=== PATIENT | female | born 1955 | race Caucasian/White ===

== ENCOUNTER 2016-11-09 13:55 | Emergency (ER) | payer MEDICARE, MEDICAID ==
--- NOTE | 2016-11-09 17:26 | RAD ---
INDICATION: Left facial numbness COMPARISON: None TECHNIQUE: Noncontrast axial source images were acquired from the skull base to the vertex. FINDINGS: Ventricles/sulci: The ventricles and cisterns are normal in size and configuration for age. Brain parenchyma: There is no focal parenchymal finding, evidence of intracranial mass, or intracranial mass effect. Intracranial hemorrhage:None. Extra-axial spaces: There are no abnormal extra axial fluid collections or evidence of extra-axial mass. Calvarium: There is no calvarial fracture or other calvarial abnormality. Scalp: There is no evidence of scalp or extracalvarial soft tissue abnormality. Paranasal sinuses/mastoid: The paranasal sinuses and mastoid air cells are clear. Other: None. IMPRESSION: No acute intracranial findings.
[2016-11-09 17:45] VITALS: BP 116/59
--- NOTE | 2016-11-09 18:07 | ED ---
Farhan Hendrix Billy, scribed for Mayo Julio MD on 11/09/16 at 1517 . Neurological HPI - HPI Summary HPI Summary: 61 year old female arrived to the ED complaining of left-sided facial numbness beginning three days ago. The numbness is intermittent and localized only on the left cheek. She also reports sore throat, rhinorrhea, nausea, and chronic tinnitus. Denies any difficulties with speech, vision, movement, ear pain, or chest pain. Denies PMHx of a stroke. She states that the last similar episode occurred 2.5 weeks ago, and the numbness again resolved spontaneously at that time. She has a PMHx of anxiety, COPD, asthma, tachycardia, and PFO heart. - History of Current Complaint Chief Complaint: EDGeneral Stated Complaint: FACIAL NUMBNESS Time Seen by Provider: 11/09/16 14:19 Hx Obtained From: Patient Onset/Duration: Gradual Onset, Started weeks ago - Started three weeks ago, resolved spontaneously. Happened again beginning three days ago. Timing: Intermittent Episodes Lasting: Onset Severity: Moderate Current Severity: Moderate Neurological Deficit Location: Facial Pain Intensity: 0 Character: Numbness/Tingling - left side of the face Aggravating: Nothing Alleviating: Nothing Associated Signs and Symptoms: Positive: Numbness - left face. Negative: Unsteady Gait, Visual Changes, Weakness, Pain, Impaired Speech, Chest Pain - Additional Pertinent History Primary Care Physician: [id number] - Allergy/Home Medications Allergies/Adverse Reactions: Allergies Allergy/AdvReac Type Severity Reaction Status Date / Time Latex Allergy Severe RASH, ITCHY Verified 11/09/16 14:08 Cefaclor [From Ceclor] Allergy Intermediate Swelling Verified 11/09/16 14:08 Codeine Allergy Intermediate Swelling Verified 11/09/16 14:08 Erythromycin Allergy Intermediate Swelling Verified 11/09/16 14:08 Hydrocodone [From Vicodin] Allergy Intermediate rash feels Verified 11/09/16 14: 08 funny Meperidine [From Demerol HCl] Allergy Intermediate Swelling Verified 11/09/16 14 :08 Morphine Allergy Intermediate Swelling Verified 11/09/16 14:08 Oxycodone Allergy Intermediate rash feels Verified 11/09/16 14:08 [From Oxycodone funny W/Acetaminophen] Paroxetine [From Paxil] Allergy Intermediate rash,face Verified 11/09/16 14:08 ,throat swelling Propranolol [From Inderal] Allergy Intermediate Swelling Verified 11/09/16 14:08 Tetracyclines Allergy Intermediate Swelling Verified 11/09/16 14:08 Acetaminophen Allergy TONGUE Verified 11/09/16 14:08 [From Darvocet-N] SWELLS Ibuprofen Allergy Difficulty Verified 11/09/16 14:08 Breathing Propoxyphene Allergy TONGUE Verified 11/09/16 14:08 [From Darvocet-N] SWELLS PMH/Surg Hx/FS Hx/Imm Hx Endocrine/Hematology History: Reports: Hx Anemia - TAKES 325 MG ASPIRIN DAILY Denies: Hx Diabetes, Hx Systemic Lupus Erythematosus Cardiovascular History: Reports: Hx Angina, 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 EF%50-55 Denies: Hx Aneurysm, Hx Congestive Heart Failure, Hx Deep Vein Thrombosis Respiratory History: Reports: Hx Asthma, Hx Chronic Obstructive Pulmonary Disease (COPD) Denies: Other Respiratory Problems/Disorders GI History: Reports: Hx Gall Bladder Disease, Hx Gastroesophageal Reflux Disease - ON MEDICATION FOR, Other GI Disorders - HIATAL HERNIA History: Denies: Hx Dialysis, Hx Renal Disease Musculoskeletal History: Reports: Hx Arthritis - HANDS Denies: Hx Rheumatoid Arthritis, Hx Osteoporosis Sensory History: Reports: Hx Contacts or Glasses, Hx Vision Problem Denies: Hx Hearing Aid Opthamlomology History: Reports: Hx Contacts or Glasses, Hx Vision Problem Neurological History: Reports: Hx Migraine Denies: Hx CVA, Hx Transient Ischemic Attacks (TIA), Other Neuro Impairments/ Disorders - HERNIATED DISC Psychiatric History: Reports: Hx Anxiety - ROUTINE AND PRN MEDICATION FOR, Hx Depression - PTSD- D/T CANCER- TAKES ATIVAN DAILY, Hx Post Traumatic Stress Disorder - Cancer History Cancer Type, Location and Year: breast/2011 Hx Chemotherapy: Yes Hx Radiation Therapy: Yes - Surgical History Surgery Procedure, Year, and Place: RIGHT LUMPECTOMY, TOBI 2012, HYSTERECTOMY 1991, POWERPORT LCW, Hx Anesthesia Reactions: Yes - SEVERE ANXIETY- WITH LUMPECTOMY AND PORT PLACEMENT AND SEVERE NAUSEA - Immunization History Date of Tetanus Vaccine: up to date Date of Influenza Vaccine: 2015 Infectious Disease History: No Infectious Disease History: Denies: Hx Clostridium Difficile, Hx Hepatitis, Hx of Known/Suspected MRSA, Hx Shingles, Hx Tuberculosis, Hx Known/Suspected VRE, Hx Known/Suspected VRSA, History Other Infectious Disease, Traveled Outside the [place] in Last 30 Days - Family History Known Family History: Positive: Cardiac Disease, Other - PE - Social History Alcohol Use: None Hx Substance Use: No Substance Use Type: Reports: None Hx Tobacco Use: Yes Smoking Status (MU): Former Smoker Type: Cigarettes Have You Smoked in the Last Year: Yes Review of Systems Negative: Blurred Vision Positive: Sore Throat, Nasal Discharge, Other - chronic tinnitus. Negative: Ear Ache Negative: Chest Pain Negative: Abdominal Pain Positive: Numbness. Negative: Headache, Weakness, Slurred Speech All Other Systems Reviewed And Are Negative: Yes Physical Exam Triage Information Reviewed: Yes Vital Signs On Initial Exam: Initial Vitals Temp Pulse Resp BP Pulse Ox 97.4 F 84 16 104/68 95 11/09/16 14:01 11/09/16 14:01 11/09/16 14:01 11/09/16 14:01 11/09/16 14:01 Vital Signs Reviewed: Yes Appearance: Positive: Well-Appearing, No Pain Distress Skin: Positive: Warm, Skin Color Reflects Adequate Perfusion, Dry Head/Face: Negative: Normal Head/Face Inspection - left facial numbness, everything else equal and normal Eyes: Positive: EOMI, ROSEANNA ENT: Positive: Normal ENT inspection Neck: Positive: Supple, Nontender Respiratory/Lung Sounds: Positive: Clear to Auscultation, Breath Sounds Present Cardiovascular: Positive: RRR Abdomen Description: Positive: Nontender, Soft Bowel Sounds: Positive: Present Musculoskeletal: Positive: Strength/ROM Intact Neurological: Positive: Alert, Oriented to Person Place, Time, Facial Symmetry, Other - Left sided facial numbness. Otherwise, neurologically intact.. Negative : Facial Droop, Slurred Speech Psychiatric: Positive: Normal - [place] Coma Scale Coma Scale Total: 15 Diagnostics - Vital Signs Vital Signs Temp Pulse Resp BP Pulse Ox 11/09/16 14:17 85 15 95 11/09/16 14:16 117/60 11/09/16 14:01 97.4 F 84 16 104/68 95 - Laboratory Lab Statement: Any lab studies that have been ordered have been reviewed, and results considered in the medical decision making process. - CT Head CT CT Interpretation Completed By: Radiologist - IMPRESSION: No acute intracranial findings. Re-Evaluation - Re-Evaluation First Eval Re-Evaluation Time: 17:37 Comment: CT brain imaing results reviewed. Discussed plan for discharge and and follow-up MRI. Patient is agreeable with this plan. Course/Dx - Course Assessment/Plan: PARESTHESIA IMPROVED IN ED. NO WEAKNESS ON EXAM. DISCUSSED WITH DR MAHMOOD. HE RECOMMENDS MRI BRAIN WITH AND WITHOUT AN OUT PATIENT AND OFFERED TO SEE PATIENT IN ED. PATIENT WISHES TO GO HOME NOW. DISCUSSED WITH PATIENT. DISCHARGE HOME STABLE. - Diagnoses Provider Diagnoses: Facial paresthesia - Physician Notifications Discussed Care of Patient With: 17:32 - spoke with Dr. Mahmood (neurologist). Indicated that patient will require MRI with and without contrast. Discharge - Discharge Plan Condition: Stable Disposition: HOME Patient Education Materials: Paresthesia (ED) Referrals: Johan Shukla MD [Primary Care Provider] - Additional Instructions: FOLLOW UP WITH YOUR DOCTOR. DR MAHMOOD, THE NEUROLOGIST, RECOMMENDS A BRAIN MRI WITH AND WITHOUT CONTRAST FOR FURTHER EVALUATION OF YOUR INTERMITTENT LEFT FACE NUMBNESS. RETURN TO THE EMERGENCY DEPARTMENT FOR ANY WORSENING OF YOUR CONDITION; WEAKNESS , NUMBNESS, DIFFICULTY WITH SPEECH, STROKE SYMPTOMS OR QUESTIONS OR CONCERNS. The documentation as recorded by the Farhan mcclelland Billy accurately reflects the service I personally performed and the decisions made by me, Mayo Julio MD.
== END 2016-11-09 17:45 | disposition home or self-care (01) ==
LOC: ED 13:55
DX: R20.9 Unspecified disturbances of skin sensation (principal); J02.9 Acute pharyngitis, unspecified; J34.89 Other specified disorders of nose and nasal sinuses
CPT/HCPCS: 70450; 99282

== ENCOUNTER → 2017-01-06 06:45 | Emergency (ER) | payer MEDICARE, MEDICAID ==
[~2017-01-06 06:45] MED LIST: NS 0.9% 1000 ML* 1,000 ML IV ONE; methylPREDNISolone SOD SUCC* 125 MG 2 ML VIAL IV ONE
[2017-01-06 06:53] VITALS: BP 117/66
--- NOTE | 2017-01-06 08:16 | RAD ---
Indication: Shortness of breath. 2 views of the chest including dual energy PA views demonstrate no mediastinal shift. Heart is of normal size and configuration. Lung niño are clear. IMPRESSION: Hyperinflated lung niño without evidence of active cardiopulmonary disease.
[2017-01-06 08:28] LABS: Hematocrit 42 % (35-47); Hemoglobin 13.7 g/dl (12.0-16.0); Mean Corpuscular HGB Conc 33 g/dl (31-36); Mean Corpuscular Hemoglobin 31 pg (27-31); Mean Corpuscular Volume 94 fL (80-97); Mean Platelet Volume 10 um3 (7.4-10.4); Red Blood Count 4.41 10^6/ul (4.0-5.4); Red Cell Distribution Width 14 % (10.5-15)
[2017-01-06 08:39] LABS: Albumin 4.1 g/dL (3.2-5.2); BUN/Creatinine Ratio 14.9 (8-20); Calcium 9.3 mg/dL (8.6-10.3); EGFR African American 85.7 (>60); EGFR Non-African American 66.6 (>60); Globulin 1.1 g/dL (2-4); Total Bilirubin 0.4 mg/dL (0.2-1.0); Total Protein 5.2 g/dL (6.4-8.9)
--- NOTE | 2017-01-06 10:02 | ED ---
I, DoctorYen, scribed for Sharad Stock MD on 01/06/17 at 0715 . Shortness of Breath - HPI Summary HPI Summary: 61 year old female [facility] [facility] [place]B and cough for 2 days. She reports chest /throat tightness, and feeling like "she can't get anything to come up" when coughing. Pt uses nebulizer and 2 inhalers regularly; used both today twice (at 0200 and 0600) but her symptoms were unchanged. Additionally, she reports a fever of 101 yesterday that has since resolved. She has been using CPAP for sleep apnea, and has a PMHx of asthma and COPD. She has taken prednisone and abx in the past as prescribed by Dr. Branham (PCP). - History of Current Complaint Chief Complaint: EDShortnessOfBreath Time Seen by Provider: 01/06/17 07:07 Hx Obtained From: Patient Onset/Duration: Gradual Onset Current Severity: Moderate Alleviating Factors: Nothing - symptoms unchanged after using nebulizer and inhaler Associated Signs & Symptoms: Cough (Nonproductive), Chest Pain w/Cough - chest/ throat "tightness", Fever - fever yesterday, now resolved - Allergy/Home Medications Allergies/Adverse Reactions: Allergies Allergy/AdvReac Type Severity Reaction Status Date / Time Latex Allergy Severe RASH, ITCHY Verified 01/06/17 06:53 Cefaclor [From Ceclor] Allergy Intermediate Swelling Verified 01/06/17 06:53 Codeine Allergy Intermediate Swelling Verified 01/06/17 06:53 Erythromycin Allergy Intermediate Swelling Verified 01/06/17 06:53 Hydrocodone [From Vicodin] Allergy Intermediate rash feels Verified 01/06/17 06: 53 funny Meperidine [From Demerol HCl] Allergy Intermediate Swelling Verified 01/06/17 06 :53 Morphine Allergy Intermediate Swelling Verified 01/06/17 06:53 Oxycodone Allergy Intermediate rash feels Verified 01/06/17 06:53 [From Oxycodone funny W/Acetaminophen] Paroxetine [From Paxil] Allergy Intermediate rash,face Verified 01/06/17 06:53 ,throat swelling Propranolol [From Inderal] Allergy Intermediate Swelling Verified 01/06/17 06:53 Tetracyclines Allergy Intermediate Swelling Verified 01/06/17 06:53 Acetaminophen Allergy TONGUE Verified 01/06/17 06:53 [From Darvocet-N] SWELLS Ibuprofen Allergy Difficulty Verified 01/06/17 06:53 Breathing Propoxyphene Allergy TONGUE Verified 01/06/17 06:53 [From Darvocet-N] SWELLS Sulfate Allergy Shortness Verified 01/06/17 06:53 of Breath PMH/Surg Hx/FS Hx/Imm Hx Endocrine/Hematology History: Reports: Hx Anemia - TAKES 325 MG ASPIRIN DAILY Denies: Hx Diabetes, Hx Systemic Lupus Erythematosus Cardiovascular History: Reports: Hx Angina, 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 EF%50-55 Denies: Hx Aneurysm, Hx Congestive Heart Failure, Hx Deep Vein Thrombosis Respiratory History: Reports: Hx Asthma, Hx Chronic Obstructive Pulmonary Disease (COPD) Denies: Other Respiratory Problems/Disorders GI History: Reports: Hx Gall Bladder Disease, Hx Gastroesophageal Reflux Disease - ON MEDICATION FOR, Other GI Disorders - HIATAL HERNIA History: Denies: Hx Dialysis, Hx Renal Disease Musculoskeletal History: Reports: Hx Arthritis - HANDS Denies: Hx Rheumatoid Arthritis, Hx Osteoporosis Sensory History: Reports: Hx Contacts or Glasses, Hx Vision Problem Denies: Hx Hearing Aid Opthamlomology History: Reports: Hx Contacts or Glasses, Hx Vision Problem Neurological History: Reports: Hx Migraine Denies: Hx CVA, Hx Transient Ischemic Attacks (TIA), Other Neuro Impairments/ Disorders - HERNIATED DISC Psychiatric History: Reports: Hx Anxiety - ROUTINE AND PRN MEDICATION FOR, Hx Depression - PTSD- D/T CANCER- TAKES ATIVAN DAILY, Hx Post Traumatic Stress Disorder - Cancer History Cancer Type, Location and Year: breast/2010 Hx Chemotherapy: Yes Hx Radiation Therapy: Yes - Surgical History Surgery Procedure, Year, and Place: RIGHT LUMPECTOMY, TOBI 2012, HYSTERECTOMY 1991, POWERPORT LCW, Hx Anesthesia Reactions: Yes - SEVERE ANXIETY- WITH LUMPECTOMY AND PORT PLACEMENT AND SEVERE NAUSEA - Immunization History Date of Tetanus Vaccine: up to date Date of Influenza Vaccine: 2015 Infectious Disease History: No Infectious Disease History: Denies: Hx Clostridium Difficile, Hx Hepatitis, Hx of Known/Suspected MRSA, Hx Shingles, Hx Tuberculosis, Hx Known/Suspected VRE, Hx Known/Suspected VRSA, History Other Infectious Disease, Traveled Outside the [place] in Last 30 Days - Family History Known Family History: Positive: Cardiac Disease, Other - PE - Social History Alcohol Use: None Hx Substance Use: No Substance Use Type: Reports: None Hx Tobacco Use: Yes Smoking Status (MU): Former Smoker Type: Cigarettes Have You Smoked in the Last Year: Yes Review of Systems Positive: Fever - fever of 101 yesterday, since resolved Positive: Other - throat "tightness" Positive: Chest Pain - chest "tightness" Positive: Shortness Of Breath, Cough All Other Systems Reviewed And Are Negative: Yes Physical Exam Triage Information Reviewed: Yes Vital Signs On Initial Exam: Initial Vitals Temp Pulse Resp BP Pulse Ox 98.3 F 77 20 117/66 96 01/06/17 06:48 01/06/17 06:48 01/06/17 06:48 01/06/17 06:48 01/06/17 06:48 Vital Signs Reviewed: Yes Appearance: Positive: Well-Appearing, No Pain Distress Skin: Positive: Warm, Skin Color Reflects Adequate Perfusion, Dry Head/Face: Positive: Normal Head/Face Inspection Eyes: Positive: Normal ENT: Positive: Normal ENT inspection Neck: Positive: Supple, Nontender Respiratory/Lung Sounds: Positive: Breath Sounds Present, Other - crackles on the right base Cardiovascular: Positive: RRR Abdomen Description: Positive: Nontender, Soft Bowel Sounds: Positive: Present Neurological: Positive: Normal Psychiatric: Positive: Normal, Affect/Mood Appropriate Diagnostics - Vital Signs Vital Signs Temp Pulse Resp BP Pulse Ox 01/06/17 06:48 98.3 F 77 20 117/66 96 - Laboratory Lab Results: Lab Results 01/06/17 01/06/17 01/06/17 Range/Units 08:00 08:00 08:00 WBC 8.0 (3.5-10.8) 10^3/ul RBC 4.41 (4.0-5.4) 10^6/ul Hgb 13.7 (12.0-16.0) g/dl Hct 42 (35-47) % MCV 94 (80-97) fL MCH 31 (27-31) pg MCHC 33 (31-36) g/dl RDW 14 (10.5-15) % Plt Count 203 (150-450) 10^3/ul MPV 10 (7.4-10.4) um3 Neut % (Auto) 75.4 (38-83) % Lymph % (Auto) 13.8 L (25-47) % [place] % (Auto) 7.1 (1-9) % Eos % (Auto) 2.5 (0-6) % Baso % (Auto) 1.2 (0-2) % Absolute Neuts (auto) 6.1 (1.5-7.7) 10^3/ul Absolute Lymphs (auto) 1.1 (1.0-4.8) 10^3/ul Absolute Monos (auto) 0.6 (0-0.8) 10^3/ul Absolute Eos (auto) 0.2 (0-0.6) 10^3/ul Absolute Basos (auto) 0.1 (0-0.2) 10^3/ul Absolute Nucleated RBC 0.01 10^3/ul Nucleated RBC % 0.1 Sodium 137 (133-145) mmol/L Potassium 4.0 (3.5-5.0) mmol/L Chloride 103 (101-111) mmol/L Carbon Dioxide 27 (22-32) mmol/L Anion Gap 7 (2-11) mmol/L BUN 13 (6-24) mg/dL Creatinine 0.87 (0.51-0.95) mg/dL Est GFR ( Amer) 85.7 (>60) Est GFR (Non-Af Amer) 66.6 (>60) BUN/Creatinine Ratio 14.9 (8-20) Glucose 104 H (70-100) mg/dL Lactic Acid 1.5 (0.5-2.0) mmol/L Calcium 9.3 (8.6-10.3) mg/dL Total Bilirubin 0.40 (0.2-1.0) mg/dL AST 43 H (13-39) U/L ALT 42 (7-52) U/L Alkaline Phosphatase 84 (34-104) U/L Troponin I 0.00 (<0.04) ng/mL B-Natriuretic Peptide ( - 100) pg/mL Total Protein 5.2 L (6.4-8.9) g/dL Albumin 4.1 (3.2-5.2) g/dL Globulin 1.1 L (2-4) g/dL Albumin/Globulin Ratio 3.7 H (1-3) /24/17 Range/Units 08:00 WBC (3.5-10.8) 10^3/ul RBC (4.0-5.4) 10^6/ul Hgb (12.0-16.0) g/dl Hct (35-47) % MCV (80-97) fL MCH (27-31) pg MCHC (31-36) g/dl RDW (10.5-15) % Plt Count (150-450) 10^3/ul MPV (7.4-10.4) um3 Neut % (Auto) (38-83) % Lymph % (Auto) (25-47) % [place] % (Auto) (1-9) % Eos % (Auto) (0-6) % Baso % (Auto) (0-2) % Absolute Neuts (auto) (1.5-7.7) 10^3/ul Absolute Lymphs (auto) (1.0-4.8) 10^3/ul Absolute Monos (auto) (0-0.8) 10^3/ul Absolute Eos (auto) (0-0.6) 10^3/ul Absolute Basos (auto) (0-0.2) 10^3/ul Absolute Nucleated RBC 10^3/ul Nucleated RBC % Sodium (133-145) mmol/L Potassium (3.5-5.0) mmol/L Chloride (101-111) mmol/L Carbon Dioxide (22-32) mmol/L Anion Gap (2-11) mmol/L BUN (6-24) mg/dL Creatinine (0.51-0.95) mg/dL Est GFR ( Amer) (>60) Est GFR (Non-Af Amer) (>60) BUN/Creatinine Ratio (8-20) Glucose (70-100) mg/dL Lactic Acid (0.5-2.0) mmol/L Calcium (8.6-10.3) mg/dL Total Bilirubin (0.2-1.0) mg/dL AST (13-39) U/L ALT (7-52) U/L Alkaline Phosphatase (34-104) U/L Troponin I (<0.04) ng/mL B-Natriuretic Peptide 30 ( - 100) pg/mL Total Protein (6.4-8.9) g/dL Albumin (3.2-5.2) g/dL Globulin (2-4) g/dL Albumin/Globulin Ratio (1-3) Result Diagrams: 01/06/17 08:00 01/06/17 08:00 Lab Statement: Any lab studies that have been ordered have been reviewed, and results considered in the medical decision making process. - Radiology Chest X-Ray Radiology Interpretation Completed By: Radiologist - IMPRESSION: Hyperinflated lung niño without evidence of active cardiopulmonary disease. Re-Evaluation - Re-Evaluation First Eval Re-Evaluation Time: 09:24 Comment: Discussed lab results and plan to discharge pt. She was agreeable. Course/Dx - Course Course Of Treatment: Ms. Cifuentes reported a fever and cough aggravating her underlying respiratory problems and forcing her to use her medications frequently. She was stable here without pneumonia and I will treat her for ABECB. - Diagnoses Provider Diagnoses: Bronchitis, COPD (chronic obstructive pulmonary disease) Discharge - Discharge Plan Condition: Stable Disposition: HOME Prescriptions: Sulfamethox/Trimethoprim DS* [Bactrim DS 800/160 TAB*] 1 tab PO BID #20 tab predniSONE TAB* [Deltasone TAB*] 60 mg PO DAILY #5 tab Patient Education Materials: Bronchospasm (ED), Acute Bronchitis (ED) Referrals: Johan Shukla MD [Primary Care Provider] - The documentation as recorded by the Doctor mcclelland Tahera accurately reflects the service I personally performed and the decisions made by me, Sharad Stock MD.
== END | disposition home or self-care (01) ==
LOC: ED 06:45
DX: J40 Bronchitis, not specified as acute or chronic (principal); J44.9 Chronic obstructive pulmonary disease, unspecified; R06.02 Shortness of breath; R05 Cough; R07.9 Chest pain, unspecified
CPT/HCPCS: 36415; 71020; 80053; 83605; 83880; 84484; 85025; 87040; 96374; 99284; J2930

== ENCOUNTER 2017-01-11 09:12 | Observation (INO) | payer MEDICARE, MEDICAID ==
[2017-01-11] MEDS ORDERED: Albuterol/Ipratropium NEB.SOL* Albuterol 2.5 MG/Ipratropium 0.5 MG 3 ML INH ONE (09:42)
[2017-01-11] MEDS ORDERED: methylPREDNISolone SOD SUCC* 125 MG 2 ML VIAL IV ONE (09:42)
[2017-01-11] MEDS: NS 0.9% 1000 ML* 2,000 ML IV ONE (09:51)
[2017-01-11 10:00] LABS: Hematocrit 43 % (35-47); Hemoglobin 14.3 g/dl (12.0-16.0); Mean Corpuscular HGB Conc 33 g/dl (31-36); Mean Corpuscular Hemoglobin 31 pg (27-31); Mean Corpuscular Volume 94 fL (80-97); Mean Platelet Volume 10 um3 (7.4-10.4); Red Blood Count 4.62 10^6/ul (4.0-5.4); Red Cell Distribution Width 14 % (10.5-15); White Blood Count 8.9 10^3/ul (3.5-10.8)
[2017-01-11] MEDS ORDERED: LORazepam INJ* 2 MG/ML 1 ML VIAL IV PUSH ONE (10:06)
[2017-01-11] MEDS ORDERED: LORazepam INJ* 2 MG/ML 1 ML VIAL ONE (10:08)
[2017-01-11 10:12] LABS: BUN/Creatinine Ratio 13.7 (8-20); C Reactive Protein 16.12 mg/L (< 5.00); Calcium 9.2 mg/dL (8.6-10.3); EGFR African American 71.3 (>60); EGFR Non-African American 55.5 (>60); Globulin 3.4 g/dL (2-4); Potassium 4.1 mmol/L (3.5-5.0); Total Bilirubin 0.3 mg/dL (0.2-1.0); Total Protein 7.4 g/dL (6.4-8.9)
--- NOTE | 2017-01-11 10:40 | RAD ---
INDICATION: Shortness of breath, cough. COPD. Question pneumonia. COMPARISON: January 06, 2017 TECHNIQUE: Dual energy PA and routine lateral views of the chest were obtained. REPORT: Multiple healed RIGHT rib fractures noted. Elevated lung volumes and both mild coarsening and rarefaction of the interstitial markings. No alveolar consolidation, focal pulmonary lesion, pleural effusion, pneumothorax. The heart, pulmonary vasculature, and mediastinal contours are unremarkable. IMPRESSION: Stigmata of chronic obstructive pulmonary disease. No acute cardiopulmonary process evident.
[2017-01-11] MEDS ORDERED: NS 0.9% 1000 ML* 1,000 ML IV ONE (12:26)
[2017-01-11] MEDS ORDERED: Benzonatate CAP* 100 MG PO PRN (13:24)
[2017-01-11] MEDS: guaiFENesin LIQ* 100 MG/5 ML UDC PO PRN (14:25)
[2017-01-11] MEDS: Heparin VIAL(*) 5000 UNITS/ML VIAL (FIVE THOUSAND) SUBCUT SCH ×2 (14:26→21:22)
[2017-01-11] MEDS: ALPRAZolam TAB* 0.5 MG PO PRN ×2 (14:39→20:13)
[2017-01-11] MEDS: Albuterol/Ipratropium NEB.SOL* Albuterol 2.5 MG/Ipratropium 0.5 MG 3 ML INH PRN ×2 (15:39→20:12)
--- NOTE | 2017-01-11 15:41 | HP ---
HOSPITAL MEDICINE HISTORY AND PHYSICAL: DATE OF ADMISSION: 01/11/17 PRIMARY CARE PHYSICIAN: Dr. Shukla. ATTENDING PHYSICIAN: Dr. Faisal Rubio *(dictation provided by Benita Mariee NP.). CHIEF COMPLAINT: Shortness of breath. HISTORY OF PRESENT ILLNESS: Ms. Renetta Cifuentes is a 61-year-old female with a past medical history of COPD, obesity, and hypertension who presents today to the hospital with concern for shortness of breath. Ms. Cifuentes states she first started feeling unwell early this week. She reports feeling more short of breath and wheezy with increased cough. She came to the hospital on at which time she was thought to perhaps have bronchitis, so was discharged on Bactrim and 2- day course of prednisone. The patient states that she really did not feel any better with this and over the past 24 hours or so, she has become worse with increased shortness of breath, wheezing, and cough. She also reports having fever of 102 last night. She denies any other complaints. She has had no nausea, no vomiting, no abdominal pain. She has had a poor appetite , but then eating okay. She has had no problems with her bowel or bladder. She denies chest pain. In the emergency room, Ms. Cifuentes was wheezy on admission and was short of breath clinically, although she was not hypoxic with an O2 saturation of 98% on room air. Chest x-ray showed COPD only. Her labs are unremarkable. She has no leukocytosis, no fever. Her D-dimer is less than 200. Her CRP is 16.12. PAST MEDICAL HISTORY: 1. COPD. 2. Obesity. 3. History of TIA. 4. SVT. 5. PFO. 6. History of breast cancer, status post lumpectomy. 7. Hiatal hernia. 8. Hypertension. 9. Hysterectomy. 10. Laparoscopic cholecystectomy. MEDICATIONS: 1. Alprazolam 1 mg p.o. q.i.d. 2. Albuterol inhaler p.r.n. 3. Albuterol nebulizer p.r.n. 4. Aspirin 325 mg p.o. q.a.m. 5. Flecainide 100 mg p.o. b.i.d. 6. Fluticasone/salmeterol 250/50 one puff inhaled b.i.d. 7. Metoprolol succinate 25 mg p.o. daily. 8. Bactrim 1 tab p.o. b.i.d. ALLERGIES: LATEX, CEFACLOR, CODEINE, ERYTHROMYCIN, HYDROCODONE, MEPERIDINE, MORPHINE, OXYCODONE, PAROXETINE, PROPRANOLOL, TETRACYCLINE, TYLENOL, IBUPROFEN, PROPOXYPHENE SULFATE. FAMILY HISTORY: Mother 3 years ago from leukemia. Father had a history of UT at 36. Sister has CREST syndrome. SOCIAL HISTORY: The patient states she quit smoking 11 days ago, but she has been a long-term smoker since she was age 18. Denies any report of alcohol or drug use. She lives alone. States that her sister would be the healthcare proxy. REVIEW OF SYSTEMS: A 14-point review of systems was completed with Ms. Cifuentes and all those not mentioned above were negative. PHYSICAL EXAMINATION GENERAL: Ms. Cifuentes is sitting up in the bed. She is in no acute distress. VITAL SIGNS: Temperature 98.4, pulse rate 102, respiratory rate 19, O2 saturation 98% on room air, blood pressure 94/77. LUNGS: Some minimal wheezing in the bases bilaterally, but good aeration with no accessory muscle use. HEART: S1, S2. No murmur, rub, or gallop and regular. ABDOMEN: Soft, nontender with bowel sounds positive x4. EXTREMITIES: No cyanosis or edema. NEUROLOGIC: She is alert and oriented x3. She moves all extremities equally. There is no facial asymmetry or focal weakness. Extraocular movements are intact. SKIN: Intact. LABORATORY DATA AND DIAGNOSTIC STUDIES: Sodium 132, potassium 4.1, chloride 101, serum bicarbonate 23, BUN 14, creatinine 1.02, glucose 136, lactic acid 2.6. Troponin 0.010. CRP 16.12. WBC 8.9, hemoglobin 14.3, hematocrit 43, platelet count 285. Chest x-ray shows no acute process. EKG shows sinus rhythm and a heart rate of 78 with no evidence of ischemia. ASSESSMENT: Ms. Renetta Cifuentes is a 61-year-old female with a past medical history of chronic obstructive pulmonary disease and long-term smoking as well as hypertension and obesity who presents today to the hospital with concern for shortness of breath. Our plans are for inpatient admission for the following with expected length of stay to be greater than 2 days as noted: 1. Chronic obstructive pulmonary disease: The patient subjectively feels quite poorly although she is not hypoxic and had no evidence that she has significant CO2 retention at this time. She had reported a fever x1 at home, but she shows no clear evidence of infection here today. I plan not to treat with antibiotics. Her chest x-ray is clear. She has no leukocytosis. She is not febrile at this point. Plan to treat with prednisone and DuoNeb nebulizers. Encourage incentive spirometry. Patient can have cough medicine as needed. 2. History of supraventricular tachycardia: Continue flecainide. 3. Anxiety: Continue alprazolam. 4. Hypertension: Continue metoprolol. 5. DVT prophylaxis with heparin subcu. 6. Disposition to medical floor. TIME SPENT: Approximately 60 minutes was spent on the admission of this patient , more than half time spent with the patient at the bedside reviewing the events leading up to this hospitalization, performing the physical examination, and reviewing my plan of care. BENITA MARIEE NP CC: Dr. Shukla* [id number]/CPS #: [id number] MTDD
--- NOTE | 2017-01-11 18:06 | ED ---
Alicia Hendrix SooYoung, scribed for Georges Wilson MD on 01/11/17 at 0923 . Shortness of Breath - HPI Summary HPI Summary: A 61 y/o F who was seen in ED on 01/06/2017 with dx: bronchitis and COPD, home with Prednisone and Bactrim, presents to ED with c/o dyspnea and SOB. Associated sx: lightheadedness, dizziness, chills, unproductive cough, bilateral pedal edema without pain, nausea, GRACE, rhinorrhea, fever of 102 last night, since resolved. She last used her nebulizer at 0400 to no relief. Pt took OTC IBP at 0300. Recent smoking cessation 10 days ago. PMHx: mild COPD, sleep apnea, is not on home oxygen, HTN, breast CA remission. Denies MD. Spoke to PCP on 01/09/2017 who recommended going to ED if not improved by today. - History of Current Complaint Chief Complaint: EDShortnessOfBreath Time Seen by Provider: 01/11/17 09:22 Hx Obtained From: Patient, Medical Records Onset/Duration: Lasting Days, Still Present Timing: Constant Current Severity: Moderate Dyspnea At: Rest Associated Signs & Symptoms: Cough (Nonproductive), Fever, Chills, Dizzy, Edema - Allergy/Home Medications Allergies/Adverse Reactions: Allergies Allergy/AdvReac Type Severity Reaction Status Date / Time Latex Allergy Severe RASH, ITCHY Verified 01/11/17 09:35 Cefaclor [From Ceclor] Allergy Intermediate Swelling Verified 01/11/17 09:35 Codeine Allergy Intermediate Swelling Verified 01/11/17 09:35 Erythromycin Allergy Intermediate Swelling Verified 01/11/17 09:35 Hydrocodone [From Vicodin] Allergy Intermediate rash feels Verified 01/11/17 09: 35 funny Meperidine [From Demerol HCl] Allergy Intermediate Swelling Verified 01/11/17 09 :35 Morphine Allergy Intermediate Swelling Verified 01/11/17 09:35 Oxycodone Allergy Intermediate rash feels Verified 01/11/17 09:35 [From Oxycodone funny W/Acetaminophen] Paroxetine [From Paxil] Allergy Intermediate rash,face Verified 01/11/17 09:35 ,throat swelling Propranolol [From Inderal] Allergy Intermediate Swelling Verified 01/11/17 09:35 Tetracyclines Allergy Intermediate Swelling Verified 01/11/17 09:35 Acetaminophen Allergy TONGUE Verified 01/11/17 09:35 [From Darvocet-N] SWELLS Ibuprofen Allergy Difficulty Verified 01/11/17 09:35 Breathing Propoxyphene Allergy TONGUE Verified 01/11/17 09:35 [From Darvocet-N] SWELLS Sulfate Allergy Shortness Verified 01/11/17 09:35 of Breath Home Medications: Home Medications Fluticasone-Salmeterol 250-50* [Advair Diskus 250-50*] 1 puff INH BID 01/11/17 [ History Confirmed 01/11/17] PMH/Surg Hx/FS Hx/Imm Hx Previously Healthy: No Endocrine/Hematology History: Reports: Hx Anemia - TAKES 325 MG ASPIRIN DAILY Denies: Hx Diabetes, Hx Systemic Lupus Erythematosus Cardiovascular History: Reports: Hx Angina, 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 EF%50-55 Denies: Hx Aneurysm, Hx Congestive Heart Failure, Hx Deep Vein Thrombosis Respiratory History: Reports: Hx Asthma, Hx Chronic Obstructive Pulmonary Disease (COPD) Denies: Other Respiratory Problems/Disorders GI History: Reports: Hx Gall Bladder Disease, Hx Gastroesophageal Reflux Disease - ON MEDICATION FOR, Other GI Disorders - HIATAL HERNIA History: Denies: Hx Dialysis, Hx Renal Disease Musculoskeletal History: Reports: Hx Arthritis - HANDS Denies: Hx Rheumatoid Arthritis, Hx Osteoporosis Sensory History: Reports: Hx Contacts or Glasses, Hx Vision Problem Denies: Hx Hearing Aid Opthamlomology History: Reports: Hx Contacts or Glasses, Hx Vision Problem Neurological History: Reports: Hx Migraine Denies: Hx CVA, Hx Transient Ischemic Attacks (TIA), Other Neuro Impairments/ Disorders - HERNIATED DISC Psychiatric History: Reports: Hx Anxiety - ROUTINE AND PRN MEDICATION FOR, Hx Depression - PTSD- D/T CANCER- TAKES ATIVAN DAILY, Hx Post Traumatic Stress Disorder - Cancer History Cancer Type, Location and Year: breast/2010 Hx Chemotherapy: Yes Hx Radiation Therapy: Yes - Surgical History Surgery Procedure, Year, and Place: RIGHT LUMPECTOMY, TOBI 2012, HYSTERECTOMY 1991, POWERPORT LCW, Hx Anesthesia Reactions: Yes - SEVERE ANXIETY- WITH LUMPECTOMY AND PORT PLACEMENT AND SEVERE NAUSEA - Immunization History Date of Tetanus Vaccine: up to date Date of Influenza Vaccine: 2016 Infectious Disease History: Denies: Hx Clostridium Difficile, Hx Hepatitis, Hx of Known/Suspected MRSA, Hx Shingles, Hx Tuberculosis, Hx Known/Suspected VRE, Hx Known/Suspected VRSA, History Other Infectious Disease, Traveled Outside the [place] in Last 30 Days - Family History Known Family History: Positive: Cardiac Disease, Other - PE - Social History Occupation: Retired Lives: Alone Alcohol Use: None Hx Substance Use: No Substance Use Type: Reports: None Hx Tobacco Use: Yes Smoking Status (MU): Former Smoker Type: Cigarettes Have You Smoked in the Last Year: Yes Review of Systems Positive: Fever, Chills Positive: Drainage - rhinorrhea Positive: Shortness Of Breath, Cough - unproductive, Other - pos: dyspnea Positive: Nausea Positive: Edema - bilat pedal Neurological: Other - pos: lightheadedness, dizziness Positive: Headache Positive: Anxious All Other Systems Reviewed And Are Negative: Yes Physical Exam - Summary Physical Exam Summary: The patient is well-nourished in and no acute pain. MILD RESPIRATORY DISTRESS. The skin is warm and dry and skin color reflects adequate perfusion. HEENT: The head is normocephalic and atraumatic. The pupils are equal and reactive. The conjunctivae are clear and without drainage. Nares are patent and without drainage. Mouth reveals moist mucous membranes and the throat is without erythema and exudate. The external ears are intact. The ear canals are patent and without drainage. The tympanic membranes are intact. L MAXILLARY SINUS TENDERNESS. NOT HOARSE. Neck is supple with full range of motion and non-tender. There are no carotid bruits. There is no neck vein distension. Respiratory: Chest is non-tender. WHEEZING AND RHONCHI THROUGHOUT. DIMINISHED BREATH SOUNDS THROUGHOUT. NEG RALES. Cardiovascular: Hear is regular rate and rhythm. There is no murmur or rub auscultated. There is no peripheral edema and pulses are symmetrical and equal. Abdomen: The abdomen is soft and non-tender. Musculoskeletal: There is no back pain noted. Extremities are non-tender with full range of motion. There is good capillary refill. MILD PERIPHERAL EDEMA. Neurological: Patient is alert and oriented to person, place and time. The patient has symmetrical motor strength in all four extremities. Cranial nerves are grossly intact. Deep tendon reflexes are symmetrical and equal in all four extremities. Psychiatric: MILD ANXIETY. Triage Information Reviewed: Yes Vital Signs On Initial Exam: Initial Vitals Temp Pulse Resp BP Pulse Ox 97.1 F 88 28 144/79 98 01/11/17 09:13 01/11/17 09:13 01/11/17 09:13 01/11/17 09:13 01/11/17 09:13 Vital Signs Reviewed: Yes Diagnostics - Vital Signs Vital Signs Temp Pulse Resp BP Pulse Ox 01/11/17 09:13 97.1 F 88 28 144/79 98 - Laboratory Lab Results: Lab Results 01/11/17 01/11/17 01/11/17 Range/Units 09:35 09:35 09:35 WBC 8.9 (3.5-10.8) 10^3/ul RBC 4.62 (4.0-5.4) 10^6/ul Hgb 14.3 (12.0-16.0) g/dl Hct 43 (35-47) % MCV 94 (80-97) fL MCH 31 (27-31) pg MCHC 33 (31-36) g/dl RDW 14 (10.5-15) % Plt Count 285 (150-450) 10^3/ul MPV 10 (7.4-10.4) um3 Neut % (Auto) 67.8 (38-83) % Lymph % (Auto) 22.1 L (25-47) % Garland % (Auto) 6.2 (1-9) % Eos % (Auto) 2.8 (0-6) % Baso % (Auto) 1.1 (0-2) % Absolute Neuts (auto) 6.0 (1.5-7.7) 10^3/ul Absolute Lymphs (auto) 2.0 (1.0-4.8) 10^3/ul Absolute Monos (auto) 0.5 (0-0.8) 10^3/ul Absolute Eos (auto) 0.2 (0-0.6) 10^3/ul Absolute Basos (auto) 0.1 (0-0.2) 10^3/ul Absolute Nucleated RBC 0 10^3/ul Nucleated RBC % 0 D-Dimer, Quantitative (Less Than 230) ng/mL Sodium 132 L (133-145) mmol/L Potassium 4.1 (3.5-5.0) mmol/L Chloride 101 (101-111) mmol/L Carbon Dioxide 23 (22-32) mmol/L Anion Gap 8 (2-11) mmol/L BUN 14 (6-24) mg/dL Creatinine 1.02 H (0.51-0.95) mg/dL Est GFR ( Amer) 71.3 (>60) Est GFR (Non-Af Amer) 55.5 (>60) BUN/Creatinine Ratio 13.7 (8-20) Glucose 136 H (70-100) mg/dL Lactic Acid 2.6 H* (0.5-2.0) mmol/L Calcium 9.2 (8.6-10.3) mg/dL Total Bilirubin 0.30 (0.2-1.0) mg/dL AST 22 (13-39) U/L ALT 31 (7-52) U/L Alkaline Phosphatase 80 (34-104) U/L Troponin I 0.00 (<0.04) ng/mL C-Reactive Protein 16.12 H (< 5.00) mg/L B-Natriuretic Peptide ( - 100) pg/mL Total Protein 7.4 (6.4-8.9) g/dL Albumin 4.0 (3.2-5.2) g/dL Globulin 3.4 D (2-4) g/dL Albumin/Globulin Ratio 1.2 (1-3) 01/11/17 01/11/17 Range/Units 09:35 09:35 WBC (3.5-10.8) 10^3/ul RBC (4.0-5.4) 10^6/ul Hgb (12.0-16.0) g/dl Hct (35-47) % MCV (80-97) fL MCH (27-31) pg MCHC (31-36) g/dl RDW (10.5-15) % Plt Count (150-450) 10^3/ul MPV (7.4-10.4) um3 Neut % (Auto) (38-83) % Lymph % (Auto) (25-47) % Garland % (Auto) (1-9) % Eos % (Auto) (0-6) % Baso % (Auto) (0-2) % Absolute Neuts (auto) (1.5-7.7) 10^3/ul Absolute Lymphs (auto) (1.0-4.8) 10^3/ul Absolute Monos (auto) (0-0.8) 10^3/ul Absolute Eos (auto) (0-0.6) 10^3/ul Absolute Basos (auto) (0-0.2) 10^3/ul Absolute Nucleated RBC 10^3/ul Nucleated RBC % D-Dimer, Quantitative < 200 (Less Than 230) ng/mL Sodium (133-145) mmol/L Potassium (3.5-5.0) mmol/L Chloride (101-111) mmol/L Carbon Dioxide (22-32) mmol/L Anion Gap (2-11) mmol/L BUN (6-24) mg/dL Creatinine (0.51-0.95) mg/dL Est GFR ( Amer) (>60) Est GFR (Non-Af Amer) (>60) BUN/Creatinine Ratio (8-20) Glucose (70-100) mg/dL Lactic Acid (0.5-2.0) mmol/L Calcium (8.6-10.3) mg/dL Total Bilirubin (0.2-1.0) mg/dL AST (13-39) U/L ALT (7-52) U/L Alkaline Phosphatase (34-104) U/L Troponin I (<0.04) ng/mL C-Reactive Protein (< 5.00) mg/L B-Natriuretic Peptide 21 ( - 100) pg/mL Total Protein (6.4-8.9) g/dL Albumin (3.2-5.2) g/dL Globulin (2-4) g/dL Albumin/Globulin Ratio (1-3) Result Diagrams: 01/11/17 09:35 01/11/17 09:35 Lab Statement: Any lab studies that have been ordered have been reviewed, and results considered in the medical decision making process. - Radiology CXR Xray Interpretation: Positive (See Comments) - IMPRESSION: Stigmata of COPD. No acute cardiopulmonary process evident. Radiology Interpretation Completed By: Radiologist - EKG 1 Cardiac Rate: NL EKG Rhythm: Sinus Rhythm EKG Interpretation: Nml axis, poor R wave progression, no STEMI Re-Evaluation - Re-Evaluation 1 Re-Evaluation Time: 11:12 Change: Improved - mildly Comment: Discussing UA and XR results. Still has increased wheezing. 2 Re-Evaluation Time: 12:23 Change: Improved Comment: HR is up, BP is a little soft. Will give more fluids. Pt has no complaints. Course/Dx - Course Course Of Treatment: Pt is 61 y/o F last seen in ED five days ago with dx: bronchitis, COPD; D/C with Prednisone and Bactrim. Presents today with c/o dyspnea, SOB and multiple associated sx, see HPI. Last nebulizer at 0400 to no relief. Took OTC IBP at 0300. Smoking cessation 10 days ago. Pt requested Ativan in order to get ABG. Pt given fluids, Albuterol, Solumedrol, Ativan in ED. CRP: 16.12. Lactic Acid: 2.6. Negative trop. CXR impression: Stigmata of COPD, no acute cardiopulmonary process. EKG shows NSR, poor R wave progression, nml axis, no STEMI. Upon reeval, pt was mildy improved with continued diffuse wheezing. Pt willing to be admitted. Spoke to hospitalist at 1134, will see pt in ED. Upon 2nd reeval, pt's HR was up, BP was low, ordered more fluids. Pt had no complaints. - Diagnoses Differential Diagnosis/HQI/PQRI: Positive: Bronchitis, CHF, COPD Exacerbation, MD, Pneumonia Provider Diagnoses: COPD with acute exacerbation - Physician Notifications Discussed Care of Patient With: Dr. Rubio, hospitalist: will see in ED. Time Discussed With Above Provider: 11:33 Instructed by Provider To: Will See In ED Discharge - Discharge Plan Condition: Stable Disposition: ADMITTED TO [facility] The documentation as recorded by the Alicia mcclelland SooYoung accurately reflects the service I personally performed and the decisions made by me, Georges Wilson MD.
[2017-01-11] MEDS: Mometasone/Formoter 200/5 MDI INH SCH (20:08)
[2017-01-11] MEDS: Flecainide TAB* 100 MG PO SCH (20:13)
[2017-01-12] MEDS: guaiFENesin LIQ* 100 MG/5 ML UDC PO PRN ×2 (00:06→13:24)
[2017-01-12] MEDS: Albuterol/Ipratropium NEB.SOL* Albuterol 2.5 MG/Ipratropium 0.5 MG 3 ML INH PRN ×3 (00:09→14:17)
[2017-01-12] MEDS: ALPRAZolam TAB* 0.5 MG PO PRN ×3 (02:28→13:25)
[2017-01-12] MEDS: Heparin VIAL(*) 5000 UNITS/ML VIAL (FIVE THOUSAND) SUBCUT SCH ×2 (05:56→13:27)
--- NOTE | 2017-01-12 08:12 | PN ---
Subjective Date of Service: 01/12/17 Interval History: C/O SOB. Non-productive cough, wheezed some during the night. No new c/o. Pt states "I quit smoking 11 days ago." She has a nebulizer at home. Her recent outpt antibiotic may have been Biaxin. Objective Active Medications: Albuterol/Ipratropium (Duoneb (Albuterol 2.5 Mg/Ipratropium 0.5 Mg)) 1 neb INH Q4H PRN PRN Reason: SOB/WHEEZING Last Admin: 01/12/17 00:09 Dose: 1 neb Alprazolam (Xanax Tab*) 1 mg PO QID PRN PRN Reason: ANXIETY Last Admin: 01/12/17 02:28 Dose: 1 mg Aspirin Buffered (Bufferin Tab*) 325 mg PO QAM [facility] Benzonatate (Tessalon Cap*) 100 mg PO BID PRN PRN Reason: COUGH Flecainide Acetate (Tambocor Tab*) 100 mg PO BID [facility] Last Admin: 01/11/17 20:13 Dose: 100 mg Guaifenesin (Robitussin*) 5 ml PO Q6H PRN PRN Reason: COUGH Last Admin: 01/12/17 00:06 Dose: 5 ml Heparin Sodium (Porcine) (Heparin Vial(*)) 5,000 units SUBCUT Q8HR [facility] Last Admin: 01/12/17 05:56 Dose: 5,000 units Metoprolol Succinate (Toprol Xl Tab*) 25 mg PO DAILY [facility] Mometasone Furoate/Formoterol Fumar (Dulera 200/5 Mdi*) 2 puff INH BID [facility] Last Admin: 01/11/17 20:08 Dose: 2 puff Prednisone (Deltasone Tab*) 60 mg PO DAILY [facility] Vital Signs 01/11/17 01/11/17 01/11/17 13:30 14:09 14:39 Temperature 97.4 F Pulse Rate 104 111 Respiratory 17 24 18 Rate Blood Pressure 130/67 142/69 (mmHg) O2 Sat by Pulse 93 97 Oximetry 01/11/17 01/11/17 01/11/17 15:43 16:39 19:31 Temperature 97.2 F Pulse Rate 103 106 Respiratory 16 18 16 Rate Blood Pressure 129/61 (mmHg) O2 Sat by Pulse 98 94 Oximetry 01/11/17 01/11/17 01/11/17 20:13 20:14 20:17 Temperature Pulse Rate 105 106 Respiratory 24 Rate Blood Pressure (mmHg) O2 Sat by Pulse 98 98 Oximetry 01/12/17 01/12/17 01/12/17 00:09 00:11 02:28 Temperature 97.4 F Pulse Rate 110 110 Respiratory 16 20 Rate Blood Pressure 118/57 (mmHg) O2 Sat by Pulse 95 98 Oximetry 01/12/17 04:28 Temperature Pulse Rate Respiratory 16 Rate Blood Pressure (mmHg) O2 Sat by Pulse Oximetry Oxygen Devices in Use Now: None Appearance: Alert, supine in bed. In good spirits. Looks comfortable. No cough during my visit. Eyes: No Scleral Icterus Ears/Nose/Mouth/Throat: Clear Oropharnyx, Mucous Membranes Moist Neck: NL Appearance and Movements; NL JVP, No Thyroid Enlargement, Masses Respiratory: Symmetrical Chest Expansion and Respiratory Effort, Clear to Percussion, - - mild expiratory wheezing Extremities: No Edema, No Clubbing, Cyanosis, - Skin: No Rash or Ulcers, No Nodules or Sclerosis, - Neurological: Alert and Oriented x 3, NL Sensation Result Diagrams: 01/11/17 09:35 01/12/17 08:09 Additional Lab and Data: Lab Results 01/11/17 01/11/17 01/11/17 Range/Units 09:35 09:35 09:35 WBC 8.9 (3.5-10.8) 10^3/ul RBC 4.62 (4.0-5.4) 10^6/ul Hgb 14.3 (12.0-16.0) g/dl Hct 43 (35-47) % MCV 94 (80-97) fL MCH 31 (27-31) pg MCHC 33 (31-36) g/dl RDW 14 (10.5-15) % Plt Count 285 (150-450) 10^3/ul MPV 10 (7.4-10.4) um3 Neut % (Auto) 67.8 (38-83) % Lymph % (Auto) 22.1 L (25-47) % Mathews % (Auto) 6.2 (1-9) % Eos % (Auto) 2.8 (0-6) % Baso % (Auto) 1.1 (0-2) % Absolute Neuts (auto) 6.0 (1.5-7.7) 10^3/ul Absolute Lymphs (auto) 2.0 (1.0-4.8) 10^3/ul Absolute Monos (auto) 0.5 (0-0.8) 10^3/ul Absolute Eos (auto) 0.2 (0-0.6) 10^3/ul Absolute Basos (auto) 0.1 (0-0.2) 10^3/ul Absolute Nucleated RBC 0 10^3/ul Nucleated RBC % 0 D-Dimer, Quantitative (Less Than 230) ng/mL Sodium 132 L (133-145) mmol/L Potassium 4.1 (3.5-5.0) mmol/L Chloride 101 (101-111) mmol/L Carbon Dioxide 23 (22-32) mmol/L Anion Gap 8 (2-11) mmol/L BUN 14 (6-24) mg/dL Creatinine 1.02 H (0.51-0.95) mg/dL Est GFR ( Amer) 71.3 (>60) Est GFR (Non-Af Amer) 55.5 (>60) BUN/Creatinine Ratio 13.7 (8-20) Glucose 136 H (70-100) mg/dL Lactic Acid 2.6 H* (0.5-2.0) mmol/L Calcium 9.2 (8.6-10.3) mg/dL Total Bilirubin 0.30 (0.2-1.0) mg/dL AST 22 (13-39) U/L ALT 31 (7-52) U/L Alkaline Phosphatase 80 (34-104) U/L Troponin I 0.00 (<0.04) ng/mL C-Reactive Protein 16.12 H (< 5.00) mg/L B-Natriuretic Peptide ( - 100) pg/mL Total Protein 7.4 (6.4-8.9) g/dL Albumin 4.0 (3.2-5.2) g/dL Globulin 3.4 D (2-4) g/dL Albumin/Globulin Ratio 1.2 (1-3) 01/11/17 01/11/17 Range/Units 09:35 09:35 WBC (3.5-10.8) 10^3/ul RBC (4.0-5.4) 10^6/ul Hgb (12.0-16.0) g/dl Hct (35-47) % MCV (80-97) fL MCH (27-31) pg MCHC (31-36) g/dl RDW (10.5-15) % Plt Count (150-450) 10^3/ul MPV (7.4-10.4) um3 Neut % (Auto) (38-83) % Lymph % (Auto) (25-47) % Mathews % (Auto) (1-9) % Eos % (Auto) (0-6) % Baso % (Auto) (0-2) % Absolute Neuts (auto) (1.5-7.7) 10^3/ul Absolute Lymphs (auto) (1.0-4.8) 10^3/ul Absolute Monos (auto) (0-0.8) 10^3/ul Absolute Eos (auto) (0-0.6) 10^3/ul Absolute Basos (auto) (0-0.2) 10^3/ul Absolute Nucleated RBC 10^3/ul Nucleated RBC % D-Dimer, Quantitative < 200 (Less Than 230) ng/mL Sodium (133-145) mmol/L Potassium (3.5-5.0) mmol/L Chloride (101-111) mmol/L Carbon Dioxide (22-32) mmol/L Anion Gap (2-11) mmol/L BUN (6-24) mg/dL Creatinine (0.51-0.95) mg/dL Est GFR ( Amer) (>60) Est GFR (Non-Af Amer) (>60) BUN/Creatinine Ratio (8-20) Glucose (70-100) mg/dL Lactic Acid (0.5-2.0) mmol/L Calcium (8.6-10.3) mg/dL Total Bilirubin (0.2-1.0) mg/dL AST (13-39) U/L ALT (7-52) U/L Alkaline Phosphatase (34-104) U/L Troponin I (<0.04) ng/mL C-Reactive Protein (< 5.00) mg/L B-Natriuretic Peptide 21 ( - 100) pg/mL Total Protein (6.4-8.9) g/dL Albumin (3.2-5.2) g/dL Globulin (2-4) g/dL Albumin/Globulin Ratio (1-3) Assess/Plan/Problems-Billing Assessment: - Patient Problems (1) COPD (chronic obstructive pulmonary disease) Current Visit: No Status: Acute Code(s): J44.9 - CHRONIC OBSTRUCTIVE PULMONARY DISEASE, UNSPECIFIED SNOMED Code(s): 45474790 Comment: copd exacerbation Rx fluticasone-salmeterol 230-21 1 puff bid (was on 115-21 at home) prednisone PO, taper 50 mg to zero over 5 days. (2) History of paroxysmal supraventricular tachycardia Current Visit: No Status: Acute Code(s): Z86.79 - PERSONAL HISTORY OF OTHER DISEASES OF THE CIRCULATORY SYSTEM SNOMED Code(s): 414279157499712 Comment: continue metoprolol, flecainaide. Precise rhythm dx is unclear. Followed by Dr. Baltazar Status and Disposition: Discharge now. I spoke to her father Sameer about her discharge ([phone]).
[2017-01-12] MEDS: Mometasone/Formoter 200/5 MDI INH SCH (08:16)
[2017-01-12] MEDS: Flecainide TAB* 100 MG PO SCH (08:49)
[2017-01-12 08:56] LABS: BUN/Creatinine Ratio 15.3 (8-20); Calcium 9.2 mg/dL (8.6-10.3); EGFR African American 106.6 (>60); EGFR Non-African American 82.9 (>60); Potassium 3.8 mmol/L (3.5-5.0)
[2017-01-12] MEDS ORDERED: Metoprolol Succinate XL TAB* 25 MG PO SCH (09:00)
[2017-01-12] MEDS ORDERED: BUFFERED ASPIRIN PO SCH (09:00)
[2017-01-12] MEDS ORDERED: predniSONE TAB* 20 MG PO SCH (09:00)
[2017-01-12 11:51] VITALS: BP 132/70
[2017-01-12] MEDS ORDERED: Magnesium Hydroxide LIQ* 30 ML UDC PO ONE (12:40)
--- NOTE | 2017-01-12 18:35 | DS ---
DISCHARGE SUMMARY: DATE OF ADMISSION: DATE OF DISCHARGE: 01/12/17 HISTORY OF PRESENT ILLNESS: This is a 61-year-old woman presenting with shortness of breath. She has a history of COPD and hypertension. She was started on outpatient antibiotic, I am not sure if it was Bactrim or Biaxin. She took that for about 3 to 4 days and a 2-day course of prednisone prescribed from the emergency room or convenient care, this really did not help and she presented with wheezing and shortness of breath. She had a nonproductive cough and a fever. She did not get any more antibiotics. In the hospital, she was given intravenous and oral steroids. She had very mild wheezing on discharge. Her O2 saturation on room air was 90% on the day of discharge. She was able to walk fairly comfortably around the block and at rest seemed quite comfortable. On discharge, I prescribed increased dose of her Advair canister inhaler as well as her prednisone taper. FINAL DIAGNOSES: 1. Chronic obstructive pulmonary disease exacerbation. 2. History of supraventricular tachycardia. DISCHARGE MEDICATIONS: 1. Fluticasone/salmeterol 230/21 HFA 1 puff b.i.d. 2. Prednisone 10 mg taper from 5 tablets daily to none over 5 days. 3. Aspirin 325 mg daily. 4. Alprazolam 1 tablet four times a day p.r.n. 5. Flecainide 100 mg b.i.d. 6. Albuterol/ipratropium 2.5/0.5 one every 6 hours p.r.n. 7. Albuterol 1 puff every 6 hours p.r.n. 8. Metoprolol succinate 25 mg daily. CC: Dr. Shukla, Dr. Baltazar* [id number]/[facility] #: [id number] [facility] HOSPITALLorena
== END 2017-01-12 15:15 | disposition home or self-care (01) ==
LOC: ED 09:12 → MED 13:10
PROVIDERS: ADMIT Internal Medicine; ATTEND Internal Medicine
DX: J44.1 Chronic obstructive pulmonary disease with (acute) exacerbation (principal); I47.1 Supraventricular tachycardia; E66.9 Obesity, unspecified; K44.9 Diaphragmatic hernia without obstruction or gangrene; F41.9 Anxiety disorder, unspecified; Z86.73 Personal history of transient ischemic attack (TIA), and cerebral infarction without residual deficits; Z79.82 Long term (current) use of aspirin; Z79.899 Other long term (current) drug therapy; Z85.3 Personal history of malignant neoplasm of breast; Z88.1 Allergy status to other antibiotic agents; Z88.5 Allergy status to narcotic agent; Z88.8 Allergy status to other drugs, medicaments and biological substances; Z87.891 Personal history of nicotine dependence
CPT/HCPCS: 36415; 71020; 80048; 80053; 83605; 83880; 84484; 85025; 85379; 86140; 87040; 93005; 94640; 94760; 96361; 96372; 96374; 96375; 99284; A9270-GY; G0378; J1644; J2060; J2930; J7512

== ENCOUNTER 2017-01-19 08:29 | Emergency (ER) | payer MEDICARE, MEDICAID ==
[2017-01-19] MEDS ORDERED: methylPREDNISolone 125 MG* 2 ML VIAL IV ONE (09:27)
[2017-01-19] MEDS: Albuterol/Ipratropium NEB.SOL* Albuterol 2.5 MG/Ipratropium 0.5 MG 3 ML INH ONE ×2 (09:37→09:46)
[2017-01-19 09:56] LABS: Albumin 3.7 g/dL (3.2-5.2); BUN/Creatinine Ratio 19.5 (8-20); Calcium 9.4 mg/dL (8.6-10.3); EGFR African American 91.8 (>60); EGFR Non-African American 71.4 (>60); Globulin 3.2 g/dL (2-4); Hematocrit 43 % (35-47); Hemoglobin 14.1 g/dl (12.0-16.0); Mean Corpuscular HGB Conc 33 g/dl (31-36); Mean Corpuscular Hemoglobin 30 pg (27-31); Mean Corpuscular Volume 92 fL (80-97); Mean Platelet Volume 9 um3 (7.4-10.4); Potassium 4.1 mmol/L (3.5-5.0); Red Blood Count 4.65 10^6/ul (4.0-5.4); Red Cell Distribution Width 14 % (10.5-15); Total Bilirubin 0.4 mg/dL (0.2-1.0); Total Protein 6.9 g/dL (6.4-8.9); White Blood Count 10.8 10^3/ul (3.5-10.8)
[2017-01-19] MEDS: NS 0.9% 1000 ML* 2,000 ML IV ONE (09:56)
[2017-01-19 09:59] LABS: Troponin I 0.01 ng/mL (<0.04)
--- NOTE | 2017-01-19 10:44 | RAD ---
INDICATION: Chest pressure and anxiety COMPARISON: Most recent comparison chest x-rays dated January 11, 2017 TECHNIQUE: PA and lateral views of the chest were obtained. FINDINGS: The heart and mediastinum are normal in size and contour. There is mild calcified atherosclerosis overlying the arch of the aorta. The lungs are grossly clear. There is no evidence of large pleural effusion. Visualized bones are normal for the patient's age. There is no radiographic evidence of free air beneath the diaphragm IMPRESSION: No radiographic evidence of acute cardiopulmonary disease.
[2017-01-19 13:03] VITALS: BP 127/79
--- NOTE | 2017-01-31 13:11 | ED ---
I, Oh,Soohyun, scribed for Georges Wilson MD on 01/19/17 at 0938 . HPI Chest Pain - HPI Summary HPI Summary: This 61 y/o female presents to ED via ambulance for acute on chronic SOB since last evening and chest tightness since later last night. NTG was given en route. Pt reports positive anxiety, wheezing, productive cough with brown phlegm , lightheaded dizziness, and chills. She was seen at [facility] [place] for PNA and COPD exacerbation in last month, with an admission last week for COPD exacerbation. Pt was sent home with tapering dose of prednisone 5 days ago. Pt denies any PMHx of DVT or recent travel. PMHx includes asthma, COPD, PNA, and bronchitis. - History of Current Complaint Chief Complaint: EDChestWallPain Time Seen by Provider: 01/19/17 09:14 Hx Obtained From: Patient, Medical Records Onset/Duration: Started Hours Ago, Atraumatic, Still Present Timing: Constant Chest Pain Location: Diffuse Chest Pain Radiates: No Character: Tightness Aggravating Factor(s): Nothing Alleviating Factor(s): Nothing Associated Signs and Symptoms: Positive: Chest Pain, Shortness of Breath, Chills , Productive Cough - with brown phlegm, Wheezing, Edema - BLE, chronic. Negative: Fever, Abdominal Pain - Additional Pertinent History Primary Care Physician: [id number] - Allergy/Home Medications Allergies/Adverse Reactions: Allergies Allergy/AdvReac Type Severity Reaction Status Date / Time Latex Allergy Severe RASH, ITCHY Verified 01/19/17 09:02 Cefaclor [From Ceclor] Allergy Intermediate Swelling Verified 01/19/17 09:02 Codeine Allergy Intermediate Swelling Verified 01/19/17 09:02 Erythromycin Allergy Intermediate Swelling Verified 01/19/17 09:02 Hydrocodone [From Vicodin] Allergy Intermediate rash feels Verified 01/19/17 09: 02 funny Meperidine [From Demerol HCl] Allergy Intermediate Swelling Verified 01/19/17 09 :02 Morphine Allergy Intermediate Swelling Verified 01/19/17 09:02 Oxycodone Allergy Intermediate rash feels Verified 01/19/17 09:02 [From Oxycodone funny W/Acetaminophen] Paroxetine [From Paxil] Allergy Intermediate rash,face Verified 01/19/17 09:02 ,throat swelling Propranolol [From Inderal] Allergy Intermediate Swelling Verified 01/19/17 09:02 Tetracyclines Allergy Intermediate Swelling Verified 01/19/17 09:02 Acetaminophen Allergy TONGUE Verified 01/19/17 09:02 [From Darvocet-N] SWELLS Ibuprofen Allergy Difficulty Verified 01/19/17 09:02 Breathing Propoxyphene Allergy TONGUE Verified 01/19/17 09:02 [From Darvocet-N] SWELLS Sulfate Allergy Shortness Verified 01/19/17 09:02 of Breath Home Medications: Home Medications Bumetanide [Bumex 1 MG TAB] 1 mg PO DAILY 01/19/17 [History Confirmed 01/19/17] Omeprazole [Prilosec] 20 mg PO DAILY 01/19/17 [History Confirmed 01/19/17] PMH/Surg Hx/FS Hx/Imm Hx Endocrine/Hematology History: Reports: Hx Anemia - TAKES 325 MG ASPIRIN DAILY Denies: Hx Diabetes, Hx Systemic Lupus Erythematosus Cardiovascular History: Reports: Hx Angina, 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 EF%50-55 Denies: Hx Aneurysm, Hx Congestive Heart Failure, Hx Deep Vein Thrombosis Respiratory History: Reports: Hx Asthma, Hx Chronic Obstructive Pulmonary Disease (COPD) Denies: Other Respiratory Problems/Disorders GI History: Reports: Hx Gall Bladder Disease, Hx Gastroesophageal Reflux Disease - ON MEDICATION FOR, Other GI Disorders - HIATAL HERNIA History: Denies: Hx Dialysis, Hx Renal Disease Musculoskeletal History: Reports: Hx Arthritis - HANDS Denies: Hx Rheumatoid Arthritis, Hx Osteoporosis Sensory History: Reports: Hx Contacts or Glasses, Hx Vision Problem Denies: Hx Hearing Aid Opthamlomology History: Reports: Hx Contacts or Glasses, Hx Vision Problem Neurological History: Reports: Hx Migraine Denies: Hx CVA, Hx Transient Ischemic Attacks (TIA), Other Neuro Impairments/ Disorders - HERNIATED DISC Psychiatric History: Reports: Hx Anxiety - ROUTINE AND PRN MEDICATION FOR, Hx Depression - PTSD- D/T CANCER- TAKES ATIVAN DAILY, Hx Post Traumatic Stress Disorder - Cancer History Cancer Type, Location and Year: breast/2010 Hx Chemotherapy: Yes Hx Radiation Therapy: Yes - Surgical History Surgery Procedure, Year, and Place: RIGHT LUMPECTOMY, TOBI 2012, HYSTERECTOMY 1991, POWERPORT LCW, Hx Anesthesia Reactions: Yes - SEVERE ANXIETY- WITH LUMPECTOMY AND PORT PLACEMENT AND SEVERE NAUSEA - Immunization History Date of Tetanus Vaccine: up to date Date of Influenza Vaccine: 2016 Infectious Disease History: No Infectious Disease History: Denies: Hx Clostridium Difficile, Hx Hepatitis, Hx of Known/Suspected MRSA, Hx Shingles, Hx Tuberculosis, Hx Known/Suspected VRE, Hx Known/Suspected VRSA, History Other Infectious Disease, Traveled Outside the [place] in Last 30 Days - Family History Known Family History: Positive: Cardiac Disease, Other - PE - Social History Alcohol Use: None Hx Substance Use: No Substance Use Type: Reports: None Hx Tobacco Use: Yes Smoking Status (MU): Former Smoker Type: Cigarettes Have You Smoked in the Last Year: Yes Review of Systems Negative: Fever Positive: Chest Pain Positive: Shortness Of Breath, Cough - productive with brown phlegm Positive: Edema - chronic Positive: Anxious All Other Systems Reviewed And Are Negative: Yes Physical Exam - Summary Physical Exam Summary: The patient is well-nourished in no acute distress and in no acute pain. The skin is warm and dry and skin color reflects adequate perfusion. HEENT: The head is normocephalic and atraumatic. The pupils are equal and reactive. The conjunctivae are clear and without drainage. Nares are patent and without drainage. Mouth reveals moist mucous membranes and the throat is without erythema and exudate. The external ears are intact. The ear canals are patent and without drainage. The tympanic membranes are intact. NC in place. Neck is supple with full range of motion and non-tender. There are no carotid bruits. There is no neck vein distension. Respiratory: Chest is non-tender. Lungs are clear to auscultation and breath sounds are symmetrical and equal. Diffuse wheezing and decreased breath sounds. Cardiovascular: Hear is regular rate and rhythm. There is no murmur or rub auscultated. 2 seconds capillary refills. There is no peripheral edema and pulses are symmetrical and equal. Abdomen: The abdomen is soft and non-tender. There are normal bowel sounds heard in all four quadrants and there is no organomegaly palpated. Negative distention. Musculoskeletal: There is no back pain noted. Extremities are non-tender with full range of motion. There is good capillary refill. Positive bilateral calf edema. Neurological: Patient is alert and oriented to person, place and time. The patient has symmetrical motor strength in all four extremities. Cranial nerves are grossly intact. Deep tendon reflexes are symmetrical and equal in all four extremities. Psychiatric: The patient has an appropriate affect and does not exhibit any anxiety or depression. Triage Information Reviewed: Yes Vital Signs On Initial Exam: Initial Vitals Temp Pulse Resp BP Pulse Ox 96.8 F 82 16 124/72 98 01/19/17 08:32 01/19/17 08:32 01/19/17 08:32 01/19/17 08:32 01/19/17 08:32 Vital Signs Reviewed: Yes - Erendira Coma Scale Coma Scale Total: 15 Diagnostics - Vital Signs Vital Signs Temp Pulse Resp BP Pulse Ox 01/19/17 08:40 73 14 97 01/19/17 08:39 112/69 01/19/17 08:35 97.8 F 73 14 124/72 98 01/19/17 08:32 96.8 F 82 16 124/72 98 - Laboratory Lab Results: Lab Results 01/19/17 01/19/17 01/19/17 Range/Units 08:45 08:45 08:45 WBC 10.8 (3.5-10.8) 10^3/ul RBC 4.65 (4.0-5.4) 10^6/ul Hgb 14.1 (12.0-16.0) g/dl Hct 43 (35-47) % MCV 92 (80-97) fL MCH 30 (27-31) pg MCHC 33 (31-36) g/dl RDW 14 (10.5-15) % Plt Count 310 (150-450) 10^3/ul MPV 9 (7.4-10.4) um3 Neut % (Auto) 71.5 (38-83) % Lymph % (Auto) 19.7 L (25-47) % Logan % (Auto) 5.8 (1-9) % Eos % (Auto) 2.0 (0-6) % Baso % (Auto) 1.0 (0-2) % Absolute Neuts (auto) 7.7 (1.5-7.7) 10^3/ul Absolute Lymphs (auto) 2.1 (1.0-4.8) 10^3/ul Absolute Monos (auto) 0.6 (0-0.8) 10^3/ul Absolute Eos (auto) 0.2 (0-0.6) 10^3/ul Absolute Basos (auto) 0.1 (0-0.2) 10^3/ul Absolute Nucleated RBC 0.01 10^3/ul Nucleated RBC % 0 Sodium 134 (133-145) mmol/L Potassium 4.1 (3.5-5.0) mmol/L Chloride 104 (101-111) mmol/L Carbon Dioxide 22 (22-32) mmol/L Anion Gap 8 (2-11) mmol/L BUN 16 (6-24) mg/dL Creatinine 0.82 (0.51-0.95) mg/dL Est GFR ( Amer) 91.8 (>60) Est GFR (Non-Af Amer) 71.4 (>60) BUN/Creatinine Ratio 19.5 (8-20) Glucose 95 (70-100) mg/dL Lactic Acid 1.3 (0.5-2.0) mmol/L Calcium 9.4 (8.6-10.3) mg/dL Total Bilirubin 0.40 (0.2-1.0) mg/dL AST 20 (13-39) U/L ALT 23 (7-52) U/L Alkaline Phosphatase 80 (34-104) U/L Troponin I 0.01 (<0.04) ng/mL B-Natriuretic Peptide ( - 100) pg/mL Total Protein 6.9 (6.4-8.9) g/dL Albumin 3.7 (3.2-5.2) g/dL Globulin 3.2 (2-4) g/dL Albumin/Globulin Ratio 1.2 (1-3) 01/19/17 Range/Units 08:45 WBC (3.5-10.8) 10^3/ul RBC (4.0-5.4) 10^6/ul Hgb (12.0-16.0) g/dl Hct (35-47) % MCV (80-97) fL MCH (27-31) pg MCHC (31-36) g/dl RDW (10.5-15) % Plt Count (150-450) 10^3/ul MPV (7.4-10.4) um3 Neut % (Auto) (38-83) % Lymph % (Auto) (25-47) % Logan % (Auto) (1-9) % Eos % (Auto) (0-6) % Baso % (Auto) (0-2) % Absolute Neuts (auto) (1.5-7.7) 10^3/ul Absolute Lymphs (auto) (1.0-4.8) 10^3/ul Absolute Monos (auto) (0-0.8) 10^3/ul Absolute Eos (auto) (0-0.6) 10^3/ul Absolute Basos (auto) (0-0.2) 10^3/ul Absolute Nucleated RBC 10^3/ul Nucleated RBC % Sodium (133-145) mmol/L Potassium (3.5-5.0) mmol/L Chloride (101-111) mmol/L Carbon Dioxide (22-32) mmol/L Anion Gap (2-11) mmol/L BUN (6-24) mg/dL Creatinine (0.51-0.95) mg/dL Est GFR ( Amer) (>60) Est GFR (Non-Af Amer) (>60) BUN/Creatinine Ratio (8-20) Glucose (70-100) mg/dL Lactic Acid (0.5-2.0) mmol/L Calcium (8.6-10.3) mg/dL Total Bilirubin (0.2-1.0) mg/dL AST (13-39) U/L ALT (7-52) U/L Alkaline Phosphatase (34-104) U/L Troponin I (<0.04) ng/mL B-Natriuretic Peptide 18 ( - 100) pg/mL Total Protein (6.4-8.9) g/dL Albumin (3.2-5.2) g/dL Globulin (2-4) g/dL Albumin/Globulin Ratio (1-3) Result Diagrams: 01/19/17 08:45 01/19/17 08:45 Lab Statement: Any lab studies that have been ordered have been reviewed, and results considered in the medical decision making process. - Radiology CXR Xray Interpretation: No Acute Changes Radiology Interpretation Completed By: Radiologist - EKG 0835 Cardiac Rate: NL EKG Rhythm: Sinus Rhythm ST Segment: Normal EKG Interpretation: Poor R-wave progression. Normal [place]. No STEMI Re-Evaluation - Re-Evaluation First Eval Re-Evaluation Time: 11:09 Change: Unchanged Comment: Pt is updated with CXR and bloodwork results, and provided with hard copies of the results. Upon re-evaluation pt is not feeling any better and chest discomfort still persists. Second Eval Re-Evaluation Time: 12:13 Change: Unchanged Comment: Wheezing still persists. Pt expresses desire to go home. Chest Pain Course/Dx - Course Assessment/Plan: This 61 y/o female presnets to ED for chest tightness and SOB since yesterday. Pt was recently seen at [facility] twice for PNA and COPD exacerbation , with last admission 6 days ago. Pt was sent home with tapering dose of prednisone 5 days ago. PMHx is significant for COPD, asthma, and bronchitis. Blood work and CXR are indicated negative. Pt was sent home with dx of COPD exacerbation and f/u plan with PCP. - Diagnoses Provider Diagnoses: COPD exacerbation - Provider Notifications Discussed Care Of Patient With: Dr. Arriola (hospitalist) at 1110 AM Instructed by Provider To: MD Will See In ED Discharge - Discharge Plan Condition: Stable Disposition: HOME Prescriptions: predniSONE TAB* [Deltasone TAB*] 60 mg PO DAILY #15 tab Patient Education Materials: COPD (Chronic Obstructive Pulmonary Disease) (ED) , Prednisone (By mouth) Referrals: Johan Shukla MD [Primary Care Provider] - 2 Days The documentation as recorded by the Santo mcclelland Soohyun accurately reflects the service I personally performed and the decisions made by me, Georges Wilson MD.
== END 2017-01-19 12:47 | disposition home or self-care (01) ==
LOC: ED 08:29
DX: R07.9 Chest pain, unspecified (principal); R06.02 Shortness of breath; R60.0 Localized edema; J44.1 Chronic obstructive pulmonary disease with (acute) exacerbation
CPT/HCPCS: 36415; 71020; 80053; 83605; 83880; 84484; 85025; 87040; 93005; 94640; 96374; 99283; A9270-GY; J2930

== ENCOUNTER 2017-03-22 16:20 | Emergency (ER) | payer MEDICARE, MEDICAID ==
--- NOTE | 2017-03-22 17:05 | RAD ---
HISTORY: Chest pain COMPARISONS: January 19, 2017 VIEWS:1: Single frontal portable view of the chest at 4:55 PM FINDINGS: LINES AND TUBES: None. CARDIOMEDIASTINAL SILHOUETTE: The cardiomediastinal silhouette is normal for portable technique. PLEURA: The costophrenic angles are sharp. No pleural abnormalities are noted. LUNG PARENCHYMA: The lungs are clear. ABDOMEN: The upper abdomen is clear. There is no subphrenic gas. BONES AND SOFT TISSUES: No bone or soft tissue abnormalities are noted. IMPRESSION: NO ACTIVE CARDIOPULMONARY DISEASE.
[2017-03-22 17:26] LABS: Hematocrit 40 % (35-47); Hemoglobin 13.2 g/dl (12.0-16.0); Mean Corpuscular HGB Conc 33 g/dl (31-36); Mean Corpuscular Hemoglobin 33 pg (27-31); Mean Corpuscular Volume 98 fL (80-97); Mean Platelet Volume 10 um3 (7.4-10.4); Red Blood Count 4.07 10^6/ul (4.0-5.4); Red Cell Distribution Width 14 % (10.5-15); White Blood Count 8.1 10^3/ul (3.5-10.8)
[2017-03-22 17:35] LABS: Albumin 3.8 g/dL (3.2-5.2); BUN/Creatinine Ratio 11.5 (8-20); Calcium 8.9 mg/dL (8.6-10.3); EGFR African American 85.7 (>60); EGFR Non-African American 66.6 (>60); Globulin 2.5 g/dL (2-4); Potassium 3.8 mmol/L (3.5-5.0); Total Bilirubin 0.3 mg/dL (0.2-1.0); Total Protein 6.3 g/dL (6.4-8.9)
[2017-03-22 17:38] LABS: Troponin I 0.01 ng/mL (<0.04)
[2017-03-22 18:35] VITALS: BP 119/76
--- NOTE | 2017-03-23 14:14 | ED ---
Kristy Hendrix Alfonso, scribed for Sharad Stock MD on 03/22/17 at 1656 . HPI Chest Pain - HPI Summary HPI Summary: This patient is a 61 year old F BIBA to [facility] with a chief complaint of sharp diffuse CP since 2 weeks ago. The CC is intermittent 10-120 minute episodes that occur almost every day these last 2 weeks. She reports a severe episode woke up her at 0215 this morning. Pt rates the pain 8/10 in severity. Symptoms aggravated and alleviated by nothing. Pt reports abdominal pain, nausea, palpitations, and insomnia. Pt denies SOB. PMHx of HTN, congenital heart disease , asthma, COPD, and anxiety. - History of Current Complaint Chief Complaint: EDChestPainROMI Time Seen by Provider: 03/22/17 16:26 Hx Obtained From: Patient Onset/Duration: Started Weeks Ago - 2, Worse Since - 0215 today Timing: Intermittent, Lasting Minutes - 10-120 minutes Initial Severity: Severe Current Severity: Severe Pain Intensity: 8 Pain Scale Used: 0-10 Numeric Chest Pain Location: Diffuse Character: Sharp/Stabbing Aggravating Factor(s): Nothing Alleviating Factor(s): Nothing Associated Signs and Symptoms: Positive: Other: - Positive abdominal pain, nausea, palpitations, and insomnia; negative SOB - Additional Pertinent History Primary Care Physician: [id number] - Allergy/Home Medications Allergies/Adverse Reactions: Allergies Allergy/AdvReac Type Severity Reaction Status Date / Time Latex Allergy Severe RASH, ITCHY Verified 01/19/17 09:02 Cefaclor [From Ceclor] Allergy Intermediate Swelling Verified 01/19/17 09:02 Codeine Allergy Intermediate Swelling Verified 01/19/17 09:02 Erythromycin Allergy Intermediate Swelling Verified 01/19/17 09:02 Hydrocodone [From Vicodin] Allergy Intermediate rash feels Verified 01/19/17 09: 02 funny Meperidine [From Demerol HCl] Allergy Intermediate Swelling Verified 01/19/17 09 :02 Morphine Allergy Intermediate Swelling Verified 01/19/17 09:02 Oxycodone Allergy Intermediate rash feels Verified 01/19/17 09:02 [From Oxycodone funny W/Acetaminophen] Paroxetine [From Paxil] Allergy Intermediate rash,face Verified 01/19/17 09:02 ,throat swelling Propranolol [From Inderal] Allergy Intermediate Swelling Verified 01/19/17 09:02 Tetracyclines Allergy Intermediate Swelling Verified 01/19/17 09:02 Acetaminophen Allergy TONGUE Verified 01/19/17 09:02 [From Darvocet-N] SWELLS Ibuprofen Allergy Difficulty Verified 01/19/17 09:02 Breathing Propoxyphene Allergy TONGUE Verified 01/19/17 09:02 [From Darvocet-N] SWELLS Sulfate Allergy Shortness Verified 01/19/17 09:02 of Breath PMH/Surg Hx/FS Hx/Imm Hx Endocrine/Hematology History: Reports: Hx Anemia - TAKES 325 MG ASPIRIN DAILY Denies: Hx Diabetes, Hx Systemic Lupus Erythematosus Cardiovascular History: Reports: Hx Angina, 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 EF%50-55 Denies: Hx Aneurysm, Hx Congestive Heart Failure, Hx Deep Vein Thrombosis Respiratory History: Reports: Hx Asthma, Hx Chronic Obstructive Pulmonary Disease (COPD) Denies: Other Respiratory Problems/Disorders GI History: Reports: Hx Gall Bladder Disease, Hx Gastroesophageal Reflux Disease - ON MEDICATION FOR, Other GI Disorders - HIATAL HERNIA History: Denies: Hx Dialysis, Hx Renal Disease Musculoskeletal History: Reports: Hx Arthritis - HANDS Denies: Hx Rheumatoid Arthritis, Hx Osteoporosis Sensory History: Reports: Hx Contacts or Glasses, Hx Vision Problem Denies: Hx Hearing Aid Opthamlomology History: Reports: Hx Contacts or Glasses, Hx Vision Problem Neurological History: Reports: Hx Migraine Denies: Hx CVA, Hx Transient Ischemic Attacks (TIA), Other Neuro Impairments/ Disorders - HERNIATED DISC Psychiatric History: Reports: Hx Anxiety - ROUTINE AND PRN MEDICATION FOR, Hx Depression - PTSD- D/T CANCER- TAKES ATIVAN DAILY, Hx Post Traumatic Stress Disorder - Cancer History Cancer Type, Location and Year: breast/2011 Hx Chemotherapy: Yes Hx Radiation Therapy: Yes - Surgical History Surgery Procedure, Year, and Place: RIGHT LUMPECTOMY, TOBI 2012, HYSTERECTOMY 1991, POWERPORT LCW, Hx Anesthesia Reactions: Yes - SEVERE ANXIETY- WITH LUMPECTOMY AND PORT PLACEMENT AND SEVERE NAUSEA - Immunization History Date of Tetanus Vaccine: up to date Date of Influenza Vaccine: 2015 Infectious Disease History: No Infectious Disease History: Denies: Hx Clostridium Difficile, Hx Hepatitis, Hx of Known/Suspected MRSA, Hx Shingles, Hx Tuberculosis, Hx Known/Suspected VRE, Hx Known/Suspected VRSA, History Other Infectious Disease, Traveled Outside the [place] in Last 30 Days - Family History Known Family History: Positive: Cardiac Disease, Other - PE - Social History Alcohol Use: Occasionally Hx Substance Use: No Substance Use Type: Reports: None Hx Tobacco Use: Yes Smoking Status (MU): Light Every Day Tobacco Smoker Type: Cigarettes Have You Smoked in the Last Year: Yes Review of Systems Positive: Palpitations, Chest Pain - Sharp diffuse Negative: Shortness Of Breath Positive: Abdominal Pain, Nausea Neurological: Other - Positive insomnia All Other Systems Reviewed And Are Negative: Yes Physical Exam Triage Information Reviewed: Yes Vital Signs On Initial Exam: Initial Vitals BP 121/72 03/22/17 16:30 Vital Signs Reviewed: Yes Appearance: Positive: Well-Appearing, No Pain Distress, Obese Skin: Positive: Warm, Skin Color Reflects Adequate Perfusion, Dry Head/Face: Positive: Normal Head/Face Inspection Eyes: Positive: Normal ENT: Positive: Normal ENT inspection Neck: Positive: Supple, Nontender Respiratory/Lung Sounds: Positive: Clear to Auscultation, Breath Sounds Present Cardiovascular: Positive: RRR Abdomen Description: Positive: Other: - Epigastrium tenderness Bowel Sounds: Positive: Present Musculoskeletal: Positive: Normal, Strength/ROM Intact Neurological: Positive: Normal, Sensory/Motor Intact, Alert, Oriented to Person Place, Time, CN Intact II-III Psychiatric: Positive: Affect/Mood Appropriate - [place] Coma Scale Coma Scale Total: 15 Diagnostics - Vital Signs Vital Signs Temp Pulse Resp BP Pulse Ox 03/22/17 16:42 99 03/22/17 16:40 98.1 F 99 22 121/72 93 03/22/17 16:32 103 20 93 03/22/17 16:30 121/72 - Laboratory Lab Results: Lab Results 03/22/17 03/22/17 03/22/17 Range/Units 17:13 17:13 17:13 WBC 8.1 (3.5-10.8) 10^3/ul RBC 4.07 (4.0-5.4) 10^6/ul Hgb 13.2 (12.0-16.0) g/dl Hct 40 (35-47) % MCV 98 H (80-97) fL MCH 33 H (27-31) pg MCHC 33 (31-36) g/dl RDW 14 (10.5-15) % Plt Count 247 (150-450) 10^3/ul MPV 10 (7.4-10.4) um3 Neut % (Auto) 71.0 (38-83) % Lymph % (Auto) 13.6 L (25-47) % Kerr % (Auto) 8.2 (1-9) % Eos % (Auto) 3.8 (0-6) % Baso % (Auto) 3.4 H (0-2) % Absolute Neuts (auto) 5.7 (1.5-7.7) 10^3/ul Absolute Lymphs (auto) 1.1 (1.0-4.8) 10^3/ul Absolute Monos (auto) 0.7 (0-0.8) 10^3/ul Absolute Eos (auto) 0.3 (0-0.6) 10^3/ul Absolute Basos (auto) 0.3 H (0-0.2) 10^3/ul Absolute Nucleated RBC 0.01 10^3/ul Nucleated RBC % 0.1 Sodium 137 (133-145) mmol/L Potassium 3.8 (3.5-5.0) mmol/L Chloride 105 (101-111) mmol/L Carbon Dioxide 25 (22-32) mmol/L Anion Gap 7 (2-11) mmol/L BUN 10 (6-24) mg/dL Creatinine 0.87 (0.51-0.95) mg/dL Est GFR ( Amer) 85.7 (>60) Est GFR (Non-Af Amer) 66.6 (>60) BUN/Creatinine Ratio 11.5 (8-20) Glucose 105 H (70-100) mg/dL Lactic Acid 1.3 (0.5-2.0) mmol/L Calcium 8.9 (8.6-10.3) mg/dL Total Bilirubin 0.30 (0.2-1.0) mg/dL AST 19 (13-39) U/L ALT 20 (7-52) U/L Alkaline Phosphatase 83 (34-104) U/L Troponin I 0.01 (<0.04) ng/mL Total Protein 6.3 L (6.4-8.9) g/dL Albumin 3.8 (3.2-5.2) g/dL Globulin 2.5 (2-4) g/dL Albumin/Globulin Ratio 1.5 (1-3) 03/22/17 Range/Units 18:45 WBC (3.5-10.8) 10^3/ul RBC (4.0-5.4) 10^6/ul Hgb (12.0-16.0) g/dl Hct (35-47) % MCV (80-97) fL MCH (27-31) pg MCHC (31-36) g/dl RDW (10.5-15) % Plt Count (150-450) 10^3/ul MPV (7.4-10.4) um3 Neut % (Auto) (38-83) % Lymph % (Auto) (25-47) % Kerr % (Auto) (1-9) % Eos % (Auto) (0-6) % Baso % (Auto) (0-2) % Absolute Neuts (auto) (1.5-7.7) 10^3/ul Absolute Lymphs (auto) (1.0-4.8) 10^3/ul Absolute Monos (auto) (0-0.8) 10^3/ul Absolute Eos (auto) (0-0.6) 10^3/ul Absolute Basos (auto) (0-0.2) 10^3/ul Absolute Nucleated RBC 10^3/ul Nucleated RBC % Sodium (133-145) mmol/L Potassium (3.5-5.0) mmol/L Chloride (101-111) mmol/L Carbon Dioxide (22-32) mmol/L Anion Gap (2-11) mmol/L BUN (6-24) mg/dL Creatinine (0.51-0.95) mg/dL Est GFR ( Amer) (>60) Est GFR (Non-Af Amer) (>60) BUN/Creatinine Ratio (8-20) Glucose (70-100) mg/dL Lactic Acid (0.5-2.0) mmol/L Calcium (8.6-10.3) mg/dL Total Bilirubin (0.2-1.0) mg/dL AST (13-39) U/L ALT (7-52) U/L Alkaline Phosphatase (34-104) U/L Troponin I 0.01 (<0.04) ng/mL Total Protein (6.4-8.9) g/dL Albumin (3.2-5.2) g/dL Globulin (2-4) g/dL Albumin/Globulin Ratio (1-3) Result Diagrams: 03/22/17 17:13 03/22/17 17:13 Lab Statement: Any lab studies that have been ordered have been reviewed, and results considered in the medical decision making process. - Radiology CXR Radiology Interpretation Completed By: Radiologist - NO ACTIVE CARDIOPULMONARY DISEASE. - EKG 1631 Cardiac Rate: NL - BPM 99 EKG Rhythm: Sinus Rhythm ST Segment: Non-Specific EKG Comparison: No Significant Change - compared to 01/19/17 Chest Pain Course/Dx - Course Course Of Treatment: Ms. Cifuentes has been having episodes of atypical CP for a couple of weeks. Her. W/U including two troponins was negative here and she will be referred for close F/U. - Diagnoses Provider Diagnoses: Chest pain Discharge - Discharge Plan Condition: Stable Disposition: HOME Patient Education Materials: Chest Pain (ED) Referrals: Johan Shukla MD [Primary Care Provider] - 3 Days The documentation as recorded by the Kristy mcclelland Alfonso accurately reflects the service I personally performed and the decisions made by me, Sharad Stock MD.
== END 2017-03-22 19:42 | disposition home or self-care (01) ==
LOC: ED 16:20
DX: R07.89 Other chest pain (principal); F41.9 Anxiety disorder, unspecified; F32.9 Major depressive disorder, single episode, unspecified; F17.210 Nicotine dependence, cigarettes, uncomplicated
CPT/HCPCS: 36415; 71010; 80053; 83605; 84484; 85025; 93005; 99282

== ENCOUNTER 2017-05-22 10:25 | Emergency (ER) | payer MEDICARE, MEDICAID ==
[2017-05-22 11:12] LABS: Hematocrit 45 % (35-47); Hemoglobin 14.8 g/dl (12.0-16.0); Mean Corpuscular HGB Conc 33 g/dl (31-36); Mean Corpuscular Hemoglobin 32 pg (27-31); Mean Corpuscular Volume 96 fL (80-97); Mean Platelet Volume 9 um3 (7.4-10.4); Red Blood Count 4.68 10^6/ul (4.0-5.4); Red Cell Distribution Width 13 % (10.5-15); White Blood Count 9.4 10^3/ul (3.5-10.8)
--- NOTE | 2017-05-22 11:25 | RAD ---
Indication: Shortness of breath. Single frontal view of the chest performed at 1040 hours was reviewed. Comparison is made with previous exam dated March 22, 2017. No mediastinal shift is noted. Heart is of normal size and configuration. Lung niño appear clear. IMPRESSION: NO ACTIVE CARDIOPULMONARY DISEASE IS NOTED.
[2017-05-22 11:26] LABS: Albumin 4.1 g/dL (3.2-5.2); BUN/Creatinine Ratio 16.5 (8-20); C Reactive Protein 2.67 mg/L (< 5.00); Calcium 9.4 mg/dL (8.6-10.3); EGFR African American 95.8 (>60); EGFR Non-African American 74.5 (>60); Globulin 3.2 g/dL (2-4); Magnesium 1.9 mg/dL (1.9-2.7); Potassium 4.1 mmol/L (3.5-5.0); Total Bilirubin 0.4 mg/dL (0.2-1.0); Total Protein 7.3 g/dL (6.4-8.9)
[2017-05-22 11:49] LABS: TSH (Thyroid Stimulating Horm) 0.92 mcIU/mL (0.34-5.60)
[2017-05-22] MEDS ORDERED: Albuterol/Ipratropium NEB.SOL* Albuterol 2.5 MG/Ipratropium 0.5 MG 3 ML INH ONE (12:27)
[2017-05-22] MEDS ORDERED: methylPREDNISolone 125 MG* 2 ML VIAL IV ONE (12:27)
[2017-05-22 14:16] LABS: Urine Bilirubin Negative (Negative); Urine Glucose Negative (Negative); Urine Nitrite Negative (Negative)
[2017-05-22] MEDS ORDERED: ALPRAZolam TAB* 0.5 MG PO ONE (14:50)
[2017-05-22 16:06] VITALS: BP 95/64
--- NOTE | 2017-05-22 22:28 | CONS ---
[facility] MED[facility]INE CONSULTATION REPORT: DATE OF CONSULTATION: 05/22/17 - EMERGENCY DEPT REASON FOR CONSULTATION: Shortness of breath and concern for need for admission. HISTORY OF PRESENT ILLNESS: Ms. Renetta Cifuentes is a 61-year-old female with a past medical history of COPD, who presents to the hospital today with concern for shortness of breath. Ms. Cifuentes states that she began to feel unwell earlier in the week. On Friday, she called Dr. Shukla's office where Dr. Pino prescribed her a short course of prednisone and Augmentin as patient had complained of fever up to 101. The patient states that she picked up those prescriptions on Friday. By Friday, she was still feeling unwell but "fighting it." This morning, however, she felt quite short of breath and very anxious and therefore came to the emergency room for evaluation. In the emergency room, Ms. Cifuentes had no O2 requirement. Her vital signs showed no tachycardia. Blood pressure is stable, running in the 140s systolically. She is afebrile. Her labs were unremarkable. Her D-dimer was less than 200. Her chest x-ray showed no acute infiltrate. PAST MEDICAL HISTORY: 1. COPD. 2. History of SVT. 3. History of TIA. 4. Obesity. 5. History of PFO. 6. History of breast cancer, status post lumpectomy and chemotherapy. 7. Hiatal hernia. 8. Hypertension. 9. Hysterectomy. 10. Laparoscopic cholecystectomy. MEDICATIONS: 1. Alprazolam 1 mg p.o. q.i.d. p.r.n. 2. Albuterol p.r.n. 3. Symbicort 160/4.5 q.4h. p.r.n. 4. Buffered aspirin 325 mg p.o. q.a.m. 5. Bumex 1 mg p.o. daily. 6. Flecainide 100 mg p.o. b.i.d. 7. Metoprolol succinate 25 mg p.o. q.a.m. 8. Compazine 5 mg p.o. q.6h. p.r.n. ALLERGIES: LATEX, CEFACLOR, CODEINE, ERYTHROMYCIN, HYDROCODONE, MEPERIDINE, MORPHINE, OXYCODONE, PAROXETINE, PROPRANOLOL, TETRACYCLINE, ACETAMINOPHEN, IBUPROFEN, PROPOXYPHENE and SULFATE. FAMILY HISTORY: Reviewed, noncontributory. SOCIAL HISTORY: Patient is a former smoker, she states she quit about 5 days ago. She drinks alcohol occasionally. There is no reported drug use. She states that she has not offered a healthcare proxy today. REVIEW OF SYSTEMS: A 14-point review of systems was completed with Ms. Cifuentes and all those not mentioned above were negative. PHYSICAL EXAMINATION: Vital Signs: Temperature 97.5, pulse rate 75, respiratory rate 16, O2 saturation 95% on room air, blood pressure 115/65. General: Ms. Cifuentes is sitting up in the bed. She is in no acute distress. Neuro: She is alert. She is oriented x3. She moves all extremities equally. There is no facial asymmetry or focal weakness. Extraocular movements are intact. Heart: S1, S2. No murmur, rub or gallop, and regular. Lungs: Clear to auscultation bilaterally with no accessory muscle use and good aeration. The abdomen is soft, nontender, with bowel sounds positive x4. Extremities: No cyanosis or edema. Skin is intact. LABORATORY DATA: WBC 9.4, hemoglobin 14.8, hematocrit 45, platelet count 248, INR 0.85, D-dimer less than 200. Sodium 137, potassium 4.1, chloride 104, serum bicarbonate 22, BUN 13, creatinine 0.79, glucose 125. Urine shows no evidence of infection. Chest x-ray shows no evidence of infiltrate. ASSESSMENT: Ms. Cifuentes is a 61-year-old female with a past medical history of chronic obstructive pulmonary disease, who presents today to the hospital with concern for shortness of breath. In the emergency room, she is found to not be hypoxic. At this point, her lungs are clear. I think perhaps she had a mild chronic obstructive pulmonary disease exacerbation, which was being treated well with her prednisone. However, the patient has a history of posttraumatic stress disorder and extreme anxiety, which she endorses throughout most of my interview. She is very anxious and crying, apologizing frequently for " bothering me." I spoke at length with the patient about the fact that the findings here in the emergency room have been benign. I believe that the prednisone at this point, which would be tapered down to 10 mg, is causing more harm for her than benefit as it does contribute significantly to her underlying anxiety. The fact that her lungs are clear and she is afebrile and her labs are otherwise unremarkable as well as her chest x-ray is unremarkable make me comfortable with discontinuing her prednisone as well as her Augmentin for now. Patient states understanding as such, she states she feels well and okay for discharge to home. I have encouraged her strongly to return to the emergency room should she feel short of breath or have any other concerning symptoms. I have also encouraged her should she feel that she needs treatment for possible exacerbation of her chronic obstructive pulmonary disease, that she should be seen either here, at [facility], or by her primary care physician directly before any further steroids are started as she does not tolerate them well at all and should only be on them if absolutely necessary. Ms. Cifuentes is medically stable for discharge to home, to follow up with Dr. Shukla per routine. TIME SPENT: Approximately 60 minutes was spent in the consultation of this patient, more than half the time spent with the patient at the bedside reviewing the events leading up to this hospitalization, performing the physical examination, and reviewing my plan of care. ROSITA SIMEON NP [id number]/CPS #: [id number] [email or web address]
--- NOTE | 2017-06-14 05:50 | ED ---
Neo Hendrix Benjamin, scribed for Mayo Julio MD on 05/22/17 at 1229 . Shortness of Breath - HPI Summary HPI Summary: 61yo female c/o SOB since this Friday. Pt also had a fever Friday and Friday night, and has been coughing up green sputum. Reports chest tightness but no CP. Pt saw her PCP and was rxed prednisone and augmentin. Pt states that her meds not working, making her heart race, lightheaded, dizzy, numbness in her lips, and shaky. Pt has hx of COPD and asthma. Pt wants to get off her prednisone. PT also takes breathing treatment at home. - History of Current Complaint Chief Complaint: EDGeneral Time Seen by Provider: 05/22/17 12:18 Hx Obtained From: Patient Onset/Duration: Sudden Onset, Lasting Days, Still Present Timing: Constant Current Severity: Moderate Dyspnea At: Rest Aggrevating Factors: Nothing Alleviating Factors: Nothing Associated Signs & Symptoms: Cough (Productive) - green sputum, Fever - Allergy/Home Medications Allergies/Adverse Reactions: Allergies Allergy/AdvReac Type Severity Reaction Status Date / Time Latex Allergy Severe RASH, ITCHY Verified 05/22/17 10:31 Cefaclor [From Ceclor] Allergy Intermediate Swelling Verified 05/22/17 10:31 Codeine Allergy Intermediate Swelling Verified 05/22/17 10:31 Erythromycin Allergy Intermediate Swelling Verified 05/22/17 10:31 Hydrocodone [From Vicodin] Allergy Intermediate rash feels Verified 05/22/17 10: 31 funny Meperidine [From Demerol HCl] Allergy Intermediate Swelling Verified 05/22/17 10 :31 Morphine Allergy Intermediate Swelling Verified 05/22/17 10:31 Oxycodone Allergy Intermediate rash feels Verified 05/22/17 10:31 [From Oxycodone funny W/Acetaminophen] Paroxetine [From Paxil] Allergy Intermediate rash,face Verified 05/22/17 10:31 ,throat swelling Propranolol [From Inderal] Allergy Intermediate Swelling Verified 05/22/17 10:31 Tetracyclines Allergy Intermediate Swelling Verified 05/22/17 10:31 Acetaminophen Allergy TONGUE Verified 05/22/17 10:31 [From Darvocet-N] SWELLS Ibuprofen Allergy Difficulty Verified 05/22/17 10:31 Breathing Propoxyphene Allergy TONGUE Verified 05/22/17 10:31 [From DarvocetDon] SWELLS Sulfate Allergy Shortness Verified 05/22/17 10:31 of Breath Home Medications: Home Medications Budesonide/Formote 160/4.5(NF) [Symbicort 160/4.5 (NF)] 1 puff INH Q4HR PRN 03/31 [History Confirmed 05/22/17] Prochlorperazine TAB* [Compazine Tab*] 5 mg PO Q6H PRN 05/22/17 [History Confirmed 05/22/17] PMH/Surg Hx/FS Hx/Imm Hx Endocrine/Hematology History: Reports: Hx Anemia - TAKES 325 MG ASPIRIN DAILY Denies: Hx Diabetes, Hx Systemic Lupus Erythematosus Cardiovascular History: Reports: Hx Angina, 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 EF%50-55 Denies: Hx Aneurysm, Hx Congestive Heart Failure, Hx Deep Vein Thrombosis Respiratory History: Reports: Hx Asthma, Hx Chronic Obstructive Pulmonary Disease (COPD) Denies: Other Respiratory Problems/Disorders GI History: Reports: Hx Gall Bladder Disease, Hx Gastroesophageal Reflux Disease - ON MEDICATION FOR, Other GI Disorders - HIATAL HERNIA History: Denies: Hx Dialysis, Hx Renal Disease Musculoskeletal History: Reports: Hx Arthritis - HANDS Denies: Hx Rheumatoid Arthritis, Hx Osteoporosis Sensory History: Reports: Hx Contacts or Glasses, Hx Vision Problem Denies: Hx Hearing Aid Opthamlomology History: Reports: Hx Contacts or Glasses, Hx Vision Problem Neurological History: Reports: Hx Migraine Denies: Hx CVA, Hx Transient Ischemic Attacks (TIA), Other Neuro Impairments/ Disorders - HERNIATED DISC Psychiatric History: Reports: Hx Anxiety - ROUTINE AND PRN MEDICATION FOR, Hx Depression - PTSD- D/T CANCER- TAKES ATIVAN DAILY, Hx Post Traumatic Stress Disorder - Cancer History Cancer Type, Location and Year: breast/2010 Hx Chemotherapy: Yes Hx Radiation Therapy: Yes - Surgical History Surgery Procedure, Year, and Place: RIGHT LUMPECTOMY, TOBI 2012, HYSTERECTOMY 1991, POWERPORT LCW, Hx Anesthesia Reactions: Yes - SEVERE ANXIETY- WITH LUMPECTOMY AND PORT PLACEMENT AND SEVERE NAUSEA - Immunization History Date of Tetanus Vaccine: up to date Date of Influenza Vaccine: 2015 Infectious Disease History: Denies: Hx Clostridium Difficile, Hx Hepatitis, Hx of Known/Suspected MRSA, Hx Shingles, Hx Tuberculosis, Hx Known/Suspected VRE, Hx Known/Suspected VRSA, History Other Infectious Disease, Traveled Outside the [place] in Last 30 Days - Family History Known Family History: Positive: Cardiac Disease, Other - PE - Social History Occupation: Retired Lives: Alone Alcohol Use: Occasionally Hx Substance Use: No Substance Use Type: Reports: None Hx Tobacco Use: Yes Smoking Status (MU): Light Every Day Tobacco Smoker Type: Cigarettes Have You Smoked in the Last Year: Yes Review of Systems Positive: Fever Eyes: Negative ENT: Negative Positive: Palpitations - racing HR, Other - chest tightness. Negative: Chest Pain Positive: Shortness Of Breath, Cough - green sputum Gastrointestinal: Negative Genitourinary: Negative Musculoskeletal: Negative Skin: Negative Positive: Numbness - lips Psychological: Normal All Other Systems Reviewed And Are Negative: Yes Physical Exam Triage Information Reviewed: Yes Vital Signs On Initial Exam: Initial Vitals Temp Pulse Resp BP Pulse Ox 98.1 F 72 18 123/70 96 05/22/17 10:27 05/22/17 10:27 05/22/17 10:27 05/22/17 10:27 05/22/17 10:27 Vital Signs Reviewed: Yes Appearance: Positive: Well-Appearing, Well-Nourished, Pain Distress - Minimal SOB, minial respiratory distress Skin: Positive: Warm, Skin Color Reflects Adequate Perfusion, Dry Head/Face: Positive: Normal Head/Face Inspection Eyes: Positive: EOMI, ROSEANNA ENT: Positive: Normal ENT inspection, Hearing grossly normal Neck: Positive: Supple, Nontender Respiratory/Lung Sounds: Positive: Breath Sounds Present, Wheezes - bilateral scattered wheezing Cardiovascular: Positive: RRR, Pulses are Symmetrical in both Upper and Lower Extremities, Leg Edema Left - trace, Leg Edema Right - trace Abdomen Description: Positive: Nontender, Soft Bowel Sounds: Positive: Present Musculoskeletal: Positive: Strength/ROM Intact, Edema Left - trace pedal edema, Edema Right - trace pedal edema. Negative: Pain @ - no calf tenderness Neurological: Positive: Sensory/Motor Intact, Alert, Oriented to Person Place, Time Psychiatric: Positive: Affect/Mood Appropriate Diagnostics - Vital Signs Vital Signs Temp Pulse Resp BP Pulse Ox 05/22/17 10:27 98.1 F 72 18 123/70 96 - Laboratory Lab Results: Lab Results 05/22/17 05/22/1705/22/17 Range/Units 10:50 10:50 10:50 WBC (3.5-10.8) 10^3/ul RBC (4.0-5.4) 10^6/ul Hgb (12.0-16.0) g/dl Hct (35-47) % MCV (80-97) fL MCH (27-31) pg MCHC (31-36) g/dl RDW (10.5-15) % Plt Count (150-450) 10^3/ul MPV (7.4-10.4) um3 Neut % (Auto) (38-83) % Lymph % (Auto) (25-47) % [place] % (Auto) (1-9) % Eos % (Auto) (0-6) % Baso % (Auto) (0-2) % Absolute Neuts (auto) (1.5-7.7) 10^3/ul Absolute Lymphs (auto) (1.0-4.8) 10^3/ul Absolute Monos (auto) (0-0.8) 10^3/ul Absolute Eos (auto) (0-0.6) 10^3/ul Absolute Basos (auto) (0-0.2) 10^3/ul Absolute Nucleated RBC 10^3/ul Nucleated RBC % INR (Anticoag Therapy) 0.85 L (0.89-1.11) APTT 25.0 L (26.0-36.3) seconds D-Dimer, Quantitative < 200 (Less Than 230) ng/mL Sodium 137 (133-145) mmol/L Potassium 4.1 (3.5-5.0) mmol/L Chloride 104 (101-111) mmol/L Carbon Dioxide 22 (22-32) mmol/L Anion Gap 11 (2-11) mmol/L BUN 13 (6-24) mg/dL Creatinine 0.79 (0.51-0.95) mg/dL Est GFR ( Amer) 95.8 (>60) Est GFR (Non-Af Amer) 74.5 (>60) BUN/Creatinine Ratio 16.5 (8-20) Glucose 125 H (70-100) mg/dL Lactic Acid (0.5-2.0) mmol/L Calcium 9.4 (8.6-10.3) mg/dL Magnesium 1.9 (1.9-2.7) mg/dL Total Bilirubin 0.40 (0.2-1.0) mg/dL AST 30 (13-39) U/L ALT 32 (7-52) U/L Alkaline Phosphatase 87 (34-104) U/L Total Creatine Kinase 41 (10-223) U/L CK-MB (CK-2) 1.0 (0.6-6.3) ng/mL Troponin I 0.00 (<0.04) ng/mL C-Reactive Protein 2.67 (< 5.00) mg/L B-Natriuretic Peptide 262 H ( - 100) pg/mL Total Protein 7.3 (6.4-8.9) g/dL Albumin 4.1 (3.2-5.2) g/dL Globulin 3.2 (2-4) g/dL Albumin/Globulin Ratio 1.3 (1-3) Lipase 19 (11.0-82.0) U/L TSH 0.92 (0.34-5.60) mcIU/mL 05/22/17 05/22/17 Range/Units 10:50 10:50 WBC 9.4 (3.5-10.8) 10^3/ul RBC 4.68 (4.0-5.4) 10^6/ul Hgb 14.8 (12.0-16.0) g/dl Hct 45 (35-47) % MCV 96 (80-97) fL MCH 32 H (27-31) pg MCHC 33 (31-36) g/dl RDW 13 (10.5-15) % Plt Count 248 (150-450) 10^3/ul MPV 9 (7.4-10.4) um3 Neut % (Auto) 87.2 H (38-83) % Lymph % (Auto) 10.4 L (25-47) % [place] % (Auto) 1.9 (1-9) % Eos % (Auto) 0.3 (0-6) % Baso % (Auto) 0.2 (0-2) % Absolute Neuts (auto) 8.2 H (1.5-7.7) 10^3/ul Absolute Lymphs (auto) 1.0 (1.0-4.8) 10^3/ul Absolute Monos (auto) 0.2 (0-0.8) 10^3/ul Absolute Eos (auto) 0 (0-0.6) 10^3/ul Absolute Basos (auto) 0 (0-0.2) 10^3/ul Absolute Nucleated RBC 0.01 10^3/ul Nucleated RBC % 0.1 INR (Anticoag Therapy) (0.89-1.11) APTT (26.0-36.3) seconds D-Dimer, Quantitative (Less Than 230) ng/mL Sodium (133-145) mmol/L Potassium (3.5-5.0) mmol/L Chloride (101-111) mmol/L Carbon Dioxide (22-32) mmol/L Anion Gap (2-11) mmol/L BUN (6-24) mg/dL Creatinine (0.51-0.95) mg/dL Est GFR ( Amer) (>60) Est GFR (Non-Af Amer) (>60) BUN/Creatinine Ratio (8-20) Glucose (70-100) mg/dL Lactic Acid 2.6 H* (0.5-2.0) mmol/L Calcium (8.6-10.3) mg/dL Magnesium (1.9-2.7) mg/dL Total Bilirubin (0.2-1.0) mg/dL AST (13-39) U/L ALT (7-52) U/L Alkaline Phosphatase (34-104) U/L Total Creatine Kinase (10-223) U/L CK-MB (CK-2) (0.6-6.3) ng/mL Troponin I (<0.04) ng/mL C-Reactive Protein (< 5.00) mg/L B-Natriuretic Peptide ( - 100) pg/mL Total Protein (6.4-8.9) g/dL Albumin (3.2-5.2) g/dL Globulin (2-4) g/dL Albumin/Globulin Ratio (1-3) Lipase (11.0-82.0) U/L TSH (0.34-5.60) mcIU/mL Result Diagrams: 05/22/17 10:50 05/22/17 10:50 Lab Statement: Any lab studies that have been ordered have been reviewed, and results considered in the medical decision making process. - Radiology CXR Xray Interpretation: No Acute Changes Radiology Interpretation Completed By: Radiologist - ED physician has reviewed this radiology report and agrees. - EKG 1137. Cardiac Rate: NL - 74bpm EKG Rhythm: Sinus Rhythm ST Segment: Normal Ectopy: None Course/Dx - Course Course Of Treatment: Reviewed pts medication and allergy lists. Blood pressure noted. - Diagnoses Provider Diagnoses: Bronchitis with bronchospasm Discharge - Discharge Plan Condition: Stable Disposition: HOME Prescriptions: Methylprednisolone [Medrol Dosepak 4 MG*] 4 mg PO .SEE GERONIMO INSTRUCTION #1 geronimo Patient Education Materials: Acute Bronchitis (ED), Bronchospasm (ED) Referrals: Johan Shukla MD [Primary Care Provider] - Additional Instructions: FOLLOW UP WITH YOUR DOCTOR. RETURN TO THE EMERGENCY DEPARTMENT FOR ANY WORSENING OF YOUR CONDITION; SHORTNESS OF BREATH, YOU FEEL ILL, CHEST PAIN OR QUESTIONS OR CONCERNS. The documentation as recorded by the Neo mcclelland Benjamin accurately reflects the service I personally performed and the decisions made by me, Mayo Julio MD.
== END 2017-05-22 16:20 | disposition home or self-care (01) ==
LOC: ED 10:25
DX: J40 Bronchitis, not specified as acute or chronic (principal); J98.01 Acute bronchospasm; R05 Cough; R50.9 Fever, unspecified
CPT/HCPCS: 36415; 71010; 80053; 81003; 82550; 82553; 83605; 83690; 83735; 83880; 84443; 84484; 85025; 85379; 85610; 85730; 86140; 93005; 94640; 94760; 96374; 99282; A9270-GY; J2930

== ENCOUNTER 2017-08-21 09:29 | Emergency (ER) | payer MEDICARE, MEDICAID ==
[2017-08-21] MEDS ORDERED: methylPREDNISolone 125 MG* 2 ML VIAL IV ONE (09:36)
--- NOTE | 2017-08-21 10:12 | RAD ---
HISTORY: Shortness of breath, chest pain COMPARISONS: May 22, 2017 VIEWS: 4: Frontal dual-energy and lateral views of the chest. FINDINGS: CARDIOMEDIASTINAL SILHOUETTE: The cardiomediastinal silhouette is normal. CHRIS: The chris are normal. PLEURA: The costophrenic angles are sharp. No pleural abnormalities are noted. LUNG PARENCHYMA: The lungs are clear. ABDOMEN: The upper abdomen is clear. There is no subphrenic gas. BONES AND SOFT TISSUES: Degenerative changes are noted of the spine OTHER: None. IMPRESSION: NO ACTIVE CARDIOPULMONARY DISEASE.
[2017-08-21 10:49] LABS: Hematocrit 41 % (35-47); Hemoglobin 14.1 g/dl (12.0-16.0); Mean Corpuscular HGB Conc 35 g/dl (31-36); Mean Corpuscular Hemoglobin 33 pg (27-31); Mean Corpuscular Volume 97 fL (80-97); Mean Platelet Volume 9 um3 (7.4-10.4); Red Blood Count 4.22 10^6/ul (4.0-5.4); Red Cell Distribution Width 14 % (10.5-15); White Blood Count 9.5 10^3/ul (3.5-10.8)
[2017-08-21 11:07] LABS: Albumin 3.9 g/dL (3.2-5.2); BUN/Creatinine Ratio 14.6 (8-20); C Reactive Protein 2.57 mg/L (< 5.00); Calcium 8.9 mg/dL (8.6-10.3); EGFR African American 91.5 (>60); EGFR Non-African American 71.1 (>60); Globulin 2.9 g/dL (2-4); Potassium 4.4 mmol/L (3.5-5.0); Total Bilirubin 0.4 mg/dL (0.2-1.0); Total Protein 6.8 g/dL (6.4-8.9)
[2017-08-21 12:38] LABS: Urine Bacteria Absent (Absent); Urine Bilirubin Negative (Negative); Urine Glucose Negative (Negative); Urine Nitrite Negative (Negative)
[2017-08-21] MEDS ORDERED: Albuterol/Ipratropium NEB.SOL* Albuterol 2.5 MG/Ipratropium 0.5 MG 3 ML INH ONE (12:46)
[2017-08-21 14:31] VITALS: BP 101/62
--- NOTE | 2017-08-22 09:26 | ED ---
Long Hendrix Angela, scribed for Carlos Hernadez MD on 08/21/17 at 0956 . Shortness of Breath - HPI Summary HPI Summary: This pt is a 62 y/o female presenting to [facility] via EMS c/o SOB. EMS reports that the pt has just recently finished medications for bronchitis. Per EMS, on arrival to pt's house pt has difficulty speaking secondary to respiratory distress. Pt notes a little chest pain, which is described as pressure. She rates her pain 4/10 in severity. She additionally c/o upset stomach and a non- productive cough. She denies fever, vomiting. En route, EMS administered 1 duo-neb. Pt had another duo-neb prior to EMS arrival. PMHx includes COPD. - History of Current Complaint Hx Obtained From: Patient Onset/Duration: Lasting Hours, Still Present Timing: Constant Alleviating Factors: EMS Tx, Other - duo-neb Associated Signs & Symptoms: Cough (Nonproductive), Chest Pain w/Cough - Allergy/Home Medications Allergies/Adverse Reactions: Allergies Allergy/AdvReac Type Severity Reaction Status Date / Time Latex Allergy Severe RASH, ITCHY Verified 05/22/17 10:31 Cefaclor [From Ceclor] Allergy Intermediate Swelling Verified 05/22/17 10:31 Codeine Allergy Intermediate Swelling Verified 05/22/17 10:31 Erythromycin Allergy Intermediate Swelling Verified 05/22/17 10:31 Hydrocodone [From Vicodin] Allergy Intermediate rash feels Verified 05/22/17 10: 31 funny Meperidine [From Demerol HCl] Allergy Intermediate Swelling Verified 05/22/17 10 :31 Morphine Allergy Intermediate Swelling Verified 05/22/17 10:31 Oxycodone Allergy Intermediate rash feels Verified 05/22/17 10:31 [From Oxycodone funny W/Acetaminophen] Paroxetine [From Paxil] Allergy Intermediate rash,face Verified 05/22/17 10:31 ,throat swelling Propranolol [From Inderal] Allergy Intermediate Swelling Verified 05/22/17 10:31 Tetracyclines Allergy Intermediate Swelling Verified 05/22/17 10:31 Acetaminophen Allergy TONGUE Verified 05/22/17 10:31 [From Darvocet-N] SWELLS Ibuprofen Allergy Difficulty Verified 05/22/17 10:31 Breathing Propoxyphene Allergy TONGUE Verified 05/22/17 10:31 [From Darvocet-N] SWELLS Sulfate Allergy Shortness Verified 05/22/17 10:31 of Breath PMH/Surg Hx/FS Hx/Imm Hx Endocrine/Hematology History: Reports: Hx Anemia - TAKES 325 MG ASPIRIN DAILY Denies: Hx Diabetes, Hx Systemic Lupus Erythematosus Cardiovascular History: Reports: Hx Angina, 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 EF%50-55 Denies: Hx Aneurysm, Hx Congestive Heart Failure, Hx Deep Vein Thrombosis Respiratory History: Reports: Hx Asthma, Hx Chronic Obstructive Pulmonary Disease (COPD) Denies: Other Respiratory Problems/Disorders GI History: Reports: Hx Gall Bladder Disease, Hx Gastroesophageal Reflux Disease - ON MEDICATION FOR, Other GI Disorders - HIATAL HERNIA History: Denies: Hx Dialysis, Hx Renal Disease Musculoskeletal History: Reports: Hx Arthritis - HANDS Denies: Hx Rheumatoid Arthritis, Hx Osteoporosis Sensory History: Reports: Hx Contacts or Glasses, Hx Vision Problem Denies: Hx Hearing Aid Opthamlomology History: Reports: Hx Contacts or Glasses, Hx Vision Problem Neurological History: Reports: Hx Migraine Denies: Hx CVA, Hx Transient Ischemic Attacks (TIA), Other Neuro Impairments/ Disorders - HERNIATED DISC Psychiatric History: Reports: Hx Anxiety - ROUTINE AND PRN MEDICATION FOR, Hx Depression - PTSD- D/T CANCER- TAKES ATIVAN DAILY, Hx Post Traumatic Stress Disorder - Cancer History Cancer Type, Location and Year: breast/2010 Hx Chemotherapy: Yes Hx Radiation Therapy: Yes - Surgical History Surgery Procedure, Year, and Place: RIGHT LUMPECTOMY, TOBI 2012, HYSTERECTOMY 1991, POWERPORT LCW, Hx Anesthesia Reactions: Yes - SEVERE ANXIETY- WITH LUMPECTOMY AND PORT PLACEMENT AND SEVERE NAUSEA - Immunization History Date of Tetanus Vaccine: up to date Date of Influenza Vaccine: 2016 Infectious Disease History: Denies: Hx Clostridium Difficile, Hx Hepatitis, Hx of Known/Suspected MRSA, Hx Shingles, Hx Tuberculosis, Hx Known/Suspected VRE, Hx Known/Suspected VRSA, History Other Infectious Disease - Family History Known Family History: Positive: Cardiac Disease, Other - PE - Social History Alcohol Use: Occasionally Hx Substance Use: No Substance Use Type: Reports: None Hx Tobacco Use: Yes Smoking Status (MU): Light Every Day Tobacco Smoker Type: Cigarettes Have You Smoked in the Last Year: Yes Review of Systems Negative: Fever, Chills Positive: Chest Pain Positive: Shortness Of Breath, Cough Gastrointestinal: Other - upset stomach Positive: Nausea. Negative: Vomiting All Other Systems Reviewed And Are Negative: Yes Physical Exam - Summary Physical Exam Summary: VITAL SIGNS: Reviewed. GENERAL: Patient is a well-developed and nourished female who is lying comfortable in the stretcher. HEAD AND FACE: No signs of trauma. No ecchymosis, hematomas or skull depressions. No sinus tenderness. EYES: PERRLA, EOMI x 2, No injected conjunctiva, no nystagmus. EARS: Hearing grossly intact. Ear canals and tympanic membranes are within normal limits. MOUTH: Oropharynx within normal limits. NECK: Supple, trachea is midline, no adenopathy, no JVD, no carotid bruit, no c- spine tenderness, neck with full ROM. CHEST: Symmetric, no tenderness at palpation LUNGS: Decreased breath sounds bilaterally with slight wheezing. Pt has active duo-neb. CVS: Regular rate and rhythm, S1 and S2 present, no murmurs or gallops appreciated. ABDOMEN: Soft, non-tender. No signs of distention. No rebound no guarding, and no masses palpated. Bowel sounds are normal. EXTREMITIES: FROM in all major joints, no edema, no cyanosis or clubbing. NEURO: Alert and oriented x 3. No acute neurological deficits. Speech is normal and follows commands. SKIN: Dry and warm Triage Information Reviewed: Yes Vital Signs On Initial Exam: Initial Vitals Temp Pulse Resp BP Pulse Ox 97.7 F 75 12 121/68 98 08/21/17 09:42 08/21/17 09:42 08/21/17 09:42 08/21/17 09:42 08/21/17 09:42 Vital Signs Reviewed: Yes Diagnostics - Vital Signs Vital Signs Temp Pulse Resp BP Pulse Ox 08/21/17 12:01 98 08/21/17 11:33 22 08/21/17 11:00 76 18 112/55 90 08/21/17 10:30 75 17 95 08/21/17 10:21 76 15 111/72 91 08/21/17 10:00 79 17 94 08/21/17 09:45 76 15 95 08/21/17 09:43 121/68 08/21/17 09:42 97.7 F 75 12 121/68 98 - Laboratory Lab Results: Lab Results 08/21/17 08/21/17 08/21/17 Range/Units 10:33 10:33 10:33 WBC 9.5 (3.5-10.8) 10^3/ul RBC 4.22 (4.0-5.4) 10^6/ul Hgb 14.1 (12.0-16.0) g/dl Hct 41 (35-47) % MCV 97 (80-97) fL MCH 33 H (27-31) pg MCHC 35 (31-36) g/dl RDW 14 (10.5-15) % Plt Count 264 (150-450) 10^3/ul MPV 9 (7.4-10.4) um3 Neut % (Auto) 71.2 (38-83) % Lymph % (Auto) 20.9 L (25-47) % [place] % (Auto) 5.2 (1-9) % Eos % (Auto) 2.5 (0-6) % Baso % (Auto) 0.2 (0-2) % Absolute Neuts (auto) 6.7 (1.5-7.7) 10^3/ul Absolute Lymphs (auto) 2.0 (1.0-4.8) 10^3/ul Absolute Monos (auto) 0.5 (0-0.8) 10^3/ul Absolute Eos (auto) 0.2 (0-0.6) 10^3/ul Absolute Basos (auto) 0 (0-0.2) 10^3/ul Absolute Nucleated RBC 0.02 10^3/ul Nucleated RBC % 0.2 Sodium 137 (133-145) mmol/L Potassium 4.4 (3.5-5.0) mmol/L Chloride 104 (101-111) mmol/L Carbon Dioxide 24 (22-32) mmol/L Anion Gap 9 (2-11) mmol/L BUN 12 (6-24) mg/dL Creatinine 0.82 (0.51-0.95) mg/dL Est GFR ( Amer) 91.5 (>60) Est GFR (Non-Af Amer) 71.1 (>60) BUN/Creatinine Ratio 14.6 (8-20) Glucose 85 (70-100) mg/dL Lactic Acid (0.5-2.0) mmol/L Calcium 8.9 (8.6-10.3) mg/dL Total Bilirubin 0.40 (0.2-1.0) mg/dL AST 28 (13-39) U/L ALT 28 (7-52) U/L Alkaline Phosphatase 89 (34-104) U/L Total Creatine Kinase 47 (10-223) U/L Troponin I 0.00 (<0.04) ng/mL C-Reactive Protein 2.57 (< 5.00) mg/L B-Natriuretic Peptide 50 ( - 100) pg/mL Total Protein 6.8 (6.4-8.9) g/dL Albumin 3.9 (3.2-5.2) g/dL Globulin 2.9 (2-4) g/dL Albumin/Globulin Ratio 1.3 (1-3) Urine Color Urine Appearance Urine pH (5-9) Ur Specific [place] (1.010-1.030) Urine Protein (Negative) Urine Ketones (Negative) Urine Blood (Negative) Urine Nitrate (Negative) Urine Bilirubin (Negative) Urine Urobilinogen (Negative) Ur Leukocyte Esterase (Negative) Urine WBC (Auto) (Absent) Urine RBC (Auto) (Absent) Ur Squamous Epith Cells (Absent) Urine Bacteria (Absent) Urine Glucose (Negative) Influenza A (Rapid) (Negative) Influenza B (Rapid) (Negative) 08/21/17 08/21/17 08/21/17 Range/Units 10:33 10:55 12:02 WBC (3.5-10.8) 10^3/ul RBC (4.0-5.4) 10^6/ul Hgb (12.0-16.0) g/dl Hct (35-47) % MCV (80-97) fL MCH (27-31) pg MCHC (31-36) g/dl RDW (10.5-15) % Plt Count (150-450) 10^3/ul MPV (7.4-10.4) um3 Neut % (Auto) (38-83) % Lymph % (Auto) (25-47) % [place] % (Auto) (1-9) % Eos % (Auto) (0-6) % Baso % (Auto) (0-2) % Absolute Neuts (auto) (1.5-7.7) 10^3/ul Absolute Lymphs (auto) (1.0-4.8) 10^3/ul Absolute Monos (auto) (0-0.8) 10^3/ul Absolute Eos (auto) (0-0.6) 10^3/ul Absolute Basos (auto) (0-0.2) 10^3/ul Absolute Nucleated RBC 10^3/ul Nucleated RBC % Sodium (133-145) mmol/L Potassium (3.5-5.0) mmol/L Chloride (101-111) mmol/L Carbon Dioxide (22-32) mmol/L Anion Gap (2-11) mmol/L BUN (6-24) mg/dL Creatinine (0.51-0.95) mg/dL Est GFR ( Amer) (>60) Est GFR (Non-Af Amer) (>60) BUN/Creatinine Ratio (8-20) Glucose (70-100) mg/dL Lactic Acid 2.2 H* (0.5-2.0) mmol/L Calcium (8.6-10.3) mg/dL Total Bilirubin (0.2-1.0) mg/dL AST (13-39) U/L ALT (7-52) U/L Alkaline Phosphatase (34-104) U/L Total Creatine Kinase (10-223) U/L Troponin I (<0.04) ng/mL C-Reactive Protein (< 5.00) mg/L B-Natriuretic Peptide ( - 100) pg/mL Total Protein (6.4-8.9) g/dL Albumin (3.2-5.2) g/dL Globulin (2-4) g/dL Albumin/Globulin Ratio (1-3) Urine Color Straw Urine Appearance Clear Urine pH 5.0 (5-9) Ur Specific [place] 1.008 L (1.010-1.030) Urine Protein Negative (Negative) Urine Ketones Negative (Negative) Urine Blood 1+ H (Negative) Urine Nitrate Negative (Negative) Urine Bilirubin Negative (Negative) Urine Urobilinogen Negative (Negative) Ur Leukocyte Esterase Negative (Negative) Urine WBC (Auto) Trace(0-5/hpf) (Absent) Urine RBC (Auto) Trace(0-2/hpf) (Absent) Ur Squamous Epith Cells Present H (Absent) Urine Bacteria Absent (Absent) Urine Glucose Negative (Negative) Influenza A (Rapid) Negative (Negative) Influenza B (Rapid) Negative (Negative) Result Diagrams: 08/21/17 10:33 08/21/17 10:33 Lab Statement: Any lab studies that have been ordered have been reviewed, and results considered in the medical decision making process. - Radiology Chest XR Xray Interpretation: No Acute Changes - IMPRESSION: No active cardiopulmonary disease. ED physician has reviewed this radiology report and agrees. Radiology Interpretation Completed By: Radiologist - EKG 0952 Cardiac Rate: NL EKG Rhythm: Sinus Rhythm - at 76 bpm EKG Interpretation: No ST elevation EKG Comparison: No Significant Change - similat to prior EKG done on 05/22/17. Course/Dx - Course Assessment/Plan: This pt is a 62 y/o female presenting to [facility] via EMS c/o SOB. EMS reports that the pt has just recently finished medications for bronchitis. Per EMS, on arrival to pt's house pt has difficulty speaking secondary to respiratory distress. Pt notes a little chest pain, which is described as pressure. She rates her pain 4/10 in severity. She additionally c/ o upset stomach and a non-productive cough. She denies fever, vomiting. En route, EMS administered 1 duo-neb. Pt had another duo-neb prior to EMS arrival. PMHx includes COPD. Test results without any significant abnormalities except for lactic acid of 2.2. Urinalysis is negative for a UTI. Influenza A and B are negative. Chest XR shows no active cardiopulmonary disease. In the ED course, the pt was given duoneb and multiple duo nebs. She declined solu- Medrol as she gets anxiety. After these medications, her symptoms improved and is feeling much better. Therefore, she will be discharged home and follow up from her PCP. Pt is hemodynamically stable, alert and oriented x3. On re- examination, lungs are clear to auscultation bilaterally. - Diagnoses Differential Diagnosis/HQI/PQRI: Positive: Asthma, Bronchitis, CHF, COPD Exacerbation, Pulmonary Edema Provider Diagnoses: COPD exacerbation Discharge - Discharge Plan Condition: Stable Disposition: HOME Patient Education Materials: COPD (Chronic Obstructive Pulmonary Disease) (ED) Referrals: Johan Shukla MD [Primary Care Provider] - Additional Instructions: Please follow up with your primary care provider. RETURN TO THE ED FOR ANY WORSENING OR NEW SYMPTOMS. The documentation as recorded by the Long mcclelland Angela accurately reflects the service I personally performed and the decisions made by me, Carlos Hernadez MD.
== END 2017-08-21 14:30 | disposition home or self-care (01) ==
LOC: ED 09:29
DX: J44.1 Chronic obstructive pulmonary disease with (acute) exacerbation (principal)
CPT/HCPCS: 36415; 71020; 80053; 81003; 81015; 82550; 83605; 83880; 84484; 85025; 86140; 87502; 93005; 94640; 94760; 96374; 99284; A9270-GY; J2930

== ENCOUNTER 2017-10-26 14:13 | Emergency (ER) | payer MEDICARE, MEDICAID ==
[2017-10-26] MEDS ORDERED: Acetaminophen TAB* 325 MG PO ONE (15:35)
--- NOTE | 2017-10-26 16:42 | RAD ---
Indication: Medial LEFT knee pain post fall yesterday. Comparison: No relevant prior exams available on the [facility] P[facility] for comparison. Technique: LEFT knee: AP, tunnel, crosstable lateral, sunrise views. Report: Negative for joint effusion, fracture, or malalignment. Mild osteophytosis and medial and patellofemoral joint space narrowing. Mild anterior soft tissue swelling. IMPRESSION: 1. Soft tissue swelling without evidence for effusion or fracture. 2. Kellgren and Jose L grade 2 osteoarthritis.
--- NOTE | 2017-10-26 17:06 | ED ---
Lower Extremity - HPI Summary HPI Summary: Patient presents to the ED with chief complaint of left medial knee pain. She states while trying to climb out of her car yesterday she felt a pop in her left knee and then fell onto the knee in the snow. She states she has been up since 1 AM with intractable left knee pain. Unable to ambulate or bear weight. Pain radiates up and down the leg if she bears weight. Denies numbness, tingling, color, temperature changes to the ipsilateral leg. She has never injured the knee before. Noted to be osteoporotic. She is a smoker. History of breast cancer. - History of Current Complaint Chief Complaint: EDExtremityLower Stated Complaint: KNEE PAIN Time Seen by Provider: 10/26/17 14:19 Hx Obtained From: Patient Mechanism Of Injury: Blunt Trauma, Twisted Onset of Pain: Immediate Onset/Duration: Days Severity Initially: Moderate Severity Currently: Moderate Pain Intensity: 10 Pain Scale Used: 0-10 Numeric Timing: Constant Location: Is Discrete @ - Left medial knee pain Associated Signs And Symptoms: Positive: Negative Aggravating Factor(s): Standing, Ambulation Alleviating Factor(s): Rest Able to Bear Weight: No - Risk Factors Gout Risk Factors: Negative DVT Risk Factors: Negative Septic Arthritis Risk Factor: Negative - Allergies/Home Medications Allergies/Adverse Reactions: Allergies Allergy/AdvReac Type Severity Reaction Status Date / Time MS Latex [Latex] Allergy Severe RASH, ITCHY Verified 10/26/17 14:20 MS Cefaclor [From Ceclor] Allergy Intermediate Swelling Verified 10/26/17 14:20 MS Codeine [Codeine] Allergy Intermediate Swelling Verified 10/26/17 14:20 MS Erythromycin Allergy Intermediate Swelling Verified 10/26/17 14:20 [Erythromycin] MS Hydrocodone [From Vicodin] Allergy Intermediate rash feels Verified 10/26/17 14:20 funny MS Meperidine Allergy Intermediate Swelling Verified 10/26/17 14:20 [From Demerol HCl] MS Morphine [Morphine] Allergy Intermediate Swelling Verified 10/26/17 14:20 MS Oxycodone Allergy Intermediate rash feels Verified 10/26/17 14:20 [From Oxycodone funny W/Acetaminophen] MS Paroxetine [From Paxil] Allergy Intermediate rash,face Verified 10/26/17 14: 20 ,throat swelling MS Propranolol [From Inderal] Allergy Intermediate Swelling Verified 10/26/17 14 :20 MS Tetracyclines Allergy Intermediate Swelling Verified 10/26/17 14:20 [Tetracyclines] MS Acetaminophen Allergy TONGUE Verified 10/26/17 14:20 [From Darvocet-N] SWELLS MS Ibuprofen [Ibuprofen] Allergy Difficulty Verified 10/26/17 14:20 Breathing MS Propoxyphene Allergy TONGUE Verified 10/26/17 14:20 [From Darvocet-N] SWELLS MS Sulfate [Sulfate] Allergy Shortness Verified 10/26/17 14:20 of Breath PMH/Surg Hx/FS Hx/Imm Hx Previously Healthy: Yes Endocrine/Hematology History: Reports: Hx Anemia - TAKES 325 MG ASPIRIN DAILY Denies: Hx Diabetes, Hx Systemic Lupus Erythematosus Cardiovascular History: Reports: Hx Angina, 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 EF%50-55 Denies: Hx Aneurysm, Hx Congestive Heart Failure, Hx Deep Vein Thrombosis Respiratory History: Reports: Hx Asthma, Hx Chronic Obstructive Pulmonary Disease (COPD) Denies: Other Respiratory Problems/Disorders GI History: Reports: Hx Gall Bladder Disease, Hx Gastroesophageal Reflux Disease - ON MEDICATION FOR, Other GI Disorders - HIATAL HERNIA History: Denies: Hx Dialysis, Hx Renal Disease Musculoskeletal History: Reports: Hx Arthritis - HANDS Denies: Hx Rheumatoid Arthritis, Hx Osteoporosis Sensory History: Reports: Hx Contacts or Glasses, Hx Vision Problem Denies: Hx Hearing Aid Opthamlomology History: Reports: Hx Contacts or Glasses, Hx Vision Problem Neurological History: Reports: Hx Migraine Denies: Hx CVA, Hx Transient Ischemic Attacks (TIA), Other Neuro Impairments/ Disorders - HERNIATED DISC Psychiatric History: Reports: Hx Anxiety - ROUTINE AND PRN MEDICATION FOR, Hx Depression - PTSD- D/T CANCER- TAKES ATIVAN DAILY, Hx Post Traumatic Stress Disorder - Cancer History Cancer Type, Location and Year: breast/2010 Hx Chemotherapy: Yes Hx Radiation Therapy: Yes - Surgical History Surgery Procedure, Year, and Place: RIGHT LUMPECTOMY, TOBI 2012, HYSTERECTOMY 1991, POWERPORT LCW, Hx Anesthesia Reactions: Yes - SEVERE ANXIETY- WITH LUMPECTOMY AND PORT PLACEMENT AND SEVERE NAUSEA - Immunization History Date of Tetanus Vaccine: up to date Date of Influenza Vaccine: 2016 Infectious Disease History: No Infectious Disease History: Denies: Hx Clostridium Difficile, Hx Hepatitis, Hx of Known/Suspected MRSA, Hx Shingles, Hx Tuberculosis, Hx Known/Suspected VRE, Hx Known/Suspected VRSA, History Other Infectious Disease, Traveled Outside the [place] in Last 30 Days - Family History Known Family History: Positive: Cardiac Disease, Other - PE - Social History Occupation: Unemployed Lives: Alone Alcohol Use: Occasionally Hx Substance Use: No Substance Use Type: Reports: None Hx Tobacco Use: Yes Smoking Status (MU): Light Every Day Tobacco Smoker Type: Cigarettes Have You Smoked in the Last Year: Yes Review of Systems Constitutional: Negative Negative: Fever, Chills, Fatigue Eyes: Negative Cardiovascular: Negative Genitourinary: Negative Positive: no symptoms reported, see HPI Positive: Arthralgia - left medial knee pain Skin: Negative Neurological: Negative All Other Systems Reviewed And Are Negative: Yes Physical Exam Triage Information Reviewed: Yes Vital Signs On Initial Exam: Initial Vitals Temp Pulse Resp BP Pulse Ox 97.1 F 79 15 126/71 95 10/26/17 14:15 10/26/17 14:15 10/26/17 14:15 10/26/17 14:15 10/26/17 14:15 Vital Signs Reviewed: Yes Appearance: Positive: Well-Appearing, Well-Nourished Skin: Positive: Warm, Skin Color Reflects Adequate Perfusion Head/Face: Positive: Normal Head/Face Inspection Eyes: Positive: EOMI, ROSEANNA, Conjunctiva Clear Neck: Positive: Supple, No Lymphadenopathy Respiratory/Lung Sounds: Positive: Wheezes - Bilaterally, patient states due to tamoxifen in the past and now has COPD, denies shortness of breath Cardiovascular: Positive: RRR, Pulses are Symmetrical in both Upper and Lower Extremities. Negative: Leg Edema Left, Leg Edema Right Musculoskeletal: Positive: Normal, Strength/ROM Intact Neurological: Positive: Alert, Oriented to Person Place, Time, Speech Normal Psychiatric: Positive: Normal, Affect/Mood Appropriate AVPU Assessment: Alert Diagnostics - Vital Signs Vital Signs Temp Pulse Resp BP Pulse Ox 10/26/17 14:15 97.1 F 79 15 126/71 95 - Laboratory Lab Statement: Any lab studies that have been ordered have been reviewed, and results considered in the medical decision making process. Lower Extremity Course/Dx - Course Course Of Treatment: During the course of treatment, the patient is evaluated for left medial knee pain. Due to pain, I am unable to perform anterior drawer , valgus or varus force, posterior drawer, or quadriceps active test. Blake' s also not performed. No laxity in the joint is noted. No temperature pallor. Pulses intact bilaterally. She is given Tylenol 650 mg in the ED with relief. Knee immobilizer, crutches and follow-up with or so if symptoms persist. She is okay with this plan and voices no concerns at this time. - Diagnoses Provider Diagnoses: Knee pain, acute Discharge - Discharge Plan Condition: Stable Disposition: HOME Patient Education Materials: Knee Pain (ED), Knee Immobilizer (ED) Referrals: Johan Shukla MD [Primary Care Provider] - Levi Muse MD [Medical Doctor] - Additional Instructions: Please follow up with orthopedics if symptoms persist Continue with knee immobilizer and crutches if you feel pain or are unable to walk Tylenol 650 mg 3 times daily for any discomfort Elevate the leg as much as possible Ice to the knee
[2017-10-26 17:13] VITALS: BP 131/69
== END 2017-10-26 17:12 | disposition home or self-care (01) ==
LOC: ED 14:13
DX: M25.562 Pain in left knee (principal); M17.12 Unilateral primary osteoarthritis, left knee; F17.210 Nicotine dependence, cigarettes, uncomplicated; Z91.81 History of falling; Z88.3 Allergy status to other anti-infective agents; Z88.5 Allergy status to narcotic agent; Z88.2 Allergy status to sulfonamides; Z88.8 Allergy status to other drugs, medicaments and biological substances
CPT/HCPCS: 99282; A9270-GY

== ENCOUNTER 2018-04-19 08:24 | Emergency (ER) | payer MEDICARE, MEDICAID ==
[2018-04-19] MEDS ORDERED: methylPREDNISolone 125 MG* 2 ML VIAL IV ONE (08:32)
[2018-04-19 09:00] LABS: ABS Basophils 0 10^3/ul (0-0.2); ABS Eosinophils 0.1 10^3/ul (0-0.6); ABS Lymphocytes 1.8 10^3/ul (1.0-4.8); ABS Monocytes 0.4 10^3/ul (0-0.8); ABS Neutrophils 2.9 10^3/ul (1.5-7.7); ABS Nucleated RBC 0 10^3/ul; Eosinophil % 2.2 % (0-6); Hematocrit 42 % (35-47); Hemoglobin 14.2 g/dl (12.0-16.0); Lymphocyte % 35.2 % (25-47); Mean Corpuscular HGB Conc 34 g/dl (31-36); Mean Corpuscular Hemoglobin 33 pg (27-31); Mean Corpuscular Volume 96 fL (80-97); Mean Platelet Volume 8.3 um3 (7.4-10.4); Nucleated Red Blood Cells % 0.2; Platelet Count 241 10^3/ul (150-450); Red Blood Count 4.32 10^6/ul (4.00-5.40); Red Cell Distribution Width 13 % (10.5-15); White Blood Count 5.2 10^3/ul (3.5-10.8)
[2018-04-19 09:05] LABS: INR 0.93 (0.77-1.02)
[2018-04-19 09:18] LABS: EGFR Non-African American 82.6 (>60)
[2018-04-19] MEDS ORDERED: Albuterol/Ipratropium NEB.SOL* Albuterol 2.5 MG/Ipratropium 0.5 MG 3 ML INH ONE (09:19)
--- OUTSIDE RECORDS SUMMARY | 2018-04-19 09:25 | XMS REPORT ---
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 Active Onset: 07/07/2013 Palpitations Kulwant Baltazar M.D. Active Onset: 08/18/2013 Paroxysmal supraventricular Kulwant Baltazar M.D. Active tachycardia Onset: 08/18/2013 Ostium secundum type atrial septal Kulwant Baltazar M.D. Active defect Onset: 09/23/2016 Chronic obstructive lung disease Laura Blount MD Active Onset: 09/23/2016 Disturbance in sleep behavior Laura Blount MD Active Onset: 09/23/2016 Obesity Laura Blount MD Active Onset: 10/25/2016 Obstructive sleep apnea syndrome Laura Blount MD Active Onset: 10/25/2016 Chronic obstructive pulmonary disease Laura Blount MD Active w (acute) exacerbation Family History Date Family Member(s) Problem(s) Comments Father of NE at age 36 Mother of Leukemia at age 81 Siblings 1 Sister w/Crest symdome Social History Type Date Description Comments Marital Status Occupation Disabled Cigarette Use Former Cigarette Smoker ETOH Use Occasionally consumes beer Smoking Patient is a former smoker Quit July 2017 Less 1/2 PPD x 40 years Recreational Drug Use Denies Drug Use Daily Caffeine Decafe tea 1 cups daily Exercise Type/Frequency Exercises sporadically Exercise Type/Frequency Exercises more when warm out Exercise Type/Frequency Walks daily about 10-15 mins depending on the weather Allergies, Adverse Reactions, Alerts Date Description Reaction Status Severity Comments 07/06/2013 Ceclor active 07/06/2013 Erythromycin active 07/06/2013 Tetracycline active 07/06/2013 Codeine active 07/06/2013 Demerol active 07/06/2013 Morphine active 07/06/2013 Ibuprofen active 07/06/2013 Inderal active 07/06/2013 Vicodin active 07/06/2013 Sulfa Antibiotics active 07/06/2013 Paxil active 07/06/2013 Oxycodone active 07/07/2013 Zoloft active 07/07/2013 Celexa active 09/23/2016 Latex active Medications Medication Date Status Form Strength Qnty SIG Indications Ordering Provider Oxygen 11/25/ Active Misc 1unit please use R09.02 Laura 2017 s o2 at Jose Alejandro, 2l/min at MD night Flecainide 10/04/ Active Tablets 100mg 180ta 1 by mouth Kulwant Acetate 2016 bs twice a day Richardson Baltazar M.D. Compazine 09/20/ Active as Unknown 2016 directed/ne eded Metoprolol 08/18/ Active Tablets ER 25mg 90tab 1 by mouth Kulwant Succinate ER 2012 24HR s every day Richardson Baltazar M.D. Aspirin / Active Tablets DR 325mg 30tab 1 po qd Unknown 0000 s Alprazolam / Active Tablets 1mg as needed Midura, 0000 MD Johan Albuterol / Active Nebulizer 0.63mg/3M prn Midura, Sulfate 0000 L MD Johan Betamethasone / Active Nebulizer prn Unknown 0000 Symbicort / Active Aerosol 160-4.5mc 2 puff Unknown 0000 g/Act twice a day Prednisone 01/22/ Hx Tablets 5mg 90tab 2 tablets J45.901 Laura 2017 - s for 1 week Jose Alejandro, 02/03/ and 1 2016 tablet for 2 weeks Advair HFA 12/26/ Hx Aerosol 115-21mcg 24gm 2 puff J44.9 Laura 2016 - /Act twice a day Jose Alejandro, 08/26/ 2016 Spiriva 09/20/ Hx Capsules 18mcg 1 unit Unknown Handihaler 2017 - inhalation 12/25/ daily 2017 Bumetanide 09/20/ Hx Tablets 1mg as directed Unknown 2016 - 2016 Omeprazole 09/20/ Hx Capsules DR 20mg 1 by mouth Unknown 2017 - every day 2016 Flecainide 08/18/ Hx Tablets 50mg 60tab 1 by mouth Kulwant Acetate 2012 - s twice a day D. Giovanny, 10/04/ M.D. 2016 Metoprolol 07/07/ Hx Tablets ER 25mg 180ta bid po Kulwant Succinate ER 2012 - 24HR bs D. Giovanny, 08/18/ M.D. 2012 Metoprolol 09/23/ Hx Tablets ER 25mg 90tab 1 tab by Kulwant Succinate ER 2012 - 24HR s mouth every D. Giovanny, 07/07/ day M.D. 2012 Prilosec / Hx Capsules DR 20mg 90cap 1 po qd prn Unknown 0000 - s 2015 Trazodone HCL / Hx Tablets 50mg Gayla, Hortensia - MD Johan 2012 Calcium 600 / Hx Tablets 600mg 60tab 1 tabs po Unknown High Potency 0000 - s qd am 2016 Vitamin D3 High / Hx Capsules 1000Unit 3 po qd Unknown Potency - 2015 Tamoxifen / Hx Tablets 20mg 1 po qd Bael, Citrate 0000 - Trey 09/15/ MD Kaleb 2016 Symbicort / Hx Aerosol 80-4.5mcg prn Gayla, 0000 - /Act MD Jhoan 2016 Fluticasone / Hx Suspension 50mcg/Act Gayla, Propionate 0000 - MD Johan 2016 Proair HFA / Hx Aerosol 108(90Bas prn Gayla, 0000 - e) MD Johan mcg/Act 2016 Walls / Hx Capsules 300mg take 2 Unknown Carbonate 0000 - capsules by 09/15/ mouth at 2016 bedtime Potassium / Hx Take one Unknown Chloride ER 0000 - tab PO daily 2016 Prednisone / Hx Tablets 20mg 2 tablets Unknown 0000 - by mouth daily x's 5 2016 days in the morning Vital Signs Date Vital Result Comment 03/30/2018 Height 62 inches 5'2" Weight 165.12 lb Heart Rate 92 /min BP Systolic Sitting 118 mmHg Lue reguar cuff BP Diastolic Sitting 76 mmHg Lue reguar cuff Respiratory Rate 16 /min O2 % BldC Oximetry 93 % BMI (Body Mass Index) 30.2 kg/m2 11/25/2017 Height 62 inches 5'2" Weight 171.00 lb Heart Rate 84 /min BP Systolic Sitting 118 mmHg BP Diastolic Sitting 78 mmHg Respiratory Rate 14 /min O2 % BldC Oximetry 96 % BMI (Body Mass Index) 31.3 kg/m2 08/27/2017 Height 62 inches 5'2" Weight 175.00 lb Heart Rate 80 /min BP Systolic Sitting 124 mmHg BP Diastolic Sitting 70 mmHg Respiratory Rate 14 /min O2 % BldC Oximetry 94 % BMI (Body Mass Index) 32.0 kg/m2 02/04/2017 Height 62 inches 5'2" Weight 188.00 lb Heart Rate 91 /min BP Systolic Sitting 108 mmHg left arm, reg cuff BP Diastolic Sitting 72 mmHg left arm, reg cuff BP Systolic Standing 110 mmHg left arm, reg cuff BP Diastolic Standing 72 mmHg left arm, reg cuff BMI (Body Mass Index) 34.4 kg/m2 Ejection Fraction 55-60% 09/03/16 01/22/2017 Height 62 inches 5'2" Weight 175.00 lb Heart Rate 79 /min BP Systolic Sitting 118 mmHg BP Diastolic Sitting 78 mmHg Respiratory Rate 16 /min Pain Level 0 O2 % BldC Oximetry 96 % BMI (Body Mass Index) 32.0 kg/m2 12/26/2016 Height 62 inches 5'2" Weight 176.00 lb Heart Rate 102 /min BP Systolic Sitting 132 mmHg BP Diastolic Sitting 80 mmHg Respiratory Rate 16 /min Pain Level 0 O2 % BldC Oximetry 94 % BMI (Body Mass Index) 32.2 kg/m2 10/25/2016 Height 62 inches 5'2" Weight 185.00 lb Heart Rate 94 /min BP Systolic 130 mmHg BP Diastolic 76 mmHg Respiratory Rate 14 /min O2 % BldC Oximetry 93 % BMI (Body Mass Index) 33.8 kg/m2 10/04/2016 Height 62 inches 5'2" Weight 185.00 lb with shoes Heart Rate 88 /min BP Systolic Sitting 130 mmHg LA lrg cuff BP Diastolic Sitting 82 mmHg LA lrg cuff BP Systolic Standing 122 mmHg LA lrg cuff BP Diastolic Standing 80 mmHg LA lrg cuff BMI (Body Mass Index) 33.8 kg/m2 Ejection Fraction 55% - 60% echo 09/03/16 09/23/2016 Height 62 inches 5'2" Weight 189.00 lb Heart Rate 99 /min BP Systolic 118 mmHg BP Diastolic 74 mmHg Respiratory Rate 16 /min O2 % BldC Oximetry 99 % BMI (Body Mass Index) 34.6 kg/m2 09/29/2015 Height 62 inches 5'2" Heart Rate 88 /min BP Systolic Sitting 108 mmHg Lue, reg cuff BP Diastolic Sitting 76 mmHg Lue, reg cuff BP Systolic Standing 106 mmHg Lue BP Diastolic Standing 80 mmHg Lue Respiratory Rate 18 /min Ejection Fraction 50-55% as of 09/20/15 echo 08/25/2014 Height 62 inches 5'2" Weight 159.00 lb with shoes Heart Rate 108 /min BP Systolic Sitting 134 mmHg LA, reg cuff BP Diastolic Sitting 86 mmHg LA, reg cuff BP Systolic Standing 128 mmHg LA BP Diastolic Standing 90 mmHg LA Respiratory Rate 16 /min BMI (Body Mass Index) 29.1 kg/m2 10/08/2013 Height 62 inches 5'2" Weight 166.00 lb Heart Rate 78 /min BP Systolic Sitting 124 mmHg LA reg cuff BP Diastolic Sitting 84 mmHg LA reg cuff BP Systolic Standing 120 mmHg LA BP Diastolic Standing 82 mmHg LA Respiratory Rate 16 /min BMI (Body Mass Index) 30.4 kg/m2 08/18/2013 Height 62.5 inches 5'2.50" Weight 168.00 lb up 3 lbs Heart Rate 80 /min BP Systolic Sitting 130 mmHg LA reg cuff BP Diastolic Sitting 72 mmHg LA reg cuff BP Systolic Standing 122 mmHg LA BP Diastolic Standing 70 mmHg LA Respiratory Rate 18 /min BMI (Body Mass Index) 30.2 kg/m2 07/07/2013 Height 62.5 inches 5'2.50" Weight 165.00 lb Heart Rate 80 /min BP Systolic Sitting 136 mmHg Ra reg cuff BP Diastolic Sitting 86 mmHg Ra reg cuff BP Systolic Standing 128 mmHg Ra BP Diastolic Standing 80 mmHg Ra Respiratory Rate 16 /min BMI (Body Mass Index) 29.7 kg/m2 Results Test Date Test Result H/L Range Note Order 03/30/2018 6 Minute Walk <pending> Basic Metabolic Panel 09/21/2015 Sodium 135 mmol/L 133-145 Potassium 3.9 mmol/L 3.5-5.0 Chloride 104 mmol/L 101-111 Co2 Carbon Dioxide 25 mmol/L 22-32 Anion Gap 6 mmol/L 2-11 Glucose 136 mg/dL High 70-100 Blood Urea Nitrogen 12 mg/dL 6-24 Creatinine 0.93 mg/dL 0.51-0.95 BUN/Creatinine Ratio 12.9 8-20 Calcium 8.8 mg/dL 8.6-10.3 Egfr Non- 61.9 >60 Egfr 79.6 >60 1 Comp Metabolic Panel 07/27/2014 Sodium 136 mmol/L 133-145 Potassium 4.7 mmol/L 3.5-5.0 2 Chloride 103 mmol/L 101-111 Co2 Carbon Dioxide 25 mmol/L 22-32 Anion Gap 8 mmol/L 2-11 Glucose 90 mg/dL 70-100 Blood Urea Nitrogen 16 mg/dL 6-24 Creatinine 0.89 mg/dL 0.51-0.95 BUN/Creatinine Ratio 18.0 8-20 Calcium 8.7 mg/dL 8.6-10.3 Total Protein 6.8 g/dL 6.4-8.9 Albumin 4.2 g/dL 3.2-5.2 Globulin 2.6 g/dL 2-4 Albumin/Globulin Ratio 1.6 1-3 Total Bilirubin 0.30 mg/dL 0.2-1.0 Alkaline Phosphatase 41 U/L 34-104 Alt 20 U/L 7-52 Ast 25 U/L 13-39 Egfr Non- 65.4 >60 Egfr 84.1 >60 3 CBC Auto Diff 07/27/2014 White Blood Count 6.4 10^3/uL 4.8-10.8 Red Blood Count 4.26 10^6/uL 4.0-5.4 Hemoglobin 14.0 g/dL 12.0-16.0 Hematocrit 42 % 35-47 Mean Corpuscular Volume 99 fL High 80-97 Mean Corpuscular Hemoglobin 33 pg High 27-31 Mean Corpuscular HGB Conc 33 g/dL 31-36 Red Cell Distribution Width 13 % 10.5-15 Platelet Count 222 10^3/uL 150-450 Mean Platelet Volume 9 um3 7.4-10.4 Abs Neutrophils 3.9 10^3/uL 1.5-7.7 Abs Lymphocytes 1.8 10^3/uL 1.0-4.8 Abs Monocytes 0.5 10^3/uL 0-0.8 Abs Eosinophils 0.1 10^3/uL 0-0.6 Abs Basophils 0.1 10^3/uL 0-0.2 Abs Nucleated RBC 0 10^3/uL Granulocyte % 61.3 % 38-83 Lymphocyte % 28.6 % 25-47 Monocyte % 7.0 % 1-9 Eosinophil % 2.0 % 0-6 Basophil % 1.1 % 0-2 Nucleated Red Blood Cells % 0 CBC Auto Diff 05/03/2014 White Blood Count 6.5 10^3/uL 4.8-10.8 Red Blood Count 4.23 10^6/uL 4.0-5.4 Hemoglobin 14.1 g/dL 12.0-16.0 Hematocrit 41 % 35-47 Mean Corpuscular Volume 97 fL 80-97 Mean Corpuscular Hemoglobin 33 pg High 27-31 Mean Corpuscular HGB Conc 34 g/dL 31-36 Red Cell Distribution Width 14 % 10.5-15 Platelet Count 241 10^3/uL 150-450 Mean Platelet Volume 8 um3 7.4-10.4 Abs Neutrophils 4.4 10^3/uL 1.5-7.7 Abs Lymphocytes 1.4 10^3/uL 1.0-4.8 Abs Monocytes 0.4 10^3/uL 0-0.8 Abs Eosinophils 0.1 10^3/uL 0-0.6 Abs Basophils 0.1 10^3/uL 0-0.2 Granulocyte % 67.6 % 38-83 Lymphocyte % 22.0 % Low 25-47 Monocyte % 6.9 % 1-9 Eosinophil % 2.2 % 0-6 Basophil % 1.3 % 0-2 Comp Metabolic Panel 05/03/2014 Sodium 136 mmol/L 133-145 Potassium 3.6 mmol/L Low 3.7-5.6 Chloride 103 mmol/L 101-111 Co2 Carbon Dioxide 24 mmol/L 22-32 Anion Gap 9 mmol/L 2-11 Glucose 108 mg/dL High 70-100 Blood Urea Nitrogen 11 mg/dL 6-24 Creatinine 0.91 mg/dL 0.51-0.95 BUN/Creatinine Ratio 12.1 8-20 Calcium 8.9 mg/dL 8.6-10.3 Total Protein 7.3 g/dL 6.4-8.9 Albumin 4.2 g/dL 3.2-5.2 Globulin 3.1 g/dL 2-4 Albumin/Globulin Ratio 1.4 1-3 Total Bilirubin 0.60 mg/dL 0.2-1.0 Alkaline Phosphatase 56 U/L 34-104 Alt 18 U/L 7-52 Ast 26 U/L 13-39 Egfr Non- 63.9 >60 Egfr 82.2 >60 4 Laboratory test finding 05/03/2014 Vitamin D 1,25-Dihydroxy 49 pg/mL 18- 78 5 CBC Auto Diff 07/02/2013 White Blood Count 6.8 10^3/uL 4.8-10.8 Red Blood Count 4.21 10^6/uL 4.0-5.4 Hemoglobin 13.8 g/dL 12.0-16.0 Hematocrit 41 % 35-47 Mean Corpuscular Volume 97 fL 80-97 Mean Corpuscular Hemoglobin 33 pg High 27-31 Mean Corpuscular HGB Conc 34 g/dL 31-36 Red Cell Distribution Width 13 % 10.5-15 Platelet Count 238 10^3/uL 150-450 Mean Platelet Volume 9 um3 7.4-10.4 Abs Neutrophils 4.4 10^3/uL 1.5-7.7 Abs Lymphocytes 1.6 10^3/uL 1.0-4.8 Abs Monocytes 0.5 10^3/uL 0-0.8 Abs Eosinophils 0.2 10^3/uL 0-0.6 Abs Basophils 0.1 10^3/uL 0-0.2 Abs Nucleated RBC 0 10^3/uL Granulocyte % 65.0 % 38-83 Lymphocyte % 24.0 % Low 25-47 Monocyte % 7.2 % 1-9 Eosinophil % 2.7 % 0-6 Basophil % 1.1 % 0-2 Nucleated Red Blood Cells % 0 Comp Metabolic Panel 07/02/2013 Sodium 139 mmol/L 133-145 Potassium 4.4 mmol/L 3.5-5.0 Chloride 105 mmol/L 101-111 Co2 Carbon Dioxide 27.0 mmol/L 22-32 Anion Gap 7.0 mmol/L 2-11 Glucose 91 mg/dL 70-100 Blood Urea Nitrogen 15 mg/dL 6-24 Creatinine 0.70 mg/dL 0.50-1.40 BUN/Creatinine Ratio 21.4 High 8-20 Calcium 8.9 mg/dL 8.1-9.9 Total Protein 6.3 g/dL 6.2-8.1 Albumin 3.8 g/dL 3.6-5.4 Globulin 2.5 g/dL 2-4 Albumin/Globulin Ratio 1.5 1-3 Total Bilirubin 0.7 mg/dL 0.4-1.5 Alkaline Phosphatase 54 U/L 30-110 Alt 15 U/L 14-54 Ast 21 U/L 12-42 Egfr Non- 86.6 >60 Egfr 111.3 >60 6 Laboratory test finding 07/02/2013 CA 27-29 18.34 U/mL 3.5-38.6 7 Vitamin D, 25 Hydroxy 07/02/2013 25-Hydroxy Vitamin D2 <4.0 ng/mL 25-Hydroxy Vitamin D3 33 ng/mL 25-Hydroxy Vitamin D Total 33 ng/mL 8 CBC Auto Diff 06/04/2013 White Blood Count 5.3 10^3/uL 4.8-10.8 Red Blood Count 3.92 10^6/uL Low 4.0-5.4 Hemoglobin 12.8 g/dL 12.0-16.0 Hematocrit 38 % 35-47 Mean Corpuscular Volume 97 fL 80-97 Mean Corpuscular Hemoglobin 33 pg High 27-31 Mean Corpuscular HGB Conc 34 g/dL 31-36 Red Cell Distribution Width 13 % 10.5-15 Platelet Count 235 10^3/uL 150-450 Mean Platelet Volume 10 um3 7.4-10.4 Abs Neutrophils 3.6 10^3/uL 1.5-7.7 Abs Lymphocytes 1.1 10^3/uL 1.0-4.8 Abs Monocytes 0.4 10^3/uL 0-0.8 Abs Eosinophils 0.1 10^3/uL 0-0.6 Abs Basophils 0.1 10^3/uL 0-0.2 Abs Nucleated RBC 0 10^3/uL Granulocyte % 67.4 % 38-83 Lymphocyte % 21.3 % Low 25-47 Monocyte % 7.8 % 1-9 Eosinophil % 2.2 % 0-6 Basophil % 1.3 % 0-2 Nucleated Red Blood Cells % 0 Inr/Protime 06/04/2013 Inr 0.88 0.87-0.97 CKMB 06/04/2013 CKMB ng/mL 0.8 ng/mL 0.3-4.0 9 CKMB ng/mL 0.8 ng/mL 0.3-4.0 10 Laboratory test finding 06/04/2013 Troponin I 0 ng/mL 0-0.06 11 Comp Metabolic Panel 06/04/2013 Sodium 137 mmol/L 133-145 Potassium 3.6 mmol/L 3.5-5.0 Chloride 106 mmol/L 101-111 Co2 Carbon Dioxide 21.0 mmol/L Low 22-32 Anion Gap 10.0 mmol/L 2-11 Glucose 87 mg/dL 70-100 Blood Urea Nitrogen 6 mg/dL 6-24 Creatinine 0.60 mg/dL 0.50-1.40 BUN/Creatinine Ratio 10.0 8-20 Calcium 8.8 mg/dL 8.1-9.9 Total Protein 6.2 g/dL 6.2-8.1 Albumin 3.6 g/dL 3.6-5.4 Globulin 2.6 g/dL 2-4 Albumin/Globulin Ratio 1.4 1-3 Total Bilirubin 0.7 mg/dL 0.4-1.5 Alkaline Phosphatase 63 U/L 30-110 Alt 16 U/L 14-54 Ast 23 U/L 12-42 Egfr Non- 103.8 >60 Egfr 133.5 >60 12 Laboratory test finding 06/04/2013 Activated Partial 25.7 seconds 22.18- 37.18 13 Thrombo Time Lipase 23 U/L 22-51 14 Laboratory test finding 04/12/2013 Vitamin D 1,25-Dihydroxy 32 pg/mL 18- 78 15 Vitamin D, 25 Hydroxy 04/12/2013 25-Hydroxy Vitamin D2 <4.0 ng/mL 25-Hydroxy Vitamin D3 39 ng/mL 25-Hydroxy Vitamin D Total 39 ng/mL 16 Laboratory test finding 04/12/2013 CA 27-29 23.75 U/mL 3.5-38.6 17 Comp Metabolic Panel 04/12/2013 Sodium 138 mmol/L 133-145 Potassium 4.2 mmol/L 3.5-5.0 Chloride 104 mmol/L 101-111 Co2 Carbon Dioxide 26.0 mmol/L 22-32 Anion Gap 8.0 mmol/L 2-11 Glucose 97 mg/dL 70-100 Blood Urea Nitrogen 7 mg/dL 6-24 Creatinine 0.70 mg/dL 0.50-1.40 BUN/Creatinine Ratio 10.0 8-20 Calcium 9.7 mg/dL 8.1-9.9 Total Protein 7.0 g/dL 6.2-8.1 Albumin 4.0 g/dL 3.6-5.4 Globulin 3.0 g/dL 2-4 Albumin/Globulin Ratio 1.3 1-3 Total Bilirubin 0.7 mg/dL 0.4-1.5 Alkaline Phosphatase 89 U/L 30-110 Alt 24 U/L 14-54 Ast 23 U/L 12-42 Egfr Non- 86.9 >60 Egfr 111.7 >60 18 CBC Auto Diff 04/12/2013 White Blood Count 6.2 10^3/uL 4.8-10.8 Red Blood Count 4.32 10^6/uL 4.0-5.4 Hemoglobin 14.3 g/dL 12.0-16.0 Hematocrit 42 % 35-47 Mean Corpuscular Volume 97 fL 80-97 Mean Corpuscular Hemoglobin 33 pg High 27-31 Mean Corpuscular HGB Conc 34 g/dL 31-36 Red Cell Distribution Width 14 % 10.5-15 Platelet Count 260 10^3/uL 150-450 Mean Platelet Volume 10 um3 7.4-10.4 Abs Neutrophils 4.5 10^3/uL 1.5-7.7 Abs Lymphocytes 1.1 10^3/uL 1.0-4.8 Abs Monocytes 0.4 10^3/uL 0-0.8 Abs Eosinophils 0.1 10^3/uL 0-0.6 Abs Basophils 0 10^3/uL 0-0.2 Granulocyte % 72.4 % 38-83 Lymphocyte % 18.5 % Low 25-47 Monocyte % 6.1 % 1-9 Eosinophil % 2.3 % 0-6 Basophil % 0.7 % 0-2 Comp Metabolic Panel 02/05/2013 Sodium 139 mmol/L 133-145 Potassium 4.2 mmol/L 3.5-5.0 Chloride 108 mmol/L 101-111 Co2 Carbon Dioxide 25.0 mmol/L 22-32 Anion Gap 6.0 mmol/L 2-11 Glucose 93 mg/dL 70-100 Blood Urea Nitrogen 6 mg/dL 6-24 Creatinine 0.60 mg/dL 0.50-1.40 BUN/Creatinine Ratio 10.0 8-20 Calcium 9.6 mg/dL 8.1-9.9 Total Protein 6.7 g/dL 6.2-8.1 Albumin 3.7 g/dL 3.6-5.4 Globulin 3.0 g/dL 2-4 Albumin/Globulin Ratio 1.2 1-3 Total Bilirubin 0.5 mg/dL 0.4-1.5 Alkaline Phosphatase 91 U/L 30-110 Alt 30 U/L 14-54 Ast 26 U/L 12-42 Egfr Non- 103.8 >60 Egfr 133.5 >60 19 CBC Auto Diff 02/05/2013 White Blood Count 5.4 10^3/uL 4.8-10.8 Red Blood Count 4.25 10^6/uL 4.0-5.4 Hemoglobin 13.9 g/dL 12.0-16.0 Hematocrit 40 % 35-47 Mean Corpuscular Volume 94 fL 80-97 Mean Corpuscular Hemoglobin 33 pg High 27-31 Mean Corpuscular HGB Conc 35 g/dL 31-36 Red Cell Distribution Width 14 % 10.5-15 Platelet Count 257 10^3/uL 150-450 Mean Platelet Volume 9 um3 7.4-10.4 Abs Neutrophils 3.1 10^3/uL 1.5-7.7 Abs Lymphocytes 1.5 10^3/uL 1.0-4.8 Abs Monocytes 0.5 10^3/uL 0-0.8 Abs Eosinophils 0.2 10^3/uL 0-0.6 Abs Basophils 0.1 10^3/uL 0-0.2 Granulocyte % 58.1 % 38-83 Lymphocyte % 27.1 % 25-47 Monocyte % 9.7 % High 1-9 Eosinophil % 3.7 % 0-6 Basophil % 1.4 % 0-2 Laboratory test finding 09/06/2012 B Type Natriuretic Peptide 16.0 pg/mL 0-100 Laboratory test finding 09/06/2012 Troponin I 0 ng/mL 0-0.06 20 Comp Metabolic Panel 09/06/2012 Sodium 136 mmol/L 133-145 Potassium 3.6 mmol/L 3.5-5.0 Chloride 103 mmol/L 101-111 Co2 Carbon Dioxide 26.0 mmol/L 22-32 Anion Gap 7.0 mmol/L 2-11 Glucose 96 mg/dL 70-100 Blood Urea Nitrogen 16 mg/dL 6-24 Creatinine 0.70 mg/dL 0.50-1.40 BUN/Creatinine Ratio 22.9 High 8-20 Calcium 9.1 mg/dL 8.1-9.9 Total Protein 7.2 g/dL 6.2-8.1 Albumin 4.1 g/dL 3.6-5.4 Globulin 3.1 g/dL 2-4 Albumin/Globulin Ratio 1.3 1-3 Total Bilirubin 0.6 mg/dL 0.4-1.5 Alkaline Phosphatase 69 U/L 30-110 Alt 21 U/L 14-54 Ast 25 U/L 12-42 Egfr Non- 86.9 >60 Egfr 111.7 >60 21 Laboratory test finding 09/06/2012 Inr 0.86 0.82-1.17 22 Activated Partial Thrombo Time 26.4 sec 22.18-37.18 CBC Auto Diff 09/06/2012 White Blood Count 6.1 10^3/uL 4.8-10.8 Red Blood Count 4.32 10^6/uL 4.0-5.4 Hemoglobin 13.6 g/dL 12.0-16.0 Hematocrit 40 % 35-47 Mean Corpuscular Volume 93 fL 80-97 Mean Corpuscular Hemoglobin 32 pg High 27-31 Mean Corpuscular HGB Conc 34 g/dL 31-36 Red Cell Distribution Width 13 % 10.5-15 Platelet Count 239 10^3/uL 150-450 Mean Platelet Volume 9 um3 7.4-10.4 Abs Neutrophils 3.8 10^3/uL 1.5-7.7 Abs Lymphocytes 1.6 10^3/uL 1.0-4.8 Abs Monocytes 0.5 10^3/uL 0-0.8 Abs Eosinophils 0.2 10^3/uL 0-0.6 Abs Basophils 0.1 10^3/uL 0-0.2 Abs Nucleated RBC 0 10^3/uL Granulocyte % 61.9 % 38-83 Lymphocyte % 25.4 % 25-47 Monocyte % 8.0 % 1-9 Eosinophil % 2.7 % 0-6 Basophil % 2.0 % 0-2 Nucleated Red Blood Cells % 0 Comp Metabolic Panel 08/28/2012 Sodium 137 mmol/L 133-145 Potassium 4.3 mmol/L 3.5-5.0 Chloride 102 mmol/L 101-111 Co2 Carbon Dioxide 29.0 mmol/L 22-32 Anion Gap 6.0 mmol/L 2-11 Glucose 93 mg/dL 70-100 Blood Urea Nitrogen 14 mg/dL 6-24 Creatinine 0.70 mg/dL 0.50-1.40 BUN/Creatinine Ratio 20.0 8-20 Calcium 9.9 mg/dL 8.1-9.9 Total Protein 6.5 g/dL 6.2-8.1 Albumin 4.2 g/dL 3.6-5.4 Globulin 2.3 g/dL 2-4 Albumin/Globulin Ratio 1.8 1-3 Total Bilirubin 0.6 mg/dL 0.4-1.5 Alkaline Phosphatase 79 U/L 30-110 Alt 24 U/L 14-54 Ast 23 U/L 12-42 Egfr Non- 86.9 >60 Egfr 111.7 >60 23 Oncology CBC Auto Diff 08/28/2012 White Blood Count 5.4 10^3/uL 4.8-10.8 Red Blood Count 4.39 10^6/uL 4.0-5.4 Hemoglobin 14.1 g/dL 12.0-16.0 Hematocrit 41 % 35-47 Mean Corpuscular Volume 94 fL 80-97 Mean Corpuscular Hemoglobin 32 pg High 27-31 Mean Corpuscular HGB Conc 34 g/dL 31-36 Red Cell Distribution Width 12 % 10.5-15 Platelet Count 274 10^3/uL 150-450 Mean Platelet Volume 9 um3 7.4-10.4 Abs Neutrophils 3.2 10^3/uL 1.5-7.7 Abs Lymphocytes 1.6 10^3/uL 1.0-4.8 Abs Monocytes 0.4 10^3/uL 0-0.8 Abs Eosinophils 0.2 10^3/uL 0-0.6 Abs Basophils 0 10^3/uL 0-0.2 Granulocyte % 58.9 % 38-83 Lymphocyte % 29.4 % 25-47 Monocyte % 7.2 % 1-9 Eosinophil % 3.9 % 0-6 Basophil % 0.6 % 0-2 1 Because ethnic data is not always readily available, this report includes an eGFR for both -Americans and non- Americans. The National Kidney Disease Education Program (NKDEP) does not endorse the use of the MDRD equation for patients that are not between the ages of 18 and 70, are , have extremes of body size, muscle mass, or nutritional status, or are non- or non-. According to the National Kidney Foundation, irrespective of diagnosis, the stage of the disease is based on the level of kidney function: Stage Description GFR(mL/min/1.73 m(2)) 1 Kidney damage with normal or decreased GFR 90 2 Kidney damage with mild decrease in GFR 60-89 3 Moderate decrease in GFR 30-59 4 Severe decrease in GFR 15-29 5 Kidney failure <15 (or dialysis) 2 Potassium reference range changed effective 07/17/14 3 Because ethnic data is not always readily available, this report includes an eGFR for both -Americans and non- Americans. The National Kidney Disease Education Program (NKDEP) does not endorse the use of the MDRD equation for patients that are not between the ages of 18 and 70, are , have extremes of body size, muscle mass, or nutritional status, or are non- or non-. According to the National Kidney Foundation, irrespective of diagnosis, the stage of the disease is based on the level of kidney function: Stage Description GFR(mL/min/1.73 m(2)) 1 Kidney damage with normal or decreased GFR 90 2 Kidney damage with mild decrease in GFR 60-89 3 Moderate decrease in GFR 30-59 4 Severe decrease in GFR 15-29 5 Kidney failure <15 (or dialysis) 4 Because ethnic data is not always readily available, this report includes an eGFR for both -Americans and non- Americans. The National Kidney Disease Education Program (NKDEP) does not endorse the use of the MDRD equation for patients that are not between the ages of 18 and 70, are , have extremes of body size, muscle mass, or nutritional status, or are non- or non-. According to the National Kidney Foundation, irrespective of diagnosis, the stage of the disease is based on the level of kidney function: Stage Description GFR(mL/min/1.73 m(2)) 1 Kidney damage with normal or decreased GFR 90 2 Kidney damage with mild decrease in GFR 60-89 3 Moderate decrease in GFR 30-59 4 Severe decrease in GFR 15-29 5 Kidney failure <15 (or dialysis) 5 Test Performed by: [facility] [address] [place] [address] Nail Cutter: Lamont Melara III, M.D. 6 Because ethnic data is not always readily available, this report includes an eGFR for both -Americans and non- Americans. The National Kidney Disease Education Program (NKDEP) does not endorse the use of the MDRD equation for patients that are not between the ages of 18 and 70, are , have extremes of body size, muscle mass, or nutritional status, or are non- or non-. According to the National Kid[employer] Foundation, irrespective of diagnosis, the stage of the disease is based on the level of kidney function: Stage Description GFR(mL/min/1.73 m(2)) 1 Kidney damage with normal or decreased GFR 90 2 Kidney damage with mild decrease in GFR 60-89 3 Moderate decrease in GFR 30-59 4 Severe decrease in GFR 15-29 5 Kidney failure <15 (or dialysis) 7 Assay by Chemiluminescence microparticle immunoassay on the [employer]. Values obtained with different methods or kits cannot be used interchangeably for patient monitoring. Results cannot be interpreted as absolute evidence of the presence or absence of malignancy. The test is not interpretable in . 8 -- REFERENCE VALUE -- 25-HYDROXY D TOTAL (D2+D3) Optimum levels in the healthy population are 20-50, patients with bone disease may benefit from higher levels within this range. Test Performed by: [facility] [address] [place] [address] Nail Cutter: Lamont Melara III, M.D. 9 CKMB interpretation should be made in conjunction with clinical symptoms, patient history and EKG changes. 10 CKMB interpretation should be made in conjunction with clinical symptoms, patient history and EKG changes. 11 Reference Range and Interpretation: TnI (ng/mL) Interpretation Less Than 0.06 ng/mL Not supportive of diagnosis of NE 0.06 - 0.50 ng/mL Indeterminate: suggest serial studies if clinically indicated. Greater than 0.5 ng/mL Consistent with diagnosis of NE 12 Because ethnic data is not always readily available, this report includes an eGFR for both -Americans and non- Americans. The National Kidney Disease Education Program (NKDEP) does not endorse the use of the MDRD equation for patients that are not between the ages of 18 and 70, are , have extremes of body size, muscle mass, or nutritional status, or are non- or non-. According to the National Kidney Foundation, irrespective of diagnosis, the stage of the disease is based on the level of kidney function: Stage Description GFR(mL/min/1.73 m(2)) 1 Kidney damage with normal or decreased GFR 90 2 Kidney damage with mild decrease in GFR 60-89 3 Moderate decrease in GFR 30-59 4 Severe decrease in GFR 15-29 5 Kidney failure <15 (or dialysis) 13 Comment: n Comment: d 14 Comment: c Comment: s 15 Test Performed by: [place] [address] Nail Cutter: Lamont Melara III, M.D. 16 -- REFERENCE VALUE -- 25-HYDROXY D TOTAL (D2+D3) Optimum levels in the normal population are 25-80 Test Performed by: [place] [address] Nail Cutter: Lamont Melara III, M.D. 17 Assay by Chemiluminescence microparticle immunoassay on the [employer]. Values obtained with different methods or kits cannot be used interchangeably for patient monitoring. Results cannot be interpreted as absolute evidence of the presence or absence of malignancy. The test is not interpretable in . 18 Because ethnic data is not always readily available, this report includes an eGFR for both -Americans and non- Americans. The National Kidney Disease Education Program (NKDEP) does not endorse the use of the MDRD equation for patients that are not between the ages of 18 and 70, are , have extremes of body size, muscle mass, or nutritional status, or are non- or non-. According to the National Kidney Foundation, irrespective of diagnosis, the stage of the disease is based on the level of kidney function: Stage Description GFR(mL/min/1.73 m(2)) 1 Kidney damage with normal or decreased GFR 90 2 Kidney damage with mild decrease in GFR 60-89 3 Moderate decrease in GFR 30-59 4 Severe decrease in GFR 15-29 5 Kidney failure <15 (or dialysis) 19 Because ethnic data is not always readily available, this report includes an eGFR for both -Americans and non- Americans. The National Kidney Disease Education Program (NKDEP) does not endorse the use of the MDRD equation for patients that are not between the ages of 18 and 70, are , have extremes of body size, muscle mass, or nutritional status, or are non- or non-. According to the National Kidney Foundation, irrespective of diagnosis, the stage of the disease is based on the level of kidney function: Stage Description GFR(mL/min/1.73 m(2)) 1 Kidney damage with normal or decreased GFR 90 2 Kidney damage with mild decrease in GFR 60-89 3 Moderate decrease in GFR 30-59 4 Severe decrease in GFR 15-29 5 Kidney failure <15 (or dialysis) 20 Reference Range and Interpretation: TnI (ng/ml) Interpretation Less Than 0.06 ng/mL Not supportive of diagnosis of NE 0.06 - 0.50 ng/ml Indeterminate: suggest serial studies if clinically indicated. Greater than 0.5 ng/mL Consistent with diagnosis of NE 21 Because ethnic data is not always readily available, this report includes an eGFR for both -Americans and non- Americans. The National Kidney Disease Education Program (NKDEP) does not endorse the use of the MDRD equation for patients that are not between the ages of 18 and 70, are , have extremes of body size, muscle mass, or nutritional status, or are non- or non-. According to the National Kidney Foundation, irrespective of diagnosis, the stage of the disease is based on the level of kidney function: Stage Description GFR(mL/min/1.73 m(2)) 1 Kidney damage with normal or decreased GFR 90 2 Kidney damage with mild decrease in GFR 60-89 3 Moderate decrease in GFR 30-59 4 Severe decrease in GFR 15-29 5 Kidney failure <15 (or dialysis) 22 The INR(International Normalized Ratio) was adopted by the World Health Organization (WHO) in 1983 as a standardized system of reporting PT (Prothrombin Time). The Centers for Disease Control (CDC) states that reporting of PT results in INR only is the preferred method. Recommended INR for Patients on Oral Anticoagulants Prophylaxis 2.0 - 3.0 Treatment of thrombosis 2.0 - 3.0 Prevention of embolism 2.0 - 3.0 Prevention of embolism from prosthetic heart valves 2.5 - 3.5 23 Because ethnic data is not always readily available, this report includes an eGFR for both -Americans and non- Americans. The National Kidney Disease Education Program (NKDEP) does not endorse the use of the MDRD equation for patients that are not between the ages of 18 and 70, are , have extremes of body size, muscle mass, or nutritional status, or are non- or non-. According to the National Kidney Foundation, irrespective of diagnosis, the stage of the disease is based on the level of kidney function: Stage Description GFR(mL/min/1.73 m(2)) 1 Kidney damage with normal or decreased GFR 90 2 Kidney damage with mild decrease in GFR 60-89 3 Moderate decrease in GFR 30-59 4 Severe decrease in GFR 15-29 5 Kidney failure <15 (or dialysis) Procedures Date CPT Code Description Status 03/30/2018 24482 Pulmonary Stress Test Simple Completed 11/18/2017 95130 Diffusing Capacity Completed 11/18/2017 91399 Plethysmography Determination Lung Volumes & Per Airway Completed Resist 11/18/2017 04760 Pulmonary Function><Bronchodil Completed 02/04/2017 82264 EKG Tracing & Interpretation Completed 11/18/2016 69705 Polysomnography Sleep Staging 4+ Parameters W/Cpap Completed 10/23/2016 95699 Diffusing Capacity Completed 10/23/2016 94468 Plethysmography Determination Lung Volumes & Per Airway Completed Resist 10/23/2016 23047 Pulmonary Stress Test Simple Completed 10/23/2016 95288 Pulmonary Function><Bronchodil Completed 10/09/2016 81013 Polysomnography Sleep Staging 4+ Parameters Completed 10/04/2016 21269 EKG Tracing & Interpretation Completed 09/04/2016 69874 Treadmill Interp/Report Only Completed 09/04/2016 30356 Stress Test Supervsn W/Out I/R Completed 09/03/2016 38443 EKG, Interpretation Only Completed 09/03/2016 75729 ECHO Transthorasic Realtime 2D W Doppler & Color Flow Completed Hosp 09/29/2015 03055 EKG Tracing & Interpretation Completed 09/26/2015 07121 Holter Monitoring 24 HR New Completed 09/20/2015 42606 ECHO Transthoracic, Real-Time 2D With Doppler And Color Completed Flow 09/20/2015 16899 Holter Monitoring 24 HR New Completed 04/17/2015 Mammogram Completed 08/25/2014 54506 EKG Tracing & Interpretation Completed 05/03/2014 Mammogram Completed 10/26/2013 Mammogram Completed 10/08/2013 12137 EKG Tracing & Interpretation Completed 07/07/2013 93577 EKG Tracing & Interpretation Completed 07/02/2013 36358 ECHO Transthoracic, Real-Time 2D With Doppler And Color Completed Flow 06/05/2013 61095 Treadmill Interp/Report Only Completed 06/05/2013 96808 Stress Test Supervsn W/Out I/R Completed 06/05/2013 93771 EKG, Interpretation Only Completed Encounters Type Date Location Provider CPT E/M Dx Office Visit 03/30/2018 [facility] [address] J44.9 10:45a [facility] R09.02 E66.09 Office Visit 11/25/2017 9:15a [facility] [place] [address] J44.9 [facility] R09.02 Office Visit 08/27/2017 8:45a [facility] [place] [address] J44.9 [facility] R09.02 F17.210 Z12.2 Z87.891 Office Visit 05/22/2017 10:51a [facility],rafael Mariee, N.P. 39839 J44.0 Hospitalists F41.9 Office Visit 02/04/2017 11:00a [facility] ANDREW Valenzuela 31404ISM I47.1 J44.1 Office Visit 01/22/2017 11:00a [facility] [place] [address] J45.901 Services Of Private Investigator J44.1 G47.33 Office Visit 01/12/2017 7:45a [facility], Juwan Rubio, 59392 J44.1 Hospitalists M.D. I47.1 Office Visit 01/11/2017 7:45a [facility], Benita Mariee, N.P. 69921 J44.1 Hospitalists I47.1 Office Visit 12/26/2016 9:00a [facility] [place] [address] G47.33 Services [facility] J44.9 J98.11 Z87.891 Office Visit 10/25/2016 9:30a [facility] [place] [address] G47.33 Services Of Private Investigator J44.1 E66.09 Office Visit 10/04/2016 9:00a [facility] Kulwant Baltazar, [address] I10 M.DParish I47.1 Q21.1 Office Visit 09/23/2016 9:30a [facility] [place] [address] E66.09 Services Of Private Investigator J44.1 R06.83 R40.0 Z68.34 Office Visit 09/04/2016 8:46a [facility], Peg Lagos, 72238 J44.1 Hospitalists M.D. R06.00 I10 Office Visit 09/03/2016 8:45a [facility], Rene Baltazar, 51722 J44.1 Hospitalists M.DParish I47.1 R06.00 I10 Office Visit 09/02/2016 8:44a [facility], Paul Collazo, 55425 J44.1 Hospitalists N.P. I47.1 I10 Office Visit 09/29/2015 8:00a [facility] Kulwant Baltazar, 919[address] I47.1 [facility] M.DParish Q21.1 Office Visit 08/25/2014 10:00a [facility], [address] 427.0 Private Investigator M.D. 745.5 Office Visit 10/08/2013 8:15a [facility] Kulwantelroy Baltazar, 55452 427.0 Private Investigator M.D. 745.5 Office Visit 08/18/2013 10:00a [facility] Kulwant Baltazar, 40099 427.0 Private Investigator M.D. 745.5 Office Visit 07/07/2013 9:30a [facility] Kulwant Baltazar, 64536 401.9 Private Investigator M.D. 785.1 Office Visit 06/05/2013 9:39a [facility] Curt Beasley, 48670 794.31 M.D. 785.0 745.5 Office Visit 06/05/2013 8:46a [facility],pc Jero Infante M.D. 60856 786.50 Hospitalists 401.9 493.10 Office Visit 06/04/2013 8:45a [facility], 746[address] 786.50 Assoc,pc Hospitalists N.P. 401.9 493.10 Plan of Care Future Appointment(s):06/30/2018 9:15 am - Laura Blount MD at [facility]05/19/2018 9:00 am - Laura Blount MD at [facility]05/13/2018 9:30 am - Kulwant Baltazar M.D. at [facility]03/30/2018 - Laura Blount MDJ44.9 Chronic obstructive pulmonary disease, unspecifiedFollow up:3 qnjytqX29.02 OvdfazdayC38.09 Other obesity due to excess calories
--- NOTE | 2018-04-19 09:43 | RAD ---
Indication: Shortness of breath. 2 views of the chest including dual energy PA views demonstrate no mediastinal shift. Heart is of normal size and configuration. Lung niño are clear. Chronic pleural changes are noted. No evidence of alveolar consolidation is noted. IMPRESSION: CHRONIC PLEURAL CHANGES WITH NO EVIDENCE OF ACTIVE CARDIOPULMONARY DISEASE.
[2018-04-19] MEDS ORDERED: NS 0.9% 1000 ML* 1,000 ML IV ONE (10:06)
[2018-04-19] MEDS ORDERED: Metoprolol Succinate XL TAB* 25 MG PO ONE (10:06)
[2018-04-19] MEDS ORDERED: LORazepam INJ* 2 MG/ML 1 ML VIAL IV PUSH ONE (10:06)
--- NOTE | 2018-04-19 10:47 | ED ---
Shortness of Breath - HPI Summary HPI Summary: Patient is a 62-year-old female with history of COPD presenting to the ED with 3 days worsening shortness of breath. She uses 2 L oxygen via nasal cannula only at bedtime, but does not require oxygen during the day. She denies worsening SOB with sitting upright recumbent position. Endorses cough without production. Denies any fevers, sweats, however she endorses some chills over the past few days. Denies any urinary symptoms, abdominal pain. She takes Spiriva daily, but denies any other medications for her COPD. She sees Dr. Blount regularly. - History of Current Complaint Chief Complaint: EDShortnessOfBreath Time Seen by Provider: 04/19/18 08:26 Hx Obtained From: Patient Onset/Duration: Gradual Onset Timing: Constant Current Severity: Mild Aggrevating Factors: Nothing Alleviating Factors: Nothing Associated Signs & Symptoms: Negative - Risk Factors Pulmonary Embolism: Negative Cardiac: Negative Pseudomonas: Chronic Lung Disease Tuberculosis: Negative - Allergy/Home Medications Allergies/Adverse Reactions: Allergies Allergy/AdvReac Type Severity Reaction Status Date / Time acetaminophen [From Vicodin] Allergy Swelling Verified 04/19/18 08:35 cefaclor Allergy Swelling Verified 04/19/18 08:35 codeine Allergy Swelling Verified 04/19/18 08:35 erythromycin base Allergy Swelling Verified 04/19/18 08:35 hydrocodone [From Vicodin] Allergy Swelling Verified 04/19/18 08:35 ibuprofen Allergy Shortness Verified 04/19/18 08:35 of Breath latex Allergy Rash And Verified 04/19/18 08:35 Itching meperidine [From Demerol] Allergy Swelling Verified 04/19/18 08:35 morphine Allergy Swelling Verified 04/19/18 08:35 oxycodone Allergy Rash Verified 04/19/18 08:35 paroxetine [From Paxil] Allergy Swelling Verified 04/19/18 08:35 propoxyphene Allergy Swelling Verified 04/19/18 08:35 [From Darvocet-N] propranolol Allergy Swelling Verified 04/19/18 08:35 Tetracyclines Allergy Swelling Verified 04/19/18 08:35 sulfate Allergy Shortness Uncoded 04/19/18 08:35 of Breath PMH/Surg Hx/FS Hx/Imm Hx Previously Healthy: Yes Endocrine/Hematology History: Reports: Hx Anemia - TAKES 325 MG ASPIRIN DAILY Denies: Hx Diabetes, Hx Systemic Lupus Erythematosus Cardiovascular History: Reports: Hx Angina, 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 EF%50-55 Denies: Hx Aneurysm, Hx Congestive Heart Failure, Hx Deep Vein Thrombosis Respiratory History: Reports: Hx Asthma, Hx Chronic Obstructive Pulmonary Disease (COPD) Denies: Other Respiratory Problems/Disorders GI History: Reports: Hx Gall Bladder Disease, Hx Gastroesophageal Reflux Disease - ON MEDICATION FOR, Other GI Disorders - HIATAL HERNIA History: Denies: Hx Dialysis, Hx Renal Disease Musculoskeletal History: Reports: Hx Arthritis - HANDS Denies: Hx Rheumatoid Arthritis, Hx Osteoporosis Sensory History: Reports: Hx Contacts or Glasses, Hx Vision Problem Denies: Hx Hearing Aid Opthamlomology History: Reports: Hx Contacts or Glasses, Hx Vision Problem Neurological History: Reports: Hx Migraine Denies: Hx CVA, Hx Transient Ischemic Attacks (TIA), Other Neuro Impairments/ Disorders - HERNIATED DISC Psychiatric History: Reports: Hx Anxiety - ROUTINE AND PRN MEDICATION FOR, Hx Depression - PTSD- D/T CANCER- TAKES ATIVAN DAILY, Hx Post Traumatic Stress Disorder - Cancer History Cancer Type, Location and Year: breast/2010 Hx Chemotherapy: Yes Hx Radiation Therapy: Yes - Surgical History Surgery Procedure, Year, and Place: RIGHT LUMPECTOMY, TOBI 2012, HYSTERECTOMY 1991, POWERPORT LCW, Hx Anesthesia Reactions: Yes - SEVERE ANXIETY- WITH LUMPECTOMY AND PORT PLACEMENT AND SEVERE NAUSEA - Immunization History Date of Tetanus Vaccine: up to date Date of Influenza Vaccine: 2016 Hx Pertussis Vaccination: No Immunizations Up to Date: No Infectious Disease History: No Infectious Disease History: Denies: Hx Clostridium Difficile, Hx Hepatitis, Hx of Known/Suspected MRSA, Hx Shingles, Hx Tuberculosis, Hx Known/Suspected VRE, Hx Known/Suspected VRSA, History Other Infectious Disease, Traveled Outside the [place] in Last 30 Days - Family History Known Family History: Positive: Cardiac Disease, Other - PE - Social History Alcohol Use: Weekly Alcohol Amount: 3 drinks Hx Substance Use: No Substance Use Type: Reports: None Hx Tobacco Use: Yes Smoking Status (MU): Former Smoker Type: Cigarettes Have You Smoked in the Last Year: Yes Review of Systems Negative: Fever, Chills, Fatigue, Skin Diaphoresis Negative: Palpitations, Chest Pain Positive: Shortness Of Breath. Negative: Cough Genitourinary: Negative Positive: no symptoms reported, see HPI Negative: Arthralgia, Myalgia Skin: Negative Neurological: Negative All Other Systems Reviewed And Are Negative: Yes Physical Exam Triage Information Reviewed: Yes Vital Signs On Initial Exam: Initial Vitals Temp Pulse Resp BP Pulse Ox 98.0 F 109 24 122/80 93 04/19/18 08:26 04/19/18 08:26 04/19/18 08:26 04/19/18 08:26 04/19/18 08:26 Vital Signs Reviewed: Yes Appearance: Positive: Ill-Appearing, Thin, Cachectic Skin: Positive: Skin Color Reflects Adequate Perfusion Head/Face: Positive: Normal Head/Face Inspection Eyes: Positive: EOMI, ROSEANNA, Conjunctiva Clear Respiratory/Lung Sounds: Positive: Wheezes Cardiovascular: Positive: RRR, Pulses are Symmetrical in both Upper and Lower Extremities Musculoskeletal: Positive: Normal, Strength/ROM Intact Neurological: Positive: Sensory/Motor Intact, Alert, Oriented to Person Place, Time, Speech Normal Psychiatric: Positive: Affect/Mood Appropriate AVPU Assessment: Alert Diagnostics - Vital Signs Vital Signs Temp Pulse Resp BP Pulse Ox 04/19/18 10:14 119 19 152/105 98 04/19/18 10:13 22 04/19/18 10:00 112 21 96 04/19/18 09:45 108 17 98 04/19/18 09:44 114 15 140/114 100 04/19/18 09:00 114 16 04/19/18 08:37 113 24 122/80 94 04/19/18 08:26 98.0 F 109 24 122/80 93 - Laboratory Lab Results: Lab Results 04/19/18 04/19/18 04/19/18 Range/Units 08:53 08:53 08:53 WBC 5.2 (3.5-10.8) 10^3/ul RBC 4.32 (4.00-5.40) 10^6/ul Hgb 14.2 (12.0-16.0) g/dl Hct 42 (35-47) % MCV 96 (80-97) fL MCH 33 H (27-31) pg MCHC 34 (31-36) g/dl RDW 13 (10.5-15) % Plt Count 241 (150-450) 10^3/ul MPV 8.3 (7.4-10.4) um3 Neut % (Auto) 54.4 (38-83) % Lymph % (Auto) 35.2 (25-47) % Hopkins % (Auto) 7.5 H (0-7) % Eos % (Auto) 2.2 (0-6) % Baso % (Auto) 0.7 (0-2) % Absolute Neuts (auto) 2.9 (1.5-7.7) 10^3/ul Absolute Lymphs (auto) 1.8 (1.0-4.8) 10^3/ul Absolute Monos (auto) 0.4 (0-0.8) 10^3/ul Absolute Eos (auto) 0.1 (0-0.6) 10^3/ul Absolute Basos (auto) 0 (0-0.2) 10^3/ul Absolute Nucleated RBC 0 10^3/ul Nucleated RBC % 0.2 INR (Anticoag Therapy) (0.77-1.02) Sodium 136 (135-145) mmol/L Potassium 4.5 (3.5-5.0) mmol/L Chloride 102 (101-111) mmol/L Carbon Dioxide 25 (22-32) mmol/L Anion Gap 9 (2-11) mmol/L BUN 10 (6-24) mg/dL Creatinine 0.72 (0.51-0.95) mg/dL Est GFR ( Amer) 100.0 (>60) Est GFR (Non-Af Amer) 82.6 (>60) BUN/Creatinine Ratio 13.9 (8-20) Glucose 100 (70-100) mg/dL Lactic Acid 1.8 (0.5-2.0) mmol/L Calcium 9.0 (8.6-10.3) mg/dL Total Bilirubin 0.40 (0.2-1.0) mg/dL AST 47 H (13-39) U/L ALT 45 (7-52) U/L Alkaline Phosphatase 103 (34-104) U/L Troponin I 0.00 (<0.04) ng/mL C-Reactive Protein 1.01 (<8.01) mg/L B-Natriuretic Peptide ( - 100) pg/mL Total Protein 6.9 (6.4-8.9) g/dL Albumin 3.6 (3.2-5.2) g/dL Globulin 3.3 (2-4) g/dL Albumin/Globulin Ratio 1.1 (1-3) 04/19/18 04/19/18 Range/Units 08:53 08:53 WBC (3.5-10.8) 10^3/ul RBC (4.00-5.40) 10^6/ul Hgb (12.0-16.0) g/dl Hct (35-47) % MCV (80-97) fL MCH (27-31) pg MCHC (31-36) g/dl RDW (10.5-15) % Plt Count (150-450) 10^3/ul MPV (7.4-10.4) um3 Neut % (Auto) (38-83) % Lymph % (Auto) (25-47) % Hopkins % (Auto) (0-7) % Eos % (Auto) (0-6) % Baso % (Auto) (0-2) % Absolute Neuts (auto) (1.5-7.7) 10^3/ul Absolute Lymphs (auto) (1.0-4.8) 10^3/ul Absolute Monos (auto) (0-0.8) 10^3/ul Absolute Eos (auto) (0-0.6) 10^3/ul Absolute Basos (auto) (0-0.2) 10^3/ul Absolute Nucleated RBC 10^3/ul Nucleated RBC % INR (Anticoag Therapy) 0.93 (0.77-1.02) Sodium (135-145) mmol/L Potassium (3.5-5.0) mmol/L Chloride (101-111) mmol/L Carbon Dioxide (22-32) mmol/L Anion Gap (2-11) mmol/L BUN (6-24) mg/dL Creatinine (0.51-0.95) mg/dL Est GFR ( Amer) (>60) Est GFR (Non-Af Amer) (>60) BUN/Creatinine Ratio (8-20) Glucose (70-100) mg/dL Lactic Acid (0.5-2.0) mmol/L Calcium (8.6-10.3) mg/dL Total Bilirubin (0.2-1.0) mg/dL AST (13-39) U/L ALT (7-52) U/L Alkaline Phosphatase (34-104) U/L Troponin I (<0.04) ng/mL C-Reactive Protein (<8.01) mg/L B-Natriuretic Peptide 20 ( - 100) pg/mL Total Protein (6.4-8.9) g/dL Albumin (3.2-5.2) g/dL Globulin (2-4) g/dL Albumin/Globulin Ratio (1-3) Result Diagrams: 04/19/18 08:53 04/19/18 08:53 Lab Statement: Any lab studies that have been ordered have been reviewed, and results considered in the medical decision making process. Course/Dx - Course Course Of Treatment: Patient is given 125 Solu-Medrol on arrival including 2 duonebs. One DuoNeb given WALL MAN. She is feeling improved. Chest x-ray obtained which shows no acute findings. EKG shows sinus tachycardia, which she states is normal for her. She is hypertensive, however endorses not taking her morning medications. She takes Ativan 4 times daily and has not had her Ativan as well. She is given Toprol and Ativan in the ED. vital signs stabilized after medications are given. I have offered outpatient oral steroids but she declines that she does not like how they make her feel. She states she will use her O2 at home if she develops any worsening shortness of breath and will then return to the ED for worsening or changing symptoms. - Diagnoses Differential Diagnosis/HQI/PQRI: Positive: Bronchitis, Other - Shortness of breath, asthma exacerbation Provider Diagnoses: Shortness of breath, COPD exacerbation Discharge - Sign-Out/Discharge Documenting (check all that apply): Patient Departure - Discharge Plan Condition: Stable Disposition: HOME Patient Education Materials: COPD (Chronic Obstructive Pulmonary Disease) (ED) Referrals: Johan Shukla MD [Primary Care Provider] - Additional Instructions: As discussed, if he develop any worsening shortness of breath, apply your oxygen at home If any symptoms worsen, you need to return to the ED Please follow-up with Dr. Blount. - Billing Disposition and Condition Condition: STABLE Disposition: Home
[2018-04-19 11:28] LABS: Urine Appearance Cloudy; Urine Blood Negative (Negative); Urine Color Yellow; Urine Ketones Negative (Negative); Urine Protein 1+(30 mg/dL) (Negative); Urine Red Blood Cell 2+(6-10/hpf) (Absent); Urine Specific Gravity 1.018 (1.010-1.030); Urine Urobilinogen Negative (Negative); Urine White Blood Cell 1+(6-10/hpf) (Absent)
[2018-04-19 12:25] VITALS: BP 145/78
== END 2018-04-19 12:00 | disposition home or self-care (01) ==
LOC: ED 08:24
DX: K92.2 Gastrointestinal hemorrhage, unspecified (principal); T45.515A Adverse effect of anticoagulants, initial encounter; R11.2 Nausea with vomiting, unspecified; Z87.891 Personal history of nicotine dependence
CPT/HCPCS: 36415; 71046; 80053; 81003; 81015; 83605; 83880; 84484; 85025; 85610; 86140; 87086; 93005; 96374; 99284; A9270-GY; J2060; J2930

== ENCOUNTER 2018-07-16 09:19 | Inpatient (IN) | payer MEDICARE, MEDICAID ==
[2018-07-16] MEDS ORDERED: Albuterol/Ipratropium NEB.SOL* Albuterol 2.5 MG/Ipratropium 0.5 MG 3 ML INH ONE ×2 (09:55→12:30)
[2018-07-16] MEDS ORDERED: methylPREDNISolone 125 MG* 2 ML VIAL IV ONE (09:55)
--- NOTE | 2018-07-16 10:01 | ED ---
Respiratory - HPI Summary HPI Summary: This patient is a 63 year old F brought in by ambulance to ED with a chief complaint of SOB since 5 days ago that worsened this morning. Patient was given duoneb x1 and dexamethasone 10mg IV en route by EMS. The patient rates the pain 0/10 in severity. Symptoms aggravated by cigarette smoke. Symptoms alleviated by duoneb. Patient reports wheezing and chest tightness. Patient denies fever and cough (resolved a couple days ago). PMHx of COPD and uses a nebulizer every 4 hours and is on 2L O2 at night. Denies hx of blood clots and CAD. - History of Current Complaint Chief Complaint: EDShortnessOfBreath Stated Complaint: SHORTNESS OF BREATH Time Seen by Provider: 07/16/18 09:39 Hx Obtained From: Patient Onset/Duration: Sudden Onset, Lasting Days, Still Present Timing: Constant Pain Intensity: 0 Character: Wheezing Aggravating Factor(s): Passive Smoke Exposure Alleviating Factor(s): Other - duoneb Associated Signs and Symptoms: Wheezing - Allergy/Home Medications Allergies/Adverse Reactions: Allergies Allergy/AdvReac Type Severity Reaction Status Date / Time acetaminophen [From Vicodin] Allergy Swelling Verified 07/16/18 09:30 cefaclor Allergy Swelling Verified 07/16/18 09:30 codeine Allergy Swelling Verified 07/16/18 09:30 erythromycin base Allergy Swelling Verified 07/16/18 09:30 hydrocodone [From Vicodin] Allergy Swelling Verified 07/16/18 09:30 ibuprofen Allergy Shortness Verified 07/16/18 09:30 of Breath latex Allergy Rash And Verified 07/16/18 09:30 Itching meperidine [From Demerol] Allergy Swelling Verified 07/16/18 09:30 morphine Allergy Swelling Verified 07/16/18 09:30 oxycodone Allergy Rash Verified 07/16/18 09:30 paroxetine [From Paxil] Allergy Swelling Verified 07/16/18 09:30 propoxyphene Allergy Swelling Verified 07/16/18 09:30 [From Darvocet-N] propranolol Allergy Swelling Verified 07/16/18 09:30 Tetracyclines Allergy Swelling Verified 07/16/18 09:30 sulfate Allergy Shortness Uncoded 07/16/18 09:30 of Breath Home Medications: Home Medications Nicotine PATCH 7 MG/24 HR* 1 patch TRANSDERM DAILY 07/16/18 [History Confirmed 07/16/18] PMH/Surg Hx/FS Hx/Imm Hx Endocrine/Hematology History: Reports: Hx Anemia - TAKES 325 MG ASPIRIN DAILY Denies: Hx Diabetes, Hx Systemic Lupus Erythematosus Cardiovascular History: Reports: Hx Angina, 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 EF%50-55 Denies: Hx Aneurysm, Hx Congestive Heart Failure, Hx Deep Vein Thrombosis Respiratory History: Reports: Hx Asthma, Hx Chronic Obstructive Pulmonary Disease (COPD) Denies: Other Respiratory Problems/Disorders GI History: Reports: Hx Gall Bladder Disease, Hx Gastroesophageal Reflux Disease - ON MEDICATION FOR, Other GI Disorders - HIATAL HERNIA History: Denies: Hx Dialysis, Hx Renal Disease Musculoskeletal History: Reports: Hx Arthritis - HANDS Denies: Hx Rheumatoid Arthritis, Hx Osteoporosis Sensory History: Reports: Hx Contacts or Glasses, Hx Vision Problem Denies: Hx Hearing Aid Opthamlomology History: Reports: Hx Contacts or Glasses, Hx Vision Problem Neurological History: Reports: Hx Migraine Denies: Hx CVA, Hx Transient Ischemic Attacks (TIA), Other Neuro Impairments/ Disorders - HERNIATED DISC Psychiatric History: Reports: Hx Anxiety - ROUTINE AND PRN MEDICATION FOR, Hx Depression - PTSD- D/T CANCER- TAKES ATIVAN DAILY, Hx Post Traumatic Stress Disorder - Cancer History Cancer Type, Location and Year: breast/2010 Hx Chemotherapy: Yes Hx Radiation Therapy: Yes - Surgical History Surgery Procedure, Year, and Place: RIGHT LUMPECTOMY, TOBI 2012, HYSTERECTOMY 1991, POWERPORT LCW, Hx Anesthesia Reactions: Yes - SEVERE ANXIETY- WITH LUMPECTOMY AND PORT PLACEMENT AND SEVERE NAUSEA - Immunization History Date of Tetanus Vaccine: up to date Date of Influenza Vaccine: 2016 Immunizations Up to Date: Yes Infectious Disease History: No Infectious Disease History: Denies: Hx Clostridium Difficile, Hx Hepatitis, Hx of Known/Suspected MRSA, Hx Shingles, Hx Tuberculosis, Hx Known/Suspected VRE, Hx Known/Suspected VRSA, History Other Infectious Disease, Traveled Outside the [place] in Last 30 Days - Family History Known Family History: Positive: Cardiac Disease, Other - PE - Social History Alcohol Use: Weekly Alcohol Amount: 3 drinks Hx Substance Use: No Substance Use Type: Reports: None Hx Tobacco Use: Yes Smoking Status (MU): Former Smoker Type: Cigarettes Have You Smoked in the Last Year: Yes Review of Systems Positive: Fever. Negative: Chills Negative: Erythema Negative: Sore Throat Positive: Other - chest tightness. Negative: Chest Pain Positive: Shortness Of Breath, Other - wheezing. Negative: Cough - resolved a couple days ago Negative: Abdominal Pain, Vomiting, Nausea Negative: dysuria, hematuria Negative: Myalgia, Edema Negative: Rash Neurological: Other - denies dizziness All Other Systems Reviewed And Are Negative: Yes Physical Exam - Summary Physical Exam Summary: Constitutional: Well-developed, Well-nourished, Alert. (-) Distressed Skin: Warm, Dry HENT: Normocephalic; Atraumatic Eyes: Conjunctiva normal Neck: Musculoskeletal ROM normal neck. (-) JVD, (-) Stridor, (-) Tracheal deviation Cardio: Rhythm regular, rate normal, Heart sounds normal; Intact distal pulses; The pedal pulses are 2+ and symmetric. Radial pulses are 2+ and symmetric. (-) Murmur Pulmonary/Chest wall: Expiratory wheezes and diminished lungs sounds, (-) Rales Abd: Soft, (-) epigastric tenderness, (-) Distension, (-) Guarding, (-) Rebound Musculoskeletal: (-) Edema Lymph: (-) Cervical adenopathy Neuro: Alert, Oriented x3 Psych: Mood and affect Normal Triage Information Reviewed: Yes Vital Signs On Initial Exam: Initial Vitals Temp Pulse Resp BP Pulse Ox 97.6 F 96 22 124/74 98 07/16/18 09:23 07/16/18 09:23 07/16/18 09:23 07/16/18 09:23 07/16/18 09:23 Vital Signs Reviewed: Yes Diagnostics - Vital Signs Vital Signs Temp Pulse Resp BP Pulse Ox 07/16/18 09:24 101 124/74 99 07/16/18 09:23 97.6 F 99 22 124/74 99 - Laboratory Result Diagrams: 07/16/18 12:08 07/16/18 12:08 Lab Statement: Any lab studies that have been ordered have been reviewed, and results considered in the medical decision making process. - Radiology CXR Radiology Interpretation Completed By: Radiologist - 1. NO RADIOGRAPHIC EVIDENCE OF ACUTE CARDIOPULMONARY DISEASE. 2. CONTOUR IRREGULARITY ALONG THE 9: 00 LATERAL MARGIN OF THE RIGHT BREAST SIMILAR IN APPEARANCE TO THE PREVIOUS CHEST X-RAY. PLEASE CORRELATE TO PHYSICAL EXAMINATION AND/OR PRIOR BREAST SURGERY. Dr. Christianson has reviewed this radiology report. - EKG 1209 Cardiac Rate: NL - 91 BPM EKG Rhythm: Sinus Rhythm Summary of EKG Findings: No STEMI Re-Evaluation - Re-Evaluation First Eval Re-Evaluation Time: 12:04 Change: Unchanged Disposition - Course Assessment/Plan: This patient is a 63 year old F brought in by ambulance to ED with a chief complaint of SOB since 5 days ago that worsened this morning. CXR reveals 1. NO RADIOGRAPHIC EVIDENCE OF ACUTE CARDIOPULMONARY DISEASE. 2. CONTOUR IRREGULARITY ALONG THE 9:00 LATERAL MARGIN OF THE RIGHT BREAST SIMILAR IN APPEARANCE TO THE PREVIOUS CHEST X-RAY. PLEASE CORRELATE TO PHYSICAL EXAMINATION AND/OR PRIOR BREAST SURGERY. EKG done at 1209 reveals NSR at 91 BPM and no STEMI. Consulted Dr. Sommers at 1230 who accepts the patient for admission. Discussed with the patient about plan for admission and she understands and agrees. - Diagnoses Provider Diagnoses: COPD exacerbation, Shortness of breath - Physician Notifications Discussed Care Of Patient With: Lori Sommers Time Discussed With Above Provider: 12:30 Instructed by Provider To: Admit As Inpatient Discharge - Sign-Out/Discharge Documenting (check all that apply): Patient Departure - admit - Discharge Plan Condition: Stable Disposition: ADMITTED TO [facility] Referrals: Johan Shukla MD [Primary Care Provider] - - Attestation Statements Document Initiated by Scribe: Yes Documenting Scribe: Martin Mcnamara Provider For Whom Scribe is Documenting (Include Credential): Moe Christianson MD Scribe Attestation: Martin Hendrix, scribed for Moe Christianson MD on 07/16/18 at 1354.
--- NOTE | 2018-07-16 10:23 | RAD ---
INDICATION: Most recent comparison chest x-rays dated April 19, 2018 COMPARISON: None TECHNIQUE: PA and lateral views of the chest were obtained. FINDINGS: The heart and mediastinum are normal in size and contour. There is coarse calcification overlying the arch of the aorta. The lungs are grossly clear. There is no evidence of large pleural effusion. Visualized bones are normal for the patient's age. There is no radiographic evidence of free air beneath the diaphragm There is contour irregularity along the 9:00 lateral margin of the right breast. IMPRESSION: 1. NO RADIOGRAPHIC EVIDENCE OF ACUTE CARDIOPULMONARY DISEASE. 2. CONTOUR IRREGULARITY ALONG THE 9:00 LATERAL MARGIN OF THE RIGHT BREAST SIMILAR IN APPEARANCE TO THE PREVIOUS CHEST X-RAY. PLEASE CORRELATE TO PHYSICAL EXAMINATION AND/OR PRIOR BREAST SURGERY.
[2018-07-16 12:22] LABS: Hematocrit 41 % (35-47); Hemoglobin 13.7 g/dl (12.0-16.0); Mean Corpuscular HGB Conc 34 g/dl (31-36); Mean Corpuscular Hemoglobin 34 pg (27-31); Mean Corpuscular Volume 101 fL (80-97); Mean Platelet Volume 8.9 um3 (7.4-10.4); Platelet Count 224 10^3/ul (150-450); Red Blood Count 4.02 10^6/ul (4.00-5.40); Red Cell Distribution Width 14 % (10.5-15); White Blood Count 7.6 10^3/ul (3.5-10.8)
[2018-07-16 12:41] LABS: EGFR Non-African American 78.6 (>60)
[2018-07-16] MEDS ORDERED: Al Hydrox/Mg Hydrox/Simet LIQ* 30 ML UDC PO PRN (14:14)
[2018-07-16] MEDS ORDERED: Albuterol 2.5 MG/3 ML NEB.SOL* (0.083%) INH PRN (14:14)
[2018-07-16] MEDS ORDERED: Levofloxacin 500 MG IVPREMIX(* 500 MG/100 ML BAG IVPB SCH ×2 (15:00→16:00)
[2018-07-16] MEDS ORDERED: ZOSYN 3.375 GM x ONE DOSE over 30 miuntes IVPB STA ×2 (15:20)
[2018-07-16] MEDS: Nicotine PATCH 7 MG/24 HR* PATCH TRANSDERM SCH (16:06)
[2018-07-16] MEDS: Amoxicillin/Clavulanate TAB* 875 MG PO SCH (16:19)
[2018-07-16] MEDS: ALPRAZolam TAB* 0.5 MG PO PRN (16:43)
[2018-07-16] MEDS: Albuterol/Ipratropium NEB.SOL* Albuterol 2.5 MG/Ipratropium 0.5 MG 3 ML INH PRN (18:38)
[2018-07-16] MEDS ORDERED: ALPRAZolam TAB* 0.5 MG PO ONE (19:23)
[2018-07-16] MEDS ORDERED: ZOSYN 3.375 GM Q8H per EXTENDED INFUSION IVPB SCH ×2 (20:00)
[2018-07-16] MEDS: Mometasone/Formoter 200/5 MDI INH SCH (20:31)
[2018-07-16] MEDS: Flecainide TAB* 100 MG PO SCH (22:10)
[2018-07-16] MEDS: methylPREDNISolone SOD 40 MG* 1 ML VIAL IV SCH (22:10)
[2018-07-16] MEDS: Heparin VIAL(*) 5000 UNITS/ML VIAL (FIVE THOUSAND) SUBCUT SCH (22:42)
[2018-07-17] MEDS: ALPRAZolam TAB* 0.5 MG PO PRN ×3 (03:10→21:05)
[2018-07-17] MEDS: Heparin VIAL(*) 5000 UNITS/ML VIAL (FIVE THOUSAND) SUBCUT SCH ×3 (05:40→21:00)
[2018-07-17] MEDS: Amoxicillin/Clavulanate TAB* 875 MG PO SCH ×2 (05:40→18:19)
--- NOTE | 2018-07-17 05:55 | HP ---
HOSPITAL MEDICINE HISTORY AND PHYSICAL: DATE OF ADMISSION: 07/16/18 PROVIDER: Lory Nice NP PRIMARY CARE PHYSICIAN: Dr. Shukla. ATTENDING PHYSICIAN: Dr. Lori Akins * (dictated by Lory Nice NP). CHIEF COMPLAINT: Shortness of breath. HISTORY OF PRESENT ILLNESS: Ms. Cifuentes is a 63-year-old female with a past medical history significant for COPD, obesity, hypertension, history of SVT, and asthma, who presented to the hospital with complaints of shortness of breath. Ms. Cifuentes states that she started feeling more short of breath this week and developed a cough that was nonproductive. She does report chills at home, but denies any fevers. She reports that over the past several days, she has had to increase her nebulizer treatments to q.4 hours instead of just p.r.n. and due to her increased shortness of breath, she presented to the emergency room for further evaluation. She denies any nausea or vomiting. Denies any abdominal pain. She reports that she has been eating okay at home. She does report some chest discomfort and cough and deep breath, but none at rest. In the emergency room, Ms. Cifuentes was wheezy and short of breath, although she was not hypoxic. Her O2 saturation on room air was 95%. Her lab work was essentially within normal limits. She had no white count. Her D-dimer was less than 200. PAST MEDICAL HISTORY: Significant for: 1. COPD. 2. History of TIA. 3. History of SVT. 4. History of PFO. 5. History of breast cancer, status post lumpectomy. 6. History of hiatal hernia. 7. Hypertension. 8. PTSD. 9. Asthma. PAST SURGICAL HISTORY: 1. Lumpectomy. 2. Cholecystectomy. 3. Hysterectomy. HOME MEDICATIONS: Include: 1. Nicotine patch 7 mg per 24 hours 1 patch daily. 2. Compazine 5 mg p.o. q.6 hours p.r.n. nausea. 3. Metoprolol 25 mg p.o. q.a.m. 4. Flecainide 100 mg p.o. b.i.d. 5. Aspirin 325 mg p.o. q.a.m. 6. Symbicort 160/4.5 two puffs b.i.d. 7. Albuterol/ipratropium neb 1 neb q.6 hours as needed. 8. Alprazolam 1 mg p.o. 4 times a day p.r.n. ALLERGIES: 1. LATEX. 2. CEFACLOR. 3. CODEINE. 4. ERYTHROMYCIN. 5. HYDROCODONE. 6. MEPERIDINE. 7. MORPHINE. 8. OXYCODONE. 9. PAROXETINE. 10. PROPRANOLOL. 11. TETRACYCLINE. 12. TYLENOL. 13. IBUPROFEN. 14. PROPOXYPHENE. 15. SULFATE. FAMILY HISTORY: Mother approximately 4 years ago from leukemia, father with [place] at age 36, sister with CREST syndrome. SOCIAL HISTORY: The patient reports that she quit smoking approximately 6 weeks ago. Prior to that, she was smoking 4 cigarettes a day. She is a long- time smoker, which she has smoked since the age of 18. She does report occasional alcohol use with beer. She lives alone. Surrogate decision maker in the event she is unable to make her own decisions is her daughter, Karlie Longoria, her phone number is [phone]. She is a full code. REVIEW OF SYSTEMS: Constitutional: No fever, no unintended weight loss. She does report chest pain with cough and deep breath. Denies any chest pain at rest. Denies any edema. Does report nonproductive cough. Denies any hemoptysis. She does report shortness of breath. Denies any nausea, vomiting, or diarrhea. Denies any abdominal pain. Denies any gross hematuria or dysuria. Denies any focal weakness or sensory loss. Denies any visual complaints. Denies any dysphagia. Denies any arthralgias or myalgias. Denies any rashes or lesions. Denies any depression or anxiety. PHYSICAL EXAMINATION GENERAL: At this time, Ms. Cifuentes is sitting on the stretcher in the emergency room. She is in no acute distress. VITAL SIGNS: As follows: Temperature 98, heart rate 106, respirations 20, blood pressure 114/61, O2 saturation was 95% on room air. HEENT: Head is atraumatic, normocephalic. Eyes: EOMs are intact. Sclerae anicteric and not pale. Oral mucosa appeared to be moist. NECK: Supple. LUNGS: With wheezing bilaterally inspiratory and expiratory wheezing. O2 saturation again is 95% on room air. CARDIAC: S1, S2. Regular rate and rhythm. No murmurs, rubs, or gallops. ABDOMEN: Soft and nontender. Bowel sounds are present x4. EXTREMITIES: No cyanosis or edema. She is able to move all 4 extremities with 5/5 strength. NEUROLOGIC: She is awake, alert, and oriented x3. There is no facial asymmetry or focal weakness. No focal deficits. SKIN: Intact. LABORATORY DATA AND DIAGNOSTIC STUDIES: WBCs 7.6, RBCs 4.02, hemoglobin was 13.7, hematocrit was 41, MCV was 101, MCH was 34, platelet count was 224. D- dimer was less than 200. Sodium 138, potassium 3.7, chloride 105, carbon dioxide was 23, anion gap was 7, BUN 14, creatinine 0.75, glucose was 197, calcium 8.7. AST was 53, ALT was 45, alkaline phosphatase 111. Chest x-ray, no radiographic evidence of acute cardiopulmonary disease. Contour irregularity along the 9 o'clock radial margin of the right breast, similar in appearance to the previous chest x-ray. She had an electrocardiogram, which showed sinus rhythm at a rate of 91. ASSESSMENT AND PLAN: Ms. Cifuentes is a 63-year-old female with a past medical history significant for chronic obstructive pulmonary disease, asthma, posttraumatic stress disorder, history of , history of breast cancer, status post lumpectomy, history of hypertension, who presented to the emergency room for evaluation of shortness of breath. Our plans are for to admit the patient under observation: 1. Chronic obstructive pulmonary disease. The patient reports that she is feeling more short of breath. We will continue her on nebulization. I will start her on Solu-Medrol 40 mg q.8 hours IV. The patient has been reporting chills at home. She does report a 5-day history of progressively worsening shortness of breath unrelieved with increased frequency of home nebulizer treatments. Given her allergies and her QTc of 490, I will not place her on fluoroquinolones at this time. She does have multiple antibiotic allergies and at this time, I will place her on Augmentin 875 b.i.d. p.o. Her chest x-ray does not show any active cardiopulmonary disease. 2. History of supraventricular tachycardia. I will continue her on her flecainide. 3. History of anxiety. She will continue on her alprazolam. 4. History of hypertension. She will continue on metoprolol. 5. DVT prophylaxis. I will place her on heparin subcu q.8 hours for DVT prophylaxis. 6. FEN. She will be placed on a heart-healthy, low-sodium diet. 7. Disposition. She will be placed on the medical floor. TIME SPENT: Time spent on this admission was approximately 60 minutes, greater than half that time was spent with the patient obtaining my history and physical , the other half of the time was spent going over my plan of care and implementing my plan of care. I have discussed with my attending, Dr. Lori Akins, she is in agreement with my plan. LORY NICE, FLIP [id number]/CPS #: [id number] MTDD
[2018-07-17 05:56] LABS: ABS Basophils 0 10^3/ul (0-0.2); ABS Eosinophils 0 10^3/ul (0-0.6); ABS Lymphocytes 0.4 10^3/ul (1.0-4.8); ABS Monocytes 0.3 10^3/ul (0-0.8); ABS Neutrophils 9.6 10^3/ul (1.5-7.7); ABS Nucleated RBC 0 10^3/ul; Eosinophil % 0 % (0-6); Hematocrit 36 % (35-47); Hemoglobin 12.1 g/dl (12.0-16.0); Lymphocyte % 4.2 % (25-47); Mean Corpuscular HGB Conc 34 g/dl (31-36); Mean Corpuscular Hemoglobin 34 pg (27-31); Mean Corpuscular Volume 101 fL (80-97); Mean Platelet Volume 9.2 um3 (7.4-10.4); Nucleated Red Blood Cells % 0; Platelet Count 229 10^3/ul (150-450); Red Blood Count 3.55 10^6/ul (4.00-5.40); Red Cell Distribution Width 14 % (10.5-15); White Blood Count 10.3 10^3/ul (3.5-10.8)
[2018-07-17 06:17] LABS: EGFR Non-African American 83.7 (>60)
[2018-07-17] MEDS: Mometasone/Formoter 200/5 MDI INH SCH (07:53)
[2018-07-17] MEDS: Albuterol/Ipratropium NEB.SOL* Albuterol 2.5 MG/Ipratropium 0.5 MG 3 ML INH PRN (07:59)
[2018-07-17] MEDS: BUFFERED ASPIRIN PO SCH (08:37)
[2018-07-17] MEDS: methylPREDNISolone SOD 40 MG* 1 ML VIAL IV SCH ×2 (08:37→15:03)
[2018-07-17] MEDS: Nicotine PATCH 7 MG/24 HR* PATCH TRANSDERM SCH (08:37)
[2018-07-17] MEDS: Flecainide TAB* 100 MG PO SCH ×2 (08:38→21:00)
[2018-07-17] MEDS: Metoprolol Succinate XL TAB* 25 MG PO SCH (08:38)
[2018-07-17] MEDS ORDERED: Albuterol/Ipratropium NEB.SOL* Albuterol 2.5 MG/Ipratropium 0.5 MG 3 ML ONE (11:00)
[2018-07-17] MEDS ORDERED: Albuterol/Ipratropium NEB.SOL* Albuterol 2.5 MG/Ipratropium 0.5 MG 3 ML INH SCH ×2 (11:00→14:00)
[2018-07-17] MEDS: Albuterol 2.5 MG/3 ML NEB.SOL* (0.083%) INH PRN ×2 (14:09→18:19)
--- NOTE | 2018-07-17 16:41 | PN ---
Subjective Date of Service: 07/17/18 Interval History: Pt seen and examined. Meds and labs reviewed. CC: N/A ROS: Denied GRACE/dizziness, F/C, N/V, CP, SOB, increased cough, sputum production , abd pain, diarrhea, constipation, dysuria, myalgias, arthralgias, throat pain , and new skin lesions. The rest of the 14 point ROS are unremarkable. PHYSICAL EXAM: GEN APPEARANCE: Awake, not in acute distress HEENT: NC/AT, PERRLA, moist oral mucosa, (-) throat erythema NECK: Soft, supple, (-) cervical LAD, (-)JVD HEART: S1S2 WNL, RRR, No MRG CHEST: (+)Diffuse wheezing, GAE, No W/R/R ABD: Soft, ND/NT, NABS 4x Q EXT: No C/C/E SKIN: Warm to touch PSYCH: No active psychosis, hallucinations, depression, SI/HI Objective Active Medications: Al Hydrox/Mg Hydrox/Simethicone (Maalox Plus*) 30 ml PO Q6H PRN PRN Reason: INDIGESTION Albuterol (Ventolin 2.5 Mg/3 Ml Neb.Sofia*) 2.5 mg INH Q2H PRN PRN Reason: sob/wheezing Last Admin: 07/17/18 14:09 Dose: 2.5 mg Alprazolam (Xanax Tab*) 1 mg PO QID PRN PRN Reason: ANXIETY Last Admin: 07/17/18 11:20 Dose: 1 mg Amoxicillin/Clavulanate Potassium (Augmentin Tab*) 875 mg PO 0600,1800 [facility] Last Admin: 07/17/18 05:40 Dose: 875 mg Aspirin Buffered (Bufferin Tab*) 325 mg PO QAM [facility] Last Admin: 07/17/18 08:37 Dose: 325 mg Flecainide Acetate (Tambocor Tab*) 100 mg PO BID [facility] Last Admin: 07/17/18 08:38 Dose: 100 mg Heparin Sodium (Porcine) (Heparin Vial(*)) 5,000 units SUBCUT Q8HR [facility] Last Admin: 07/17/18 15:02 Dose: 5,000 units Methylprednisolone Sodium Succinate (Solu-Medrol 40 Mg) 40 mg IV Q8H [facility] Last Admin: 07/17/18 15:03 Dose: 40 mg Metoprolol Succinate (Toprol Xl Tab*) 25 mg PO QAM [facility] Last Admin: 07/17/18 08:38 Dose: 25 mg Mometasone Furoate/Formoterol Fumar (Dulera 200/5 Mdi*) 2 puff INH BID [facility]; Protocol Last Admin: 07/17/18 07:53 Dose: 2 puff Nicotine (Nicotine Patch 7 Mg/24 Hr*) 1 patch TRANSDERM DAILY [facility] Last Admin: 07/17/18 08:37 Dose: 1 patch Vital Signs - 8 hr 07/17/18 07/17/18 07/17/18 11:02 11:20 14:10 Temperature 98.0 F Pulse Rate 97 89 Respiratory 18 22 16 Rate Blood Pressure 129/69 (mmHg) O2 Sat by Pulse 97 98 Oximetry 07/17/18 14:57 Temperature 98.0 F Pulse Rate 100 Respiratory 18 Rate Blood Pressure 120/64 (mmHg) O2 Sat by Pulse 95 Oximetry Oxygen Devices in Use Now: None Result Diagrams: 07/17/18 05:44 07/17/18 05:44 Assess/Plan/Problems-Billing Assessment: - Patient Problems (1) COPD (chronic obstructive pulmonary disease) Current Visit: No Status: Acute Code(s): J44.9 - CHRONIC OBSTRUCTIVE PULMONARY DISEASE, UNSPECIFIED SNOMED Code(s): 25489299 Comment: -Will adjust nebulizations as ordered -Will increase Solumedrol to 40 IV q8H -Continue Dulera -Continue Augmentin D#2/5 (2) History of paroxysmal supraventricular tachycardia Current Visit: No Status: Acute Code(s): Z86.79 - PERSONAL HISTORY OF OTHER DISEASES OF THE CIRCULATORY SYSTEM SNOMED Code(s): 905457534406920 Comment: -Continue Flecainide (3) Anxiety Current Visit: Yes Status: Acute Code(s): F41.9 - ANXIETY DISORDER, UNSPECIFIED SNOMED Code(s): 13399101 Comment: -Continue Alprazolam (4) HTN (hypertension) Current Visit: Yes Status: Acute Code(s): I10 - ESSENTIAL (PRIMARY) HYPERTENSION SNOMED Code(s): 36950931 Comment: -Continue Metoprolol (5) Tobacco abuse Current Visit: Yes Status: Acute Code(s): Z72.0 - TOBACCO USE SNOMED Code( s): 883324442 (6) Tobacco abuse Current Visit: Yes Status: Acute Code(s): Z72.0 - TOBACCO USE SNOMED Code( s): 815435122 (7) DVT prophylaxis Current Visit: No Status: Acute Code(s): ZVI9551 - SNOMED Code(s): 949444537 Comment: -Continue Heparin Status and Disposition: -As above
[2018-07-18] MEDS: methylPREDNISolone SOD 40 MG* 1 ML VIAL IV SCH ×4 (00:09→18:08)
[2018-07-18] MEDS: Mometasone/Formoter 200/5 MDI INH SCH ×3 (04:04→19:16)
[2018-07-18] MEDS: Amoxicillin/Clavulanate TAB* 875 MG PO SCH ×2 (05:40→18:08)
[2018-07-18] MEDS: Heparin VIAL(*) 5000 UNITS/ML VIAL (FIVE THOUSAND) SUBCUT SCH ×3 (05:40→21:25)
[2018-07-18] MEDS: Albuterol 2.5 MG/3 ML NEB.SOL* (0.083%) INH PRN (08:06)
[2018-07-18] MEDS: BUFFERED ASPIRIN PO SCH (08:22)
[2018-07-18] MEDS: ALPRAZolam TAB* 0.5 MG PO PRN ×3 (08:22→23:21)
[2018-07-18] MEDS: Nicotine PATCH 7 MG/24 HR* PATCH TRANSDERM SCH (08:23)
[2018-07-18] MEDS: Metoprolol Succinate XL TAB* 25 MG PO SCH (08:23)
[2018-07-18] MEDS: Flecainide TAB* 100 MG PO SCH ×2 (08:25→21:23)
[2018-07-18 08:47] LABS: Hematocrit 37 % (35-47); Hemoglobin 12.2 g/dl (12.0-16.0); Mean Corpuscular HGB Conc 33 g/dl (31-36); Mean Corpuscular Hemoglobin 34 pg (27-31); Mean Corpuscular Volume 102 fL (80-97); Mean Platelet Volume 9.5 fL (7.4-10.4); Platelet Count 228 10^3/ul (150-450); Red Blood Count 3.61 10^6/ul (4.00-5.40); Red Cell Distribution Width 14 % (10.5-15); White Blood Count 15.2 10^3/ul (3.5-10.8)
[2018-07-18 08:58] LABS: EGFR Non-African American 94.3 (>60)
--- NOTE | 2018-07-18 13:57 | PN ---
Subjective Date of Service: 07/18/18 Interval History: Pt seen and examined. Meds and labs reviewed. Pt mentions that she feels somewhat better in comparison to yesterday and observed to no longer be on O2 at rest. However, she mentions she is anxious and was observed to be crying. When asked why she is crying, she mentions that she is anxious especially about the possibility of going home today. CC: Anxiety and improvement of SOB ROS: Denied GRACE/dizziness, F/C, N/V, CP, , increased cough, sputum production, abd pain, diarrhea, constipation, dysuria, myalgias, arthralgias, throat pain, and new skin lesions. The rest of the 14 point ROS are unremarkable. PHYSICAL EXAM: GEN APPEARANCE: Awake, not in acute distress HEENT: NC/AT, PERRLA, moist oral mucosa, (-) throat erythema NECK: Soft, supple, (-) cervical LAD, (-)JVD HEART: S1S2 WNL, RRR, No MRG CHEST: Diffuse wheezes, improved from yesterday, GAE, No W/R/R ABD: Soft, ND/NT, NABS 4x Q EXT: No C/C/E SKIN: Warm to touch PSYCH: No active psychosis, hallucinations, depression, SI/HI Objective Active Medications: Al Hydrox/Mg Hydrox/Simethicone (Maalox Plus*) 30 ml PO Q6H PRN PRN Reason: INDIGESTION Albuterol (Ventolin 2.5 Mg/3 Ml Neb.Sofia*) 2.5 mg INH Q2H PRN PRN Reason: sob/wheezing Last Admin: 07/18/18 08:06 Dose: 2.5 mg Albuterol/Ipratropium (Duoneb (Albuterol 2.5 Mg/Ipratropium 0.5 Mg)) 1 neb INH [id number] AWAKE [facility] Alprazolam (Xanax Tab*) 1 mg PO QID PRN PRN Reason: ANXIETY Last Admin: 07/18/18 08:22 Dose: 1 mg Amoxicillin/Clavulanate Potassium (Augmentin Tab*) 875 mg PO 0600,1800 [facility] Last Admin: 07/18/18 05:40 Dose: 875 mg Aspirin Buffered (Bufferin Tab*) 325 mg PO QAM [facility] Last Admin: 07/18/18 08:22 Dose: 325 mg Buspirone HCl (Buspar Tab*) 10 mg PO BID [facility] Flecainide Acetate (Tambocor Tab*) 100 mg PO BID [facility] Last Admin: 07/18/18 08:25 Dose: 100 mg Heparin Sodium (Porcine) (Heparin Vial(*)) 5,000 units SUBCUT Q8HR [facility] Last Admin: 07/18/18 05:40 Dose: 5,000 units Methylprednisolone Sodium Succinate (Solu-Medrol 40 Mg) 40 mg IV 0200,1000, 1800 [facility] Last Admin: 07/18/18 10:27 Dose: 40 mg Metoprolol Succinate (Toprol Xl Tab*) 25 mg PO QAM [facility] Last Admin: 07/18/18 08:23 Dose: 25 mg Mometasone Furoate/Formoterol Fumar (Dulera 200/5 Mdi*) 2 puff INH BID [facility]; Protocol Last Admin: 07/18/18 08:04 Dose: 2 puff Nicotine (Nicotine Patch 7 Mg/24 Hr*) 1 patch TRANSDERM DAILY [facility] Last Admin: 07/18/18 08:23 Dose: 1 patch Vital Signs - 8 hr 07/18/18 07/18/18 07/18/18 07:25 08:00 08:08 Temperature 98.0 F Pulse Rate 90 80 Respiratory 17 17 16 Rate Blood Pressure 135/68 (mmHg) O2 Sat by Pulse 96 96 98 Oximetry 07/18/18 07/18/18 08:22 11:31 Temperature 98.0 F Pulse Rate 81 Respiratory 20 17 Rate Blood Pressure 134/66 (mmHg) O2 Sat by Pulse 95 Oximetry Oxygen Devices in Use Now: Nasal Cannula Result Diagrams: 07/18/18 08:27 07/18/18 08:27 Assess/Plan/Problems-Billing Assessment: - Patient Problems (1) COPD (chronic obstructive pulmonary disease) Current Visit: No Status: Acute Code(s): J44.9 - CHRONIC OBSTRUCTIVE PULMONARY DISEASE, UNSPECIFIED SNOMED Code(s): 23720181 Comment: -Will adjust nebulizations as ordered -Continue Solumedrol to 40 IV q8H -Continue Dulera -Continue Augmentin D#3/5 (2) Anxiety Current Visit: Yes Status: Acute Code(s): F41.9 - ANXIETY DISORDER, UNSPECIFIED SNOMED Code(s): 28555330 Comment: -Continue Xanax -Will add Buspirone to her regimen -Likely exacerbated by Solumedrol -Pt reassured (3) History of paroxysmal supraventricular tachycardia Current Visit: No Status: Acute Code(s): Z86.79 - PERSONAL HISTORY OF OTHER DISEASES OF THE CIRCULATORY SYSTEM SNOMED Code(s): 729226330092000 Comment: -Continue Flecainide (4) HTN (hypertension) Current Visit: Yes Status: Acute Code(s): I10 - ESSENTIAL (PRIMARY) HYPERTENSION SNOMED Code(s): 70909531 Comment: -Continue Metoprolol (5) Tobacco abuse Current Visit: Yes Status: Acute Code(s): Z72.0 - TOBACCO USE SNOMED Code( s): 115950238 Comment: -Advised lifestyle modifications -Continue Nicotine patch (6) DVT prophylaxis Current Visit: No Status: Acute Code(s): MYZ5799 - SNOMED Code(s): 968967489 Comment: -Continue Heparin SQq8H Status and Disposition: -PT eval -For ambulatory sats in AM
[2018-07-18] MEDS ORDERED: Acetaminophen TAB* 325 MG PO PRN (13:58)
[2018-07-18] MEDS: Albuterol/Ipratropium NEB.SOL* Albuterol 2.5 MG/Ipratropium 0.5 MG 3 ML INH SCH ×3 (15:14→22:23)
[2018-07-18] MEDS: busPIRone TAB* 10 MG PO SCH (21:24)
[2018-07-19] MEDS: Albuterol/Ipratropium NEB.SOL* Albuterol 2.5 MG/Ipratropium 0.5 MG 3 ML INH SCH ×5 (01:59→20:38)
[2018-07-19] MEDS: methylPREDNISolone SOD 40 MG* 1 ML VIAL IV SCH ×3 (02:09→17:42)
[2018-07-19] MEDS: Amoxicillin/Clavulanate TAB* 875 MG PO SCH ×2 (05:29→17:42)
[2018-07-19] MEDS: Heparin VIAL(*) 5000 UNITS/ML VIAL (FIVE THOUSAND) SUBCUT SCH ×3 (05:29→21:47)
[2018-07-19 06:57] LABS: Hematocrit 36 % (35-47); Hemoglobin 12.2 g/dl (12.0-16.0); Mean Corpuscular HGB Conc 34 g/dl (31-36); Mean Corpuscular Hemoglobin 34 pg (27-31); Mean Corpuscular Volume 102 fL (80-97); Mean Platelet Volume 9.1 fL (7.4-10.4); Platelet Count 226 10^3/ul (150-450); Red Blood Count 3.56 10^6/ul (4.00-5.40); Red Cell Distribution Width 14 % (10.5-15); White Blood Count 13.4 10^3/ul (3.5-10.8)
[2018-07-19] MEDS: Mometasone/Formoter 200/5 MDI INH SCH ×2 (07:07→20:45)
[2018-07-19 07:12] LABS: EGFR Non-African American 79.8 (>60)
[2018-07-19 07:21] LABS: ABS Basophils 0 10^3/ul (0-0.2); ABS Eosinophils 0 10^3/ul (0-0.6); ABS Monocytes 0.4 10^3/ul (0-0.8); ABS Neutrophils 11.9 10^3/ul (1.5-7.7); ABS Nucleated RBC 0 10^3/ul; Eosinophil % 0 % (0-6); Lymphocyte % 7.7 % (25-47); Nucleated Red Blood Cells % 0.1
[2018-07-19] MEDS: Flecainide TAB* 100 MG PO SCH ×2 (10:00→21:46)
[2018-07-19] MEDS: Nicotine PATCH 7 MG/24 HR* PATCH TRANSDERM SCH (10:00)
[2018-07-19] MEDS: busPIRone TAB* 10 MG PO SCH ×2 (10:00→21:46)
[2018-07-19] MEDS: Metoprolol Succinate XL TAB* 25 MG PO SCH (10:00)
[2018-07-19] MEDS: BUFFERED ASPIRIN PO SCH (10:00)
[2018-07-19] MEDS: ALPRAZolam TAB* 0.5 MG PO PRN ×3 (10:12→21:46)
--- NOTE | 2018-07-19 14:05 | PN ---
Subjective Date of Service: 07/19/18 Interval History: Pt seen and examined. Meds and labs reviewed. CC: Anxiety, improving ROS: Denied GRACE/dizziness, F/C, N/V, CP, SOB, increased cough, sputum production , abd pain, diarrhea, constipation, dysuria, myalgias, arthralgias, throat pain , and new skin lesions. The rest of the 14 point ROS are unremarkable. PHYSICAL EXAM: GEN APPEARANCE: Awake, not in acute distress HEENT: NC/AT, PERRLA, moist oral mucosa, (-) throat erythema NECK: Soft, supple, (-) cervical LAD, (-)JVD HEART: S1S2 WNL, RRR, No MRG CHEST: (+)Diffuse wheezes, continues to improve, GAE, No W/R/R ABD: Soft, ND/NT, NABS 4x Q EXT: No C/C/E SKIN: Warm to touch PSYCH: No active psychosis, hallucinations, depression, SI/HI Objective Active Medications: Acetaminophen (Tylenol Tab*) 650 mg PO Q6H PRN PRN Reason: Pain/Fever Al Hydrox/Mg Hydrox/Simethicone (Maalox Plus*) 30 ml PO Q6H PRN PRN Reason: INDIGESTION Albuterol (Ventolin 2.5 Mg/3 Ml Neb.Sofia*) 2.5 mg INH Q2H PRN PRN Reason: sob/wheezing Last Admin: 07/18/18 08:06 Dose: 2.5 mg Albuterol/Ipratropium (Duoneb (Albuterol 2.5 Mg/Ipratropium 0.5 Mg)) 1 neb INH [id number] AWAKE [facility] Last Admin: 07/19/18 11:22 Dose: Not Given Alprazolam (Xanax Tab*) 1 mg PO QID PRN PRN Reason: ANXIETY Last Admin: 07/19/18 10:12 Dose: 1 mg Amoxicillin/Clavulanate Potassium (Augmentin Tab*) 875 mg PO 0600,1800 [facility] Last Admin: 07/19/18 05:29 Dose: 875 mg Aspirin Buffered (Bufferin Tab*) 325 mg PO QAM [facility] Last Admin: 07/19/18 10:00 Dose: 325 mg Buspirone HCl (Buspar Tab*) 10 mg PO BID [facility] Last Admin: 07/19/18 10:00 Dose: 10 mg Flecainide Acetate (Tambocor Tab*) 100 mg PO BID [facility] Last Admin: 07/19/18 10:00 Dose: 100 mg Heparin Sodium (Porcine) (Heparin Vial(*)) 5,000 units SUBCUT Q8HR [facility] Last Admin: 07/19/18 13:35 Dose: 5,000 units Methylprednisolone Sodium Succinate (Solu-Medrol 40 Mg) 40 mg IV 0200,1000, 1800 [facility] Last Admin: 07/19/18 10:01 Dose: 40 mg Metoprolol Succinate (Toprol Xl Tab*) 25 mg PO QAM [facility] Last Admin: 07/19/18 10:00 Dose: 25 mg Mometasone Furoate/Formoterol Fumar (Dulera 200/5 Mdi*) 2 puff INH BID [facility]; Protocol Last Admin: 07/19/18 07:07 Dose: 2 puff Nicotine (Nicotine Patch 7 Mg/24 Hr*) 1 patch TRANSDERM DAILY [facility] Last Admin: 07/19/18 10:00 Dose: 1 patch Vital Signs - 8 hr 07/19/18 07/19/18 07/19/18 07:08 08:13 10:12 Temperature 98.8 F Pulse Rate 79 82 Respiratory 18 16 16 Rate Blood Pressure 137/72 (mmHg) O2 Sat by Pulse 99 100 Oximetry 07/19/18 07/19/18 07/19/18 10:31 11:59 12:00 Temperature 97.6 F Pulse Rate 84 Respiratory 18 16 Rate Blood Pressure 130/71 (mmHg) O2 Sat by Pulse 100 96 97 Oximetry 07/19/18 13:03 Temperature Pulse Rate Respiratory 16 Rate Blood Pressure (mmHg) O2 Sat by Pulse Oximetry Oxygen Devices in Use Now: Nasal Cannula Result Diagrams: 07/19/18 06:42 07/19/18 06:42 Assess/Plan/Problems-Billing Assessment: - Patient Problems (1) COPD (chronic obstructive pulmonary disease) Current Visit: No Status: Acute Code(s): J44.9 - CHRONIC OBSTRUCTIVE PULMONARY DISEASE, UNSPECIFIED SNOMED Code(s): 79316567 Comment: -Continue nebulizations as ordered -Continue Solumedrol to 40 IV [id number] still with persistent wheezing, pt able to tolerate ambulation without O2 today, however, still very scared to go home on the weekend and tears flow from her eyes at the mention of possible D/C -Continue Dulera -Continue Augmentin D#4/5 (2) Anxiety Current Visit: Yes Status: Acute Code(s): F41.9 - ANXIETY DISORDER, UNSPECIFIED SNOMED Code(s): 42055689 Comment: -Continue Xanax -Continue Buspirone and increase to 15 mg PO BID in AM -Likely exacerbated by Solumedrol, hence, will not further increase dose and begin rapid taper in 1-2 days -Pt reassured (3) History of paroxysmal supraventricular tachycardia Current Visit: No Status: Acute Code(s): Z86.79 - PERSONAL HISTORY OF OTHER DISEASES OF THE CIRCULATORY SYSTEM SNOMED Code(s): 528909978603884 Comment: -Continue Flecainide (4) HTN (hypertension) Current Visit: Yes Status: Acute Code(s): I10 - ESSENTIAL (PRIMARY) HYPERTENSION SNOMED Code(s): 41967380 Comment: -Continue Metoprolol (5) Tobacco abuse Current Visit: Yes Status: Acute Code(s): Z72.0 - TOBACCO USE SNOMED Code( s): 294728739 Comment: -Advised lifestyle modifications -Continue Nicotine patch (6) DVT prophylaxis Current Visit: No Status: Acute Code(s): LIP9198 - SNOMED Code(s): 473493462 Comment: -Continue Heparin SQq8H Status and Disposition: -For D/C home in AM
[2018-07-19] MEDS ORDERED: hydrOXYzine HCL TAB* 50 MG PO PRN (14:08)
[2018-07-19] MEDS ORDERED: busPIRone TAB* 10 MG PO ONE (21:00)
[2018-07-20] MEDS: Albuterol/Ipratropium NEB.SOL* Albuterol 2.5 MG/Ipratropium 0.5 MG 3 ML INH SCH ×2 (00:16→07:26)
[2018-07-20] MEDS: methylPREDNISolone SOD 40 MG* 1 ML VIAL IV SCH ×2 (02:09→09:34)
[2018-07-20] MEDS: ALPRAZolam TAB* 0.5 MG PO PRN ×2 (03:19→07:52)
[2018-07-20] MEDS: Amoxicillin/Clavulanate TAB* 875 MG PO SCH (06:12)
[2018-07-20] MEDS: Heparin VIAL(*) 5000 UNITS/ML VIAL (FIVE THOUSAND) SUBCUT SCH (06:12)
[2018-07-20 07:02] LABS: Hematocrit 39 % (35-47); Hemoglobin 12.9 g/dl (12.0-16.0); Mean Corpuscular HGB Conc 33 g/dl (31-36); Mean Corpuscular Hemoglobin 33 pg (27-31); Mean Corpuscular Volume 101 fL (80-97); Mean Platelet Volume 9.6 fL (7.4-10.4); Platelet Count 251 10^3/ul (150-450); Red Blood Count 3.85 10^6/ul (4.00-5.40); Red Cell Distribution Width 14 % (10.5-15); White Blood Count 13.7 10^3/ul (3.5-10.8)
[2018-07-20 07:24] LABS: EGFR Non-African American 79.8 (>60)
[2018-07-20] MEDS: Mometasone/Formoter 200/5 MDI INH SCH (07:26)
[2018-07-20] MEDS: Nicotine PATCH 7 MG/24 HR* PATCH TRANSDERM SCH (07:53)
[2018-07-20] MEDS: BUFFERED ASPIRIN PO SCH (07:53)
[2018-07-20] MEDS: Metoprolol Succinate XL TAB* 25 MG PO SCH (07:53)
[2018-07-20] MEDS: Flecainide TAB* 100 MG PO SCH (07:53)
[2018-07-20 08:29] LABS: Monocytes % 2 % (0-7)
[2018-07-20 08:39] LABS: ABS Basophils 0 10^3/ul (0-0.2); ABS Neutrophils 11.1 10^3/ul (1.5-7.7); ABS Neutrophils 11.4 10^3/ul (1.5-7.7)
[2018-07-20] MEDS ORDERED: busPIRone TAB* 15 MG PO SCH (09:00)
[2018-07-20] MEDS ORDERED: Magnesium Sulfate IV* 3 GM in NS 0.9% 100 ML* 100 ML IVPB ONE (10:00)
[2018-07-20 12:44] VITALS: BP 122/64
--- NOTE | 2018-07-21 01:36 | DS ---
CC: Dr. Akins; Dr. Moe Christianson; Dr. Johan Shukla * DISCHARGE SUMMARY: DATE OF ADMISSION: DATE OF DISCHARGE: 07/20/18 DISCHARGE DIAGNOSES: 1. Chronic obstructive pulmonary disease exacerbation, severe, improved. 2. Anxiety. 3. History of paroxysmal supraventricular tachycardia. 4. History of hypertension. 5. History of tobacco abuse, advised lifestyle modification. DISCHARGE MEDICATIONS: Are as follows: 1. Alprazolam 1 mg p.o. 4 times a day p.r.n. 2. Symbicort 160/4.5 two puffs inhalation b.i.d. 3. Discontinued aspirin 325 mg p.o. daily and instead placed on 81 mg p.o. daily. 4. Buspirone 15 mg p.o. b.i.d. 5. Flecainide 100 mg p.o. b.i.d. 6. Hydroxyzine 50 mg p.o. q.6 p.r.n. 7. Metoprolol succinate 25 mg p.o. q.a.m. 8. Nicotine 7 mg per 24 hour patch daily. 9. Albuterol/ipratropium nebulization 1 nebulization inhalation q.6 hours p.r.n. 10. Magnesium oxide 400 mg p.o. daily for 5 days. 11. Prednisone rapid taper. 12. Prochlorperazine tab 5 mg p.o. q.6 p.r.n. HISTORY OF PRESENT ILLNESS/HOSPITAL COURSE: The patient is a 63-year-old lady with a history of COPD, obesity, and hypertension as well as history of SVT, who presented to the ED on 07/16/18 for chief complaint of shortness of breath and was subsequently found to have chronic obstructive pulmonary disease exacerbation with no radiographic evidence of acute cardiopulmonary disease on chest x-ray. Given the severity of her COPD, she was placed on Solu-Medrol 40 mg IV q.8. However, she has experienced anxiety despite her clinical improvement and any discussion of discharge into the future is met by patient crying. Therefore, despite her wheezing, she has saturated well and has successfully ambulated without any need for oxygen without dropping saturation despite mild wheezing. Given her anxiety, we have elected not to increase her steroid needs given this can make her more anxious. We have addressed her anxiety by continuing her Xanax p.r.n. and in addition placed her on buspirone as well as p.r.n. hydroxyzine for breakthrough and this has seemed to work. She feels better today and mentions that she is in good spirits to go home. The patient had been advised to follow up and/or call her PCP within 3 days post discharge. She has been advised to redraw her blood work in 2 weeks and review the data with her PCP in regards to her magnesium levels. She was advised that if her symptoms resume or develop new ones or feel unwell for any reason, to call her PCP first and if her PCP cannot entertain her due to scheduling issues alone, to call [facility] if her issue is considered nonemergent. She was advised to call my office regarding any questions, concerns, or further clarifications regarding her discharge plans and/or prescriptions and to take her medications as prescribed. REVIEW OF SYSTEMS: The patient currently denies any headaches, dizziness, fevers, chills, nausea, vomiting, chest pain, shortness of breath, increased cough and/or sputum production, abdominal pain, diarrhea, constipation, pain and /or increased frequency on urination, myalgias, arthralgias, throat pain, or new skin lesions. The rest of the 14-point review of systems were otherwise unremarkable. PHYSICAL EXAMINATION: Reveals a most recent vital signs of records blood pressure of 145/77, 66 beats per minute heart rate, 97.6 degrees Fahrenheit, 18 per minute respiratory rate, saturating at 95% on room air. General Appearance : The patient is awake, alert, and oriented x3, not in acute distress. HEENT: Normocephalic, atraumatic. PERRLA. Extraocular muscles intact. Negative for icterus. Moist oral mucosa. Negative throat erythema. Neck is soft, supple, with no cervical lymphadenopathy. No JVD. Heart: S1, S2 within normal limits. Regular rate and rhythm. No murmurs, rubs, and gallops. Chest : Mild wheezing in the mid lung field with good air entry. No, rales, no rhonchi appreciated. Abdomen is soft, nondistended, nontender. Normoactive bowel sounds 4x q. Extremities: No cyanosis, clubbing, or edema. Psychiatric: No active psychosis, depression, suicidal or homicidal ideations. Skin is warm to touch. TIME SPENT: The total time spent evaluating the patient, reviewing pertinent data and appropriate documentation is 50 minutes. [id number]/[facility] #: [id number] MTDD
== END 2018-07-20 12:45 | disposition home or self-care (01) | DRG 191 ==
LOC: ED 09:19 → MED 13:03 → OBSVTOIN 07-18 14:05
PROVIDERS: ADMIT Internal Medicine; ATTEND Student in an Organized Health Care Education/Training Program
DX: J44.1 Chronic obstructive pulmonary disease with (acute) exacerbation (principal); I47.1 Supraventricular tachycardia; F41.9 Anxiety disorder, unspecified; I10 Essential (primary) hypertension; F17.210 Nicotine dependence, cigarettes, uncomplicated; E66.9 Obesity, unspecified; F43.10 Post-traumatic stress disorder, unspecified; Z68.28 Body mass index [BMI] 28.0-28.9, adult; Z86.73 Personal history of transient ischemic attack (TIA), and cerebral infarction without residual deficits; Z85.3 Personal history of malignant neoplasm of breast; Z79.82 Long term (current) use of aspirin; Z79.899 Other long term (current) drug therapy; Z88.5 Allergy status to narcotic agent; Z88.2 Allergy status to sulfonamides; Z88.8 Allergy status to other drugs, medicaments and biological substances; Z88.6 Allergy status to analgesic agent; Z88.1 Allergy status to other antibiotic agents; Z91.040 Latex allergy status; Z80.6 Family history of leukemia; Z82.49 Family history of ischemic heart disease and other diseases of the circulatory system
CPT/HCPCS: 36415; 71046; 80048; 80053; 83735; 84100; 85025; 85027; 85379; 93005; 94640; 99283; A9270-GY; G0378; G8978-GP-CH; G8979-GP-CH; G8980-GP-CH; J1644; J1956; J2543; J2920; J2930; J3475

== ENCOUNTER 2018-09-08 04:31 | Observation (INO) | payer MEDICARE, MEDICAID ==
[2018-09-08] MEDS ORDERED: Aspirin 81 mg CHEW TAB* 81 MG TAB.CHEW PO ONE (04:50)
[2018-09-08] MEDS ORDERED: Albuterol/Ipratropium NEB.SOL* Albuterol 2.5 MG/Ipratropium 0.5 MG 3 ML INH ONE (04:50)
--- NOTE | 2018-09-08 04:50 | ED ---
HPI Chest Pain - HPI Summary HPI Summary: This patient is a 63 year old female brought in by ambulance to [facility] with a chief complaint of chest pain since 2-3 hours ago. The pain is located in the left sternum and occasionally radiates upwards. The pain is constant. Patient states that the pain woke her up. The pain is rated 9/10 in severity. Symptoms aggravated by deep breaths. Symptoms alleviated by nothing. Patient additionally reports nausea, SOB, lightheadedness. Patient denies vomiting. Patient also presents with a few bruises on the right side of his chest from multiple falls. The patients last stress test was 2 years ago. - History of Current Complaint Time Seen by Provider: 09/08/18 04:39 Hx Obtained From: Patient Onset/Duration: Started Hours Ago, Still Present Timing: Constant Pain Intensity: 9 Pain Scale Used: 0-10 Numeric Chest Pain Location: Right Anterior Chest Pain Radiates: Yes Chest Pain Radiates To:: Other - "upwards" Aggravating Factor(s): Deep Breaths Alleviating Factor(s): Nothing Associated Signs and Symptoms: Positive: Negative - vomiting, Other: - nausea, SOB, lightheadedness - Additional Pertinent History Primary Care Physician: [id number] - Allergy/Home Medications Allergies/Adverse Reactions: Allergies Allergy/AdvReac Type Severity Reaction Status Date / Time cefaclor Allergy Swelling Verified 09/08/18 04:40 codeine Allergy Swelling Verified 09/08/18 04:40 erythromycin base Allergy Swelling Verified 09/08/18 04:40 hydrocodone [From Vicodin] Allergy Swelling Verified 09/08/18 04:40 ibuprofen Allergy Shortness Verified 09/08/18 04:40 of Breath latex Allergy Rash And Verified 09/08/18 04:40 Itching meperidine [From Demerol] Allergy Swelling Verified 09/08/18 04:40 morphine Allergy Swelling Verified 09/08/18 04:40 oxycodone Allergy Rash Verified 09/08/18 04:40 paroxetine [From Paxil] Allergy Swelling Verified 09/08/18 04:40 prednisone Allergy Tachycardia Verified 09/08/18 04:40 propoxyphene Allergy Swelling Verified 09/08/18 04:40 [From Darvocet-N] propranolol Allergy Swelling Verified 09/08/18 04:40 Tetracyclines Allergy Swelling Verified 09/08/18 04:40 sulfate Allergy Shortness Uncoded 09/08/18 04:40 of Breath Home Medications: Home Medications Aspirin TAB* [Aspirin 325 MG TAB*] 325 mg PO DAILY 09/08/18 [History Confirmed 09/08/18] PMH/Surg Hx/FS Hx/Imm Hx Previously Healthy: No Endocrine/Hematology History: Reports: Hx Anemia - TAKES 325 MG ASPIRIN DAILY Denies: Hx Diabetes, Hx Systemic Lupus Erythematosus Cardiovascular History: Reports: Hx Angina, 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 EF%50-55 Denies: Hx Aneurysm, Hx Congestive Heart Failure, Hx Deep Vein Thrombosis Respiratory History: Reports: Hx Asthma, Hx Chronic Obstructive Pulmonary Disease (COPD) Denies: Other Respiratory Problems/Disorders GI History: Reports: Hx Gall Bladder Disease, Hx Gastroesophageal Reflux Disease - ON MEDICATION FOR, Other GI Disorders - HIATAL HERNIA History: Denies: Hx Dialysis, Hx Renal Disease Musculoskeletal History: Reports: Hx Arthritis - HANDS Denies: Hx Rheumatoid Arthritis, Hx Osteoporosis Sensory History: Reports: Hx Contacts or Glasses, Hx Vision Problem Denies: Hx Hearing Aid Opthamlomology History: Reports: Hx Contacts or Glasses, Hx Vision Problem Neurological History: Reports: Hx Migraine Denies: Hx CVA, Hx Transient Ischemic Attacks (TIA), Other Neuro Impairments/ Disorders - HERNIATED DISC Psychiatric History: Reports: Hx Anxiety - ROUTINE AND PRN MEDICATION FOR, Hx Depression - PTSD- D/T CANCER- TAKES ATIVAN DAILY, Hx Post Traumatic Stress Disorder - Cancer History Cancer Type, Location and Year: breast/2010 Hx Chemotherapy: Yes Hx Radiation Therapy: Yes - Surgical History Surgery Procedure, Year, and Place: RIGHT LUMPECTOMY, TOBI 2012, HYSTERECTOMY 1991, POWERPORT LCW, Hx Anesthesia Reactions: Yes - SEVERE ANXIETY- WITH LUMPECTOMY AND PORT PLACEMENT AND SEVERE NAUSEA - Immunization History Date of Tetanus Vaccine: up to date Date of Influenza Vaccine: 2015 Infectious Disease History: No Infectious Disease History: Denies: Hx Clostridium Difficile, Hx Hepatitis, Hx of Known/Suspected MRSA, Hx Shingles, Hx Tuberculosis, Hx Known/Suspected VRE, Hx Known/Suspected VRSA, History Other Infectious Disease, Traveled Outside the [place] in Last 30 Days - Family History Known Family History: Positive: Cardiac Disease, Other - PE - Social History Alcohol Use: Weekly Alcohol Amount: 3 drinks Hx Substance Use: No Substance Use Type: Reports: None Hx Tobacco Use: Yes Smoking Status (MU): Former Smoker Type: Cigarettes Have You Smoked in the Last Year: Yes Review of Systems Negative: Fever Positive: Chest Pain Positive: Shortness Of Breath Positive: Nausea. Negative: Vomiting Positive: Bruising - right chest Neurological: Other - lightheadedness All Other Systems Reviewed And Are Negative: Yes Physical Exam - Summary Physical Exam Summary: VITAL SIGNS: Reviewed. GENERAL: Patient is a well-developed and nourished female who is lying comfortable in the stretcher. Patient is not in any acute respiratory distress. HEAD AND FACE: No signs of trauma. No ecchymosis, hematomas or skull depressions. No sinus tenderness. EYES: PERRLA, EOMI x 2, No injected conjunctiva, no nystagmus. EARS: Hearing grossly intact. Ear canals and tympanic membranes are within normal limits. MOUTH: Oropharynx within normal limits. NECK: Supple, trachea is midline, no adenopathy, no JVD, no carotid bruit, no c- spine tenderness, neck with full ROM. CHEST: Symmetric, no tenderness at palpation LUNGS: Decreased breath sounds with mild expiratory wheezing CVS: Regular rate and rhythm, S1 and S2 present, no murmurs or gallops appreciated. ABDOMEN: Soft, non-tender. No signs of distention. No rebound no guarding, and no masses palpated. Bowel sounds are normal. EXTREMITIES: FROM in all major joints, no edema, no cyanosis or clubbing. NEURO: Alert and oriented x 3. No acute neurological deficits. Speech is normal and follows commands. SKIN: Dry and warm. Bruised area over the right upper chest Triage Information Reviewed: Yes Vital Signs On Initial Exam: Initial Vitals Temp Pulse Resp BP Pulse Ox 97.2 F 83 20 139/91 93 09/08/18 04:34 09/08/18 04:34 09/08/18 04:34 09/08/18 04:34 09/08/18 04:34 Vital Signs Reviewed: Yes Diagnostics - Vital Signs Vital Signs Temp Pulse Resp BP Pulse Ox 09/08/18 04:40 82 26 139/91 93 09/08/18 04:37 83 91 09/08/18 04:34 97.2 F 83 20 139/91 93 - Laboratory Result Diagrams: 09/08/18 04:58 09/08/18 04:58 Lab Statement: Any lab studies that have been ordered have been reviewed, and results considered in the medical decision making process. - EKG 0437 Cardiac Rate: NL EKG Rhythm: Sinus Rhythm - 81 BPM Summary of EKG Findings: An EKG, taken 043, reveals NSR (81 BPM), Normal axis. Normal interval. No ischemic changes. Re-Evaluation - Re-Evaluation First Eval Re-Evaluation Time: 06:55 Comment: Patient exhibits an elevation of the liver function test. Will order US gallbladder. Chest Pain Course/Dx - Course Course Of Treatment: This patient is a 63 year old female brought in by ambulance to [facility] with a chief complaint of chest pain since 2-3 hours ago. The pain is located in the left sternum and occasionally radiates upwards. The pain is constant. Patient states that the pain woke her up. The pain is rated 9/ 10 in severity. Symptoms aggravated by deep breaths. Symptoms alleviated by nothing. Patient additionally reports nausea, SOB, lightheadedness. Patient denies vomiting. Patient also presents with a few bruises on the right side of his chest from multiple falls. The patients last stress test was 2 years ago. An EKG, taken 043, reveals NSR (81 BPM), Normal axis. Normal interval. No ischemic changes. Bloodwork Obtained. In the ED course the patient was given Albuterol, Iohexol, Aspirin. The pt is hemodynamically stable, alert and oriented x3. Patient will be signed out to Dr. Julio at end of shift, pending repeat troponin, CT Chest/Thorax, US Gallbladder - Diagnoses Provider Diagnoses: Chest pain Discharge - Sign-Out/Discharge Documenting (check all that apply): Sign-Out Patient Signing out patient TO: Mayo Julio - Discharge Plan Referrals: Johan Shukla MD [Primary Care Provider] - - Attestation Statements Document Initiated by Scribe: Yes Documenting Scribe: Ashu Mcnamara Provider For Whom Odalys is Documenting (Include Credential): Brandon Bishop MD Scribe Attestation: Ashu Hendrix, scribed for Brandon Bishop MD on 09/08/18 at 0655. Status of Scribe Document: Ready
[2018-09-08] MEDS ORDERED: Albuterol 2.5 MG/3 ML NEB.SOL* (0.083%) INH ONE (04:51)
--- OUTSIDE RECORDS SUMMARY | 2018-09-08 05:01 | XMS REPORT | Continuity of Care Document ---
:1955 External Reference #:[id number] Author Name AriannaEusebia erwin Care Team Providers Name Role Phone Johan Shukla MD Primary Care Physician Unavailable Payers Type Date Identification Numbers Payment Provider Subscriber Effective: 2013 Policy Number: [id number] Medicare Renetta Cifuentes PayID: [id number] [address] [place] [address] Policy Number: [id number] Medicaid Renetta Cifuentes Group Name: 1 [address] PayID: [id number] [place] [address] Advance Directives Description No Information Available Problems Date Description Provider Status Onset: 07/07/2013 [...] MD Active Onset: 10/25/2016 Chronic obstructive pulmonary Laura Blount MD Active disease with (acute) exacerbation Onset: 07/17/2018 Anxiety state Waqas Yeung MD Onset: 07/20/2018 Tobacco use Waqas Yeung MD Family History Date Family Member(s) Problem(s) Comments Father of DE at age 36 Mother of Leukemia at age 81 Siblings 1 Sister w/Crest symdome Social History Type Date Description Comments Sex Unknown Marital Status Occupation Disabled Tobacco Use Start: Unknown Former Cigarette Smoker End: Unknown Cigarette Use Patch Smoking Status Reviewed: 09/02/18 Former Cigarette Smoker ETOH Use Occasionally consumes beer Tobacco Use Start: Unknown Patient is a former Less 1/2 PPD x 40 End: smoker years Recreational Drug Use Denies Drug Use Exercise Type/Frequency Exercises sporadically Exercise Type/Frequency Exercises more when warm out Exercise Type/Frequency Walks daily about 10-15 mins depending on the weather Allergies, Adverse Reactions, Alerts Date Description Reaction Status Severity Comments 07/06/2013 Ceclor Active 07/06/2013 Erythromycin Active 07/06/2013 Tetracycline Active 07/06/2013 Codeine Active 07/06/2013 Demerol Active 07/06/2013 Morphine Active 07/06/2013 Ibuprofen Active 07/06/2013 Inderal Active 07/06/2013 Vicodin Active 07/06/2013 Sulfa Antibiotics Active 07/06/2013 Paxil Active 07/06/2013 Oxycodone Active 07/07/2013 Zoloft Active 07/07/2013 Celexa Active 09/23/2016 Latex Active Medications Medication Date Status Form Strength Qnty SIG Indications Ordering Provider Methylprednisolon 09/02 Active TBPK 4mg 21uni 1 tab J44.1 ts daily 2 reynaldo Blount MD Oxygen 03/30 Active Misc 1unit please use R09.02 s o2 at [facility], 2l/min during exertion and at night Flecainide 10/04 Active Tablets 100mg 180ta 1 by mouth Qutaybeh Acetate bs twice a S. day Mitch Beasley Metoprolol 08/18 Active Tablets ER 25mg 90tab 1 by mouth Kulwant Succinate 24HR s every day Richardson Baltazar M.D. Aspirin Active Tablets DR 325mg 30tab 1 po qd Unknown / s Alprazolam Active Tablets 1mg as needed Midura, / MD Johan Albuterol Sulfate Active Nebulizer 0.63mg/3M prn Midura, L MD Johan Betamethasone Active Nebulizer prn Symbicort Active Aerosol 160-4.5mc 2 puff Unknown g/Act twice a day Pantoprazole Active Tablets DR 20mg Take 1 Unknown Sodium / Tablet By Mouth Every Day For Stomach Ventolin HFA Active Aerosol 108(90Bas Inhale 2 Unknown e) Puffs By mcg/Act Mouth Every 4 Hours as Needed Oxygen 11/25 Hx Misc 1unit please use R09.02 Laura /2018 s o2 at [facility], - 2l/min at 03/30 Prednisone 01/22 Hx Tablets 5mg 90tab 2 tablets J45.901 s for 1 week [facility], - and 1 MD 02/03 tablet /2016 2 weeks Advair HFA 12/26 Hx Aerosol 115-21mcg 24gm 2 puff J44.9 Laura /2017 /Act twice a [facility], - day 08/26 Compazine 09/20 Hx as directed/n - eeded 09/01 Spiriva 09/20 Hx Capsules 18mcg 1 unit Unknown inhalation - daily 12/25 Bumetanide 09/20 Hx Tablets 1mg as directed - 08/26 Omeprazole 09/[address] 20mg 1 by mouth every day - 09/15 Flecainide 08/18 Hx Tablets 50mg 60tab 1 by mouth Kulwant Acetate s twice a D. Giovanny, - day M.D. 10/04 Metoprolol 07/07 Hx Tablets ER 25mg 180ta bid po Kulwant Succinate ER 24HR bs DParish Baltazar, - M.D. 08/18 Metoprolol 09/23 Hx Tablets ER 25mg 90tab 1 tab by Kulwant Succinate ER 24HR s mouth DParish Baltazar, - every day M.D. 07/[address] 20mg 90cap 1 po qd Unknown s prn - 09/26 Trazodone HCL 00/00 Hx Tablets 50mg Midura, /0000 MD Johan - 08/17 Calcium 600 High 0000 Hx Tablets 600mg 60tab 1 tabs po Unknown Potency /0000 s qd am - 09/15 Vitamin D3 High 00/00 Hx Capsules 1000Unit 3 po qd Unknown Potency /0000 - 09/26 Tamoxifen Citrate 00/00 Hx Tablets 20mg 1 po qd Lauri, /0000 Trey Manuel MD 09/15 Symbicort 00/00 Hx Aerosol 80-4.5mcg prn Midura, /0000 /Act MD Johan - 12/25 Fluticasone 00 Hx Suspension 50mcg/Act Midura, Propionate /0000 MD Johan - 09/15 Proair HFA 00 Hx Aerosol 108(90Bas prn Midura, /0000 e) MD Johan - mcg/Act 02/03 Selman Carbonate 00 Hx Capsules 300mg take 2 Unknown /0000 capsules - by mouth 09/15 at bedtime Potassium 00 Hx Take one Unknown Chloride ER /0000 tab PO - daily 12/25 Prednisone 0000 Hx Tablets 20mg 2 tablets Unknown /0000 by mouth - daily x's 01/22 5 days the morning Immunizations Description No Information Available Vital Signs Date Vital Result Comment 09/02/2018 8:38am Height 62 inches 5'2" Weight 158.00 lb Heart Rate 94 /min BP Systolic Sitting 126 mmHg Lue reg cuff BP Diastolic Sitting 90 mmHg Lue reg cuff Respiratory Rate 22 /min O2 % BldC Oximetry 96 % On Ra BMI (Body Mass Index) 28.9 kg/m2 03/30/2018 10:21am Height 62 inches 5'2" Weight 165.12 lb Heart Rate 92 /min BP Systolic Sitting 118 mmHg Lue reguar cuff BP Diastolic Sitting 76 mmHg Lue reguar cuff Respiratory Rate 16 /min O2 % BldC Oximetry 93 % BMI (Body Mass Index) 30.2 kg/m2 11/25/2017 9:03am Height 62 inches 5'2" Weight 171.00 lb Heart Rate 84 /min BP Systolic Sitting 118 mmHg BP Diastolic Sitting 78 mmHg Respiratory Rate 14 /min O2 % BldC Oximetry 96 % BMI (Body Mass Index) 31.3 kg/m2 08/27/2017 8:20am Height 62 inches 5'2" Weight 175.00 lb Heart Rate 80 /min BP Systolic Sitting 124 mmHg BP Diastolic Sitting 70 mmHg Respiratory Rate 14 /min O2 % BldC Oximetry 94 % BMI (Body Mass Index) 32.0 kg/m2 02/04/2017 10:50am Height 62 inches 5'2" Weight 188.00 lb Heart Rate 91 /min BP Systolic Sitting 108 mmHg left arm, reg cuff BP Diastolic Sitting 72 mmHg left arm, reg cuff BP Systolic Standing 110 mmHg left arm, reg cuff BP Diastolic Standing 72 mmHg left arm, reg cuff BMI (Body Mass Index) 34.4 kg/m2 Ejection Fraction 55-60% 09/03/16 01/22/2017 11:02am Height 62 inches 5'2" Weight 175.00 lb Heart Rate 79 /min BP Systolic Sitting 118 mmHg BP Diastolic Sitting 78 mmHg Respiratory Rate 16 /min Pain Level 0 O2 % BldC Oximetry 96 % BMI (Body Mass Index) 32.0 kg/m2 12/26/2016 9:01am Height 62 inches 5'2" Weight 176.00 lb Heart Rate 102 /min BP Systolic Sitting 132 mmHg BP Diastolic Sitting 80 mmHg Respiratory Rate 16 /min Pain Level 0 O2 % BldC Oximetry 94 % BMI (Body Mass Index) 32.2 kg/m2 10/25/2016 9:19am Height 62 inches 5'2" Weight 185.00 lb Heart Rate 94 /min BP Systolic 130 mmHg BP Diastolic 76 mmHg Respiratory Rate 14 /min O2 % BldC Oximetry 93 % BMI (Body Mass Index) 33.8 kg/m2 10/04/2016 8:40am Height 62 inches 5'2" Weight 185.00 lb with shoes Heart Rate 88 /min BP Systolic Sitting 130 mmHg LA lrg cuff BP Diastolic Sitting 82 mmHg LA lrg cuff BP Systolic Standing 122 mmHg LA lrg cuff BP Diastolic Standing 80 mmHg LA lrg cuff BMI (Body Mass Index) 33.8 kg/m2 Ejection Fraction 55% - 60% echo 09/03/16 09/23/2016 9:28am Height 62 inches 5'2" Weight 189.00 lb Heart Rate 99 /min BP Systolic 118 mmHg BP Diastolic 74 mmHg Respiratory Rate 16 /min O2 % BldC Oximetry 99 % BMI (Body Mass Index) 34.6 kg/m2 09/29/2015 7:42am Height 62 inches 5'2" Heart Rate 88 /min BP Systolic Sitting 108 mmHg Lue, reg cuff BP Diastolic Sitting 76 mmHg Lue, reg cuff BP Systolic Standing 106 mmHg Lue BP Diastolic Standing 80 mmHg Lue Respiratory Rate 18 /min Ejection Fraction 50-55% as of 09/20/15 echo 08/25/2014 9:57am Height 62 inches 5'2" Weight 159.00 lb with shoes Heart Rate 108 /min BP Systolic Sitting 134 mmHg LA, reg cuff BP Diastolic Sitting 86 mmHg LA, reg cuff BP Systolic Standing 128 mmHg LA BP Diastolic Standing 90 mmHg LA Respiratory Rate 16 /min BMI (Body Mass Index) 29.1 kg/m2 10/08/2013 8:21am Height 62 inches 5'2" Weight 166.00 lb Heart Rate 78 /min BP Systolic Sitting 124 mmHg LA reg cuff BP Diastolic Sitting 84 mmHg LA reg cuff BP Systolic Standing 120 mmHg LA BP Diastolic Standing 82 mmHg LA Respiratory Rate 16 /min BMI (Body Mass Index) 30.4 kg/m2 08/18/2013 10:15am Height 62.5 inches 5'2.50" Weight 168.00 lb up 3 lbs Heart Rate 80 /min BP Systolic Sitting 130 mmHg LA reg cuff BP Diastolic Sitting 72 mmHg LA reg cuff BP Systolic Standing 122 mmHg LA BP Diastolic Standing 70 mmHg LA Respiratory Rate 18 /min BMI (Body Mass Index) 30.2 kg/m2 07/07/2013 9:43am Height 62.5 inches 5'2.50" Weight 165.00 lb Heart Rate 80 /min BP Systolic Sitting 136 mmHg Ra reg cuff BP Diastolic Sitting 86 mmHg Ra reg cuff BP Systolic Standing 128 mmHg Ra BP Diastolic Standing 80 mmHg Ra Respiratory Rate 16 /min BMI (Body Mass Index) 29.7 kg/m2 Results Test Date Facility Test Result H/L Range Note Order 03/30/2018 [facility] In-House 6 Minute Walk <pending> Basic Metabolic 09/21/2015 [facility] Sodium 135 mmol/L N 133- [address] [place] [address] [phone] Potassium 3.9 mmol/L N 3.5-5.0 Chloride 104 mmol/L N 101-111 Co2 Carbon Dioxide 25 mmol/L N 22-32 Anion Gap 6 mmol/L N 2-11 Glucose 136 mg/dL High 70-100 Blood Urea Nitrogen 12 mg/dL N 6-24 Creatinine 0.93 mg/dL N 0.51-0.95 BUN/Creatinine Ratio 12.9 N 8-20 Calcium 8.8 mg/dL N 8.6-10.3 Egfr Non- 61.9 N >60 Egfr 79.6 N >60 1 Comp Metabolic Panel 07/27/2014 [facility] Sodium 136 mmol/L N 133-[address] [place] [address] [phone] Potassium 4.7 mmol/L N 3.5-5.0 2 Chloride 103 mmol/L N 101-111 Co2 Carbon Dioxide 25 mmol/L N 22-32 Anion Gap 8 mmol/L N 2-11 Glucose 90 mg/dL N 70-100 Blood Urea Nitrogen 16 mg/dL N 6-24 Creatinine 0.89 mg/dL N 0.51-0.95 BUN/Creatinine Ratio 18.0 N 8-20 Calcium 8.7 mg/dL N 8.6-10.3 Total Protein 6.8 g/dL N 6.4-8.9 Albumin 4.2 g/dL N 3.2-5.2 Globulin 2.6 g/dL N 2-4 Albumin/Globulin Ratio 1.6 N 1-3 Total Bilirubin 0.30 mg/dL N 0.2-1.0 Alkaline Phosphatase 41 U/L N 34-104 Alt 20 U/L N 7-52 Ast 25 U/L N 13-39 Egfr Non- 65.4 N >60 Egfr 84.1 N >60 3 CBC Auto Diff 07/27/2014 [facility] White Blood 6.4 10^3/uL N 4.8-10.[address] [place] [address] [phone] Red Blood Count 4.26 10^6/uL N 4.0-5.4 Hemoglobin 14.0 g/dL N 12.0-16.0 Hematocrit 42 % N 35-47 Mean Corpuscular Volume 99 fL High 80-97 Mean Corpuscular Hemoglobin 33 pg High 27-31 Mean Corpuscular HGB Conc 33 g/dL N 31-36 Red Cell Distribution Width 13 % N 10.5-15 Platelet Count 222 10^3/uL N 150-450 Mean Platelet Volume 9 um3 N 7.4-10.4 Abs Neutrophils 3.9 10^3/uL N 1.5-7.7 Abs Lymphocytes 1.8 10^3/uL N 1.0-4.8 Abs Monocytes 0.5 10^3/uL N 0-0.8 Abs Eosinophils 0.1 10^3/uL N 0-0.6 Abs Basophils 0.1 10^3/uL N 0-0.2 Abs Nucleated RBC 0 10^3/uL N Granulocyte % 61.3 % N 38-83 Lymphocyte % 28.6 % N 25-47 Monocyte % 7.0 % N 1-9 Eosinophil % 2.0 % N 0-6 Basophil % 1.1 % N 0-2 Nucleated Red Blood Cells % 0 N CBC Auto Diff 05/03/2014 [facility] White Blood 6.5 10^3/uL N 4.8-10.[address] [place] [address] [phone] Red Blood Count 4.23 10^6/uL N 4.0-5.4 Hemoglobin 14.1 g/dL N 12.0-16.0 Hematocrit 41 % N 35-47 Mean Corpuscular Volume 97 fL N 80-97 Mean Corpuscular Hemoglobin 33 pg High 27-31 Mean Corpuscular HGB Conc 34 g/dL N 31-36 Red Cell Distribution Width 14 % N 10.5-15 Platelet Count 241 10^3/uL N 150-450 Mean Platelet Volume 8 um3 N 7.4-10.4 Abs Neutrophils 4.4 10^3/uL N 1.5-7.7 Abs Lymphocytes 1.4 10^3/uL N 1.0-4.8 Abs Monocytes 0.4 10^3/uL N 0-0.8 Abs Eosinophils 0.1 10^3/uL N 0-0.6 Abs Basophils 0.1 10^3/uL N 0-0.2 Granulocyte % 67.6 % N 38-83 Lymphocyte % 22.0 % Low 25-47 Monocyte % 6.9 % N 1-9 Eosinophil % 2.2 % N 0-6 Basophil % 1.3 % N 0-2 Comp Metabolic Panel 05/03/2014 [facility] Sodium 136 mmol/L N 133-[address] [place] [address] [phone] Potassium 3.6 mmol/L Low 3.7-5.6 Chloride 103 mmol/L N 101-111 Co2 Carbon Dioxide 24 mmol/L N 22-32 Anion Gap 9 mmol/L N 2-11 Glucose 108 mg/dL High 70-100 Blood Urea Nitrogen 11 mg/dL N 6-24 Creatinine 0.91 mg/dL N 0.51-0.95 BUN/Creatinine Ratio 12.1 N 8-20 Calcium 8.9 mg/dL N 8.6-10.3 Total Protein 7.3 g/dL N 6.4-8.9 Albumin 4.2 g/dL N 3.2-5.2 Globulin 3.1 g/dL N 2-4 Albumin/Globulin Ratio 1.4 N 1-3 Total Bilirubin 0.60 mg/dL N 0.2-1.0 Alkaline Phosphatase 56 U/L N 34-104 Alt 18 U/L N 7-52 Ast 26 U/L N 13-39 Egfr Non- 63.9 N >60 Egfr 82.2 N >60 4 Laboratory test 05/03/2014 [facility] Vitamin D 49 pg/mL N 18- 78 [address] 1,25[place] [address] [phone] CBC Auto Diff 07/02/2013 [facility] White Blood Count 6.8 4.8 -10.[address] 10^3/[place] [address] [phone] Red Blood Count 4.21 10^6/uL 4.0-5.4 Hemoglobin [...] Cells % 0 Comp Metabolic Panel 07/02/2013 [facility] Sodium 139 mmol/L 133-[address] [place] [address] [phone] Potassium 4.4 mmol/L 3.5-5.0 Chloride 105 mmol/L [...] >60 Egfr 111.3 >60 6 Laboratory test 07/02/2013 [facility] CA 27-29 18.34 U/mL 3.5 -38.[address] [place] [address] [phone] Vitamin D, 25 07/02/2013 [facility] 25-Hydroxy <4.0 ng/mL Hydroxy [address] Vitamin D2 [place] [address] [phone] 25-Hydroxy Vitamin D3 33 ng/mL 25-Hydroxy Vitamin D Total 33 ng/mL 8 CBC Auto Diff 06/04/2013 [facility] White Blood 5.3 10^3/uL 4.8-10.[address] [place] [address] [phone] Red Blood Count 3.92 10^6/uL Low 4.0-5.4 [...] Red Blood Cells % 0 Inr/Protime 06/04/2013 [facility] Inr 0.88 0.87-0.97 [address] [place] [address] [phone] CKMB 06/04/2013 [facility] CKMB ng/mL 0.8 ng/mL 0.3-4.0 9 [address] [place] [address] [phone] CKMB ng/mL 0.8 ng/mL 0.3-4.0 10 Laboratory test 06/04/2013 [facility] Troponin I 0 ng/mL 0- 0.06 11 finding [address] [place] [address] [phone] Comp Metabolic 06/04/2013 [facility] Sodium 137 mmol/L 133- 145 Panel [address] [place] [address] [phone] Potassium 3.6 mmol/L 3.5-5.0 Chloride 106 mmol/L [...] >60 Egfr 133.5 >60 12 Laboratory test 06/04/2013 [facility] Activated 25.7 22.18- 37.18 [address] [place] [address] Thrombo Time [phone] Lipase 23 U/L 22-51 14 Laboratory test 04/12/2013 [facility] Vitamin D 32 pg/mL 18- 78 [address] 1,25[place] [address] [phone] Vitamin D, 25 04/12/2013 [facility] 25-Hydroxy Vitamin <4.0 ng/ mL Hydroxy [address] D2 [place] [address] [phone] 25-Hydroxy Vitamin D3 39 ng/mL 25-Hydroxy Vitamin D Total 39 ng/mL 16 Laboratory test 04/12/2013 [facility] CA 27-29 23.75 U/mL 3.5 -38.6 17 finding [address] [place] [address] [phone] Comp Metabolic 04/12/2013 [facility] Sodium 138 mmol/L 133- [address] [place] [address] [phone] Potassium 4.2 mmol/L 3.5-5.0 Chloride 104 mmol/L [...] 111.7 >60 18 CBC Auto Diff 04/12/2013 [facility] White Blood 6.2 10^3/uL 4.8-10.[address] [place] [address] [phone] Red Blood Count 4.32 10^6/uL 4.0-5.4 Hemoglobin [...] 0.7 % 0-2 Comp Metabolic Panel 02/05/2013 [facility] Sodium 139 mmol/L 133-[address] [place] [address] [phone] Potassium 4.2 mmol/L 3.5-5.0 Chloride 108 mmol/L [...] 133.5 >60 19 CBC Auto Diff 02/05/2013 [facility] White Blood 5.4 10^3/uL 4.8-10.[address] [place] [address] [phone] Red Blood Count 4.25 10^6/uL 4.0-5.4 Hemoglobin [...] Basophil % 1.4 % 0-2 Laboratory test 09/06/2012 [facility] B Type 16.0 pg/mL 0- [address] [place] [address] Peptide [phone] Laboratory test 09/06/2012 [facility] Troponin I 0 ng/mL 0- 0.06 [address] [place] [address] [phone] Comp Metabolic 09/06/2012 [facility] Sodium 136 mmol/L 133- [address] [place] [address] [phone] Potassium 3.6 mmol/L 3.5-5.0 Chloride 103 mmol/L [...] 111.7 >60 21 Laboratory test finding 09/06/2012 [facility] Inr 0.86 0.82- 1.[address] [place] [address] [phone] Activated Partial Thrombo Time 26.4 sec 22.18-37.18 CBC Auto Diff 09/06/2012 [facility] White Blood 6.1 10^3/uL 4.8-10.[address] [place] [address] [phone] Red Blood Count 4.32 10^6/uL 4.0-5.4 Hemoglobin [...] Cells % 0 Comp Metabolic Panel 08/28/2012 [facility] Sodium 137 mmol/L 133-[address] [place] [address] [phone] Potassium 4.3 mmol/L 3.5-5.0 Chloride 102 mmol/L [...] >60 Egfr 111.7 >60 23 Oncology CBC 08/28/2012 [facility] White Blood 5.4 10^3/uL 4.8-10.8 Auto Diff [address] [place] [address] [phone] Red Blood Count 4.39 10^6/uL 4.0-5.4 Hemoglobin [...] <15 (or dialysis) 5 Test Performed by: [place] [address] [employer] Designer: Lamont Melara III, M.D. 6 Because ethnic [...] Assay by Chemiluminescence microparticle immunoassay on the [employer]. Values obtained with different methods or kits [...] levels within this range. Test Performed by: [place] [address] [employer] Designer: Lamont Melara III, M.D. 9 CKMB interpretation should be made in conjunction with clinical symptoms, patient history and EKG changes. 10 CKMB interpretation should be made in conjunction with clinical symptoms, patient history and EKG changes. 11 Reference Range and Interpretation: TnI (ng/mL) Interpretation Less Than 0.06 ng/mL Not supportive of diagnosis of DE 0.06 - 0.50 ng/mL Indeterminate: suggest serial studies if clinically indicated. Greater than 0.5 ng/mL Consistent with diagnosis of DE 12 Because ethnic data is not always [...] c Comment: s 15 Test Performed by: [place] [address] [employer] Designer: Lamont Melara III, M.D. 16 -- REFERENCE VALUE -- 25-HYDROXY D TOTAL (D2+D3) Optimum levels in the normal population are 25-80 Test Performed by: [place] [address] [employer] Designer: Lamont Melara III, M.D. 17 Assay by Chemiluminescence microparticle immunoassay on the [employer]. Values obtained with different methods or kits [...] 0.06 ng/mL Not supportive of diagnosis of DE 0.06 - 0.50 ng/ml Indeterminate: suggest serial studies if clinically indicated. Greater than 0.5 ng/mL Consistent with diagnosis of DE 21 Because ethnic data is not always [...] Kidney failure <15 (or dialysis) Procedures Date Code Description Status 03/31/2018 14254944 Mammogram Completed 03/30/2018 84708 Pulmonary Stress Test Simple Completed 03/30/2018 58866 Pulmonary Stress [facility] Measurement Heart Rate, Completed Oximetry 11/18/2017 82767 Pulmonary Function><Bronchodil Completed 11/18/2017 24817 Diffusing Capacity Completed 11/18/2017 73155 Plethysmography Determination Lung Volumes & Per Airway Completed Resist 02/04/2017 59296 EKG Tracing & Interpretation Completed 11/18/2016 82913 Polysomnography Sleep Staging 4+ Parameters W/Cpap Completed 10/23/2016 98578 Pulmonary Function><Bronchodil Completed 10/23/2016 09074 Diffusing Capacity Completed 10/23/2016 53970 Pulmonary Stress Test Simple Completed 10/23/2016 98139 Plethysmography Determination Lung Volumes & Per Airway Completed Resist 10/09/2016 23388 Polysomnography Sleep Staging 4+ Parameters Completed 10/04/2016 90948 EKG Tracing & Interpretation Completed 09/04/2016 55142 Treadmill Interp/Report Only Completed 09/04/2016 48536 Stress Test Supervsn W/Out I/R Completed 09/03/2016 23994 EKG, Interpretation Only Completed 09/03/2016 95615 ECHO Transthorasic Realtime 2D W Doppler & Color Flow Completed Hosp 09/29/2015 14712 EKG Tracing & Interpretation Completed 09/26/2015 73861 Holter Monitoring 24 HR New Completed 09/20/2015 46819 ECHO Transthoracic, Real-Time 2D With Doppler And Color Completed Flow 09/20/2015 70632 Holter Monitoring 24 HR New Completed 04/17/2015 [id number] Mammogram Completed 08/25/2014 98603 EKG Tracing & Interpretation Completed 05/03/2014 [id number] Mammogram Completed 10/26/2013 [id number] Mammogram Completed 10/08/2013 26621 EKG Tracing & Interpretation Completed 07/07/2013 31177 EKG Tracing & Interpretation Completed 07/02/2013 26601 ECHO Transthoracic, Real-Time 2D With Doppler And Color Completed Flow 06/05/2013 20599 EKG, Interpretation Only Completed 06/05/2013 47167 Treadmill Interp/Report Only Completed 06/05/2013 81973 Stress Test Supervsn W/Out I/R Completed Encounters Type Date Location Provider Dx Diagnosis Office Visit 09/02/2018 Pulmonology And Laura Blount J44.1 Chronic obstructive 9:00a [facility] pulmonary disease w Glass Breaker (acute) exacerbation J45.901 Unspecified asthma with (acute) exacerbation Z87.891 Personal history of nicotine dependence E66.09 Other obesity due to excess calories Office Visit 07/20/2018 [facility] [place] J44.1 Chronic 8:14a Assoc,pc [place], [place] obstructive Hospitalists pulmonary disease w (acute) exacerbation F41.9 Anxiety disorder, unspecified Z72.0 Tobacco use Office Visit 07/19/2018 [facility] [place] J44.9 Chronic 8:14a rafael Cárdenas MD obstructive Hospitalists pulmonary disease, unspecified F41.9 Anxiety disorder, unspecified I10 Essential (primary) hypertension Z72.0 Tobacco use Office Visit 07/18/2018 [facility] [place] J44.9 Chronic 8:14a Assocrafael MD obstructive Hospitalists pulmonary disease, unspecified F41.9 Anxiety disorder, unspecified I10 Essential (primary) hypertension Office Visit 07/17/2018 [facility] [place] J44.9 Chronic 8:14a rafael Cárdenas MD obstructive Hospitalists pulmonary disease, unspecified F41.9 Anxiety disorder, unspecified I10 Essential (primary) hypertension Office Visit 07/16/2018 [facility] L[place] I47.1 Supraventricular 8:13a Assocrafael, FLIP tachycardia Hospitalists J44.9 Chronic obstructive pulmonary disease, unspecified I10 Essential (primary) hypertension Office Visit 11/25/2017 9:15a Pulmonology And Laura J44.9 Chronic Sleep Services Of MD Jose Alejandro obstructive [facility] pulmonary disease, unspecified R09.02 Hypoxemia Office Visit 08/27/2017 8:45a Pulmonology And Laura J44.9 Chronic [facility] Of MD [place] obstructive [facility] pulmonary disease, unspecified R09.02 Hypoxemia F17.210 Nicotine dependence, cigarettes, uncomplicated Z12.2 Encntr screen for malignant neoplasm of respiratory organs Z87.891 Personal history of nicotine dependence Office Visit 05/22/2017 10:51a [facility] Benita Mariee, J44.0 Chronic Assoc,[facility] obstructive Hospitalists pulmon disease w acute lower resp infct F41.9 Anxiety disorder, unspecified Office Visit 02/04/2017 Yahir Pedersen, I47.1 Supraventricular 11:00a [facility] [place] tachycardia Glass [facility]aker J44.1 Chronic obstructive pulmonary disease w (acute) exacerbation Office Visit 01/22/2017 Pulmonology And Laura J45.901 Unspecified asthma 11:00a [facility] MD [place] Alejandro with (acute) Glass Breaker exacerbation J44.1 Chronic obstructive pulmonary disease w (acute) exacerbation G47.33 Obstructive sleep apnea (adult) (pediatric) Office Visit 01/12/2017 7:45a [facility] [place] J44.1 Chronic Assoc,rafael Rubio M.D. obstructive Hospitalists pulmonary disease w (acute) exacerbation I47.1 Supraventricular tachycardia Office Visit 01/11/2017 7:45a [facility] Ben[facility] Mariee J44.1 Chronic Assoc,rafael N.PParish obstructive Hospitalists pulmonary disease w (acute) exacerbation I47.1 Supraventricular tachycardia Office Visit 12/26/2016 9:00a Pulmonology And Laura G47.33 Obstructive sleep Sleep Services Of MD [place] Alejandro apnea (adult) Glass Breaker (pediatric) J44.9 Chronic obstructive pulmonary disease, unspecified J98.11 Atelectasis Z87.891 Personal history of nicotine dependence Office Visit 10/25/2016 9:30a Pulmonology And Laura G47.33 Obstructive sleep [facility] Jose Alejandro apnea (adult) Glass Breaker (pediatric) J44.1 Chronic obstructive pulmonary disease w (acute) exacerbation E66.09 Other obesity due to excess calories Office Visit 10/04/2016 9:00a [facility] Kulwant Bai I10 Essential (primary) Of Mayte Baltazar M.D. hypertension I47.1 Supraventricular tachycardia Q21.1 Atrial septal defect Office Visit 09/23/2016 9:30a Pulmonology And Laura E66.09 Other obesity [facility] Jose Alejandro due to excess Glass Breaker calories J44.1 Chronic obstructive pulmonary disease w (acute) exacerbation R06.83 Snoring R40.0 Somnolence Z68.34 Body mass index (BMI) 34.0-34.9, adult Office Visit 09/04/2016 [facility] Peg Lagos J44.1 Chronic 8:46a Assrafael auugstine M.D. obstructive Hospitalists pulmonary disease w (acute) exacerbation R06.00 Dyspnea, unspecified I10 Essential (primary) hypertension Office Visit 09/03/2016 8:45a [facility] Rene J44.1 Chronic Assocrafael M.D. obstructive Hospitalists pulmonary disease w (acute) exacerbation I47.1 Supraventricular tachycardia R06.00 Dyspnea, unspecified I10 Essential (primary) hypertension Office Visit 09/02/2016 [facility] J44.1 Chronic 8:44a Assoc,pc Zay N.PParish obstructive Hospitalists pulmonary disease w (acute) exacerbation I47.1 Supraventricular tachycardia I10 Essential (primary) hypertension Office Visit 09/29/2015 [place] I47.1 Supraventricular 8:00a Cardiology Michelle Baltazar M.D. tachycardia Glass Breaker Q21.1 Atrial septal defect Office Visit 08/25/2014 Yahir Bai 427.0 PSVT Paroxysmal 10:00a Cardiology Michelle Baltazar M.D. Supraventricular Glass Breaker Tachycardia 745.5 Atrial Septal Defect Ostium Secundum Type Office Visit 10/08/2013 Yahir Bai 427.0 PSVT Paroxysmal 8:15a Cardiology Michelle Baltazar M.D. Supraventricular Glass Breaker Tachycardia 745.5 Atrial Septal Defect Ostium Secundum Type Office Visit 08/18/2013 Yahir Bai 427.0 PSVT Paroxysmal 10:00a Cardiology Michelle Baltazar M.D. Supraventricular Glass Breaker Tachycardia 745.5 Atrial Septal Defect Ostium Secundum Type Office Visit 07/07/2013 9:30a [facility] Kulwant Bai 401.9 Hypertension Of Mayte Baltazar M.D. Unspec 785.1 Palpitations Office 06/05/2013 [place] Curt S. 794.31 Electrocardiogram Visit 9:39a Cardiology Mitch Beasley (ECG) (EKG) Abnormal 785.0 Tachycardia Unspec 745.5 Atrial Septal Defect Ostium Secundum Type Office Visit 06/05/2013 8:46a [facility] Jero Infante, 786.50 Pain Chest Assoc,rafael M.DParish Unspec Hospitalists 401.9 Hypertension Unspec 493.10 Asthma Intrinsic Unspecified Office Visit 06/04/2013 8:45a [facility] Paul Collazo, 786.50 Pain Chest Assoc,pc N.P. Unspec Hospitalists 401.9 Hypertension Unspec 493.10 Asthma Intrinsic Unspecified Plan of Treatment 09/02/2018 - Laura Blount MDJ44.1 Chronic obstructive pulmonary disease with (acute) exacerbatNew Medication:Methylprednisolone 4 mg - 1 tab daily 2 weeksFollow up:3 hlgtoD80.901 Unspecified asthma with (acute) bruxghrsqrhkB14.891 Personal history of nicotine qfyufyxjtfB32.09 Other obesity due to excess calories
[2018-09-08 05:20] LABS: ABS Basophils 0 10^3/ul (0-0.2); ABS Eosinophils 0 10^3/ul (0-0.6); ABS Monocytes 0.6 10^3/ul (0-0.8); ABS Neutrophils 3.5 10^3/ul (1.5-7.7); ABS Nucleated RBC 0 10^3/ul; Eosinophil % 0.3 %; Hematocrit 38 % (35-47); Hemoglobin 12.9 g/dl (12.0-16.0); Lymphocyte % 32.8 %; Mean Corpuscular HGB Conc 34 g/dl (31-36); Mean Corpuscular Hemoglobin 35 pg (27-31); Mean Corpuscular Volume 101 fL (80-97); Mean Platelet Volume 8.4 fL (7.4-10.4); Nucleated Red Blood Cells % 0.2; Platelet Count 238 10^3/ul (150-450); Red Blood Count 3.74 10^6/ul (4.00-5.40); Red Cell Distribution Width 14 % (10.5-15); White Blood Count 6.2 10^3/ul (3.5-10.8)
[2018-09-08 05:29] LABS: Activated Partial Thrombo Time 23.1 seconds (26.0-36.3); INR 0.88 (0.77-1.02)
[2018-09-08 05:37] LABS: Albumin 3.3 g/dL (3.2-5.2); Albumin/Globulin Ratio 1.4 (1-3); BUN/Creatinine Ratio 27.4 (8-20); Calcium 8.4 mg/dL (8.6-10.3); Globulin 2.3 g/dL (2-4); Total Bilirubin 0.6 mg/dL (0.2-1.0); Total Protein 5.6 g/dL (6.4-8.9)
[2018-09-08] MEDS ORDERED: Iohexol 350* (CONTRAST) 500 ML MDV IV ONE (05:47)
[2018-09-08 06:37] LABS: Potassium 4.2 mmol/L (3.5-5.0)
[2018-09-08] MEDS ORDERED: Morphine VIAL* 4 MG/ML VIAL (1 ml vial) IV ONE (06:56)
[2018-09-08] MEDS ORDERED: Ondansetron INJ* 2 MG/ML VIAL IV ONE (06:56)
--- NOTE | 2018-09-08 07:19 | ED ---
Progress - Progress Note Progress Note: This patient is a 63 year old female brought in by ambulance to [facility] with a chief complaint of chest pain since 2-3 hours ago. The pain is located in the left sternum and occasionally radiates upwards. The pain is constant. Patient states that the pain woke her up. The pain is rated 9/10 in severity. Symptoms aggravated by deep breaths. Symptoms alleviated by nothing. Patient additionally reports nausea, SOB, lightheadedness. Patient denies vomiting. Patient also presents with a few bruises on the right side of his chest from multiple falls. The patients last stress test was 2 years ago. Patient was signed out from Dr. Bishop to Dr. Julio during a shift change, pending a second troponin, CTA chest, and gallbladder US. Re-Evaluation - Re-Evaluation First Eval Re-Evaluation Time: 06:55 Comment: Patient exhibits an elevation of the liver function test. Will order US gallbladder. Course/Dx - Course Course Of Treatment: This patient is a 63 year old female brought in by ambulance to [facility] with a chief complaint of chest pain since 2-3 hours ago. The pain is located in the left sternum and occasionally radiates upwards. The pain is constant. Patient states that the pain woke her up. The pain is rated 9/ 10 in severity. Symptoms aggravated by deep breaths. Symptoms alleviated by nothing. Patient additionally reports nausea, SOB, lightheadedness. Patient denies vomiting. Patient also presents with a few bruises on the right side of his chest from multiple falls. The patients last stress test was 2 years ago. An EKG, taken 0437, reveals NSR (81 BPM), Normal axis. Normal interval. No ischemic changes. Bloodwork Obtained. In the ED course the patient was given Albuterol, Iohexol, Aspirin. The pt is hemodynamically stable, alert and oriented x3. Patient will be signed out to Dr. Julio at end of shift, pending repeat troponin, CT Chest/Thorax, US Gallbladder - Diagnoses Provider Diagnoses: Chest pain - Provider Notifications Discussed Care Of Patient With: Bennie Falcon - Hospitalist Time Discussed With Above Provider: 07:50 Instructed by Provider To: Admit As Inpatient Discharge - Sign-Out/Discharge Documenting (check all that apply): Patient Departure - Admit, Receiving Sign- Out Receiving patient FROM: Brandon Bishop - Pending a second troponin, CTA chest, and gallbladder US. - Discharge Plan Condition: Stable Disposition: ADMITTED TO [facility] Referrals: Johan Shukla MD [Primary Care Provider] - - Billing Disposition and Condition Condition: STABLE Disposition: Admitted to [facility] - Attestation Statements Document Initiated by Kristineibe: Yes Documenting Scribe: Lamin Onofre Provider For Whom Scribe is Documenting (Include Credential): Mayo Julio Scribe Attestation: Lamin Hendrix, scribed for Mayo Julio on 09/08/18 at 0808. Scribe Documentation Reviewed: Yes Provider Attestation: The documentation as recorded by the Lamin mcclelland accurately reflects the service I personally performed and the decisions made by Mayo quezada Status of Scribe Document: Viewed Diagnostics - Vital Signs Vital Signs Temp Pulse Resp BP Pulse Ox 09/08/18 07:11 86 16 131/74 98 09/08/18 07:00 85 16 98 09/08/18 06:40 91 19 132/83 98 09/08/18 06:30 85 15 142/102 98 09/08/18 06:07 89 96 09/08/18 05:40 85 19 127/78 92 09/08/18 05:10 78 14 134/90 98 09/08/18 05:09 76 16 99 09/08/18 05:06 80 18 99 09/08/18 05:00 82 23 95 09/08/18 04:40 82 26 139/91 93 09/08/18 04:37 83 91 09/08/18 04:34 97.2 F 83 20 139/91 93 - Laboratory Lab Results: Lab Results 09/08/18 09/08/18 09/08/18 Range/Units 04:58 04:58 04:58 WBC 6.2 (3.5-10.8) 10^3/ul RBC 3.74 L (4.00-5.40) 10^6/ul Hgb 12.9 (12.0-16.0) g/dl Hct 38 (35-47) % MCV 101 H (80-97) fL MCH 35 H (27-31) pg MCHC 34 (31-36) g/dl RDW 14 (10.5-15) % Plt Count 238 (150-450) 10^3/ul MPV 8.4 (7.4-10.4) fL Neut % (Auto) 56.3 % Lymph % (Auto) 32.8 % Camas % (Auto) 10.1 % Eos % (Auto) 0.3 % Baso % (Auto) 0.5 % Absolute Neuts (auto) 3.5 (1.5-7.7) 10^3/ul Absolute Lymphs (auto) 2.0 (1.0-4.8) 10^3/ul Absolute Monos (auto) 0.6 (0-0.8) 10^3/ul Absolute Eos (auto) 0 (0-0.6) 10^3/ul Absolute Basos (auto) 0 (0-0.2) 10^3/ul Absolute Nucleated RBC 0 10^3/ul Nucleated RBC % 0.2 INR (Anticoag Therapy) 0.88 (0.77-1.02) APTT 23.1 L (26.0-36.3) seconds Sodium 136 (135-145) mmol/L Potassium 4.2 (3.5-5.0) mmol/L Chloride 103 (101-111) mmol/L Carbon Dioxide 26 (22-32) mmol/L Anion Gap 7 (2-11) mmol/L BUN 20 (6-24) mg/dL Creatinine 0.73 (0.51-0.95) mg/dL Est GFR ( Amer) 98.1 (>60) Est GFR (Non-Af Amer) 81.0 (>60) BUN/Creatinine Ratio 27.4 H (8-20) Glucose 100 (70-100) mg/dL Calcium 8.4 L (8.6-10.3) mg/dL Total Bilirubin 0.60 (0.2-1.0) mg/dL AST 168 H (13-39) U/L ALT 157 H (7-52) U/L Alkaline Phosphatase 143 H (34-104) U/L Troponin I 0.01 (<0.04) ng/mL B-Natriuretic Peptide (<=100) pg/mL Total Protein 5.6 L (6.4-8.9) g/dL Albumin 3.3 (3.2-5.2) g/dL Globulin 2.3 (2-4) g/dL Albumin/Globulin Ratio 1.4 (1-3) 09/08/18 Range/Units 04:59 WBC (3.5-10.8) 10^3/ul RBC (4.00-5.40) 10^6/ul Hgb (12.0-16.0) g/dl Hct (35-47) % MCV (80-97) fL MCH (27-31) pg MCHC (31-36) g/dl RDW (10.5-15) % Plt Count (150-450) 10^3/ul MPV (7.4-10.4) fL Neut % (Auto) % Lymph % (Auto) % Camas % (Auto) % Eos % (Auto) % Baso % (Auto) % Absolute Neuts (auto) (1.5-7.7) 10^3/ul Absolute Lymphs (auto) (1.0-4.8) 10^3/ul Absolute Monos (auto) (0-0.8) 10^3/ul Absolute Eos (auto) (0-0.6) 10^3/ul Absolute Basos (auto) (0-0.2) 10^3/ul Absolute Nucleated RBC 10^3/ul Nucleated RBC % INR (Anticoag Therapy) (0.77-1.02) APTT (26.0-36.3) seconds Sodium (135-145) mmol/L Potassium (3.5-5.0) mmol/L Chloride (101-111) mmol/L Carbon Dioxide (22-32) mmol/L Anion Gap (2-11) mmol/L BUN (6-24) mg/dL Creatinine (0.51-0.95) mg/dL Est GFR ( Amer) (>60) Est GFR (Non-Af Amer) (>60) BUN/Creatinine Ratio (8-20) Glucose (70-100) mg/dL Calcium (8.6-10.3) mg/dL Total Bilirubin (0.2-1.0) mg/dL AST (13-39) U/L ALT (7-52) U/L Alkaline Phosphatase (34-104) U/L Troponin I (<0.04) ng/mL B-Natriuretic Peptide 80 (<=100) pg/mL Total Protein (6.4-8.9) g/dL Albumin (3.2-5.2) g/dL Globulin (2-4) g/dL Albumin/Globulin Ratio (1-3) Result Diagrams: 09/08/18 04:58 09/08/18 04:58 Lab Statement: Any lab studies that have been ordered have been reviewed, and results considered in the medical decision making process. - CT CTA Chest CT Interpretation Completed By: Radiologist Summary of CT Findings: 07:19. No filling defect in the main pulmonary artery to suggest pulmonary emboli. Limited evaluation of segmental and subsegmental branches due to suboptimal. opacification of contrast. ED Physician has reviewed this imaging report. - EKG 436 Cardiac Rate: NL EKG Rhythm: Sinus Rhythm - 81 BPM Summary of EKG Findings: An EKG, taken 436, reveals NSR (81 BPM), Normal axis. Normal interval. No ischemic changes.
[2018-09-08] MEDS ORDERED: ALPRAZolam TAB* 0.5 MG PO ONE (07:24)
[2018-09-08] MEDS ORDERED: Albuterol/Ipratropium NEB.SOL* Albuterol 2.5 MG/Ipratropium 0.5 MG 3 ML INH PRN (08:28)
[2018-09-08] MEDS ORDERED: Prochlorperazine TAB* 5 MG PO PRN (08:28)
[2018-09-08] MEDS ORDERED: Enoxaparin(*) 30 MG/0.3 ML SYR SUBCUT SCH (09:00)
[2018-09-08] MEDS ORDERED: Spiriva Inhaler DEVICE* 1 EACH DEVICE INH ONE (10:00)
[2018-09-08] MEDS: predniSONE TAB* 20 MG PO SCH (10:00)
[2018-09-08] MEDS: Nicotine PATCH 7 MG/24 HR* PATCH TRANSDERM SCH (10:01)
[2018-09-08] MEDS: Atorvastatin* 80 MG TAB PO SCH ×2 (10:01→16:13)
[2018-09-08] MEDS: Metoprolol Succinate XL TAB* 25 MG PO SCH (10:01)
[2018-09-08] MEDS: traMADol TAB* 50 MG PO PRN ×2 (10:57→20:04)
[2018-09-08] MEDS: Mometasone/Formoter 200/5 MDI INH SCH ×2 (11:05→19:07)
[2018-09-08] MEDS: Tiotropium CAP.INH* CAP.INH/18 MCG (USE ORDER SET !) INH SCH (11:06)
[2018-09-08 11:43] LABS: C Reactive Protein < 1.00 mg/L (<8.01); Cholesterol 286 mg/dL; HDL Cholesterol 48.8 mg/dL; Triglycerides 920 mg/dL
[2018-09-08 11:52] LABS: Folate 11.63 ng/mL (>3.99)
[2018-09-08] MEDS: Flecainide TAB* 100 MG PO SCH ×2 (11:52→20:01)
[2018-09-08 12:14] LABS: LDL Cholesterol Direct 71 mg/dL
[2018-09-08] MEDS: Nitroglycerin TAB 0.4 MG* 0.4 MG TAB SL PRN ×2 (12:18→12:29)
[2018-09-08] MEDS ORDERED: Ketorolac INJ* 15 MG/ML 1 ML VIAL IV PUSH ONE (14:16)
--- NOTE | 2018-09-08 14:21 | HP ---
HISTORY AND PHYSICAL: DATE OF ADMISSION: 09/08/18 ADMITTING PROVIDER: Bennie Falcon MD. PRIMARY CARE PROVIDER: Dr. Johan Shukla. OUTPATIENT SERVICE RESTORER EMERGENCY: Dr. Kulwant Baltazar. OUTPATIENT PHARMACEUTICAL PHYSICIAN: Dr. Laura Blount. CHIEF COMPLAINT: Sharp left-sided chest pain worse with deep breaths. HISTORY OF PRESENT ILLNESS: Renetta Cifuentes is a 63-year-old female with past medical history of severe COPD (on 2 L at night); hypertension; obesity; asthma ; paroxysmal SVT, on flecainide; right breast cancer (2011 status post lumpectomy); until recently a smoker; PTSD with recent admission on 07/16/18 to 07/20/18 for COPD exacerbation. She was woken up from sleep at 3:30 a.m., morning of admission, with sharp left-sided chest pains just lateral to her sternum. She had been in her normal state of health prior to sleep. She characterizes 9/10 pain worse with deep inspiration. She called the EMS, was transferred [facility], got 324 mg of aspirin. She had no relief with DuoNebs with EMS or in the ED. Initial troponin was 0.01. EKG showed normal sinus rhythm with no acute changes. Baseline T-wave inversion in V1. She was referred to hospitalist service for ACS rule out. Other workup includes BNP of 80, elevated transaminases of AST 168, ALT 157, alk phos 143. Right upper quadrant ultrasound was ordered by Dr. Bishop of emergency room is pending. She had followed up with Dr. Blount on 08/31/18, he ordered Spiriva, but the patient has been unable to get that to work. She has wheezing at baseline. She has developed a dry cough over the last 2 days. She has been tapering off her prednisone with last dose of 10 mg due today. She denies any fevers or chills. She has baseline constant nausea and infrequent vomiting, unchanged from prior. She denies any abdominal pain, rashes, headaches. Just increased from 2 to 3 pillow use at night on the advice of Dr. Blount. She sleeps on her side. Denies any lower extremity edema. She has a history of negative stress test in May 2013 and August 2016, both low risk. Echo on 09/03/16 showed ejection fraction of 55% to 60%, but that was a very poor study, unable to determine anything other than that. Last LDL was 76, HDL 68 in May 2013. A1c was 5.7 in August 2016. She is not on a statin medication. She gets palpitations every 4 months or so, the last was prior to her hospitalization, early July. She has had 2 falls recently, which is abnormal for her, both slipping on ice while shovelling snow on her stairs. First was 5 days ago, sliding down on her belly. Second was 3 days ago, sliding down on her back. Denies any head trauma. She lives alone. PAST MEDICAL HISTORY: 1. COPD (severe, on 2 L nocturnally). 2. Paroxysmal SVT. 3. TIA. 4. PFO. 5. Breast cancer (right in 2010 status post lumpectomy). 6. Hiatal hernia. 7. Hypertension. 8. PTSD. 9. Asthma. PAST SURGICAL HISTORY: 1. Right lumpectomy. 2. Cholecystectomy. 3. Hysterectomy. MEDICATIONS: Include: 1. Spiriva 1 capsule inhaled daily (actually has not been able operate it correctly she thinks due to some sort of malfunction). 2. Aspirin 325 mg daily. 3. Prednisone 10 mg tab daily (finishing taper today). 4. Compazine 5 mg p.o. q.6 hours p.r.n. 5. Nicotine patch 7 mg for 24 hours. 6. Metoprolol succinate 25 mg p.o. q.a.m. 7. Flecainide 100 mg p.o. b.i.d. 8. Symbicort 2 puffs inhaled b.i.d. 9. DuoNebs every 4 hours p.r.n. 10. Xanax 1 mg p.o. q.i.d. p.r.n. ALLERGIES: CEFACLOR, CODEINE, ERYTHROMYCIN BASE, HYDROCODONE (VICODIN), MEPERIDINE (DEMEROL), MORPHINE, PAROXETINE, DARVOCET, PROPRANOLOL, TETRACYCLINE , these all result in swelling. Additionally, she has IBUPROFEN causing shortness of breath, LATEX (rash and itching), OXYCODONE (rash), PREDNISONE ( only the "big orange pills" creating tachycardia, she tolerates other versions) and SULFATES causing shortness of breath. FAMILY HISTORY: Father had a heart attack at age 36, sister has CREST syndrome. Mother of leukemia approximately 4 years prior. SOCIAL HISTORY: She is a former smoker since age 18, quit mid June; 4 cigarettes a day. Denies drug use. She has occasional beer. Medical surrogate is her daughter, Karlie Longoria, ; secondary is sister, Demi Askew. She desires to be a full code. REVIEW OF SYSTEMS: Review of 14-point review of systems negative except as per HPI. PHYSICAL EXAMINATION GENERAL APPEARANCE: No acute distress. VITAL SIGNS: Temperature 97.2; heart rate 86; respiratory rate, currently 21, max of 26; blood pressure 129/73; satting 98% on 2 L. HEENT: Normocephalic and atraumatic. Pupils are equally round and reactive to light. Extraocular motions intact. No scleral icterus. NECK: Supple. No cervical lymphadenopathy. LUNGS: With expiratory wheezing and reduced air exchange bilaterally. Slight crackles at the left base. CARDIOVASCULAR: Regular rate and rhythm. No murmurs, rubs, or gallops. ABDOMEN: Soft, nontender, and nondistended. Negative Venegas's sign. EXTREMITIES: Warm and well perfused. No peripheral edema. NEUROLOGIC: Cranial nerves II through XII intact. Moving all extremities. SKIN: No lesions. No rashes. DIAGNOSTIC STUDIES/LAB DATA: White count 6.2, hemoglobin 12.9, hematocrit 38, platelets 238. INR 0.88. Sodium 136, potassium 4.2, chloride 103, carbon dioxide 26, BUN 20, creatinine 0.73, glucose 100, total bili 0.60, AST 168, ALT 157, alk phos 143, troponin 0.01, BNP 80, total protein 5.6. Imaging: Chest angiogram demonstrated no filing defects in the main pulmonary artery to suggest pulmonary emboli. Limited evaluation of the segmental and subsegmental branches due to suboptimal opacification of contrast. There was left basilar atelectasis. No consolidation. No masses. No pleural effusion. A small hiatal hernia, 0.6 cm right renal cyst. No significant lymphadenopathy. EKG was normal sinus rhythm, Q-waves in V1 and V2, T-wave inversion in V1, all unchanged. QTc 469, normal axis. No ST elevations or depressions. ASSESSMENT AND PLAN: Renetta Cifuentes is a 63-year-old female with past medical history of severe chronic obstructive pulmonary disease; paroxysmal supraventricular tachycardia; severe anxiety; recently stopped smoking; recent chronic pulmonary obstructive disease exacerbation; and right breast cancer, status post lumpectomy; presenting with severe sharp left-sided chest pain, waking her from sleep and associated with deep breaths. She has had a dry cough for 2 days and sightly wheezing, although, at her baseline, she says. She is being admitted for acute coronary syndrome rule out. Does attest that the pain did get worse with walking this morning. Does have a history of 2 negative stress tests. Second troponin has now returned at 0.01. Would get another EKG now and another troponin at 11 a.m. I am starting her on atorvastatin 80 mg, continue the aspirin. Her home dose is 324 mg daily and she got 1 from the ED already. There is no tenderness to palpation. I have some suspicion for possible chronic pulmonary obstructive disease exacerbation worsening on her lung exam and dry cough last 2 days. She does have evidence of some atelectasis at the left base with rales on auscultation. I will continue her metoprolol succinate 25 mg a.m. Keep her n.p.o. Consideration for a stress test in the morning. For her chronic obstructive pulmonary disease, I am going to put her on 40 mg of prednisone today and she had been tapering down to 10 mg most recently. I am going to restart her on Spiriva, Dulera (formerly sensitive to Symbicort), and her DuoNebs. For her severe anxiety, continue her alprazolam 1 mg q.i.d. p.r.n. She refused BuSpar recommended at discharge last time. Continue nicotine patch 7 mg per 24 hours. For paroxysmal supraventricular tachycardia, continue the flecainide 100 mg p.o. b.i.d., continue telemetry. I am adding A1c and lipid panel. Her deep venous thrombosis assessment is the highest risk. She has been given Lovenox 40 mg daily. She is a full code. Medical surrogate is her daughter, Karlie Longoria. [id number]/[facility] #: [id number] MEDISYS HEALTH NETWORKLorena
[2018-09-08] MEDS: ALPRAZolam TAB* 0.5 MG PO PRN (14:26)
[2018-09-08] MEDS ORDERED: LORazepam INJ* 2 MG/ML 1 ML VIAL IV PUSH ONE (23:40)
[2018-09-08] MEDS ORDERED: Pantoprazole IV* 40 MG IV ONE (23:40)
[2018-09-09 07:25] LABS: Albumin 3.1 g/dL (3.2-5.2); Albumin/Globulin Ratio 1.4 (1-3); Globulin 2.2 g/dL (2-4); Indirect Bilirubin 0.7 mg/dL (0.3-1.0); Total Bilirubin 0.8 mg/dL (0.2-1.0); Total Protein 5.3 g/dL (6.4-8.9)
[2018-09-09] MEDS: ALPRAZolam TAB* 0.5 MG PO PRN (07:42)
[2018-09-09] MEDS: predniSONE TAB* 20 MG PO SCH (07:42)
[2018-09-09] MEDS: Flecainide TAB* 100 MG PO SCH (07:42)
[2018-09-09] MEDS: Nicotine PATCH 7 MG/24 HR* PATCH TRANSDERM SCH (07:42)
[2018-09-09] MEDS ORDERED: Aminophylline IV* 25 MG/ML 10 ML VIAL ONE (08:03)
[2018-09-09] MEDS ORDERED: Regadenoson* 0.4 MG/5 ML SYRINGE ONE (08:03)
[2018-09-09] MEDS: Tiotropium CAP.INH* CAP.INH/18 MCG (USE ORDER SET !) INH SCH (08:17)
[2018-09-09] MEDS: Mometasone/Formoter 200/5 MDI INH SCH (08:17)
[2018-09-09] MEDS ORDERED: Enoxaparin(*) 40 MG/0.4 ML SYR SUBCUT SCH (09:00)
[2018-09-09] MEDS ORDERED: Aspirin TAB* 325 MG PO SCH (09:00)
[2018-09-09] MEDS: Metoprolol Succinate XL TAB* 25 MG PO SCH (11:28)
[2018-09-09 11:34] VITALS: BP 162/80
--- NOTE | 2018-09-09 13:23 | ECHO ---
Patient: TEVIN CERVANTES [facility] Rec#: [id number] : 1955 Date: 09/09/2018 Age: 63y Height: 157 cm / 61.8 in Weight: 73.4 kg / 161.8 lbs Sex: F BSA: 1.74 Room#: 431 Admit Date#: 09/08/2018 Type: Inpatient Referring: Bennie Falcon Reading: Jeffrey Alegre MD Radiation Control Specialist: Myah Hinton RDCS CC: Johan Shukla MD CC: Kulwant Baltazar MD Transthoracic Echocardiogram Indication: Chest pain BP: 141/68 HR: 80 Rhythm: NSR Findings History: HTN, breast cancer, chemotherapy, radiation, COPD, PSVT, obesity, asthma, former smoker, TIA, PFO, hiatal hernia, PTSD. Technical Comments: The study quality is fair. Completed at 1130. Left Ventricle: The left ventricular chamber size is normal. There is no left ventricular hypertrophy. Global left ventricular wall motion and contractility are within normal limits. There is normal left ventricular systolic function. The estimated ejection fraction is 55-60%. Normal left ventricular diastolic filling is observed. Left Atrium: The left atrial chamber size is normal. Right Ventricle: Moderator Band present. The right ventricular cavity size is normal. The right ventricle wall thickness is moderately increased. Right Atrium: The right atrium is mildly dilated. The interatrial septum appears lipomatous. Aortic Valve: The aortic valve is trileaflet. The aortic valve leaflets are mildly thickened. There is a trace of aortic regurgitation. There is no evidence of aortic stenosis. Mitral Valve: The mitral valve leaflets are mildly thickened. There is trace to mild mitral regurgitation. There is no evidence of mitral stenosis. Tricuspid Valve: The tricuspid valve leaflets are normal. There is trace to mild tricuspid regurgitation. The right ventricular systolic pressure is estimated at 22 mmHg. There is evidence that pulmonary hypertension may be underestimated. There is no tricuspid stenosis. Pulmonic Valve: The pulmonic valve appears normal. There is a trace pulmonic regurgitation. There is no pulmonic stenosis. Pericardium: There is no significant pericardial effusion. A pericardial fat pad is visualized. Aorta: There is no dilatation of the ascending aorta. The aortic arch is not well visualized. The aortic root is normal in size. Pulmonary Artery: The main pulmonary artery appears normal. Venous: The inferior vena cava appears normal in size. There is a greater than 50% respiratory change in the inferior vena cava dimension. Conclusions Global left ventricular wall motion and contractility are within normal limits. The estimated ejection fraction is 55-60%. The right ventricle wall thickness is moderately increased. The right atrium is mildly dilated. The aortic valve leaflets are mildly thickened. There is trace to mild mitral regurgitation. There is trace to mild tricuspid regurgitation. Similar to 2016. Measurements Name Value Normal Range RVIDd (AP) 2D 2.9 cm (0.9 - 2.6) RVDdMajor (2D) 3.3 cm (2.2 - 4.4) RAd ISD 4CH 5.2 cm (3.4 - 4.9) RA (A4C)W 3.7 cm (2.9 - 4.6) IVSd (2D) 0.7 cm (0.6 - 1) LVPWd (2D) 0.7 cm (0.6 - 1) LVIDd (2D) 4.7 cm (3.6 - 5.4) LVIDs (2D) 3 cm - LV FS (2D) 36 % (25 - 45) Aortic Annulus 2.1 cm (1.4 - 2.6) Ao root diameter (2D) 3 cm (2.1 - 3.5) Ascending Ao 3.4 cm (2.1 - 3.4) LA dimension (AP) 2D 2.8 cm (2.3 - 3.8) LAd ISD 4CH 5.3 cm (2.9 - 5.3) LA ISD 4CH W 4.3 cm (2.5 - 4.5) Name Value Normal Range LA ESV BP (A/L) index 31 ml/m2 - Name Value Normal Range MV E-wave Vmax 1 m/sec - MV deceleration time 155 msec - MV A-wave Vmax 0.8 m/sec - MV E:A ratio 1.2 ratio - LV septal e' Vmax 0.08 m/sec - LV lateral e' Vmax 0.1 m/sec - LV E:e' septal ratio 12.5 ratio - LV E:e' lateral ratio 10 ratio - Name Value Normal Range AV Vmax 1 m/sec - AV VTI 20 cm - AV peak gradient 4 mmHg - AV mean gradient 1 mmHg - LVOT Vmax 0.8 m/sec - LVOT VTI 17 cm - LVOT peak gradient 3 mmHg - LVOT mean gradient 1 mmHg - RAHAT Vmax 0.6 m/sec - Name Value Normal Range TR Vmax 2.2 m/sec - TR peak gradient 19 mmHg - RAP 3 mmHg - RVSP 22 mmHg - IVC diameter 1.8 cm - Name Value Normal Range PV Vmax 0.7 m/sec - PV peak gradient 2 mmHg -
--- NOTE | 2018-09-10 02:18 | DS ---
DISCHARGE SUMMARY: DATE OF ADMISSION: 09/08/18 DATE OF DISCHARGE: 09/09/18 ADMITTING PROVIDER: Bennie Falcon MD PRIMARY CARE PROVIDER: Dr. Johan Shukla. CHIEF COMPLAINT: Left-sided chest pain; recent falls. PRINCIPAL DIAGNOSIS: Acute coronary syndrome ruled out; likely musculoskeletal chest pain. HISTORY OF PRESENT ILLNESS/HOSPITAL COURSE: Renetta Cifuentes is a 63-year-old female with a past medical history of severe COPD, on 2 L at night; hypertension ; obesity; asthma; paroxysmal SVT (she is on flecainide); breast cancer, status post 2011 lumpectomy; who until recently was a smoker; PTSD; and a recent admission on 07/16/18 through 07/20/18 for COPD exacerbation. The morning prior to admission, at 3:30 a.m., she awoke with sharp left-sided chest pains just lateral to the sternum. She described it as 9/10 pain and worse with deep inspiration than with movement. Please see [facility] and P of Bennie Falcon for full details. She was transferred to the [facility] Emergency Room via EMS. The initial troponins were negative as were the follow-ons. EKG showed normal sinus rhythm with no acute changes, some baseline T- wave inversion in V1. She was referred to the hospitalist service for ACS rule- out. She did have elevated transaminases of AST 168, ALT 157, alk phos 143. A right upper quadrant ultrasound was obtained; this demonstrated echogenic liver consistent with hepatic steatosis. She underwent a nuclear stress test on hospital day #2, which was deemed low risk and showed questionable small reversible defect of the inferior wall towards the apex that may be artifactual baseline attenuation. She had a transthoracic echocardiogram which showed no wall motion abnormalities. Ejection fraction was 55% to 60%. No diastolic dysfunction. She worked with Physical Therapy, and of note, she had fallen down her stairs while shoveling ice 5 and 3 days before admission respectively. On hospital day #2, she did attest that she had similar pains when reaching backward with her left arm while working with Physical Therapy, but continued to have sharper chest pains with coughing. She had a CT chest angiogram initially in the emergency room to rule out a PE and it showed no filling defect in the main pulmonary artery. Limited evaluation of the segmental and subsegmental branches due to suboptimal opacification of contrast and also showed left basilar atelectasis. She had no leukocytosis or fevers here. She was found to be wheezing on exam and had been tapering almost off of her steroids from the original hospitalization; the dose increased to 40 mg daily. She had a pleuritic component to the pain, maybe related to the left basilar atelectasis and possible mild COPD exacerbation, and was discharged on a short-course of Augmentin which has improved her symptoms in the past. DISCHARGE MEDICATIONS: Include: 1. Albuterol DuoNebs 1 inhaled q.6 hours p.r.n. 2. Alprazolam 1 mg p.o. 4 times a day p.r.n. 3. Amoxicillin 875 mg p.o. b.i.d., 12 tabs (new). 4. Aspirin 325 mg p.o. daily. 5. Symbicort 2 puffs inhaled b.i.d. 6. Flecainide 100 mg p.o. b.i.d. 7. Metoprolol succinate 25 mg p.o. q.a.m. 8. Nicotine patch 7 mg for 24 hours. 9. Prednisone 40 mg p.o. daily for 4 days, followed by 20 mg for 4 days, and off (new). 10. Compazine 5 mg p.o. q.6 hours p.r.n. 11. Spiriva 1 capsule inhaled daily. FOLLOWUP: She should follow up with Dr. Johan Shukla within 7 days. TIME SPENT ON DISCHARGE: 35 minutes. [id number] #: [id number] AGNIESZKA
== END 2018-09-09 12:55 | disposition home or self-care (01) ==
LOC: ED 04:31 → MEDTELE 07:53
PROVIDERS: ADMIT Internal Medicine; ATTEND Internal Medicine
DX: R07.9 Chest pain, unspecified (principal); I25.10 Atherosclerotic heart disease of native coronary artery without angina pectoris; J44.9 Chronic obstructive pulmonary disease, unspecified; Z79.82 Long term (current) use of aspirin; I47.1 Supraventricular tachycardia; Z86.73 Personal history of transient ischemic attack (TIA), and cerebral infarction without residual deficits; Z85.3 Personal history of malignant neoplasm of breast; K44.9 Diaphragmatic hernia without obstruction or gangrene; F43.10 Post-traumatic stress disorder, unspecified; J45.909 Unspecified asthma, uncomplicated; Z91.81 History of falling
CPT/HCPCS: 36415; 71275; 76705; 78452; 80053; 80061; 80076; 82607; 82746; 83036; 83721; 83880; 84484; 85025; 85610; 85730; 86140; 93005; 93017; 93306; 94640; 96374; 96375; 99285; A9270-GY; A9502; G0378; G8978-GP-CH; G8979-GP-CH; G8980-GP-CH; J0280; J1650; J2060; J2270; J2405; J2785; J7512; Q9967

== ENCOUNTER 2018-11-30 08:45 | Inpatient (IN) | payer MEDICARE, MEDICAID ==
--- NOTE | 2018-11-30 08:47 | ED ---
Respiratory - HPI Summary HPI Summary: This pt is a 63 y/o female presenting to [facility] via EMS for SOB x6 days worsening today. EMS reports pt has hx of COPD. Pt notes associated symptom of cough and fever, max temperature of 101 F. EMS states pt was prescribed Prednisone on 11/25/18 and finished the course today. EMS administered duoneb x2 MAC OPERATOR without relief. Per EMS, pt is saturating at 99-100% on room air. - History of Current Complaint Stated Complaint: SOB PER EMS Time Seen by Provider: 11/30/18 08:46 Hx Obtained From: Patient, EMS Onset/Duration: Lasting Days, Still Present Timing: Constant Current Severity: Moderate Character: Dyspnea at Rest Sputum Amount: None Aggravating Factor(s): Nothing Alleviating Factor(s): Nothing Associated Signs and Symptoms: Fever, SOB - Allergy/Home Medications Allergies/Adverse Reactions: Allergies Allergy/AdvReac Type Severity Reaction Status Date / Time cefaclor Allergy Swelling Verified 09/08/18 04:40 codeine Allergy Swelling Verified 09/08/18 04:40 erythromycin base Allergy Swelling Verified 09/08/18 04:40 hydrocodone [From Vicodin] Allergy Swelling Verified 09/08/18 04:40 ibuprofen Allergy Shortness Verified 09/08/18 04:40 of Breath latex Allergy Rash And Verified 09/08/18 04:40 Itching meperidine [From Demerol] Allergy Swelling Verified 09/08/18 04:40 morphine Allergy Swelling Verified 09/08/18 04:40 oxycodone Allergy Rash Verified 09/08/18 04:40 paroxetine [From Paxil] Allergy Swelling Verified 09/08/18 04:40 prednisone Allergy Tachycardia Verified 09/08/18 04:40 propoxyphene Allergy Swelling Verified 09/08/18 04:40 [From Darvocet-N] propranolol Allergy Swelling Verified 09/08/18 04:40 Tetracyclines Allergy Swelling Verified 09/08/18 04:40 sulfate Allergy Shortness Uncoded 09/08/18 04:40 of Breath Home Medications: Home Medications Albuterol HFA INHALER* [Ventolin HFA Inhaler*] 2 puff INH Q4H PRN 11/30/18 [ History Confirmed 11/30/18] Ipratropium 0.5MG/2.5ML NEB* [Atrovent 0.5 MG NEB.KWABENA*] 0.5 mg INH QID PRN 11/30 [History Confirmed 11/30/18] Mirtazapine TAB* [Remeron TAB*] 15 mg PO BEDTIME 11/30/18 [History Confirmed ] Naphazoline/Hpm/Ps80/Zinc Sulf [Clear Eyes Complete 7 Sym] 1 drop BOTH EYES Q3HR PRN 11/30/18 [History Confirmed 11/30/18] Pantoprazole TAB (NF) [Protonix TAB (NF)] 20 mg PO DAILY 11/30/18 [History Confirmed 11/30/18] Umeclidinium [place] [Incruse Ellipta] 62.5 mcg IN DAILY 11/30/18 [History Confirmed 11/30/18] PMH/Surg Hx/FS Hx/Imm Hx Endocrine/Hematology History: Reports: Hx Anemia - TAKES 325 MG ASPIRIN DAILY Denies: Hx Diabetes, Hx Systemic Lupus Erythematosus Cardiovascular History: Reports: Hx Angina, 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 EF%50-55 Denies: Hx Aneurysm, Hx Congestive Heart Failure, Hx Coronary Artery Disease , Hx Deep Vein Thrombosis, Hx Hypercholesterolemia, Hx Myocardial Infarction, Hx Valvular Heart Disease Respiratory History: Reports: Hx Asthma, Hx Chronic Obstructive Pulmonary Disease (COPD) Denies: Other Respiratory Problems/Disorders GI History: Reports: Hx Gall Bladder Disease, Hx Gastroesophageal Reflux Disease - ON MEDICATION FOR, Other GI Disorders - HIATAL HERNIA History: Denies: Hx Dialysis, Hx Renal Disease Musculoskeletal History: Reports: Hx Arthritis - HANDS Denies: Hx Rheumatoid Arthritis, Hx Osteoporosis Sensory History: Reports: Hx Contacts or Glasses, Hx Vision Problem Denies: Hx Hearing Aid Opthamlomology History: Reports: Hx Contacts or Glasses, Hx Vision Problem Neurological History: Reports: Hx Migraine Denies: Hx CVA, Hx Transient Ischemic Attacks (TIA), Other Neuro Impairments/ Disorders - HERNIATED DISC Psychiatric History: Reports: Hx Anxiety - ROUTINE AND PRN MEDICATION FOR, Hx Depression - PTSD- D/T CANCER- TAKES ATIVAN DAILY, Hx Post Traumatic Stress Disorder - Cancer History Cancer Type, Location and Year: breast/2010 Hx Chemotherapy: Yes Hx Radiation Therapy: Yes - Surgical History Surgery Procedure, Year, and Place: RIGHT LUMPECTOMY, TOBI 2012, HYSTERECTOMY 1991, POWERPORT LCW, Hx Anesthesia Reactions: Yes - SEVERE ANXIETY- WITH LUMPECTOMY AND PORT PLACEMENT AND SEVERE NAUSEA - Immunization History Date of Tetanus Vaccine: up to date Date of Influenza Vaccine: 2016 Infectious Disease History: Denies: Hx Clostridium Difficile, Hx Hepatitis, Hx of Known/Suspected MRSA, Hx Shingles, Hx Tuberculosis, Hx Known/Suspected VRE, Hx Known/Suspected VRSA, History Other Infectious Disease - Family History Known Family History: Positive: Cardiac Disease, Other - PE - Social History Alcohol Use: Weekly Alcohol Amount: 3 drinks Hx Substance Use: No Substance Use Type: Reports: None Hx Tobacco Use: Yes Smoking Status (MU): Former Smoker Type: Cigarettes Have You Smoked in the Last Year: Yes Review of Systems Positive: Fever Positive: Shortness Of Breath, Cough All Other Systems Reviewed And Are Negative: Yes Physical Exam - Summary Physical Exam Summary: VITAL SIGNS: Reviewed. GENERAL: Patient is a well-developed and nourished female who is lying comfortable in the stretcher. Patient is in some respiratory distress. Patient is shaking because of albuterol treatment. HEAD AND FACE: No signs of trauma. No ecchymosis, hematomas or skull depressions. No sinus tenderness. EYES: PERRLA, EOMI x 2, No injected conjunctiva, no nystagmus. EARS: Hearing grossly intact. Ear canals and tympanic membranes are within normal limits. MOUTH: Oropharynx within normal limits. NECK: Supple, trachea is midline, no adenopathy, no JVD, no carotid bruit, no c- spine tenderness, neck with full ROM. CHEST: Symmetric, no tenderness at palpation LUNGS: Bilateral respiratory wheezing. Decreased breath sounds bilateral. Pt is not able to speak in full sentences. CVS: Regular rate and rhythm, S1 and S2 present, no murmurs or gallops appreciated. ABDOMEN: Soft, non-tender. No signs of distention. No rebound, no guarding, and no masses palpated. Bowel sounds are normal. EXTREMITIES: FROM in all major joints, no edema, no cyanosis or clubbing. NEURO: Alert and oriented x 3. No acute neurological deficits. Speech is normal and follows commands. SKIN: Dry and warm Triage Information Reviewed: Yes Vital Signs On Initial Exam: Initial Vitals Temp Pulse Resp BP Pulse Ox 97 F 92 22 133/76 99 11/30/18 08:46 11/30/18 08:46 11/30/18 08:46 11/30/18 08:46 11/30/18 08:46 Vital Signs Reviewed: Yes Diagnostics - Laboratory Result Diagrams: 11/30/18 09:14 11/30/18 09:14 Lab Statement: Any lab studies that have been ordered have been reviewed, and results considered in the medical decision making process. - Radiology Chest XR Radiology Interpretation Completed By: Radiologist Summary of Radiographic Findings: IMPRESSION: Right basilar pneumonia. Dr. Hernadez has reviewed this report. Disposition - Course Assessment/Plan: Patient is a 63-year-old female who presents to the emergency department via ambulance with a chief complaint of having shortness of breath. The patient was given 2 DuoNebs in the ambulance. In the ED course the patient is slightly tachycardic, she is not able to speak in full sentences. Patient was given IV fluids, and Solu-Medrol. Test results without any significant abnormality except for carbon dioxide of 19, anion gap is 13, BUN 25 , glucose 104, lactic acid is 2.4. Chest x-ray shows a right basilar pneumonia. Influenza is positive. In the ED course the patient was given Levaquin. Patient was also given the Tamiflu. I discussed my physical exam, findings and test results with Dr. Lundy, from the hospitalist services, and she agrees to admit patient to her services. Patient is hemodynamically stable, alert and oriented x 3. - Diagnoses Provider Diagnoses: Pneumonia, Influenza A, COPD (chronic obstructive pulmonary disease) - Physician Notifications Discussed Care Of Patient With: Estelle Lundy - hospitalist Time Discussed With Above Provider: 10:56 Instructed by Provider To: Admit As Inpatient Discharge - Sign-Out/Discharge Documenting (check all that apply): Patient Departure - Admit to [facility] Patient Received Moderate/Deep Sedation with Procedure: No - Discharge Plan Condition: Stable Disposition: ADMITTED TO [facility] - Billing Disposition and Condition Condition: STABLE Disposition: Admitted to [facility] - Attestation Statements Document Initiated by Scribe: Yes Documenting Scribe: Ashley Alves Provider For Whom Scribe is Documenting (Include Credential): Carlos Hernadez MD Scribe Attestation: Ashley Hendrix, scribed for Carlos Hernadez MD on 11/30/18 at 1809. Scribe Documentation Reviewed: Yes Provider Attestation: The documentation as recorded by the [email or web address] accurately reflects the service I personally performed and the decisions made by me, Carlos Hernadez MD Status of Odalys Document: Viewed
[2018-11-30] MEDS ORDERED: methylPREDNISolone 125 MG* 2 ML VIAL IV ONE (08:51)
[2018-11-30] MEDS ORDERED: methylPREDNISolone 125 MG* 2 ML VIAL ONE (08:51)
[2018-11-30 09:25] LABS: ABS Basophils 0 10^3/ul (0-0.2); ABS Eosinophils 0 10^3/ul (0-0.6); ABS Lymphocytes 1.5 10^3/ul (1.0-4.8); ABS Monocytes 0.4 10^3/ul (0-0.8); ABS Nucleated RBC 0 10^3/ul; Eosinophil % 0.5 %; Hematocrit 43 % (33-41); Hemoglobin 14.1 g/dL (12.0-16.0); Lymphocyte % 25.5 %; Mean Corpuscular HGB Conc 33 g/dL (31-36); Mean Corpuscular Hemoglobin 33 pg (27-31); Mean Corpuscular Volume 99 fL (80-97); Mean Platelet Volume 8.7 fL (7.4-10.4); Nucleated Red Blood Cells % 0; Platelet Count 273 10^3/uL (150-450); Red Blood Count 4.31 10^6 /uL (3.70-4.87); Red Cell Distribution Width 14 % (10.5-15); White Blood Count 5.9 10^3/uL (3.5-10.8)
[2018-11-30 09:28] LABS: Influenza A Molecular POSITIVE (Negative)
[2018-11-30 09:39] LABS: Calcium 9.2 mg/dL (8.6-10.3); Potassium 4.2 mmol/L (3.5-5.0); Total Bilirubin 0.3 mg/dL (0.2-1.0)
[2018-11-30 09:44] LABS: Troponin I 0.01 ng/mL (<0.04)
[2018-11-30 09:45] LABS: Albumin/Globulin Ratio 1.3 (1-3); BUN/Creatinine Ratio 37.3 (8-20); C Reactive Protein 1.55 mg/L (<8.01); EGFR African American 108.3 (>60); EGFR Non-African American 89.5 (>60)
[2018-11-30 10:15] LABS: CKMB ng/mL 1.6 ng/mL (0.6-6.3)
[2018-11-30] MEDS ORDERED: Levofloxacin 750 MG IVPREMIX(* 750 MG/150 ML BAG IVPB ONE (10:22)
[2018-11-30] MEDS ORDERED: Oseltamivir SUSP 75 MG dose* 75 MG/12.5 ML ORAL.SYRIN PO ONE (10:22)
[2018-11-30] MEDS ORDERED: Oseltamivir CAP* 75 MG CAP ONE (10:48)
[2018-11-30] MEDS ORDERED: Oseltamivir CAP* 75 MG CAP PO ONE (10:52)
[2018-11-30] MEDS ORDERED: Magnesium Hydroxide LIQ* 30 ML UDC PO PRN (12:47)
[2018-11-30] MEDS ORDERED: Al Hydrox/Mg Hydrox/Simet LIQ* 30 ML UDC PO PRN (12:47)
[2018-11-30] MEDS ORDERED: [UNRECOGNIZED DRUG - OTHER] BOTH EYES PRN (12:52)
[2018-11-30] MEDS ORDERED: ZINC SULF BOTH EYES PRN (12:52)
[2018-11-30] MEDS ORDERED: NAPHAZOLINE BOTH EYES PRN (12:52)
[2018-11-30] MEDS ORDERED: Albuterol/Ipratropium NEB.SOL* Albuterol 2.5 MG/Ipratropium 0.5 MG 3 ML INH SCH (13:00)
[2018-11-30] MEDS: Albuterol/Ipratropium NEB.SOL* Albuterol 2.5 MG/Ipratropium 0.5 MG 3 ML INH SCH ×3 (15:01→23:10)
[2018-11-30] MEDS: ALPRAZolam TAB* 0.5 MG PO PRN ×3 (15:10→23:31)
[2018-11-30] MEDS: Heparin VIAL(*) 5000 UNITS/ML VIAL (FIVE THOUSAND) SUBCUT SCH ×2 (15:10→22:36)
--- NOTE | 2018-11-30 15:30 | HP ---
CC: Dr. Johan Shukla; Dr. Kulwant Baltazar; Dr. Laura Blount.* HISTORY AND PHYSICAL: DATE OF ADMISSION: 11/30/18 PRIMARY CARE PROVIDER: Dr. Johan Shukla. OUTPATIENT FARM CREW LEADER: Dr. Kulwant Baltazar. OUTPATIENT DIRECTOR OF SLOT OPERATIONS: Dr. Laura Blount. ATTENDING PHYSICIAN: Dr. Estelle Lundy * (dictated by Edmond Pham, FLIP). CHIEF COMPLAINT: 1. Shortness of breath. 2. Cough. 3. Fever. HISTORY OF PRESENT ILLNESS: Ms. Cifuentes is a 63-year-old female with a past medical history significant for COPD, paroxysmal SVT, TIA, PFO, hypertension, asthma; who presented to the emergency department today with complaints of worsening shortness of breath since 11/20/18. She reports she saw her primary care physician on 11/25/18, and was placed on a Medrol Dosepak, which she finished today. She reports that the shortness of breath has not improved, in fact, it worsened last night around 0100. She started to feel an increased shortness of breath. Aggravating factors include exertion, lying flat , talking, coughing. The patient also reports cough occasionally. She reports it is productive with clear thick sputum. The patient also reports chest pressure that is worse with coughing and taking a deep breath. Finally, the patient also reports temperature of 101 last night, that is the only fever that she has had. She does report that she has occasional chills and hot flashes. She has not taken any fever reducers today. While in the emergency department, the patient had a flu swab, which was positive for influenza A. In addition, she had a chest x-ray, which revealed a right basilar pneumonia. She had a CBC, which was unremarkable. She had a BMP , which was unremarkable with the exception of carbon dioxide 19, anion gap 13, BUN 25, glucose 104, lactic acid 2.4. Given the patient's failed outpatient treatment and new diagnosis of pneumonia and flu, hospitalist team was asked to evaluate for admission. PAST MEDICAL HISTORY: 1. COPD (on 2 L nocturnally and room air during the day). 2. Paroxysmal SVT. 3. TIA. 4. PFO. 5. Breast cancer. 6. Hiatal hernia. 7. Hypertension. 8. PTSD. 9. Asthma. PAST SURGICAL HISTORY: 1. Right lumpectomy. 2. Cholecystectomy. 3. Hysterectomy. MEDICATIONS: 1. Incruse Ellipta. 2. Ipratropium nebulizer. 3. Clear Eyes Complete. 4. Metoprolol succinate XL 25 mg p.o. q.a.m. 5. Flecainide 100 mg p.o. b.i.d. 6. Aspirin 325 mg p.o. daily. 7. Xanax 1 mg p.o. 4 times a day p.r.n. 8. Symbicort 2 puffs inhalation b.i.d. 9. Albuterol 2 puffs inhalation q.4 hours p.r.n. 10. Protonix 20 mg p.o. daily. 11. Remeron 15 mg p.o. at bedtime. ALLERGIES: CEFACLOR - swelling; CODEINE - swelling; ERYTHROMYCIN BASE - swelling; HYDROCODONE - swelling; IBUPROFEN - shortness of breath; LATEX - rash itching; DEMEROL -swelling; MORPHINE - swelling; OXYCODONE - rash; PAXIL - swelling; PREDNISONE - tachycardia; DARVOCET - swelling; PROPRANOLOL - swelling ; TETRACYCLINE - swelling; SULFATE - shortness of breath. FAMILY HISTORY: Father had a heart attack at age 36, sister has CREST syndrome. Mother of MDS leukemia approximately 4 years ago. SOCIAL HISTORY: She is a former smoker since age 18. She quit in June of 2018. She reports 5 cigarettes per day. Denies drug use. She has occasional alcohol intake including beer. Medical surrogate is her daughter, Karlie Longoria, ; secondary is her sister, Demi Askew. She desires to be a full code. REVIEW OF SYSTEMS: Review of 14-point review of systems negative except as per HPI. PHYSICAL EXAMINATION GENERAL: Ms. Cifuentes is a 63-year-old female, she is sitting in bed, she appears in no acute distress. HEENT: EOMs intact. PERRLA. Oral mucosa is moist without lesion. Posterior pharynx is clear. NECK: Supple. Full range of motion. No lymphadenopathy. RESPIRATORY: Sporadic wheezing throughout. No rhonchi or rubs. Slight decrease in aeration. CARDIAC: S1 and S2 present. Regular rate and rhythm. No murmurs, rubs, or gallops. ABDOMEN: Soft and nontender. Bowel sounds x4. EXTREMITIES: No clubbing or cyanosis. No edema. No pain or deformities. NEUROLOGIC: Cranial nerves II through XII are intact. Coordination is intact. No drift. The patient reports decreased sensation in the left side of face, which improves when she takes her Xanax. Motor strength is 5/5 throughout. SKIN: Skin is intact. LABORATORY DATA/DIAGNOSTIC STUDIES: WBC is 5.9, hemoglobin 14.1, hematocrit 43 , platelets 273,000. Sodium 135, potassium 4.2, chloride 103, carbon dioxide 19 , anion gap 13, BUN 25, creatinine 0.67, glucose 104, lactic acid 2.4. Troponin 0.01, BNP is 39. Serology, flu A positive. Chest x-ray: Impression: Right basilar pneumonia. ASSESSMENT AND PLAN: Ms. Cifuentes is a 63-year-old female with a past medical history significant for chronic obstructive pulmonary disease, paroxysmal supraventricular tachycardia, transient ischemic attack, patent foramen ovale, hypertension, asthma; who presented to the emergency department today with complaints of shortness of breath and was found to have pneumonia and flu A positive. She will be admitted for the followin. Flu: The patient is flu A positive. The patient is started on Tamiflu here in the emergency department. She will be continued on Tamiflu 75 mg p.o. b.i.d. x5 days. 2. Pneumonia. The patient has a right basilar infiltrate on chest x-ray. She also has reported fever. She also is symptomatic with shortness of breath and requiring some oxygen. The patient was started on Levaquin in the emergency department. The patient will be continued on Levaquin given her multiple drug allergies, which narrows our antibiotic choices. 3. Chest pressure. During the patient's assessment, she did report that she has chest pressure that worsens when she coughs or takes a deep breath. The patient's initial troponin is 0.01. It should also be noted that the patient was here in August of 2018 and had an echocardiogram, which was unremarkable. She also had a stress test, which was low risk. I will cycle the patient's troponin for a total of 3. I suspect this chest pain is related to her congestion, flu, and pneumonia. I will repeat an EKG here in the emergency department and then again tomorrow. 4. Numbness and tingling: During the assessment, the patient reports numbness and tingling to the right side of her face. She reports that last night she did have numbness and tingling to the left side of her face, neck, and arm. She reports this improved with taking her Xanax. I have reordered her Xanax at 4 times a day as needed 1 mg. I have a low suspicion for any neurological etiology as the patient had a normal neuro exam and the patient improves with Xanax. I will add neuro checks. 5. Chronic obstructive pulmonary disease: The patient will be continued on some of her home inhalers with the addition of DuoNeb q.4 hours scheduled while awake. The patient will be provided with supplemental oxygen to maintain O2 saturation above 92%. The patient was on 2 L nocturnally at home. She is on room air during the day. Our goal will be to get her back to room air during the day and the 2 L nocturnally at night. 6. Paroxysmal supraventricular tachycardia. We will continue the patient's flecainide and metoprolol. Given the fact the Levaquin can prolong a patient's QT interval I have added repeat EKGs to monitor her QT interval. 7. Transient ischemic attack. The patient is on a full dose aspirin, which we will continue. As mentioned above, I do not think the patient's reported numbness is neurological etiology as it improves with Xanax and it only involves face and arm. 8. Patent foramen ovale: We will continue the patient's aspirin. 9. Hypertension: We will continue the patient's metoprolol and monitor her blood pressure accordingly. 10. Asthma: We will continue the patient's inhalers with the addition of nebulizers. 11. Posttraumatic stress disorder: The patient is visibly anxious as she became tearful talking about being admitted to the hospital. We will continue the patient's Xanax and Remeron for sleep, and we will provide supportive care. 12. FEN: The patient will be placed on a heart-healthy, caffeine-free diet. The patient will not be started on IV fluids at this point, but we will continue to monitor. 13. Code status: The patient is a full code. 14. DVT prophylaxis: Based on the DVT risk assessment, the patient is at high risk. I will order subcutaneous heparin. TIME SPENT: Approximately 60 minutes was spent on this admission, greater than half of that time was spent with the caregiver, obtaining my history, performing physical exam and reviewing my plan of care. This case has been reviewed with my attending, Dr. Lundy, who agreed with my plan. EDMOND PHAM, FLIP [id number]/CPS #: [id number] AGNIESZKA
[2018-11-30] MEDS ORDERED: NS 0.9% 1000 ML** 1,000 ML IV ONE (16:02)
[2018-11-30 18:00] LABS: Urine Appearance Cloudy; Urine Bacteria Absent (Absent); Urine Bilirubin Negative (Negative); Urine Blood Negative (Negative); Urine Color Yellow; Urine Glucose Negative (Negative); Urine Ketones Negative (Negative); Urine Nitrite Negative (Negative); Urine Protein Negative (Negative); Urine Red Blood Cell Absent (Absent); Urine Specific Gravity 1.024 (1.010-1.030); Urine Squamous Epithelial Cell Present (Absent); Urine Urobilinogen Negative (Negative); Urine White Blood Cell Trace(0-5/hpf) (Absent)
[2018-11-30] MEDS: Mometasone/Formoter 200/5 MDI INH SCH (19:31)
[2018-11-30] MEDS: Mirtazapine TAB* 15 MG PO SCH (20:14)
[2018-11-30] MEDS: Oseltamivir CAP* 75 MG CAP PO SCH (20:14)
[2018-11-30] MEDS: Flecainide TAB* 100 MG PO SCH (20:15)
[2018-11-30] MEDS: Acetaminophen TAB* 325 MG PO PRN (20:39)
[2018-11-30] MEDS ORDERED: NS 0.9% 1000 ML** 1,000 ML IV SCH (21:00)
[2018-12-01] MEDS ORDERED: Albuterol/Ipratropium NEB.SOL* Albuterol 2.5 MG/Ipratropium 0.5 MG 3 ML INH PRN (03:49)
[2018-12-01] MEDS: Albuterol/Ipratropium NEB.SOL* Albuterol 2.5 MG/Ipratropium 0.5 MG 3 ML INH SCH (03:52)
[2018-12-01] MEDS: Heparin VIAL(*) 5000 UNITS/ML VIAL (FIVE THOUSAND) SUBCUT SCH ×3 (06:10→22:01)
[2018-12-01 07:26] LABS: Calcium 8.7 mg/dL (8.6-10.3); Potassium 4.1 mmol/L (3.5-5.0)
[2018-12-01 07:29] LABS: Hematocrit 37 % (33-41); Hemoglobin 12.1 g/dL (12.0-16.0); Mean Corpuscular HGB Conc 33 g/dL (31-36); Mean Corpuscular Hemoglobin 33 pg (27-31); Mean Corpuscular Volume 100 fL (80-97); Red Cell Distribution Width 14 % (10.5-15); White Blood Count 8.5 10^3/uL (3.5-10.8)
[2018-12-01 07:32] LABS: BUN/Creatinine Ratio 29.2 (8-20); EGFR African American 112.1 (>60); EGFR Non-African American 92.7 (>60)
[2018-12-01] MEDS: Mometasone/Formoter 200/5 MDI INH SCH ×2 (07:35→19:40)
[2018-12-01 08:54] LABS: ABS Basophils 0 10^3/ul (0-0.2); ABS Eosinophils 0.1 10^3/ul (0-0.6); ABS Lymphocytes 2.3 10^3/ul (1.0-4.8); ABS Monocytes 0.7 10^3/ul (0-0.8); ABS Neutrophils 5.5 10^3/ul (1.5-7.7); ABS Nucleated RBC 0 10^3/ul; Eosinophil % 0.6 %; Lymphocyte % 26.5 %; Nucleated Red Blood Cells % 0; Platelet Count Platelets clumped. 10^3/uL (150-450)
[2018-12-01] MEDS ORDERED: methylPREDNISolone SOD 40 MG* 1 ML VIAL IV SCH (09:00)
[2018-12-01] MEDS: Metoprolol Succinate XL TAB* 25 MG PO SCH (09:11)
[2018-12-01] MEDS: predniSONE TAB* 10 MG PO SCH (09:12)
[2018-12-01] MEDS: Flecainide TAB* 100 MG PO SCH ×2 (09:13→20:16)
[2018-12-01] MEDS: Pantoprazole TAB * 40 MG TAB PO SCH (09:13)
[2018-12-01] MEDS: Aspirin TAB* 325 MG PO SCH (09:16)
[2018-12-01] MEDS: Oseltamivir CAP* 75 MG CAP PO SCH ×2 (09:16→20:16)
[2018-12-01] MEDS: ALPRAZolam TAB* 0.5 MG PO PRN ×4 (09:22→23:47)
[2018-12-01] MEDS: Levofloxacin 750 MG IVPREMIX(* 750 MG/150 ML BAG IVPB SCH (12:08)
[2018-12-01] MEDS: Acetaminophen TAB* 325 MG PO PRN (12:16)
--- NOTE | 2018-12-01 14:46 | PN ---
Subjective Date of Service: 12/01/18 Interval History: Ms. Cifuentes is feeling better today. She still does not feel particularly well. Her SOB is improved, but still present. She denies cough. Denies CP, but reports feeling "tight" in her chest when taking a deep breath. No N/V. Appetite is good. No complaints or concerns from nursing. Family History: Unchanged from Admission Social History: Unchanged from Admission Past Medical History: Unchanged from Admission Objective Active Medications: Acetaminophen (Tylenol Tab*) 650 mg PO Q4H PRN FEVER/PAIN Al Hydrox/Mg Hydrox/Simethicone (Maalox Plus*) 30 ml PO Q6H PRN INDIGESTION Albuterol/Ipratropium (Duoneb (Albuterol 2.5 Mg/Ipratropium 0.5 Mg)) 1 neb INH Q4H PRN SOB/WHEEZING Alprazolam (Xanax Tab*) 1 mg PO QID PRN ANXIETY Aspirin (Aspirin Tab*) 325 mg PO DAILY [facility] Flecainide Acetate (Tambocor Tab*) 100 mg PO BID [facility] Heparin Sodium (Porcine) (Heparin Vial(*)) 5,000 units SUBCUT Q8HR [facility] Levofloxacin/Dextrose (Levaquin 750 Mg Ivpremix(*)) 750 mg in 150 mls @ 100 mls /hr IVPB Q24H [facility] Magnesium Hydroxide (Milk Of Magnesia Liq*) 30 ml PO Q4H PRN CONSTIPATION Metoprolol Succinate (Toprol Xl Tab*) 25 mg PO QAM [facility] Mirtazapine (Remeron Tab*) 15 mg PO BEDTIME TWYLA Mometasone Furoate/Formoterol Fumar (Dulera 200/5 Mdi*) 2 puff INH BID [facility]; Protocol Nf: (Naphazoline/Hpm /Ps80/Zinc Sulf [ Clear Eyes Complete Eye Drops] 1 Drop) 1 drop BOTH EYES Q3HR PRN DRY EYE Oseltamivir Phosphate (Tamiflu Cap*) 75 mg PO BID [facility] Pantoprazole Sodium (Protonix Tab*) 40 mg PO DAILY [facility] Prednisone (Deltasone Tab*) 30 mg PO DAILY [facility] Vital Signs - 8 hr 12/01/18 12/01/18 12/01/18 07:21 07:36 08:00 Temperature 97.6 F Pulse Rate 75 78 Respiratory 20 18 18 Rate Blood Pressure 111/60 (mmHg) O2 Sat by Pulse 99 99 Oximetry 12/01/18 12/01/18 12/01/18 09:22 12:08 13:08 Temperature 97.7 F Pulse Rate 73 Respiratory 18 18 22 Rate Blood Pressure 112/58 (mmHg) O2 Sat by Pulse 99 Oximetry Oxygen Devices in Use Now: Nasal Cannula - 2L Appearance: Middle-aged female sitting in bed in NAD Eyes: No Scleral Icterus Ears/Nose/Mouth/Throat: Mucous Membranes Moist Neck: NL Appearance and Movements; NL JVP, Trachea Midline Respiratory: Symmetrical Chest Expansion and Respiratory Effort, - - Scattered wheezing throughout Cardiovascular: NL Sounds; No Murmurs; No JVD, RRR Abdominal: NL Sounds; No Tenderness; No Distention Extremities: No Edema Skin: No Rash or Ulcers Neurological: Alert and Oriented x 3 Lines/Tubes/Other Access: Clean, Dry and Intact Peripheral IV Nutrition: Taking PO's Result Diagrams: 12/01/18 06:41 12/01/18 06:41 Assess/Plan/Problems-Billing Assessment: Ms. Cifuentes is a 63 yo F with PMH of COPD on 2L at HS, PSVT, TIA, HTN, and breast cancer s/p chemo and radiation; who presented to the ED with c/o SOB and fever and was found to have pneumonia and positive flu swab. - Patient Problems (1) Community acquired pneumonia Code(s): J18.9 - PNEUMONIA, UNSPECIFIED ORGANISM Comment: - Requiring 2L oxygen to maintain sats, but overall improving - CXR shows right basilar pneumonia - Negative strep pneumo and legionella - Continue Levaquin (2) Influenza Code(s): J11.1 - FLU DUE TO UNIDENTIFIED INFLUENZA VIRUS W OTH RESP MANIFEST Comment: - Positive flu A - Continue Tamiflu (3) Sepsis Comment: - Resolved - Met criteria on admission with tachycardia, tachypnea, lactic acidosis, source is pneumonia - Plan as above (4) COPD (chronic obstructive pulmonary disease) Code(s): J44.9 - CHRONIC OBSTRUCTIVE PULMONARY DISEASE, UNSPECIFIED Comment: - Does not meet criteria for exacerbation d/t lack of sputum production - Continue katheryn Rasmussen (5) HTN (hypertension) Code(s): I10 - ESSENTIAL (PRIMARY) HYPERTENSION Comment: - Normotensive, SBP 110-120s - Continue metoprolol (6) History of paroxysmal supraventricular tachycardia Code(s): Z86.79 - PERSONAL HISTORY OF OTHER DISEASES OF THE CIRCULATORY SYSTEM Comment: - Continue flecainide (7) DVT prophylaxis Comment: - Heparin SQ (8) Full code status Code(s): Z78.9 - OTHER SPECIFIED HEALTH STATUS Comment: Status and Disposition: Observation. Anticipate d/c home when medically stable, likely in the next 1-2 days. Attending: Estelle Lundy
[2018-12-01] MEDS: Mirtazapine TAB* 15 MG PO SCH (20:16)
[2018-12-02] MEDS: Heparin VIAL(*) 5000 UNITS/ML VIAL (FIVE THOUSAND) SUBCUT SCH ×3 (05:34→20:43)
[2018-12-02] MEDS: ALPRAZolam TAB* 0.5 MG PO PRN ×3 (06:11→18:59)
[2018-12-02] MEDS: Mometasone/Formoter 200/5 MDI INH SCH ×2 (07:54→19:31)
[2018-12-02] MEDS: Flecainide TAB* 100 MG PO SCH ×2 (08:42→20:43)
[2018-12-02] MEDS: predniSONE TAB* 10 MG PO SCH (08:42)
[2018-12-02] MEDS: Oseltamivir CAP* 75 MG CAP PO SCH ×2 (08:42→20:42)
[2018-12-02] MEDS: Pantoprazole TAB * 40 MG TAB PO SCH (08:42)
[2018-12-02] MEDS: Metoprolol Succinate XL TAB* 25 MG PO SCH (08:42)
[2018-12-02] MEDS: Aspirin TAB* 325 MG PO SCH (08:42)
--- NOTE | 2018-12-02 10:31 | PN ---
Subjective Date of Service: 12/02/18 Interval History: Ms. Cifuentes is feeling a little better today. She has been able to ambulate without oxygen. She does note SOB and lightheadedness while ambulating and some lightheadedness while in bed. She feels overall improved, but not ready to go home as she lives alone and has a lot of anxiety about returning home. Nursing reports she was able to ambulate on RA and maintained saturations in the mid 90s. Family History: Unchanged from Admission Social History: Unchanged from Admission Past Medical History: Unchanged from Admission Objective Active Medications: Acetaminophen (Tylenol Tab*) 650 mg PO Q4H PRN FEVER/PAIN Al Hydrox/Mg Hydrox/Simethicone (Maalox Plus*) 30 ml PO Q6H PRN INDIGESTION Albuterol/Ipratropium (Duoneb (Albuterol 2.5 Mg/Ipratropium 0.5 Mg)) 1 neb INH Q4H PRN SOB/WHEEZING Alprazolam (Xanax Tab*) 1 mg PO QID PRN ANXIETY Aspirin (Aspirin Tab*) 325 mg PO DAILY [facility] Flecainide Acetate (Tambocor Tab*) 100 mg PO BID [facility] Heparin Sodium (Porcine) (Heparin Vial(*)) 5,000 units SUBCUT Q8HR [facility] Levofloxacin/Dextrose (Levaquin 750 Mg Ivpremix(*)) 750 mg in 150 mls @ 100 mls /hr IVPB Q24H [facility] Magnesium Hydroxide (Milk Of Magnesia Liq*) 30 ml PO Q4H PRN CONSTIPATION Metoprolol Succinate (Toprol Xl Tab*) 25 mg PO QAM [facility] Mirtazapine (Remeron Tab*) 15 mg PO BEDTIME [facility] Mometasone Furoate/Formoterol Fumar (Dulera 200/5 Mdi*) 2 puff INH BID [facility]; Protocol Nf: (Naphazoline/Hpm /Ps80/Zinc Sulf [ Clear Eyes Complete Eye Drops] 1 Drop) 1 drop BOTH EYES Q3HR PRN DRY EYE Oseltamivir Phosphate (Tamiflu Cap*) 75 mg PO BID [facility] Pantoprazole Sodium (Protonix Tab*) 40 mg PO DAILY [facility] Prednisone (Deltasone Tab*) 30 mg PO DAILY [facility] Vital Signs - 8 hr 12/02/18 12/02/18 12/02/18 03:19 06:11 07:56 Temperature 97.6 F Pulse Rate 78 73 Respiratory 20 20 16 Rate Blood Pressure 113/57 (mmHg) O2 Sat by Pulse 100 99 Oximetry 12/02/18 12/02/18 08:28 08:32 Temperature 97.8 F Pulse Rate 96 Respiratory 18 20 Rate Blood Pressure 114/53 (mmHg) O2 Sat by Pulse 96 Oximetry Oxygen Devices in Use Now: None Appearance: Middle-aged female sitting in bed in NAD Eyes: No Scleral Icterus Ears/Nose/Mouth/Throat: Mucous Membranes Moist Neck: NL Appearance and Movements; NL JVP, Trachea Midline Respiratory: Symmetrical Chest Expansion and Respiratory Effort, - - Diminished throughout Cardiovascular: NL Sounds; No Murmurs; No JVD, RRR Abdominal: NL Sounds; No Tenderness; No Distention Extremities: No Edema Skin: No Rash or Ulcers Neurological: Alert and Oriented x 3, NL Gait Lines/Tubes/Other Access: Clean, Dry and Intact Peripheral IV Nutrition: Taking PO's Result Diagrams: 12/01/18 06:41 12/01/18 06:41 Assess/Plan/Problems-Billing Assessment: Ms. Cifuentes is a 63 yo F with PMH of COPD on 2L at HS, PSVT, TIA, HTN, and breast cancer s/p chemo and radiation; who presented to the ED with c/o SOB and fever and was found to have pneumonia and positive flu swab. - Patient Problems (1) Community acquired pneumonia Code(s): J18.9 - PNEUMONIA, UNSPECIFIED ORGANISM Comment: - Saturating well on RA - CXR shows right basilar pneumonia - Negative strep pneumo and legionella - Continue Levaquin (2) Influenza Code(s): J11.1 - FLU DUE TO UNIDENTIFIED INFLUENZA VIRUS W OTH RESP MANIFEST Comment: - Positive flu A - Continue Tamiflu (3) Sepsis Comment: - Resolved - Met criteria on admission with tachycardia, tachypnea, lactic acidosis, source is pneumonia - Plan as above (4) COPD (chronic obstructive pulmonary disease) Code(s): J44.9 - CHRONIC OBSTRUCTIVE PULMONARY DISEASE, UNSPECIFIED Comment: - Does not meet criteria for exacerbation d/t lack of sputum production - Continue prednisone (day 3/5), Dulera, nebs (5) HTN (hypertension) Code(s): I10 - ESSENTIAL (PRIMARY) HYPERTENSION Comment: - Normotensive, SBP 110s - Continue metoprolol (6) History of paroxysmal supraventricular tachycardia Code(s): Z86.79 - PERSONAL HISTORY OF OTHER DISEASES OF THE CIRCULATORY SYSTEM Comment: - Continue flecainide (7) DVT prophylaxis Comment: - Heparin SQ (8) Full code status Code(s): Z78.9 - OTHER SPECIFIED HEALTH STATUS Comment: Status and Disposition: Observation. Anticipate d/c home when medically stable, likely tomorrow. Attending: Estelle Lundy
[2018-12-02] MEDS: Levofloxacin 750 MG IVPREMIX(* 750 MG/150 ML BAG IVPB SCH (12:43)
[2018-12-02] MEDS: Mirtazapine TAB* 15 MG PO SCH (20:41)
[2018-12-03] MEDS: ALPRAZolam TAB* 0.5 MG PO PRN ×2 (01:27→08:07)
[2018-12-03] MEDS: Heparin VIAL(*) 5000 UNITS/ML VIAL (FIVE THOUSAND) SUBCUT SCH (06:53)
[2018-12-03] MEDS: Mometasone/Formoter 200/5 MDI INH SCH (07:56)
[2018-12-03] MEDS: Aspirin TAB* 325 MG PO SCH (08:09)
[2018-12-03] MEDS: predniSONE TAB* 10 MG PO SCH (08:10)
[2018-12-03] MEDS: Pantoprazole TAB * 40 MG TAB PO SCH (08:10)
[2018-12-03] MEDS: Metoprolol Succinate XL TAB* 25 MG PO SCH (08:10)
[2018-12-03] MEDS: Flecainide TAB* 100 MG PO SCH (08:11)
[2018-12-03] MEDS: Oseltamivir CAP* 75 MG CAP PO SCH (08:11)
[2018-12-03 08:22] VITALS: BP 106/70
--- NOTE | 2018-12-03 16:39 | DS ---
CC: Dr. Johan Shukla.* DISCHARGE SUMMARY: DATE OF ADMISSION: 11/30/18 DATE OF DISCHARGE: 12/03/18 PRIMARY CARE PROVIDER: Dr. Johan Shukla. ATTENDING PHYSICIAN: Dr. Ashley Owens * (dictated by Calli Ernandez NP). PRIMARY DIAGNOSES: 1. Community-acquired pneumonia. 2. Influenza A. 3. Sepsis. 4. Acute on chronic hypoxic respiratory failure. 5. Chronic obstructive pulmonary disease. SECONDARY DIAGNOSES: 1. Hypertension. 2. History of paroxysmal supraventricular tachycardia. STUDIES WHILE IN THE HOSPITAL: 1. Chest x-ray on 11/30/18 reads as right basilar pneumonia. 2. EKG on 11/30/18 shows normal sinus rhythm with a rate of 75, QTc 468. No ischemic changes. 3. EKG on 12/01/18 shows normal sinus rhythm with a rate of 75, QTc 468. No ischemic changes. HISTORY OF PRESENT ILLNESS AND HOSPITAL COURSE: Ms. Cifuentes is a 63-year-old female with past medical history of COPD, on 2 L nocturnally; PSVT; TIA; and hypertension, who presented to the emergency room on 11/30/18 with complaints of shortness of breath, cough and fever. Please see the history and physical by Bonnie Grace NP, for complete summary of the events leading up to this hospitalization. In short, the patient had shortness of breath beginning on 05/03, which progressively worsened. She did see her primary care provider on 11/25/18 and was placed on a Medrol Dosepak, which she finished on the day of arrival to the emergency room. She presented because of the continued symptom. She reported a fever up to 101. In the emergency room the patient was noted to have flu swab positive for influenza A. She also had a chest x-ray, which was remarkable for right lower lobe pneumonia. She was admitted by the hospitalist service. The patient was started on Tamiflu for her flu symptoms. She was started on Levaquin for the pneumonia. She was requiring 2 L nasal cannula to maintain saturation in the low 90s; however, I do not think that this acute illness represented a COPD exacerbation as there were no changes in sputum. She was started on steroids due to her history of COPD. She was negative for legionella and Strep pneumoniae antigen and had negative blood cultures. She did initially meets sepsis criteria due to tachycardia, tachypnea, and lactic acidosis and that resolved within the first day of admission. As of yesterday, the patient was no longer requiring supplemental oxygen to maintain her saturation though she was still complaining of some shortness of breath and dizziness while ambulating. Today, the patient reports feeling much better. She has little to no lightheadedness, and has been ambulating around the unit frequently. On room air she has been maintaining saturations in the high 90s. She has had no fevers and she denies any cough. Ms. Cifuentes is stable for discharge today. Vital signs are as follows: Temp 98.2, heart rate 65, respiratory rate 16, oxygen saturation 97% on room air, and blood pressure 106/70. DISCHARGE MEDICATIONS: New medications: 1. Levaquin 750 mg p.o. daily x4 days. 2. Tamiflu 75 mg p.o. b.i.d. x2 days. 3. Prednisone 30 mg daily x1 day. Continued medications: 1. Albuterol MDI 2 puff q.4 hours p.r.n. shortness of breath. 2. Alprazolam 1 mg p.o. 4 times a day p.r.n. anxiety. 3. Aspirin 325 mg p.o. daily. 4. Symbicort 160/4.5 two puffs b.i.d. 5. Flecainide 100 mg p.o. b.i.d. 6. Atrovent nebulizer 0.5 mg 4 times a day p.r.n. shortness of breath, wheezing. 7. Metoprolol succinate 25 mg p.o. daily. 8. Mirtazapine 15 mg p.o. at bedtime. 9. Pantoprazole 20 mg p.o. daily. 10. Incruse Ellipta 62.5 mcg 1 inhalation daily. Discontinued medication: Medrol Dosepak. DISCHARGE PLAN: Ms. Cifuentes will be discharged home. Activity will be as tolerated. Diet will be regular as tolerated. Medications are noted above. The patient has been prescribed 4 days of Levaquin to complete a total of 7 days of antibiotic therapy for her community-acquired pneumonia. She additionally will need to complete 2 more days of Tamiflu to complete a total of 5-day course. She did receive 4 days of steroids while here in the hospital , so I have prescribed 1 additional day of steroids for her to take. 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 She has had no wheezing on exam and I did not feel as though she necessitates a taper. She can continue her other usual medications as noted above. She should follow up with her primary care provider in 4 to 7 days. She has been advised to return to the emergency room or nearest hospital for any worsening of symptoms, shortness of breath, lightheadedness, dizziness, chest discomfort, high fever, chills, night sweats, loss of consciousness, or any other worrisome signs or symptoms. DISCHARGE CONDITION: Stable. DISCHARGE DISPOSITION: Home. This is a summarized report of a complex medical history and hospital stay. For further details, please see the entire medical record. TIME SPENT: Approximately 40 minutes were spent on this discharge. CALLI ERNANDEZ NP [id number]/CPS #: [id number] AGNIESZKA
== END 2018-12-03 10:00 | disposition home or self-care (01) | DRG 871 ==
LOC: ED 08:45 → MED 12:47 → OBSVTOIN 12-02 08:00
PROVIDERS: ADMIT Internal Medicine; ATTEND Internal Medicine
DX: A41.9 Sepsis, unspecified organism (principal); J10.00 Influenza due to other identified influenza virus with unspecified type of pneumonia; J96.21 Acute and chronic respiratory failure with hypoxia; I47.1 Supraventricular tachycardia; J44.9 Chronic obstructive pulmonary disease, unspecified; I10 Essential (primary) hypertension; F43.10 Post-traumatic stress disorder, unspecified; K21.9 Gastro-esophageal reflux disease without esophagitis; M19.042 Primary osteoarthritis, left hand; M19.041 Primary osteoarthritis, right hand; G43.909 Migraine, unspecified, not intractable, without status migrainosus; F41.9 Anxiety disorder, unspecified; F32.9 Major depressive disorder, single episode, unspecified; Z90.710 Acquired absence of both cervix and uterus; Z82.49 Family history of ischemic heart disease and other diseases of the circulatory system; Z72.89 Other problems related to lifestyle; Z87.891 Personal history of nicotine dependence; Z86.73 Personal history of transient ischemic attack (TIA), and cerebral infarction without residual deficits; Z88.5 Allergy status to narcotic agent; Z88.8 Allergy status to other drugs, medicaments and biological substances; Q21.1 Atrial septal defect; Z88.1 Allergy status to other antibiotic agents; Z91.040 Latex allergy status; Z85.3 Personal history of malignant neoplasm of breast; Z90.49 Acquired absence of other specified parts of digestive tract; Z80.6 Family history of leukemia; Z92.21 Personal history of antineoplastic chemotherapy; Z92.3 Personal history of irradiation
CPT/HCPCS: 36415; 71046; 80048; 80053; 81003; 81015; 82550; 82553; 83605; 83880; 84484; 85025; 86140; 87040; 87086; 87899; 93005; 94640; 99284; A9270-GY; G0378; J1644; J2930; J7512

== ENCOUNTER 2018-12-15 18:10 | Emergency (ER) | payer MEDICARE, MEDICAID ==
--- NOTE | 2018-12-15 18:23 | ED ---
Shortness of Breath - HPI Summary HPI Summary: A 63 y/o F brought in by ambulance presents to ED s/p syncopal episode at approximately 1610. Pt was recently hospitalized at [facility] for flu and PNA and released on 12/03/18. She woke up this AM and experienced some dizziness. She took her HR and it was around 110-130 bpm. This afternoon, she went to the bathroom and had syncopal episode. She did not feel it coming on and she's unsure how long it lasted. Afterwards, she checked her vitals and her O2 was 82 % and her HR was [address] Baltazar, cardio, who requested she go to ED. She uses 2L O2 at home at night, 3 inhalers, nebulizer. She last used her nebulizer at 1400. Patient states EMS did not give her any tx en route to ED. Associated sx: dizziness, lightheadedness, mild bilat pedal edema. Patient lives alone. PMHx: tachycardia, hole in heart, asthma, COPD. - History of Current Complaint Time Seen by Provider: 12/15/18 18:18 Hx Obtained From: Patient Onset/Duration: Still Present - SOB, Resolved - syncope Current Severity: Mild - SOB Dyspnea At: Rest Associated Signs & Symptoms: Dizzy, Edema - Allergy/Home Medications Allergies/Adverse Reactions: Allergies Allergy/AdvReac Type Severity Reaction Status Date / Time cefaclor Allergy Swelling Verified 12/15/18 18:29 codeine Allergy Swelling Verified 12/15/18 18:29 erythromycin base Allergy Swelling Verified 12/15/18 18:29 hydrocodone [From Vicodin] Allergy Swelling Verified 12/15/18 18:29 ibuprofen Allergy Shortness Verified 12/15/18 18:29 of Breath latex Allergy Rash And Verified 12/15/18 18:29 Itching meperidine [From Demerol] Allergy Swelling Verified 12/15/18 18:29 morphine Allergy Swelling Verified 12/15/18 18:29 oxycodone Allergy Rash Verified 12/15/18 18:29 paroxetine [From Paxil] Allergy Swelling Verified 12/15/18 18:29 prednisone Allergy Tachycardia Verified 12/15/18 18:29 propoxyphene Allergy Swelling Verified 12/15/18 18:29 [From Darvocet-N] propranolol Allergy Swelling Verified 12/15/18 18:29 Tetracyclines Allergy Swelling Verified 12/15/18 18:29 sulfate Allergy Shortness Uncoded 12/15/18 18:29 of Breath PMH/Surg Hx/FS Hx/Imm Hx Previously Healthy: No Endocrine/Hematology History: Reports: Hx Anemia - TAKES 325 MG ASPIRIN DAILY Denies: Hx Diabetes, Hx Systemic Lupus Erythematosus Cardiovascular History: Reports: Hx Angina, 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 EF%50-55 Denies: Hx Aneurysm, Hx Congestive Heart Failure, Hx Coronary Artery Disease , Hx Deep Vein Thrombosis, Hx Hypercholesterolemia, Hx Myocardial Infarction, Hx Valvular Heart Disease Respiratory History: Reports: Hx Asthma, Hx Chronic Obstructive Pulmonary Disease (COPD) Denies: Other Respiratory Problems/Disorders GI History: Reports: Hx Gall Bladder Disease, Hx Gastroesophageal Reflux Disease - ON MEDICATION FOR, Other GI Disorders - HIATAL HERNIA History: Denies: Hx Dialysis, Hx Renal Disease Musculoskeletal History: Reports: Hx Arthritis - HANDS Denies: Hx Rheumatoid Arthritis, Hx Osteoporosis Sensory History: Reports: Hx Contacts or Glasses, Hx Vision Problem Denies: Hx Hearing Aid Opthamlomology History: Reports: Hx Contacts or Glasses, Hx Vision Problem Neurological History: Reports: Hx Migraine Denies: Hx CVA, Hx Transient Ischemic Attacks (TIA), Other Neuro Impairments/ Disorders - HERNIATED DISC Psychiatric History: Reports: Hx Anxiety - ROUTINE AND PRN MEDICATION FOR, Hx Depression - PTSD- D/T CANCER- TAKES ATIVAN DAILY, Hx Post Traumatic Stress Disorder - Cancer History Cancer Type, Location and Year: breast/2010 Hx Chemotherapy: Yes Hx Radiation Therapy: Yes - Surgical History Surgery Procedure, Year, and Place: RIGHT LUMPECTOMY, TOBI 2012, HYSTERECTOMY 1991, POWERPORT LCW, Hx Anesthesia Reactions: Yes - SEVERE ANXIETY- WITH LUMPECTOMY AND PORT PLACEMENT AND SEVERE NAUSEA - Immunization History Date of Tetanus Vaccine: up to date Date of Influenza Vaccine: 2015 Infectious Disease History: Denies: Hx Clostridium Difficile, Hx Hepatitis, Hx of Known/Suspected MRSA, Hx Shingles, Hx Tuberculosis, Hx Known/Suspected VRE, Hx Known/Suspected VRSA, History Other Infectious Disease - Family History Known Family History: Positive: Cardiac Disease, Other - PE - Social History Occupation: Retired Lives: Alone Alcohol Use: Weekly Alcohol Amount: 3 drinks Hx Substance Use: No Substance Use Type: Reports: None Hx Tobacco Use: Yes Smoking Status (MU): Former Smoker Type: Cigarettes Have You Smoked in the Last Year: Yes Review of Systems Cardiovascular: Other - elevated pulse Positive: Edema Neurological: Other - pos: dizziness, lightheadedness Positive: Syncope All Other Systems Reviewed And Are Negative: Yes Physical Exam - Summary Physical Exam Summary: Appearance: The patient is well-nourished in no acute distress and in no acute pain. Skin: The skin is warm and dry and skin color reflects adequate perfusion. HEENT: The head is normocephalic and atraumatic. The pupils are equal and reactive. The conjunctivae are clear and without drainage. Nares are patent and without drainage. Mouth reveals moist mucous membranes and the throat is without erythema and exudate. The external ears are intact. The ear canals are patent and without drainage. The tympanic membranes are intact. Neck: the neck is supple with full range of motion and non-tender. There are no carotid bruits. There is no neck vein distension. Respiratory: Chest is non-tender. Increased E to I, expiratory wheeze in all lung niño. Cardiovascular: Heart is regular rate and rhythm. There is no murmur or rub auscultated. There is no peripheral edema and pulses are symmetrical and equal. Abdomen: The abdomen is soft and non-tender. There are normal bowel sounds heard in all four quadrants and there is no organomegaly palpated. Musculoskeletal: There is no back tenderness noted. Extremities are non-tender with full range of motion. There is good capillary refill. There is no peripheral edema or calf tenderness elicited. Neurological: Patient is alert and oriented to person, place and time. The patient has symmetrical motor strength in all four extremities. Cranial nerves are grossly intact. Deep tendon reflexes are symmetrical and equal in all four extremities. Psychiatric: The patient has an appropriate affect and does not exhibit any anxiety or depression. Triage Information Reviewed: Yes Vital Signs Reviewed: Yes Diagnostics - Laboratory Result Diagrams: 12/15/18 20:40 12/15/18 20:40 Lab Statement: Any lab studies that have been ordered have been reviewed, and results considered in the medical decision making process. - Radiology CXR Radiology Interpretation Completed By: ED Physician Summary of Radiographic Findings: No acute process, probably COPD. - EKG 1843 Cardiac Rate: NL - 81 bpm EKG Rhythm: Sinus Rhythm ST Segment: Normal Ectopy: None Summary of EKG Findings: No STEMI Re-Evaluation - Re-Evaluation 1 Re-Evaluation Time: 21:23 Change: Unchanged Comment: Discussing results with pt. 2 Re-Evaluation Time: 21:50 Comment: Pt was ambulation challanged by the nurse with and without O2 without issue. Course/Dx - Course Course Of Treatment: She improved here in the emergency department with the DuoNeb and Solu-Medrol. I think she needs Solu-Medrol for a little bit longer and will send her home with a Medrol Dosepak. She was able to ambulate about the department without drop her pulse ox on 2 L oxygen that she is on at home. Chest x-ray showed only COPD and labs were within normal limits. - Diagnoses Provider Diagnoses: COPD exacerbation - Physician Notifications Discussed Care of Patient With: Venus Carreno - hospitalist Time Discussed With Above Provider: 21:25 Instructed by Provider To: Other - Put pt on oxygen and reevaluate. Discharge - Sign-Out/Discharge Documenting (check all that apply): Patient Departure - DC Patient Received Moderate/Deep Sedation with Procedure: No - Discharge Plan Condition: Stable Disposition: HOME Prescriptions: methylPREDNISolone [Medrol Dosepak 4 MG*] 4 mg PO .SEE GERONIMO INSTRUCTION #1 tab Patient Education Materials: Prednisone (By mouth), COPD (Chronic Obstructive Pulmonary Disease) (ED) Referrals: Johan Shukla MD [Primary Care Provider] - Additional Instructions: Please return to the ED if you experience new or worsening symptoms. Follow up with your primary care provider in 2-3 days. - Billing Disposition and Condition Condition: STABLE Disposition: Home - Attestation Statements Document Initiated by Kristineibe: Yes Documenting Scribe: Estee Vargas Provider For Whom Odalys is Documenting (Include Credential): Dr. Sharad Stock MD Scribe Attestation: I, claudia Soloed for Dr. Sharad Stock MD on 12/15/18 at 8251. Scribe Documentation Reviewed: Yes Provider Attestation: The documentation as recorded by the Estee mcclelland accurately reflects the service I personally performed and the decisions made by me, Dr. Sharad Stock MD Status of Scribe Document: Viewed
--- OUTSIDE RECORDS SUMMARY | 2018-12-15 18:35 | XMS REPORT | Continuity of Care Document ---
:1955 External Reference #:[id number] Author Name ManishSweta mooreecca Care Team Providers Name Role Phone Johan Shukla MD Primary Care Physician Unavailable Payers Date Identification Numbers Payment Provider Subscriber Effective: 2013 Policy Number: [id number] Medicare Renetta Cifuentes PayID: [id number] [address] [place] [address] Policy Number: [id number] Medicaid Renetta Cifuentes Group Name: 1 [address] PayID: [id number] [place] [address] Advance Directives Description No Information Available Problems Date Description Provider Status Onset: 07/07/2013 Essential hypertension Kulwant Baltazar M.D. Active Onset: 07/07/2013 Palpitations Kulwant Blatazar M.D. Active Onset: 08/18/2013 Paroxysmal supraventricular Kulwant [...] Yeung MD Family History Date Family Member(s) Observation Comments Father of [place] at age 36 Mother of Leukemia at age 81 Siblings 1 Sister w/Crest symdome Social History Type Date Description Comments Sex Unknown Marital Status Occupation Disabled Tobacco Use Start: Unknown Former Cigarette Smoker End: Unknown Cigarette Use Patch Smoking Status Reviewed: 10/22/18 Former Cigarette Smoker ETOH Use Occasionally consumes [...] Form Strength Qnty SIG Indications Ordering Provider Spiriva 09/25 Active Capsules 18mcg 60cap 1 unit Laura Handihale /2018 s inhalation Jose Alejandro daily Methylprednisolon 09/02 Active TBPK 4mg 21uni 1 tab J44.1 Laura ts daily 2 reynaldo Blount MD Oxygen 03/30 Active Misc 1unit please use R09.02 Laura /2018 s o2 at Jose Alejandro, 2l/min during exertion and at night Flecainide 10/04 Active Tablets 100mg 180ta 1 by mouth Kulwant Acetate bs twice a D. Giovanny, valeriano Meyer Metoprolol 08/18 Active Tablets ER 25mg 90tab 1 by mouth Kulwant Succinate ER 24HR s every day Richardson Baltazar M.D. Aspirin Active Tablets DR 325mg 30tab 1 po qd Unknown / s Alprazolam Active Tablets 1mg as needed Midura, MD Johan Albuterol Sulfate Active Nebulizer 0.63mg/3M prn Midura L MD Johan Betamethasone Active Nebulizer prn Unknown Symbicort Active Aerosol 160-4.5mc 2 puff Unknown g/Act twice a day Pantoprazole Active Tablets DR 20mg Take 1 Unknown Sodium Tablet By Mouth Every Day For Stomach Ventolin HFA Active Aerosol 108(90Bas Inhale 2 Unknown e) Puffs By mcg/Act Mouth Every 4 Hours as Needed Oxygen 11/25 Hx Misc 1unit please use R09.02 Laura /2018 s o2 at [facility], - 2l/min at 03/30 night Prednisone 01/22 Hx Tablets 5mg 90tab 2 tablets J45.901 Laura /2017 s for 1 week [facility], - and 1 02/03 tablet for 2 weeks Advair HFA 12/26 Hx Aerosol 115-21mcg 24gm 2 puff J44.9 Laura /2016 /Act twice a [facility], - day 08/26 Compazine 09/20 Hx as [...] Baltazar, - every day M.D. 07/07 Prilosec 00/[address] 20mg 90cap 1 po qd Unknown /0000 s prn - 09/26 Trazodone HCL 00/00 Hx Tablets 50mg Midura, /0000 MD Johan - 08/17 Calcium 600 High Hx Tablets 600mg 60tab 1 tabs po Unknown Potency /0000 s qd am - 09/15 Vitamin D3 High Hx Capsules 1000Unit 3 po qd Unknown Potency /0000 - 09/26 Tamoxifen Citrate Hx Tablets 20mg 1 po qd Lauri, /0000 Trey Manuel MD 09/15 Symbicort 00 Hx Aerosol 80-4.5mcg prn Gayla, /0000 /Act MD Johan - 12/25 Fluticasone 00 Hx Suspension 50mcg/Act Midura, Propionate /0000 MD Johan - 09/15 Proair HFA Hx Aerosol 108(90Bas prn Midura, /0000 e) MD Johan - mcg/Act 02/03 [place] Carbonate 00 Hx Capsules 300mg take 2 Unknown /0000 capsules - by mouth 09/15 at bedtime Potassium 00 Hx Take one Unknown Chloride ER /0000 tab PO - daily 12/25 Prednisone 0000 Hx Tablets 20mg 2 tablets Unknown /0000 by mouth - daily x's 01/22 5 days the morning Immunizations Description No Information Available Vital Signs Date Vital Result Comment 10/22/2018 10:13am Height 62 inches 5'2" Weight 158.25 lb Heart Rate 106 /min BP Systolic Sitting 120 mmHg Lue reg cuff BP Diastolic Sitting 80 mmHg Lue reg cuff Respiratory Rate 20 /min O2 % BldC Oximetry 96 % On Ra BMI (Body Mass Index) 28.9 kg/m2 09/02/2018 8:38am Height 62 inches 5'2" Weight [...] Test Result H/L Range Note Order 03/30/2018 [employer] In-House 6 Minute Walk <pending> Basic Metabolic 09/21/2015 [facility] Sodium 135 mmol/L N 133- [address] [place] [address] [phone] Potassium 3.9 mmol/L N 3.5-5.0 Chloride 104 [...] N >60 1 Comp Metabolic Panel 07/27/2014 [facility] Sodium 136 mmol/L N 133-145 [address] [place] [address] [phone] Potassium 4.7 mmol/L N 3.5-5.0 2 Chloride [...] N >60 3 CBC Auto Diff 07/27/2014 [facility] White Blood 6.4 10^3/uL N 4.8-10.[address] [place] [address] [phone] Red Blood Count 4.26 10^6/uL N 4.0-5.4 [...] % 0 N CBC Auto Diff 05/03/2014 [facility] White Blood 6.5 10^3/uL N 4.8-10.[address] [place] [address] [phone] Red Blood Count 4.23 10^6/uL N 4.0-5.4 [...] % N 0-2 Comp Metabolic Panel 05/03/2014 [facility] Sodium 136 mmol/L N 133-[address] [place] [address] [phone] Potassium 3.6 mmol/L Low 3.7-5.6 Chloride 103 [...] 82.2 N >60 4 Laboratory test 05/03/2014 [facility] Vitamin D 49 pg/mL N 18- 78 [address] 1,25[place] [address] [phone] CBC Auto Diff 07/02/2013 [facility] White Blood Count 6.8 4.8 -10.[address] 10^3/[place] [address] [phone] Red Blood Count 4.21 10^6/uL 4.0-5.4 Hemoglobin [...] Cells % 0 Comp Metabolic Panel 07/02/2013 [facility] Sodium 139 mmol/L 133-[address] [place] [address] [phone] Potassium 4.4 mmol/L 3.5-5.0 Chloride 105 mmol/L [...] Egfr 111.3 >60 6 Laboratory test 07/02/2013 [facility] CA 27-29 18.34 U/mL 3.5 -38.6 [address] [place] [address] [phone] Vitamin D, 25 07/02/2013 [facility] 25-Hydroxy <4.0 ng/mL Hydroxy [address] [place] Vitamin [place]2 [place] [address] [phone] 25-Hydroxy Vitamin D3 33 ng/mL 25-Hydroxy Vitamin D Total 33 ng/mL 8 CBC Auto Diff 06/04/2013 [facility] White Blood 5.3 10^3/uL 4.8-10.[address] [place] [address] [phone] Red Blood Count 3.92 10^6/uL Low 4.0-5.4 [...] Red Blood Cells % 0 Inr/Protime 06/04/2013 [facility] Inr 0.88 0.87-0.97 [address] [place] [address] [phone] CKMB 06/04/2013 [facility] CKMB ng/mL 0.8 ng/mL 0.3-4.0 9 [address] [place] [address] [phone] CKMB ng/mL 0.8 ng/mL 0.3-4.0 10 Laboratory test 06/04/2013 [facility] Troponin I 0 ng/mL 0- 0.06 11 finding [address] [place] [address] [phone] Comp Metabolic 06/04/2013 [facility] Sodium 137 mmol/L 133- 145 Panel [address] [place], [place] [address] [phone] Potassium 3.6 mmol/L 3.5-5.0 Chloride 106 mmol/L [...] Egfr 133.5 >60 12 Laboratory test 06/04/2013 [facility] Activated 25.7 22.18- 37.18 [address] [place] [address] [place] [address] Thrombo Time [phone] Lipase 23 U/L 22-51 14 Laboratory test 04/12/2013 [facility] Vitamin D 32 pg/mL 18- 78 [address] [place] [address] 1,25-Dihydroxy [place], [place] [id number] [phone] Vitamin D, 25 04/12/2013 [facility] 25-Hydroxy Vitamin <4.0 ng/ mL Hydroxy [address] [place] [address] [address]2 [place] [address] [phone] 25-Hydroxy Vitamin D3 39 ng/mL 25-Hydroxy Vitamin D Total 39 ng/mL 16 Laboratory test 04/12/2013 [facility] CA 27-29 23.75 U/mL 3.5 -38.6 [address] [place] [phone] Comp Metabolic 04/12/2013 [facility] Sodium 138 mmol/L 133- [address] [place] [address] [phone] Potassium 4.2 mmol/L 3.5-5.0 Chloride 104 mmol/L [...] 111.7 >60 18 CBC Auto Diff 04/12/2013 [facility] White Blood 6.2 10^3/uL 4.8-10.[address] [place] [address] [phone] Red Blood Count 4.32 10^6/uL 4.0-5.4 Hemoglobin [...] 0.7 % 0-2 Comp Metabolic Panel 02/05/2013 [facility] Sodium 139 mmol/L 133-[address] [place] [address] [phone] Potassium 4.2 mmol/L 3.5-5.0 Chloride 108 mmol/L [...] 133.5 >60 19 CBC Auto Diff 02/05/2013 [facility] White Blood 5.4 10^3/uL 4.8-10.[address] [place] [address] [phone] Red Blood Count 4.25 10^6/uL 4.0-5.4 Hemoglobin [...] % 1.4 % 0-2 Laboratory test 09/06/2012 [facility] B Type 16.0 pg/mL 0- 100 finding [address] [facility] [place] [address] Peptide [phone] Laboratory test 09/06/2012 [facility] Troponin I 0 ng/mL 0- 0.06 20 finding [address] [place], [place] [address] [phone] Comp Metabolic 09/06/2012 [facility] Sodium 136 mmol/L 133- 145 Panel [address] [place] [address] [phone] Potassium 3.6 mmol/L 3.5-5.0 Chloride 103 mmol/L [...] 111.7 >60 21 Laboratory test finding 09/06/2012 [facility] Inr 0.86 0.82- 1.17 22 [address] [place] [address] [phone] Activated Partial Thrombo Time 26.4 sec 22.18-37.18 CBC Auto Diff 09/06/2012 [facility] White Blood 6.1 10^3/uL 4.8-10.8 [address] [facility] [place] [address] [phone] Red Blood Count 4.32 10^6/uL 4.0-5.4 Hemoglobin [...] Cells % 0 Comp Metabolic Panel 08/28/2012 [facility] Sodium 137 mmol/L 133-[address] [place] [address] [phone] Potassium 4.3 mmol/L 3.5-5.0 Chloride 102 mmol/L [...] Egfr 111.7 >60 23 Oncology CBC 08/28/2012 [facility] White Blood 5.4 10^3/uL 4.8-10.8 Auto Diff [address] [place] [address] [phone] Red Blood Count 4.39 10^6/uL 4.0-5.4 Hemoglobin [...] <15 (or dialysis) 5 Test Performed by: [place] [address] Car Unloader Helper: Lamont Melara III, M.D. 6 Because ethnic [...] Assay by Chemiluminescence microparticle immunoassay on the [employer]. Values obtained with different methods or kits [...] levels within this range. Test Performed by: [place] [address] Car Unloader Helper: Lamont Melara III, M.D. 9 CKMB interpretation should be made in conjunction with clinical symptoms, patient history and EKG changes. 10 CKMB interpretation should be made in conjunction with clinical symptoms, patient history and EKG changes. 11 Reference Range and Interpretation: TnI (ng/mL) Interpretation Less Than 0.06 ng/mL Not supportive of diagnosis of [place] 0.06 - 0.50 ng/mL Indeterminate: suggest serial studies if clinically indicated. Greater than 0.5 ng/mL Consistent with diagnosis of [place] 12 Because ethnic data is not always [...] c Comment: s 15 Test Performed by: [address] [address] Car Unloader Helper: Lamont Melara III, M.D. 16 -- REFERENCE VALUE -- 25-HYDROXY D TOTAL (D2+D3) Optimum levels in the normal population are 25-80 Test Performed by: [address] [address] Car Unloader Helper: Lamont Melara III, M.D. 17 Assay by Chemiluminescence microparticle immunoassay on the [employer]. Values obtained with different methods or kits [...] 0.06 ng/mL Not supportive of diagnosis of [place] 0.06 - 0.50 ng/ml Indeterminate: suggest serial studies if clinically indicated. Greater than 0.5 ng/mL Consistent with diagnosis of [place] 21 Because ethnic data is not always [...] by the World Health Organization (WHO) in 1982 as a standardized system of reporting PT [...] (or dialysis) Procedures Date Code Description Status 09/09/2018 77149 ECHO Transthorasic Realtime 2D W Doppler & Color Flow Completed Hosp 09/09/2018 75860 Treadmill Interp/Report Only Completed 09/09/2018 00519 Stress Test Supervsn W/Out I/R Completed 09/08/2018 57915 EKG, Interpretation Only Completed 03/31/2018 [id number] Mammogram Completed 03/30/2018 17963 Pulmonary Stress Test Simple Completed 03/30/2018 89938 Pulmonary Stress [facility] Measurement Heart Rate, Completed Oximetry 11/18/2017 67730 Pulmonary Function><Bronchodil Completed 11/18/2017 05478 Diffusing Capacity Completed 11/18/2017 30912 Plethysmography Determination Lung Volumes & Per Airway Completed Resist 02/04/2017 61844 EKG Tracing & Interpretation Completed 11/18/2016 87444 Polysomnography Sleep Staging 4+ Parameters W/Cpap Completed 10/23/2016 32968 Pulmonary Function><Bronchodil Completed 10/23/2016 40790 Diffusing Capacity Completed 10/23/2016 14194 Pulmonary Stress Test Simple Completed 10/23/2016 07758 Plethysmography Determination Lung Volumes & Per Airway Completed Resist 10/09/2016 19309 Polysomnography Sleep Staging 4+ Parameters Completed 10/04/2016 33474 EKG Tracing & Interpretation Completed 09/04/2016 93685 Treadmill Interp/Report Only Completed 09/04/2016 72160 Stress Test Supervsn W/Out I/R Completed 09/03/2016 22554 EKG, Interpretation Only Completed 09/03/2016 32230 ECHO Transthorasic Realtime 2D W Doppler & Color Flow Completed Hosp 09/29/2015 52770 EKG Tracing & Interpretation Completed 09/26/2015 25600 Holter Monitoring 24 HR New Completed 09/20/2015 90119 ECHO Transthoracic, Real-Time 2D With Doppler And Color Completed Flow 09/20/2015 74393 Holter Monitoring 24 HR New Completed 04/17/2015 [id number] Mammogram Completed 08/25/2014 36370 EKG Tracing & Interpretation Completed 05/03/2014 60935130 Mammogram Completed 10/26/2013 [id number] Mammogram Completed 10/08/2013 10224 EKG Tracing & Interpretation Completed 07/07/2013 97905 EKG Tracing & Interpretation Completed 07/02/2013 92729 ECHO Transthoracic, Real-Time 2D With Doppler And Color Completed Flow 06/05/2013 80293 EKG, Interpretation Only Completed 06/05/2013 16448 Treadmill Interp/Report Only Completed 06/05/2013 76774 Stress Test Supervsn W/Out I/R Completed Encounters Type Date Location Provider Dx Diagnosis Office Visit 10/22/2018 [facility] Tiffanie Jacinto.Alexandr Chronic obstructive 10:45a Sleep Services Of pulmonary disease [employer] unspecified J45.901 Unspecified asthma with (acute) exacerbation Z87.891 Personal history of nicotine dependence E66.09 Other obesity due to excess calories G47.33 Obstructive sleep apnea (adult) (pediatric) Office Visit 09/09/2018 7:50a [place] Tari Falcon MD R07.89 Other chest Assoc, Hospitalists pain I47.1 Supraventricular tachycardia J44.9 Chronic obstructive pulmonary disease, unspecified Office Visit 09/08/2018 7:50a [place] Tari Falcon R07.9 Chest pain, Assoc, unspecified Hospitalists J44.9 Chronic obstructive pulmonary disease, unspecified R07.89 Other chest pain I47.1 Supraventricular tachycardia Office Visit 09/02/2018 9:00a Pulmonology And Laura Rockwell44.1 Chronic Sleep Services Of MD kimi Blount [employer] pulmonary disease w (acute) exacerbation J45.901 Unspecified asthma with (acute) exacerbation Z87.891 Personal history of nicotine dependence E66.09 Other obesity due to excess calories Office Visit 07/20/2018 [place] Tari Ca J44.1 Chronic 8:14a rafael Cárdenas MD obstructive Hospitalists pulmonary disease w (acute) exacerbation F41.9 Anxiety disorder, unspecified Z72.0 Tobacco use Office Visit 07/19/2018 Radha Rockwell44.9 Chronic 8:14a rafael Cárdenas MD obstructive Hospitalists pulmonary disease, unspecified F41.9 Anxiety disorder, unspecified I10 Essential (primary) hypertension Z72.0 Tobacco use Office Visit 07/18/2018 Radha Rockwell44.9 Chronic 8:14a rafael Cárdenas MD obstructive Hospitalists pulmonary disease, unspecified F41.9 Anxiety disorder, unspecified I10 Essential (primary) hypertension Office Visit 07/17/2018 [facility] Edwardo Ca J44.9 Chronic 8:14a Assoc,rafael Brizuela MD obstructive Hospitalists pulmonary disease, unspecified F41.9 Anxiety disorder, unspecified I10 Essential (primary) hypertension Office Visit 07/16/2018 [facility] Lory I47.1 Supraventricular 8:13a Assoc,rafael Nice NP tachycardia Hospitalists J44.9 Chronic obstructive pulmonary disease, unspecified I10 Essential (primary) hypertension Office Visit 11/25/2017 9:15a Pulmonology And Laura J44.9 Chronic Sleep Services Of MD Jose Alejandro obstructive [employer] pulmonary disease, unspecified R09.02 Hypoxemia Office Visit 08/27/2017 8:45a Pulmonology And Laura J44.9 Chronic Sleep Services Of MD Jose Alejandro obstructive [employer] pulmonary disease, unspecified R09.02 Hypoxemia F17.210 Nicotine dependence, cigarettes, uncomplicated Z12.2 Encntr screen for malignant neoplasm of respiratory organs Z87.891 Personal history of nicotine dependence Office Visit 05/22/2017 10:51a [place] Moiz Willoughby44.0 Chronic Assoc,pc N.P. obstructive Hospitalists pulmon disease w acute lower resp infct F41.9 Anxiety disorder, unspecified Office Visit 02/04/2017 Yahir Pedersen, I47.1 Supraventricular 11:00a [facility] [place] tachycardia [employer] J44.1 Chronic obstructive pulmonary disease w (acute) exacerbation Office Visit 01/22/2017 Pulmonology And Laura J45.901 Unspecified asthma 11:00a Sleep Services Of MD Jose Alejandro with (acute) [employer] exacerbation J44.1 Chronic obstructive pulmonary disease w (acute) exacerbation G47.33 Obstructive sleep apnea (adult) (pediatric) Office Visit 01/12/2017 7:45a [facility] Juwan J44.1 Chronic Assoc,rafael Rubio M.D. obstructive Hospitalists pulmonary disease w (acute) exacerbation I47.1 Supraventricular tachycardia Office Visit 01/11/2017 7:45a [place] Moiz Willoughby44.1 Chronic Assoc,pc N.P. obstructive Hospitalists pulmonary disease w (acute) exacerbation I47.1 Supraventricular tachycardia Office Visit 12/26/2016 9:00a Pulmonology And Laura G47.33 Obstructive sleep Sleep Services Of MD Jose Alejandro apnea (adult) [employer] (pediatric) J44.9 Chronic obstructive pulmonary disease, unspecified J98.11 Atelectasis Z87.891 Personal history of nicotine dependence Office Visit 10/25/2016 9:30a Pulmonology And Laura G47.33 Obstructive sleep Sleep Services Of MD Jose Alejandro apnea (adult) [employer] (pediatric) J44.1 Chronic obstructive pulmonary disease w (acute) exacerbation E66.09 Other obesity due to excess calories Office Visit 10/04/2016 9:00a [place] Bai I10 Essential (primary) Of Mayte Baltazar M.D. hypertension I47.1 Supraventricular tachycardia Q21.1 Atrial septal defect Office Visit 09/23/2016 9:30a Pulmonology And Laura E66.09 Other obesity Sleep Services Of MD Jose Alejandro due to excess [facility] calories J44.1 Chronic obstructive pulmonary disease w (acute) exacerbation R06.83 Snoring R40.0 Somnolence Z68.34 Body mass index (BMI) 34.0-34.9, adult Office Visit 09/04/2016 [facility] Peg Lagos J44.1 Chronic 8:46a Assrafael augustine M.D. obstructive Hospitalists pulmonary disease w (acute) exacerbation R06.00 Dyspnea, unspecified I10 Essential (primary) hypertension Office Visit 09/03/2016 8:45a [facility] Rene J44.1 Chronic Assoc,rafael Baltazar M.D. obstructive Hospitalists pulmonary disease w (acute) exacerbation I47.1 Supraventricular tachycardia R06.00 Dyspnea, unspecified I10 Essential (primary) hypertension Office Visit 09/02/2016 [facility] Paul J44.1 Chronic 8:44a Assoc,rafael Collazo N.P. obstructive Hospitalists pulmonary disease w (acute) exacerbation I47.1 Supraventricular tachycardia I10 Essential (primary) hypertension Office Visit 09/29/2015 Yahir Bai I47.1 Supraventricular 8:00a Cardiology Michelle Baltazar M.D. tachycardia [employer] Q21.1 Atrial septal defect Office Visit 08/25/2014 Yahir Bai 427.0 PSVT Paroxysmal 10:00a Cardiology Michelle Baltazar M.D. Supraventricular [facility] Tachycardia 745.5 Atrial Septal Defect Ostium Secundum Type Office Visit 10/08/2013 [place] Kulwant Bai 427.0 PSVT Paroxysmal 8:15a Cardiology Michelle Baltazar M.D. Supraventricular [facility] Tachycardia 745.5 Atrial Septal Defect Ostium Secundum Type Office Visit 08/18/2013 [place] Kulwant Bai 427.0 PSVT Paroxysmal 10:00a Cardiology Michelle Baltazar M.D. Supraventricular [facility] Tachycardia 745.5 Atrial Septal Defect Ostium Secundum Type Office Visit 07/07/2013 9:30a [place] [facility] Kulwant Bai 401.9 Hypertension Of Mayte Baltazar M.D. Unspec 785.1 Palpitations Office 06/05/2013 [place] [facility] 794.31 Electrocardiogram Visit 9:39a Cardiology Mitch Beasley (ECG) (EKG) Abnormal 785.0 Tachycardia Unspec 745.5 Atrial Septal Defect [employer]ium Secundum Type Office Visit 06/05/2013 8:46a [facility] Jero Infante, 786.50 Pain Chest Assoc,pc M.D. Unspec Hospitalists 401.9 Hypertension Unspec 493.10 Asthma Intrinsic Unspecified Office Visit 06/04/2013 8:45a [facility] Chest Assoc,pc N.P. Unspec Hospitalists 401.9 Hypertension Unspec 493.10 Asthma Intrinsic Unspecified Plan of Treatment Future Appointment(s):01/20/2019 9:15 am - Kulwant Baltazar M.D. at [place] [facility]10/22/2019 9:00 am - Laura Blount MD at [facility]10/22/2018 - Laura Blount MDJ44.9 Chronic obstructive pulmonary disease, unspecifiedFollow up:1 year, spirometry and DLCO yvqgcX26.901 Unspecified asthma with (acute) dmohobzilzmkU39.891 Personal history of nicotine cqwfjpcdjaP84.09 Other obesity due to excess jfalgzycM05.33 Obstructive sleep apnea (adult) (pediatric)
[2018-12-15] MEDS ORDERED: Albuterol/Ipratropium NEB.SOL* Albuterol 2.5 MG/Ipratropium 0.5 MG 3 ML ONE (18:37)
[2018-12-15] MEDS ORDERED: Albuterol/Ipratropium NEB.SOL* Albuterol 2.5 MG/Ipratropium 0.5 MG 3 ML INH ONE (18:37)
[2018-12-15] MEDS ORDERED: methylPREDNISolone 125 MG* 2 ML VIAL IV ONE (18:37)
[2018-12-15] MEDS ORDERED: methylPREDNISolone 125 MG* 2 ML VIAL ONE (18:38)
[2018-12-15 20:50] LABS: ABS Basophils 0 10^3/ul (0-0.2); ABS Eosinophils 0.1 10^3/ul (0-0.6); ABS Lymphocytes 0.7 10^3/ul (1.0-4.8); ABS Monocytes 0.2 10^3/ul (0-0.8); ABS Neutrophils 9.7 10^3/ul (1.5-7.7); ABS Nucleated RBC 0 10^3/ul; Eosinophil % 0.5 %; Hematocrit 39 % (33-41); Lymphocyte % 6.9 %; Mean Corpuscular HGB Conc 34 g/dL (31-36); Mean Corpuscular Hemoglobin 33 pg (27-31); Mean Corpuscular Volume 97 fL (80-97); Mean Platelet Volume 8.3 fL (7.4-10.4); Nucleated Red Blood Cells % 0; Platelet Count 275 10^3/uL (150-450); Red Blood Count 3.99 10^6 /uL (3.70-4.87); Red Cell Distribution Width 14 % (10.5-15); White Blood Count 10.7 10^3/uL (3.5-10.8)
[2018-12-15 21:01] LABS: INR 0.86 (0.77-1.02)
[2018-12-15 21:09] LABS: Albumin/Globulin Ratio 1.4 (1-3); BUN/Creatinine Ratio 21.1 (8-20); C Reactive Protein 3.99 mg/L (<8.01); Calcium 9.3 mg/dL (8.6-10.3); EGFR African American 101.3 (>60); EGFR Non-African American 83.7 (>60); Globulin 2.8 g/dL (2-4); Potassium 3.7 mmol/L (3.5-5.0); Total Bilirubin 0.2 mg/dL (0.2-1.0); Total Protein 6.8 g/dL (6.4-8.9)
[2018-12-15] MEDS ORDERED: NS 0.9% 1000 ML** 2,000 ML IV ONE (21:46)
[2018-12-15 21:50] VITALS: BP 149/89
== END 2018-12-15 22:07 | disposition home or self-care (01) ==
LOC: ED 18:10
DX: J44.1 Chronic obstructive pulmonary disease with (acute) exacerbation (principal); R60.9 Edema, unspecified; R55 Syncope and collapse; Z87.891 Personal history of nicotine dependence; Z88.6 Allergy status to analgesic agent; Z88.2 Allergy status to sulfonamides; Z79.82 Long term (current) use of aspirin
CPT/HCPCS: 36415; 71045; 80053; 83605; 83880; 84484; 85025; 85610; 86140; 87040; 93005; 96374; 99284; A9270-GY; J2930

== ENCOUNTER 2019-06-01 18:04 | Inpatient (IN) | payer MEDICARE, MEDICAID ==
[2019-06-01] MEDS ORDERED: Levofloxacin 750 MG IVPREMIX(* 750 MG/150 ML BAG IVPB ONE (18:36)
[2019-06-01] MEDS ORDERED: NS 0.9% 1000 ML** 1,000 ML IV.FLUID IV ONE (18:36)
[2019-06-01] MEDS ORDERED: Piperacillin/Tazobac ADVAN(*) 3.375 GM in NS 0.9% 100 ML* 100 ML IVPB ONE (18:36)
[2019-06-01] MEDS ORDERED: Albuterol/Ipratropium NEB.SOL* Albuterol 2.5 MG/Ipratropium 0.5 MG 3 ML INH ONE ×2 (18:41→21:53)
[2019-06-01 18:53] LABS: ABS Basophils 0.1 10^3/ul (0-0.2); ABS Eosinophils 0.2 10^3/ul (0-0.6); ABS Lymphocytes 1.6 10^3/ul (1.0-4.8); ABS Monocytes 0.6 10^3/ul (0-0.8); ABS Neutrophils 4.4 10^3/ul (1.5-7.7); Eosinophil % 2.4 %; Hematocrit 36 % (35-47); Hemoglobin 12.2 g/dL (12.0-16.0); Lymphocyte % 23.5 %; Mean Corpuscular HGB Conc 34 g/dL (31-36); Mean Corpuscular Hemoglobin 33 pg (27-31); Mean Corpuscular Volume 97 fL (80-97); Mean Platelet Volume 8.7 fL (7.4-10.4); Nucleated Red Blood Cells % 0.1; Platelet Count 180 10^3/uL (150-450); Red Blood Count 3.68 10^6 /uL (3.70-4.87); Red Cell Distribution Width 16 % (10-15); White Blood Count 6.9 10^3/uL (3.5-10.8)
--- OUTSIDE RECORDS SUMMARY | 2019-06-01 18:54 | XMS REPORT | Continuity of Care Document ---
:1955 External Reference #:[id number] Author Name Kulwant Baltazar M.D. (transmitted by agent of provider Sindy Mena) Address [address] [place] [address] Problems Active Problems Provider Date Essential hypertension Kulwant Baltazar M.D. Onset: 07/07/2013 Palpitations Kulwant Baltazar M.D. Onset: 07/07/2013 Paroxysmal supraventricular tachycardia Kulwant Baltazar M.D. Onset: 2012 Ostium secundum type atrial septal Kulwant Baltazar M.D. Onset: 08/18/2013 defect Chronic obstructive lung disease Laura Blount MD Onset: 09/23/2016 Disturbance in sleep behavior Laura Blount MD Onset: 09/23/2016 Obesity Laura Blount MD Onset: 09/23/2016 Obstructive sleep apnea syndrome Laura Blount MD Onset: 10/25/2016 Chronic obstructive pulmonary disease Laura Blount MD Onset: 10/25/2016 with (acute) exacerbation Anxiety state Edwardo Brizuela MD Onset: 07/17/2018 Tobacco use Edwardo Brizuela MD Onset: 07/20/2018 Social History Type Date Description Comments Sex Unknown Tobacco Use Start: Unknown Former Cigarette Smoker End: Unknown Cigarette Use Patch Smoking Status Reviewed: 05/21/19 Former Cigarette Smoker ETOH Use Occasionally consumes beer Tobacco Use Start: Unknown Patient is a former Less 1/2 PPD x 40 End: smoker years Recreational Drug Use Denies Drug Use Exercise Type/Frequency Exercises sporadically Exercise Type/Frequency Exercises more when warm out Exercise Type/Frequency Walks daily about 10-15 mins depending on the weather Allergies, Adverse Reactions, Alerts Active Allergies Reaction Severity Comments Date Ceclor 07/06/2013 Erythromycin 07/06/2013 Tetracycline 07/06/2013 Codeine 07/06/2013 Demerol 07/06/2013 Morphine 07/06/2013 Ibuprofen 07/06/2013 Inderal 07/06/2013 Vicodin 07/06/2013 Sulfa Antibiotics 07/06/2013 Paxil 07/06/2013 Oxycodone 07/06/2013 Zoloft 07/07/2013 Celexa 07/07/2013 Latex 09/23/2016 Medications Active Medications SIG Qnty Indications Ordering Date Provider Oxygen please use o2 at 1units R09.02 Laura Jose Alejandro, 03/30/2018 Misc 2l/min during MD exertion and at night Flecainide Acetate 1 by mouth twice 60tabs Kulwant Bai 10/04/2016 100mg a day Mitch Baltazar Tablets Metoprolol Succinate 1 by mouth every 90tabs Kulwant Bai 08/18/2013 ER day Mitch Baltazar 25mg Tablets ER 24HR Aspirin 1 po qd 30tabs Unknown 325mg Tablets Albuterol Sulfate prn Johan Shukla MD 0.63mg/3ML Nebulizer Betamethasone prn Unknown Nebulizer Symbicort 2 puff twice a Unknown 160-4.5mcg/Act day Aerosol Pantoprazole Sodium Take 1 Tablet By Unknown 20mg Mouth Every Day Tablets For Stomach Immunizations Description No Information Available Vital Signs Date Vital Result Comment 05/21/2019 8:57am Height 62 inches 5'2" Weight 175.00 lb with shoes Heart Rate 80 /min Irregular BP Systolic Sitting 126 mmHg Lue BP Diastolic Sitting 76 mmHg Lue BP Systolic Standing 134 mmHg Lue BP Diastolic Standing 76 mmHg Lue BMI (Body Mass Index) 32.0 kg/m2 Ejection Fraction 55-60% Echo 09/09/18 12/24/2018 2:36pm Height 62 inches 5'2" Weight 166.00 lb Heart Rate 90 /min BP Systolic Sitting 158 mmHg Lue reg cuff BP Diastolic Sitting 100 mmHg Lue reg cuff Respiratory Rate 14 /min O2 % BldC Oximetry 97 % On Ra BMI (Body Mass Index) 30.4 kg/m2 Results Description No Information Available Procedures Date Code Description Status 05/21/2019 87927 EKG Tracing & Interpretation Completed 03/31/2018 [id number] Mammogram Completed 04/17/2015 [id number] Mammogram Completed 05/03/2014 [id number] Mammogram Completed 10/26/2013 [id number] Mammogram Completed Medical Devices Description No Information Available Encounters Type Date Location Provider Dx Diagnosis Office Visit 12/24/2018 [facility]44.Alexandr Chronic obstructive 2:45p [facility] Services Of pulmonary disease, Reducer unspecified F41.9 Anxiety disorder, unspecified Office Visit 12/03/2018 9:17a [facility] Oma, J10.00 Flu due to oth Assoc,pc RN CARDIOVASCULAR ICU ident flu virus Hospitalists w unsp type of pneumonia J18.9 Pneumonia, unspecified organism A41.9 Sepsis, unspecified organism J96.21 Acute and chronic respiratory failure with hypoxia I10 Essential (primary) hypertension J44.0 Chr obstructive pulmon disease with (acute) lower resp infct Office Visit 12/02/2018 9:16a [facility] Calli Oma, J10.00 Flu due to oth Assoc,pc RN CARDIOVASCULAR ICU ident flu virus Hospitalists w unsp type of pneumonia J18.9 Pneumonia, unspecified organism A41.9 Sepsis, unspecified organism J44.0 Chr obstructive pulmon disease with (acute) lower resp infct I10 Essential (primary) hypertension Office Visit 11/30/2018 9:15a [facility] J10.00 Flu due to oth Assoc,pc Shortle, RN CARDIOVASCULAR ICU ident flu virus Hospitalists w unsp type of pneumonia I10 Essential (primary) hypertension I47.9 Paroxysmal tachycardia, unspecified J44.0 Chr obstructive pulmon disease with (acute) lower resp infct Assessments Date Code Description Provider 05/21/2019 I10 Essential (primary) hypertension Kulwant Baltazar M.D. 05/21/2019 I47.9 Paroxysmal tachycardia, unspecified Kulwant Baltazar M.D. 12/24/2018 J44.9 Chronic obstructive pulmonary disease, Laura Blount MD unspecified 12/24/2018 F41.9 Anxiety disorder, unspecified Laura Blount MD 12/03/2018 J10.00 Flu due to oth ident flu virus w unsp type Calli Oma, RN CARDIOVASCULAR ICU of pneumonia 12/03/2018 J18.9 Pneumonia, unspecified organism Calli Oma, RN CARDIOVASCULAR ICU 12/03/2018 A41.9 Sepsis, unspecified organism Calli Oma, RN CARDIOVASCULAR ICU 12/03/2018 J96.21 Acute and chronic respiratory failure with Calli Oma, RN CARDIOVASCULAR ICU hypoxia 12/03/2018 I10 Essential (primary) hypertension Calli Oma, RN CARDIOVASCULAR ICU 12/03/2018 J44.0 Chronic obstructive pulmon disease w acute Calli Oma, RN CARDIOVASCULAR ICU lower resp infct 12/02/2018 J10.00 Flu due to oth ident flu virus w unsp type Calli Oma, RN CARDIOVASCULAR ICU of pneumonia 12/02/2018 J18.9 Pneumonia, unspecified organism Calli Oma, RN CARDIOVASCULAR ICU 12/02/2018 A41.9 Sepsis, unspecified organism Calli Oma, RN CARDIOVASCULAR ICU 12/02/2018 J44.0 Chronic obstructive pulmon disease w acute Calli Oma, RN CARDIOVASCULAR ICU lower resp infct 12/02/2018 I10 Essential (primary) hypertension Calli Oma, RN CARDIOVASCULAR ICU 12/01/2018 J10.00 Flu due to oth ident flu virus w unsp type Calli Oma, RN CARDIOVASCULAR ICU of pneumonia 12/01/2018 J18.9 Pneumonia, unspecified organism Calli Oma, RN CARDIOVASCULAR ICU 12/01/2018 A41.9 Sepsis, unspecified organism Calli Oma, RN CARDIOVASCULAR ICU 12/01/2018 J44.0 Chronic obstructive pulmon disease w acute Calli Oma, RN CARDIOVASCULAR ICU lower resp infct 12/01/2018 I10 Essential (primary) hypertension Calli Oma, RN CARDIOVASCULAR ICU 11/30/2018 J10.00 Flu due to oth ident flu virus w unsp type Bonnie Shortle, RN CARDIOVASCULAR ICU of pneumonia 11/30/2018 I10 Essential (primary) hypertension Bonnie Shortle, RN CARDIOVASCULAR ICU 11/30/2018 I47.9 Paroxysmal tachycardia, unspecified Bonnie Shortle, RN CARDIOVASCULAR ICU 11/30/2018 J44.0 Chronic obstructive pulmon disease w acute Bonnie Shortle , RN CARDIOVASCULAR ICU lower resp infct Plan of Treatment Future Appointment(s):07/02/2019 12:00 pm - Kulwant Baltazar M.D. at [facility]10/22/2019 9:00 am - Laura Blount MD at [facility]05/21/2019 - Kulwant Baltazar M.D.I10 Essential (primary) orhrqgupkwzoM19.9 Paroxysmal tachycardia, unspecifiedNew Orders:[facility], Ordered: 05/21/19Follow up:1 month Functional Status Description No Information Available Mental Status Description No Information Available Referrals Description No Information Available
[2019-06-01] MEDS ORDERED: NS 0.9% 100 ML* 100 ML ONE (19:14)
[2019-06-01 19:17] LABS: INR 0.91 (0.82-1.09)
[2019-06-01 19:19] LABS: Albumin 3.7 g/dL (3.2-5.2); Albumin/Globulin Ratio 1.4 (1-3); BUN/Creatinine Ratio 22.1 (8-20); Calcium 8.9 mg/dL (8.6-10.3); EGFR African American 106.4 (>60); Globulin 2.7 g/dL (2-4); Potassium 4.3 mmol/L (3.5-5.0); Total Bilirubin 0.8 mg/dL (0.2-1.0); Total Protein 6.4 g/dL (6.4-8.9)
--- NOTE | 2019-06-01 21:39 | ED ---
Shortness of Breath - HPI Summary HPI Summary: This patient is a 63 year old F arriving via ambulance to [facility] with a chief complaint of SOB since 05/24/19. Patient states she has been feeling worse since , despite Rx with steroids. Patient states that she was seen by Dr. Shukla today at 1600 and was prescribed Augmentin for concern for pneumonia. Pt has COPD, on 2.5 L home O2 at night, and has home nebs. Patient states that she was doing albuterol nebs every 6 hours and had one on route by EMS and she is still wheezing. Per nursing triage the patient rates the pain 5/10 in severity ( probable bilat leg pain), denies pain to Dr. Chamorro. Symptoms aggravated by nothing. Symptoms alleviated by nothing. Patient reports wheezing, cough productive of clear sputum, bilateral leg tenderness, and previous fever and chills. Patient denies nausea and vomiting. Patient has PMHx of COPD, paroxysmal SVT, PFO, HTN and right breast cancer s/p lumpectomy currently in remission since 2012. Vitals while in room BP 110/55, HR: 113, O2 sat: 97% Home Medications Medication Instructions Recorded Confirmed Type ALPRAZolam TAB* [Xanax TAB*] 1 mg PO QID PRN MDD 4 mg 07/19/12 06/01/19 History Flecainide TAB(NF) 100 mg PO BID 11/18/13 06/01/19 History Metoprolol Succinate XL TAB* 25 mg PO QAM 09/02/16 06/01/19 History [Toprol XL TAB*] Aspirin TAB* [Aspirin 325 MG TAB*] 325 mg PO DAILY 09/08/18 06/01/19 History Albuterol HFA INHALER* [Ventolin 2 puff INH Q4H PRN 11/30/18 06/01/19 History HFA Inhaler*] Ipratropium 0.5MG/2.5ML NEB* 0.5 mg INH QID PRN 11/30/18 06/01/19 History [Atrovent 0.5 MG NEB.KWABENA*] Naphazoline/Hpm/Ps80/Zinc Sulf 1 drop BOTH EYES Q3HR PRN 11/30/18 06/01/19 History [Clear Eyes Complete Eye Drops] Pantoprazole TAB (NF) [Protonix 20 mg PO DAILY 11/30/18 06/01/19 History TAB (NF)] Amoxicillin/Clavulanate TAB* 875 mg PO BID WITH MEALS 06/01/19 06/01/19 History [Augmentin TAB 875*] Umeclidinium 62.5 MDI(NF) [Incruse 1 puff INH DAILY 06/01/19 06/01/19 History ELLIPTA MDI (NF)] - History of Current Complaint Chief Complaint: EDShortnessOfBreath Time Seen by Provider: 06/01/19 18:24 Hx Obtained From: Patient, EMS Onset/Duration: Lasting Days - 05/24/19, Worse Since - 05/30/19 Timing: Constant Current Severity: Moderate Dyspnea At: Rest Aggravating Factors: Nothing Alleviating Factors: Nothing Associated Signs & Symptoms: Cough (Productive) - clear sputum, Wheezing, Fever - 05/30/19 pt states was 102, Chills, Calf Pain/Swelling - pt states pain characterized as "cramping" bilateral - Risk Factors Pulmonary Embolism: Malignancy - Allergy/Home Medications Allergies/Adverse Reactions: Allergies Allergy/AdvReac Type Severity Reaction Status Date / Time cefaclor Allergy Swelling Verified 12/15/18 18:29 codeine Allergy Swelling Verified 12/15/18 18:29 erythromycin base Allergy Swelling Verified 12/15/18 18:29 hydrocodone [From Vicodin] Allergy Swelling Verified 12/15/18 18:29 ibuprofen Allergy Shortness Verified 12/15/18 18:29 of Breath latex Allergy Rash And Verified 12/15/18 18:29 Itching meperidine [From Demerol] Allergy Swelling Verified 12/15/18 18:29 morphine Allergy Swelling Verified 12/15/18 18:29 oxycodone Allergy Rash Verified 12/15/18 18:29 paroxetine [From Paxil] Allergy Swelling Verified 12/15/18 18:29 prednisone Allergy Tachycardia Verified 12/15/18 18:29 propoxyphene Allergy Swelling Verified 12/15/18 18:29 [From Darvocet-N] propranolol Allergy Swelling Verified 12/15/18 18:29 Tetracyclines Allergy Swelling Verified 12/15/18 18:29 sulfate Allergy Shortness Uncoded 12/15/18 18:29 of Breath Home Medications: Home Medications Umeclidinium 62.5 MDI(NF) [Incruse ELLIPTA MDI (NF)] 1 puff INH DAILY 06/01/19 [ History Confirmed 06/01/19] PMH/Surg Hx/FS Hx/Imm Hx Previously Healthy: No Endocrine/Hematology History: Reports: Hx Anemia Denies: Hx Diabetes, Hx Systemic Lupus Erythematosus Cardiovascular History: Reports: Hx Angina, Hx Congenital Heart Disease - patent foramen ovale , Hx Hypertension, Hx Supraventricular Ventricular Tachycardia - paroxysmal Denies: Hx Aneurysm, Hx Congestive Heart Failure, Hx Coronary Artery Disease , Hx Deep Vein Thrombosis, Hx Hypercholesterolemia, Hx Myocardial Infarction, Hx Valvular Heart Disease Respiratory History: Reports: Hx Asthma, Hx Chronic Obstructive Pulmonary Disease (COPD) Denies: Other Respiratory Problems/Disorders GI History: Reports: Hx Gall Bladder Disease, Hx Gastroesophageal Reflux Disease - ON MEDICATION FOR, Hx Hiatal Hernia History: Denies: Hx Dialysis, Hx Renal Disease Musculoskeletal History: Reports: Hx Arthritis - HANDS Denies: Hx Rheumatoid Arthritis, Hx Osteoporosis Sensory History: Reports: Hx Contacts or Glasses, Hx Vision Problem Denies: Hx Hearing Aid Opthamlomology History: Reports: Hx Contacts or Glasses, Hx Vision Problem Neurological History: Reports: Hx Migraine Denies: Hx CVA, Hx Transient Ischemic Attacks (TIA), Other Neuro Impairments/ Disorders - HERNIATED DISC Psychiatric History: Reports: Hx Anxiety - ROUTINE AND PRN MEDICATION FOR, Hx Depression - PTSD- D/T CANCER- TAKES ATIVAN DAILY, Hx Post Traumatic Stress Disorder - Cancer History Cancer Type, Location and Year: breast/2010 Hx Chemotherapy: Yes Hx Radiation Therapy: Yes - Surgical History Surgical History: Yes Surgery Procedure, Year, and Place: RIGHT LUMPECTOMY, TOBI 2012, HYSTERECTOMY 1991, POWERPORT LCW, Hx Anesthesia Reactions: Yes - SEVERE ANXIETY- WITH LUMPECTOMY AND PORT PLACEMENT AND SEVERE NAUSEA Infectious Disease History: No Infectious Disease History: Denies: Hx Clostridium Difficile, Hx Hepatitis, Hx of Known/Suspected MRSA, Hx Shingles, Hx Tuberculosis, Hx Known/Suspected VRE, Hx Known/Suspected VRSA, History Other Infectious Disease, Traveled Outside the [place] in Last 30 Days - Family History Known Family History: Positive: Cardiac Disease, Other - PE - Social History Alcohol Use: Weekly Alcohol Amount: 3 drinks Hx Substance Use: No Substance Use Type: Reports: None Hx Tobacco Use: Yes Smoking Status (MU): Former Smoker Type: Cigarettes Have You Smoked in the Last Year: Yes Review of Systems Positive: Chills. Negative: Fever - pt states 05/30/19 fever 102 Cardiovascular: Negative Positive: Shortness Of Breath, Cough, Other - wheezing Gastrointestinal: Negative Positive: Other - bilateral leg pain characterized as "cramping" Skin: Negative Neurological: Negative Psychological: Normal All Other Systems Reviewed And Are Negative: Yes Physical Exam - Summary Physical Exam Summary: Appearance: Ill-appearing, no acute pain distress, well-nourished, loose congested cough Skin: Warm, color reflects adequate perfusion, dry, scarring on right breast Head: Normal Head/Face inspection, atraumatic Eyes: Conjunctiva clear ENT: Normal inspection Neck: Supple, no nodes, no JVD Respiratory: diffuse expiratory wheezes throughout Cardio: RRR, No murmur, pulses normal, brisk capillary refill Abdomen: Soft, nontender, no rebound, no guarding, no masses, non-distended Bowel sounds: Present Musculoskeletal: Strength Intact/ROM intact, no calf tenderness, no leg tenderness elicited, no edema. Psychological: Normal Neuro: Alert, muscle tone normal, no focal deficit Triage Information Reviewed: Yes Vital Signs On Initial Exam: Initial Vitals Temp Pulse Resp BP Pulse Ox 97.1 F 98 28 126/71 95 06/01/19 18:09 06/01/19 18:09 06/01/19 18:09 06/01/19 18:09 06/01/19 18:09 Vital Signs Reviewed: Yes Diagnostics - Vital Signs Vital Signs Temp Pulse Resp BP Pulse Ox 06/01/19 20:10 101 15 97 06/01/19 18:09 97.1 F 98 28 126/71 95 - Laboratory Lab Results: Lab Results 06/01/19 06/01/19 06/01/19 Range/Units 18:38 18:42 18:42 WBC 6.9 (3.5-10.8) 10^3/uL RBC 3.68 L (3.70-4.87) 10^6 /uL Hgb 12.2 (12.0-16.0) g/dL Hct 36 (35-47) % MCV 97 (80-97) fL MCH 33 H (27-31) pg MCHC 34 (31-36) g/dL RDW 16 H (10-15) % Plt Count 180 (150-450) 10^3/uL MPV 8.7 (7.4-10.4) fL Neut % (Auto) 64.6 % Lymph % (Auto) 23.5 % Calloway % (Auto) 8.8 % Eos % (Auto) 2.4 % Baso % (Auto) 0.7 % Absolute Neuts (auto) 4.4 (1.5-7.7) 10^3/ul Absolute Lymphs (auto) 1.6 (1.0-4.8) 10^3/ul Absolute Monos (auto) 0.6 (0-0.8) 10^3/ul Absolute Eos (auto) 0.2 (0-0.6) 10^3/ul Absolute Basos (auto) 0.1 (0-0.2) 10^3/ul Absolute Nucleated RBC 0.0 10^3/ul Nucleated RBC % 0.1 INR (Anticoag Therapy) (0.82-1.09) APTT (26.0-38.0) seconds D-Dimer, Quantitative (Less Than 230) ng/mL Sodium 130 L (135-145) mmol/L Potassium 4.3 (3.5-5.0) mmol/L Chloride 97 L (101-111) mmol/L Carbon Dioxide 26 (22-32) mmol/L Anion Gap 7 (2-11) mmol/L BUN 15 (6-24) mg/dL Creatinine 0.68 (0.51-0.95) mg/dL Est GFR ( Amer) 106.4 (>60) Est GFR (Non-Af Amer) 88.0 (>60) BUN/Creatinine Ratio 22.1 H (8-20) Glucose 113 H (70-100) mg/dL Lactic Acid (0.5-2.0) mmol/L Calcium 8.9 (8.6-10.3) mg/dL Total Bilirubin 0.80 (0.2-1.0) mg/dL AST 54 H (13-39) U/L ALT 85 H (7-52) U/L Alkaline Phosphatase 107 H (34-104) U/L Total Creatine Kinase 29 (10-223) U/L Troponin I 0.00 (<0.04) ng/mL B-Natriuretic Peptide 32 (<=100) pg/mL Total Protein 6.4 (6.4-8.9) g/dL Albumin 3.7 (3.2-5.2) g/dL Globulin 2.7 (2-4) g/dL Albumin/Globulin Ratio 1.4 (1-3) 06/01/19 06/01/19 Range/Units 18:42 19:43 WBC (3.5-10.8) 10^3/uL RBC (3.70-4.87) 10^6 /uL Hgb (12.0-16.0) g/dL Hct (35-47) % MCV (80-97) fL MCH (27-31) pg MCHC (31-36) g/dL RDW (10-15) % Plt Count (150-450) 10^3/uL MPV (7.4-10.4) fL Neut % (Auto) % Lymph % (Auto) % Calloway % (Auto) % Eos % (Auto) % Baso % (Auto) % Absolute Neuts (auto) (1.5-7.7) 10^3/ul Absolute Lymphs (auto) (1.0-4.8) 10^3/ul Absolute Monos (auto) (0-0.8) 10^3/ul Absolute Eos (auto) (0-0.6) 10^3/ul Absolute Basos (auto) (0-0.2) 10^3/ul Absolute Nucleated RBC 10^3/ul Nucleated RBC % INR (Anticoag Therapy) 0.91 (0.82-1.09) APTT 28.0 (26.0-38.0) seconds D-Dimer, Quantitative < 200 (Less Than 230) ng/mL Sodium (135-145) mmol/L Potassium (3.5-5.0) mmol/L Chloride (101-111) mmol/L Carbon Dioxide (22-32) mmol/L Anion Gap (2-11) mmol/L BUN (6-24) mg/dL Creatinine (0.51-0.95) mg/dL Est GFR ( Amer) (>60) Est GFR (Non-Af Amer) (>60) BUN/Creatinine Ratio (8-20) Glucose (70-100) mg/dL Lactic Acid 1.8 (0.5-2.0) mmol/L Calcium (8.6-10.3) mg/dL Total Bilirubin (0.2-1.0) mg/dL AST (13-39) U/L ALT (7-52) U/L Alkaline Phosphatase (34-104) U/L Total Creatine Kinase (10-223) U/L Troponin I (<0.04) ng/mL B-Natriuretic Peptide (<=100) pg/mL Total Protein (6.4-8.9) g/dL Albumin (3.2-5.2) g/dL Globulin (2-4) g/dL Albumin/Globulin Ratio (1-3) Result Diagrams: 06/02/19 05:13 06/02/19 05:13 Lab Statement: Any lab studies that have been ordered have been reviewed, and results considered in the medical decision making process. - Radiology CHest Xray Radiology Interpretation Completed By: ED Physician Summary of Radiographic Findings: CXR reveals, per ED Physician, Blurring of left heart border consistent with infiltrate of the left lower lobe. Chronic changes due to breast cancer apparent in right lung. Pending offical report. - EKG 1912 Cardiac Rate: NL - 88 bpm EKG Rhythm: Sinus Rhythm ST Segment: Non-Specific Ectopy: None EKG Comparison: No Significant Change - No acute changes compared to 12/15/18 Summary of EKG Findings: An EKG at 1913 sinus rhythm 88 bpm reveals nml AVIVCT, nml QTc, and nml axis. No acute changes. With no significant changes when compared to 12/15/18. ED MD has reviewed and interpreted this EKG. Re-Evaluation - Re-Evaluation First Eval Re-Evaluation Time: 12:23 Change: Worse Comment: Levaquin is causing itchiness and redness at iv site on patients left hand. Second Eval Re-Evaluation Time: 12:34 Change: Improved Comment: Patient was seen by Dr. Chamorro and is hungry. Dr. Chamorro allows patient to eat. Course/Dx - Course Course Of Treatment: Patient is a 63 year old F with hx COPD on home nebs and nocturnal home O2 of 2.5L who has been on steroids x 1week, Augmentin starting today [facility] with increasing SOB and wheezing. On exam pt had diffuse expiratory wheezes throughout despite home nebs and EMS neb. An EKG at 1913 sinus rhythm 88 bpm reveals nml AVIVCT, nml QTc, and nml axis. No acute changes. With no significant changes when compared to 12/15/18. ED MD has reviewed and interpreted this EKG. CXR reveals, per ED Physician, Blurring of left heart border consistent with infiltrate of the left lower lobe. Chronic changes due to breast cancer apparent in right lung. Pending offical report. Test results with normal wbc, normal d-dimer, normal troponin, Sodium 130, Chloride 97, BUN/Creatinine Ratio 22.1, Glucose 113, AST 54, ALT 85, Alkaline Phosphate 107. In the ED course pt met SIRS criteria (2, tachypnea and tachycardia) and was started on the sepsis pathway, with suspected respiratory source. Pt has hx sepsis due to pneumonia in the past. The patient has multiple allergies, which were noted, many due to antibiotics. The patient was given Duoneb neb X2, Zosyn 3.375gm, Levaquin 750 mg IV, and Solu-Medrol 125 mg. Zosyn and Levaquin were chosen for CAP, pseudomonas risk, no PCN allergy (but cephalosporin allergy, so no cefepime). Levaquin indicated on this basis despite possible complications. Pt continued to wheeze despite the above treatments, therefore was admitted to hospitalist - Diagnoses Differential Diagnosis/HQI/PQRI: Positive: COPD Exacerbation, Pneumonia, Pulmonary Embolism Provider Diagnoses: Left lower lobe pneumonia, COPD exacerbation, Transaminitis, Hyponatremia - Physician Notifications Discussed Care of Patient With: Reji Gardner Time Discussed With Above Provider: 22:00 Instructed by Provider To: Admit As Inpatient Discharge ED - Sign-Out/Discharge Documenting (check all that apply): Patient Departure - admit - Discharge Plan Condition: Stable Disposition: ADMITTED TO [facility] - Billing Disposition and Condition Condition: STABLE Disposition: Admitted to [facility] - Attestation Statements Document Initiated by Scribe: Yes Documenting Scribe: Grace Lemus Provider For Whom Odalys is Documenting (Include Credential): Dr. Medina Chamorro MD Scribe Attestation: Grace Hendrix scribed for Dr. Medina Chamorro MD on 07/04/19 at 1503. Scribe Documentation Reviewed: Yes Provider Attestation: The documentation as recorded by the Grace mcclelland accurately reflects the service I personally performed and the decisions made by , Dr. Medina Chamorro MD Status of Scribe Document: Viewed
[2019-06-01] MEDS ORDERED: methylPREDNISolone 125 MG* 2 ML VIAL IV ONE (21:54)
[2019-06-02] MEDS ORDERED: NS 0.9% 1000 ML** 1,000 ML IV SCH (01:45)
[2019-06-02] MEDS ORDERED: Artificial Tears* 15 ML BTL BOTH EYES PRN (01:53)
[2019-06-02 02:57] LABS: Urine Appearance Clear; Urine Bilirubin Negative (Negative); Urine Blood Negative (Negative); Urine Color Straw; Urine Glucose Negative (Negative); Urine Ketones Negative (Negative); Urine Nitrite Negative (Negative); Urine Protein Negative (Negative); Urine Specific Gravity 1.003 (1.010-1.030); Urine Urobilinogen Negative (Negative)
[2019-06-02] MEDS ORDERED: Dextran 70/Hypromellose Tears Eye Drops 15 ml BTL (for Artificials Tears) BOTH EYES PRN (04:41)
--- NOTE | 2019-06-02 04:48 | HP ---
CC: Dr. Johan Shukla * ADMISSION HISTORY AND PHYSICAL: DATE OF ADMISSION: 06/01/19 PRIMARY CARE PROVIDER: Dr. Johan Shukla. DIRECTOR CHILD ABUSE THERAPY: Dr. Kulwant Baltazar. SENIOR MATERIALS SCIENTIST: Dr. Laura Blount. CHIEF COMPLAINT: Shortness of breath, cough, and fever. HISTORY OF PRESENT ILLNESS: This is a 63-year-old female with past medical history of COPD, on nocturnal oxygen of 2.5 L; history of paroxysmal SVT; TIA; patent foramen ovale; hypertension, came in due to worsening shortness of breath. The patient stated that since last Friday she has been having cough and she saw her primary doctor who suggested starting her on a week of Augmentin and steroids. She finished her course of steroids but still does not feel much better, was wheezing quite a bit and 2 nights ago she also had a fever up to 102 degrees Fahrenheit, and given this plethora of symptoms, she finally decided to come to the ER for further evaluation. She did improve after she received steroids and nebulization in the ER. She otherwise offers no chest pain, does have continuous wheezing even right now and states that her shortness of breath is worse with exertion. She has cough, which is productive of clear sputum; however, she has been unable to give any sputum after arriving to the ER. She denies any sick contacts, states that she lives by herself. She was complaining of some left arm pain due to a failed IV attempt by the ambulance crew, which caused a severe bruising to her left arm. PAST MEDICAL HISTORY: As mentioned COPD with nocturnal oxygen therapy of 2.5 L and no oxygen during the day; paroxysmal SVT; TIA over 40 years ago without any residual defects; patent foramen ovale; breast cancer on the right breast status post lumpectomy, chemo and radiation in 2010, finished the entire treatment protocol by 2012, has been in remission; history of hiatal hernia; hypertension; PTSD; asthma; dry eye syndrome; anxiety; and depression. PAST SURGICAL HISTORY: Includes a right lumpectomy as mentioned, cholecystectomy, and hysterectomy. MEDICATIONS: The patient is currently on: 1. Aspirin 325 mg oral daily. 2. Clear Eyes Complete eye drops 1 drop every 3 hours as needed for dry eyes. 3. Atrovent 4 times a day p.r.n. 4. Metoprolol 25 mg every morning. 5. Incruse Ellipta 1 puff by inhalation daily. 6. Protonix 20 mg oral daily. 7. Flecainide 100 mg p.o. b.i.d. 8. Ventolin HFA 2 puffs by inhalation q.4 hours p.r.n. 9. Augmentin 875 p.o. b.i.d. with meals. 10. Xanax 1 mg p.o. 4 times a day 11. Abilify 10 mg oral daily. ALLERGIES: The patient has multiple allergies including CECLOR, CODEINE, ERYTHROMYCIN BASE, HYDROCODONE, IBUPROFEN, LATEX, MEPERIDINE, MORPHINE, OXYCODONE, PAXIL, PREDNISONE, DARVOCET, PROPRANOLOL, TETRACYCLINE, and SULFATE. FAMILY HISTORY: Father had heart attack at age 36, sister had CREST syndrome, and mother of MDS leukemia 4 years ago. SOCIAL HISTORY: The patient is a former smoker, started since April of 2016 quit in June of 2018. Denies any drug use. Does drink occasionally. The patient is otherwise full code. Her surrogate decision maker is her daughter, Karlie Longoria, and secondary is her sister, Demi Askew. REVIEW OF SYSTEMS: A 14-point review of systems did not reveal any new information, other than what is stated in the HPI. PHYSICAL EXAMINATION GENERAL: The patient is awake, alert, oriented x3, did not appear to be in any acute respiratory distress. VITAL SIGNS: In the ER, BP was noted to be 124/71, heart rate 104, respiration rate 22, saturating 96% on 2.5 L nasal cannula, temperature was documented at 97.1. HEAD AND NECK: Atraumatic, normocephalic. Bilateral pupils are reactive. Oral mucosa is dry. Neck is supple. No jugular venous distention. LUNGS: The patient had diffuse wheezing noted on the lungs. HEART: S1, S2. Regular rate and rhythm. ABDOMEN: Soft, nontender, and nondistended. EXTREMITIES: No cyanosis, clubbing, or edema. DIAGNOSTIC STUDIES/LAB DATA: CBC was unremarkable. Coagulation profile was unremarkable. Comprehensive metabolic panel shows hyponatremia with sodium of 130. Lactic acid was normal. AST and ALT were minimally abnormal. Portable chest x-ray was unremarkable. EKG was showing sinus rhythm at 88 beats per minute. When compared to her older EKG from December 2018, the waveform was unchanged. IMPRESSION: This is a 63-year-old female with chronic obstructive pulmonary disease, came in with chronic obstructive pulmonary disease exacerbation requiring continuous oxygen. ASSESSMENT: 1. Shortness of breath secondary to chronic obstructive pulmonary disease exacerbation. We will start the patient on steroids. The patient already finished a course of antibiotics and given her plethora of allergies and no obvious infection on x-ray, we would not start the patient on any azithromycin or Levaquin. The patient did state that the Levaquin given in the ER caused her to have severe rash, which has since resolved. We will order a sputum examination to make sure that there is no infectious etiology, and if the patient develops fever or sputum culture is positive, we can consider starting the patient on any antibiotics accordingly. The patient will be started on DuoNeb. 2. History of paroxysmal supraventricular tachycardia. Restart her home flecainide and metoprolol. 3. History of anxiety and depression. Restart her Abilify and Xanax. 4. History of dry eyes. Restart home eye drops. 5. DVT prophylaxis with sequential compression device. 6. Code status. Full code. [id number]/[facility] #: [id number] MTDD
[2019-06-02] MEDS ORDERED: Albuterol/Ipratropium NEB.SOL* Albuterol 2.5 MG/Ipratropium 0.5 MG 3 ML INH PRN (06:34)
[2019-06-02 06:37] LABS: ABS Lymphocytes 0.2 10^3/ul (1.0-4.8); ABS Monocytes 0.1 10^3/ul (0-0.8); ABS Neutrophils 6.2 10^3/ul (1.5-7.7); Hematocrit 34 % (35-47); Hemoglobin 11.6 g/dL (12.0-16.0); Lymphocyte % 3.8 %; Mean Corpuscular HGB Conc 34 g/dL (31-36); Mean Corpuscular Hemoglobin 34 pg (27-31); Mean Corpuscular Volume 99 fL (80-97); Mean Platelet Volume 9.5 fL (7.4-10.4); Nucleated Red Blood Cells % 0.1; Platelet Count 200 10^3/uL (150-450); Red Blood Count 3.43 10^6 /uL (3.70-4.87); Red Cell Distribution Width 17 % (10-15); White Blood Count 6.5 10^3/uL (3.5-10.8)
[2019-06-02 06:49] LABS: BUN/Creatinine Ratio 14.9 (8-20); Calcium 8.7 mg/dL (8.6-10.3); EGFR African American 96.5 (>60); EGFR Non-African American 79.8 (>60); Potassium 4.2 mmol/L (3.5-5.0)
[2019-06-02] MEDS ORDERED: Albuterol/Ipratropium NEB.SOL* Albuterol 2.5 MG/Ipratropium 0.5 MG 3 ML INH SCH (07:00)
[2019-06-02] MEDS: SPIRIVA Respimat* (tiotropium) 2.5 mcg/inh Inhaler INH SCH (08:59)
[2019-06-02] MEDS: Flecainide TAB* 100 MG PO SCH ×2 (09:09→21:09)
[2019-06-02] MEDS: Metoprolol Succinate XL TAB* 25 MG PO SCH (09:09)
[2019-06-02] MEDS: Aspirin TAB* 325 MG PO SCH (09:39)
[2019-06-02] MEDS: ARIPiprazole TAB* 2 MG PO SCH (09:39)
[2019-06-02] MEDS: Pantoprazole TAB * 40 MG TAB PO SCH (09:39)
[2019-06-02] MEDS: ALPRAZolam TAB* 0.5 MG PO PRN ×2 (09:47→21:09)
[2019-06-02] MEDS: methylPREDNISolone SOD 40 MG* 1 ML VIAL IV SCH ×2 (10:25→21:09)
[2019-06-02] MEDS: guaiFENesin ER TAB 600 MG PO SCH ×2 (13:43→21:09)
[2019-06-02] MEDS: Albuterol/Ipratropium NEB.SOL* Albuterol 2.5 MG/Ipratropium 0.5 MG 3 ML INH SCH ×4 (14:20→23:13)
--- NOTE | 2019-06-02 15:23 | PN ---
Hospitalist Progress Note Date of Service: 06/02/19 Brief Re-eval Patient seen and examined. Remains SOB with increased WOB. Increased duonebs to Q4H scheduled with PRN albuterol, continue LAMA and IV solumedrol. Mucinex added BID. CXR evaluated, official read with no consolidation. No indication for atbx at this time. Pending sputum cx.
[2019-06-02] MEDS: Benzocaine/Menthol LOZ* 1 LOZENGE PO PRN (21:09)
[2019-06-03] MEDS: Benzocaine/Menthol LOZ* 1 LOZENGE PO PRN ×2 (03:18→21:18)
[2019-06-03] MEDS: ALPRAZolam TAB* 0.5 MG PO PRN ×3 (03:18→21:17)
[2019-06-03] MEDS: SPIRIVA Respimat* (tiotropium) 2.5 mcg/inh Inhaler INH SCH (07:32)
[2019-06-03] MEDS: Albuterol 2.5 MG/3 ML NEB.SOL* (0.083%) INH PRN ×3 (07:35→15:19)
[2019-06-03] MEDS: guaiFENesin ER TAB 600 MG PO SCH ×2 (08:18→21:18)
[2019-06-03] MEDS: ARIPiprazole TAB* 2 MG PO SCH (08:18)
[2019-06-03] MEDS: Flecainide TAB* 100 MG PO SCH ×2 (08:18→21:18)
[2019-06-03] MEDS: Aspirin TAB* 325 MG PO SCH (08:18)
[2019-06-03] MEDS: Pantoprazole TAB * 40 MG TAB PO SCH (08:18)
[2019-06-03] MEDS: Metoprolol Succinate XL TAB* 25 MG PO SCH (08:18)
[2019-06-03] MEDS: methylPREDNISolone SOD 40 MG* 1 ML VIAL IV SCH ×2 (09:21→18:05)
--- NOTE | 2019-06-03 17:45 | PN ---
Subjective Date of Service: 06/03/19 Interval History: Patient seen and examined. Remains wheezy, no acute SOB, has loose cough but not bringing up a lot of sputum. No fever or chills. No chest pain, no further complaints. Objective Active Medications: Albuterol (Ventolin 2.5 Mg/3 Ml Neb.Sofia*) 2.5 mg INH Q4H PRN PRN Reason: SOB/WHEEZING Last Admin: 06/03/19 15:19 Dose: 2.5 mg Albuterol/Ipratropium (Duoneb (Albuterol 2.5 Mg/Ipratropium 0.5 Mg)) 1 neb INH Q4H PRN PRN Reason: SOB/WHEEZING Alprazolam (Xanax Tab*) 1 mg PO QID PRN PRN Reason: ANXIETY Last Admin: 06/03/19 12:30 Dose: 1 mg Aripiprazole (Abilify Tab*) 2 mg PO DAILY [facility] Last Admin: 06/03/19 08:18 Dose: 2 mg Artificial Tears (Natural Balance Tears Eye Drop) 1 drop BOTH EYES Q3H PRN PRN Reason: DRY EYE Aspirin (Aspirin Tab*) 325 mg PO DAILY [facility] Last Admin: 06/03/19 08:18 Dose: 325 mg Flecainide Acetate (Tambocor Tab*) 100 mg PO BID [facility] Last Admin: 06/03/19 08:18 Dose: 100 mg Guaifenesin (Mucinex*) 600 mg PO BID [facility] Last Admin: 06/03/19 08:18 Dose: 600 mg Methylprednisolone Sodium Succinate (Solu-Medrol 40 Mg) 40 mg IV Q8H [facility] Metoprolol Succinate (Toprol Xl Tab*) 25 mg PO QAM [facility] Last Admin: 06/03/19 08:18 Dose: 25 mg Pantoprazole Sodium (Protonix Tab*) 40 mg PO DAILY [facility] Last Admin: 06/03/19 08:18 Dose: 40 mg Throat Lozenges (Chloraseptic Darcy*) 1 darcy PO Q6H PRN PRN Reason: SORE THROAT Last Admin: 06/03/19 03:18 Dose: 1 darcy Tiotropium [place] (Spiriva Respimat 2.5 Mcg) 2 puff INH DAILY [facility] Last Admin: 06/03/19 07:32 Dose: 2 puff Vital Signs - 8 hr 06/03/19 06/03/19 06/03/19 11:00 11:26 12:30 Temperature 97.7 F Pulse Rate 89 88 Respiratory 22 16 24 Rate Blood Pressure 136/71 (mmHg) O2 Sat by Pulse 94 93 Oximetry 06/03/19 06/03/19 06/03/19 15:00 15:22 16:24 Temperature 98.5 F Pulse Rate 101 99 Respiratory 20 16 24 Rate Blood Pressure 144/72 (mmHg) O2 Sat by Pulse 94 95 Oximetry Oxygen Devices in Use Now: None Appearance: alert, NAD Eyes: No Scleral Icterus, PERRLA Ears/Nose/Mouth/Throat: Mucous Membranes Moist Neck: NL Appearance and Movements; NL JVP, Trachea Midline Respiratory: Symmetrical Chest Expansion and Respiratory Effort, - - course breath sounds bilaterally with insp/exp wheeze Cardiovascular: NL Sounds; No Murmurs; No JVD Abdominal: NL Sounds; No Tenderness; No Distention Extremities: No Edema, No Clubbing, Cyanosis Skin: No Rash or Ulcers Neurological: Alert and Oriented x 3, NL Sensation, NL Gait Result Diagrams: 06/02/19 05:13 06/02/19 05:13 Additional Lab and Data: Lab Results 06/01/19 06/01/19 06/01/19 Range/Units 18:38 18:42 18:42 WBC 6.9 (3.5-10.8) 10^3/uL RBC 3.68 L (3.70-4.87) 10^6 /uL Hgb 12.2 (12.0-16.0) g/dL Hct 36 (35-47) % MCV 97 (80-97) fL MCH 33 H (27-31) pg MCHC 34 (31-36) g/dL RDW 16 H (10-15) % Plt Count 180 (150-450) 10^3/uL MPV 8.7 (7.4-10.4) fL Neut % (Auto) 64.6 % Lymph % (Auto) 23.5 % [place] % (Auto) 8.8 % Eos % (Auto) 2.4 % Baso % (Auto) 0.7 % Absolute Neuts (auto) 4.4 (1.5-7.7) 10^3/ul Absolute Lymphs (auto) 1.6 (1.0-4.8) 10^3/ul Absolute Monos (auto) 0.6 (0-0.8) 10^3/ul Absolute Eos (auto) 0.2 (0-0.6) 10^3/ul Absolute Basos (auto) 0.1 (0-0.2) 10^3/ul Absolute Nucleated RBC 0.0 10^3/ul Nucleated RBC % 0.1 INR (Anticoag Therapy) (0.82-1.09) APTT (26.0-38.0) seconds D-Dimer, Quantitative (Less Than 230) ng/mL Sodium 130 L (135-145) mmol/L Potassium 4.3 (3.5-5.0) mmol/L Chloride 97 L (101-111) mmol/L Carbon Dioxide 26 (22-32) mmol/L Anion Gap 7 (2-11) mmol/L BUN 15 (6-24) mg/dL Creatinine 0.68 (0.51-0.95) mg/dL Est GFR ( Amer) 106.4 (>60) Est GFR (Non-Af Amer) 88.0 (>60) BUN/Creatinine Ratio 22.1 H (8-20) Glucose 113 H (70-100) mg/dL Lactic Acid (0.5-2.0) mmol/L Calcium 8.9 (8.6-10.3) mg/dL Total Bilirubin 0.80 (0.2-1.0) mg/dL AST 54 H (13-39) U/L ALT 85 H (7-52) U/L Alkaline Phosphatase 107 H (34-104) U/L Total Creatine Kinase 29 (10-223) U/L Troponin I 0.00 (<0.04) ng/mL B-Natriuretic Peptide 32 (<=100) pg/mL Total Protein 6.4 (6.4-8.9) g/dL Albumin 3.7 (3.2-5.2) g/dL Globulin 2.7 (2-4) g/dL Albumin/Globulin Ratio 1.4 (1-3) 06/01/19 06/01/19 Range/Units 18:42 19:43 WBC (3.5-10.8) 10^3/uL RBC (3.70-4.87) 10^6 /uL Hgb (12.0-16.0) g/dL Hct (35-47) % MCV (80-97) fL MCH (27-31) pg MCHC (31-36) g/dL RDW (10-15) % Plt Count (150-450) 10^3/uL MPV (7.4-10.4) fL Neut % (Auto) % Lymph % (Auto) % [place] % (Auto) % Eos % (Auto) % Baso % (Auto) % Absolute Neuts (auto) (1.5-7.7) 10^3/ul Absolute Lymphs (auto) (1.0-4.8) 10^3/ul Absolute Monos (auto) (0-0.8) 10^3/ul Absolute Eos (auto) (0-0.6) 10^3/ul Absolute Basos (auto) (0-0.2) 10^3/ul Absolute Nucleated RBC 10^3/ul Nucleated RBC % INR (Anticoag Therapy) 0.91 (0.82-1.09) APTT 28.0 (26.0-38.0) seconds D-Dimer, Quantitative < 200 (Less Than 230) ng/mL Sodium (135-145) mmol/L Potassium (3.5-5.0) mmol/L Chloride (101-111) mmol/L Carbon Dioxide (22-32) mmol/L Anion Gap (2-11) mmol/L BUN (6-24) mg/dL Creatinine (0.51-0.95) mg/dL Est GFR ( Amer) (>60) Est GFR (Non-Af Amer) (>60) BUN/Creatinine Ratio (8-20) Glucose (70-100) mg/dL Lactic Acid 1.8 (0.5-2.0) mmol/L Calcium (8.6-10.3) mg/dL Total Bilirubin (0.2-1.0) mg/dL AST (13-39) U/L ALT (7-52) U/L Alkaline Phosphatase (34-104) U/L Total Creatine Kinase (10-223) U/L Troponin I (<0.04) ng/mL B-Natriuretic Peptide (<=100) pg/mL Total Protein (6.4-8.9) g/dL Albumin (3.2-5.2) g/dL Globulin (2-4) g/dL Albumin/Globulin Ratio (1-3) Microbiology and Other Data: Microbiology 06/01/19 18:42 Aerobic Blood Culture - Preliminary Blood Venous No Growth Day 1 Anaerobic Blood Culture - Preliminary No Growth Day 1 06/01/19 18:42 Aerobic Blood Culture - Preliminary Blood Venous No Growth Day 1 Anaerobic Blood Culture - Preliminary No Growth Day 1 06/02/19 08:55 Gram Stain - Final Sputum Expectorated Assess/Plan/Problems-Billing Assessment: This is a 63 year old female with hx of COPD and depression that presents with increasing wheeze and SOB. - Patient Problems (1) COPD with exacerbation Code(s): J44.1 - CHRONIC OBSTRUCTIVE PULMONARY DISEASE W (ACUTE) EXACERBATION SNOMED Code(s): 321625383 Comment: - Was on atbx as outpatient but was persistently SOB - No consolidation on CXR, no WBC count - Increase IV solumedrol to Q8H, duonebs Q4h and flutter valve and mucinex - continue home tiotropium (2) Anxiety Code(s): F41.9 - ANXIETY DISORDER, UNSPECIFIED SNOMED Code(s): 41705658 Comment: - continue xanax and abilify (3) HTN (hypertension) Code(s): I10 - ESSENTIAL (PRIMARY) HYPERTENSION SNOMED Code(s): 47257315 Comment: - Normotensive, SBP 110s - Continue metoprolol (4) Tobacco abuse Code(s): Z72.0 - TOBACCO USE SNOMED Code(s): 123512757 Comment: - Counseled (5) DVT prophylaxis Code(s): RUZ4716 - SNOMED Code(s): 225548515 Comment: - Ambulate (6) Full code status Code(s): Z78.9 - OTHER SPECIFIED HEALTH STATUS SNOMED Code(s): 945523500 Comment: Status and Disposition: Inpatient.
[2019-06-03] MEDS: Albuterol/Ipratropium NEB.SOL* Albuterol 2.5 MG/Ipratropium 0.5 MG 3 ML INH PRN (20:25)
[2019-06-04] MEDS: methylPREDNISolone SOD 40 MG* 1 ML VIAL IV SCH ×3 (03:12→16:43)
[2019-06-04] MEDS: ALPRAZolam TAB* 0.5 MG PO PRN ×2 (06:30→16:43)
[2019-06-04] MEDS: Benzocaine/Menthol LOZ* 1 LOZENGE PO PRN ×2 (06:30→16:43)
[2019-06-04] MEDS: SPIRIVA Respimat* (tiotropium) 2.5 mcg/inh Inhaler INH SCH (07:43)
[2019-06-04] MEDS: Albuterol/Ipratropium NEB.SOL* Albuterol 2.5 MG/Ipratropium 0.5 MG 3 ML INH PRN ×3 (07:52→22:17)
[2019-06-04] MEDS: Metoprolol Succinate XL TAB* 25 MG PO SCH (08:36)
[2019-06-04] MEDS: ARIPiprazole TAB* 2 MG PO SCH (08:36)
[2019-06-04] MEDS: Pantoprazole TAB * 40 MG TAB PO SCH (08:36)
[2019-06-04] MEDS: Flecainide TAB* 100 MG PO SCH ×2 (08:36→20:16)
[2019-06-04] MEDS: Aspirin TAB* 325 MG PO SCH (08:36)
[2019-06-04] MEDS: guaiFENesin ER TAB 600 MG PO SCH ×2 (08:36→20:16)
--- NOTE | 2019-06-04 13:01 | PN ---
Subjective Date of Service: 06/04/19 Interval History: Patient seen and examined. Feeling better today, states she feels her breathing is slowly improving with increase in steroid frequency yesterday. Denies fevers or chills. Still has unproductive cough. We discussed smoking cessation and her COPD. Objective Active Medications: Albuterol (Ventolin 2.5 Mg/3 Ml Neb.Sofia*) 2.5 mg INH Q4H PRN PRN Reason: SOB/WHEEZING Last Admin: 06/03/19 15:19 Dose: 2.5 mg Albuterol/Ipratropium (Duoneb (Albuterol 2.5 Mg/Ipratropium 0.5 Mg)) 1 neb INH Q4H PRN PRN Reason: SOB/WHEEZING Last Admin: 06/04/19 07:52 Dose: 1 neb Alprazolam (Xanax Tab*) 1 mg PO QID PRN PRN Reason: ANXIETY Last Admin: 06/04/19 06:30 Dose: 1 mg Aripiprazole (Abilify Tab*) 2 mg PO DAILY [facility] Last Admin: 06/04/19 08:36 Dose: 2 mg Artificial Tears (Natural Balance Tears Eye Drop) 1 drop BOTH EYES Q3H PRN PRN Reason: DRY EYE Aspirin (Aspirin Tab*) 325 mg PO DAILY [facility] Last Admin: 06/04/19 08:36 Dose: 325 mg Flecainide Acetate (Tambocor Tab*) 100 mg PO BID [facility] Last Admin: 06/04/19 08:36 Dose: 100 mg Guaifenesin (Mucinex*) 600 mg PO BID [facility] Last Admin: 06/04/19 08:36 Dose: 600 mg Methylprednisolone Sodium Succinate (Solu-Medrol 40 Mg) 40 mg IV Q8H [facility] Last Admin: 06/04/19 11:19 Dose: 40 mg Metoprolol Succinate (Toprol Xl Tab*) 25 mg PO QAM [facility] Last Admin: 06/04/19 08:36 Dose: 25 mg Pantoprazole Sodium (Protonix Tab*) 40 mg PO DAILY [facility] Last Admin: 06/04/19 08:36 Dose: 40 mg Throat Lozenges (Chloraseptic Darcy*) 1 darcy PO Q6H PRN PRN Reason: SORE THROAT Last Admin: 06/04/19 06:30 Dose: 1 darcy Tiotropium [place] (Spiriva Respimat 2.5 Mcg) 2 puff INH DAILY [facility] Last Admin: 06/04/19 07:43 Dose: 2 puff Vital Signs - 8 hr 06/04/19 06/04/19 06/04/19 06:30 07:36 07:44 Temperature 97.4 F Pulse Rate 80 86 Respiratory 18 16 18 Rate Blood Pressure 144/70 (mmHg) O2 Sat by Pulse 97 97 Oximetry 06/04/19 06/04/19 07:45 07:55 Temperature Pulse Rate 90 80 Respiratory 18 18 Rate Blood Pressure (mmHg) O2 Sat by Pulse 98 99 Oximetry Oxygen Devices in Use Now: None Appearance: alert, NAD Eyes: PERRLA Ears/Nose/Mouth/Throat: NL Teeth, Lips, Gums, Mucous Membranes Moist Neck: NL Appearance and Movements; NL JVP, Trachea Midline Respiratory: Symmetrical Chest Expansion and Respiratory Effort, - - improved aeration, decreased wheeze on right, exp wheeze note on left 1/2 up from base Abdominal: NL Sounds; No Tenderness; No Distention Skin: No Rash or Ulcers Neurological: Alert and Oriented x 3, NL Gait Nutrition: Taking PO's Result Diagrams: 06/02/19 05:13 06/02/19 05:13 Additional Lab and Data: Lab Results 06/01/19 06/01/19 06/01/19 Range/Units 18:38 18:42 18:42 WBC 6.9 (3.5-10.8) 10^3/uL RBC 3.68 L (3.70-4.87) 10^6 /uL Hgb 12.2 (12.0-16.0) g/dL Hct 36 (35-47) % MCV 97 (80-97) fL MCH 33 H (27-31) pg MCHC 34 (31-36) g/dL RDW 16 H (10-15) % Plt Count 180 (150-450) 10^3/uL MPV 8.7 (7.4-10.4) fL Neut % (Auto) 64.6 % Lymph % (Auto) 23.5 % [place] % (Auto) 8.8 % Eos % (Auto) 2.4 % Baso % (Auto) 0.7 % Absolute Neuts (auto) 4.4 (1.5-7.7) 10^3/ul Absolute Lymphs (auto) 1.6 (1.0-4.8) 10^3/ul Absolute Monos (auto) 0.6 (0-0.8) 10^3/ul Absolute Eos (auto) 0.2 (0-0.6) 10^3/ul Absolute Basos (auto) 0.1 (0-0.2) 10^3/ul Absolute Nucleated RBC 0.0 10^3/ul Nucleated RBC % 0.1 INR (Anticoag Therapy) (0.82-1.09) APTT (26.0-38.0) seconds D-Dimer, Quantitative (Less Than 230) ng/mL Sodium 130 L (135-145) mmol/L Potassium 4.3 (3.5-5.0) mmol/L Chloride 97 L (101-111) mmol/L Carbon Dioxide 26 (22-32) mmol/L Anion Gap 7 (2-11) mmol/L BUN 15 (6-24) mg/dL Creatinine 0.68 (0.51-0.95) mg/dL Est GFR ( Amer) 106.4 (>60) Est GFR (Non-Af Amer) 88.0 (>60) BUN/Creatinine Ratio 22.1 H (8-20) Glucose 113 H (70-100) mg/dL Lactic Acid (0.5-2.0) mmol/L Calcium 8.9 (8.6-10.3) mg/dL Total Bilirubin 0.80 (0.2-1.0) mg/dL AST 54 H (13-39) U/L ALT 85 H (7-52) U/L Alkaline Phosphatase 107 H (34-104) U/L Total Creatine Kinase 29 (10-223) U/L Troponin I 0.00 (<0.04) ng/mL B-Natriuretic Peptide 32 (<=100) pg/mL Total Protein 6.4 (6.4-8.9) g/dL Albumin 3.7 (3.2-5.2) g/dL Globulin 2.7 (2-4) g/dL Albumin/Globulin Ratio 1.4 (1-3) 06/01/19 06/01/19 Range/Units 18:42 19:43 WBC (3.5-10.8) 10^3/uL RBC (3.70-4.87) 10^6 /uL Hgb (12.0-16.0) g/dL Hct (35-47) % MCV (80-97) fL MCH (27-31) pg MCHC (31-36) g/dL RDW (10-15) % Plt Count (150-450) 10^3/uL MPV (7.4-10.4) fL Neut % (Auto) % Lymph % (Auto) % [place] % (Auto) % Eos % (Auto) % Baso % (Auto) % Absolute Neuts (auto) (1.5-7.7) 10^3/ul Absolute Lymphs (auto) (1.0-4.8) 10^3/ul Absolute Monos (auto) (0-0.8) 10^3/ul Absolute Eos (auto) (0-0.6) 10^3/ul Absolute Basos (auto) (0-0.2) 10^3/ul Absolute Nucleated RBC 10^3/ul Nucleated RBC % INR (Anticoag Therapy) 0.91 (0.82-1.09) APTT 28.0 (26.0-38.0) seconds D-Dimer, Quantitative < 200 (Less Than 230) ng/mL Sodium (135-145) mmol/L Potassium (3.5-5.0) mmol/L Chloride (101-111) mmol/L Carbon Dioxide (22-32) mmol/L Anion Gap (2-11) mmol/L BUN (6-24) mg/dL Creatinine (0.51-0.95) mg/dL Est GFR ( Amer) (>60) Est GFR (Non-Af Amer) (>60) BUN/Creatinine Ratio (8-20) Glucose (70-100) mg/dL Lactic Acid 1.8 (0.5-2.0) mmol/L Calcium (8.6-10.3) mg/dL Total Bilirubin (0.2-1.0) mg/dL AST (13-39) U/L ALT (7-52) U/L Alkaline Phosphatase (34-104) U/L Total Creatine Kinase (10-223) U/L Troponin I (<0.04) ng/mL B-Natriuretic Peptide (<=100) pg/mL Total Protein (6.4-8.9) g/dL Albumin (3.2-5.2) g/dL Globulin (2-4) g/dL Albumin/Globulin Ratio (1-3) Microbiology and Other Data: Microbiology 06/01/19 18:42 Aerobic Blood Culture - Preliminary Blood Venous No Growth Day 1 Anaerobic Blood Culture - Preliminary No Growth Day 1 06/01/19 18:42 Aerobic Blood Culture - Preliminary Blood Venous No Growth Day 1 Anaerobic Blood Culture - Preliminary No Growth Day 1 06/02/19 08:55 Gram Stain - Final Sputum Expectorated Assess/Plan/Problems-Billing Assessment: This is a 63 year old female with hx of COPD and depression that presents with increasing wheeze and SOB. - Patient Problems (1) COPD with exacerbation Code(s): J44.1 - CHRONIC OBSTRUCTIVE PULMONARY DISEASE W (ACUTE) EXACERBATION SNOMED Code(s): 352251231 Comment: - Was on atbx as outpatient but was persistently SOB - No consolidation on CXR, no WBC count - Increased IV solumedrol to Q8H, duonebs Q4h and flutter valve and mucinex - continue home tiotropium - Clinically improved today (2) Anxiety Code(s): F41.9 - ANXIETY DISORDER, UNSPECIFIED SNOMED Code(s): 52779612 Comment: - continue xanax and abilify (3) HTN (hypertension) Code(s): I10 - ESSENTIAL (PRIMARY) HYPERTENSION SNOMED Code(s): 68243664 Comment: - Normotensive, SBP 110s - Continue metoprolol (4) Tobacco abuse Code(s): Z72.0 - TOBACCO USE SNOMED Code(s): 510452870 Comment: - Counseled (5) DVT prophylaxis Code(s): KJJ1261 - SNOMED Code(s): 717577581 Comment: - Ambulate (6) Full code status Code(s): Z78.9 - OTHER SPECIFIED HEALTH STATUS SNOMED Code(s): 024013509 Comment: Status and Disposition: Inpatient. May be able to discharge to home tomorrow on steroid taper. Reassess in AM.
[2019-06-05] MEDS: ALPRAZolam TAB* 0.5 MG PO PRN ×2 (00:17→08:46)
[2019-06-05] MEDS: Benzocaine/Menthol LOZ* 1 LOZENGE PO PRN ×2 (00:19→08:46)
[2019-06-05] MEDS: methylPREDNISolone SOD 40 MG* 1 ML VIAL IV SCH ×2 (03:12→10:46)
[2019-06-05] MEDS: SPIRIVA Respimat* (tiotropium) 2.5 mcg/inh Inhaler INH SCH (07:29)
[2019-06-05] MEDS: Albuterol/Ipratropium NEB.SOL* Albuterol 2.5 MG/Ipratropium 0.5 MG 3 ML INH PRN ×2 (08:09→13:22)
[2019-06-05] MEDS: ARIPiprazole TAB* 2 MG PO SCH (08:45)
[2019-06-05] MEDS: Metoprolol Succinate XL TAB* 25 MG PO SCH (08:46)
[2019-06-05] MEDS: Pantoprazole TAB * 40 MG TAB PO SCH (08:46)
[2019-06-05] MEDS: guaiFENesin ER TAB 600 MG PO SCH (08:46)
[2019-06-05] MEDS: Aspirin TAB* 325 MG PO SCH (08:46)
[2019-06-05] MEDS: Flecainide TAB* 100 MG PO SCH (08:46)
[2019-06-05 12:52] VITALS: BP 134/71
--- NOTE | 2019-06-05 23:11 | DS ---
CC: Dr. Johan Shukla; Dr. Laura Blount * DISCHARGE SUMMARY: DATE OF ADMISSION: 06/02/19 DATE OF ADMISSION: 06/05/19 PRIMARY CARE PHYSICIAN: Dr. Johan Shukla. DIRECTOR OF QUALITY: Dr. Laura Blount. ATTENDING PHYSICIAN: Dr. Kenna Ortiz * (dictated by Calli Ernandez NP) PRIMARY DIAGNOSES: 1. Chronic obstructive pulmonary disease exacerbation. 2. Kjcxe-sa-[id number] hypoxic respiratory failure. SECONDARY DIAGNOSES: 1. Anxiety. 2. Hypertension. STUDIES WHILE IN THE HOSPITAL: 1. Chest x-ray on 06/01/19 reads as findings consistent with COPD and no evidence of acute findings. 2. EKG on 06/01/19 shows normal sinus rhythm with a rate of 88, QTc 448 with no ischemic changes. HISTORY OF PRESENT ILLNESS AND HOSPITAL COURSE: Ms. Cifuentes is a 63-year-old female with past medical history of COPD, chronic hypoxic respiratory failure, on 2.5 L of oxygen overnight, PSVT, hypertension, anxiety and depression, who presented to the emergency room on 06/01/19 with complaints of shortness of breath and cough. Please see the history and physical by Dr. Gardner for complete summary of the events leading up to this hospitalization. In short, the patient has reported over 1 week of shortness of breath. She has seen her primary care provider who placed her on Augmentin and methylprednisolone. She finished the steroids, but was still having shortness of breath. She reported a fever of 102 degrees at home, and for those reasons, she presented to the emergency room. In the emergency room, the patient was noted to be requiring 2.5 L of oxygen while awake to maintain saturations in the 90s and so she was admitted by the hospitalist service. The patient was placed on Solu-Medrol, though was not started on any antibiotic therapy as there was no evidence of infection and she did recently finish nearly an entire course of Augmentin. She was additionally placed on nebulizers. The patient continued to improve on steroids and was weaned off oxygen on 06/04/19. She continues to report of some mild shortness of breath with exertion, though this is manageable. She no longer has a significant cough. At this point, she reports feeling well enough to go home and return to her normal daily activities. As of this morning, she is saturating 99% on room air. On exam, she has no focal neurological deficits. Her rate has a regular rate and rhythm with no murmurs, rubs or gallops. Lungs have mild expiratory wheezing throughout. There are no rhonchi or crackles. There is no edema. Physical exam is otherwise benign. Ms. Cifuentes is stable for discharge today. Vital signs are as follows: Temp 97.3, heart rate 81, respiratory rate 18, oxygen saturation 99% on room air, blood pressure 134/71. DISCHARGE MEDICATIONS: New medications: 1. Methylprednisolone 8 mg tablet taper (32 mg for 3 days, then 24 mg for 3 days, then 16 mg for 3 days and then 8 mg for 3 days). Continued medications: 1. Alprazolam 1 mg p.o. 4 times a day p.r.n. anxiety. 2. Aspirin 325 mg p.o. daily. 3. Flecainide 100 mg p.o. b.i.d. 4. Metoprolol succinate 25 mg p.o. daily. 5. Clear Eyes 1 drop both eyes q.3 hours p.r.n. dry eye. 6. Pantoprazole 20 mg p.o. daily. 7. Incruse Ellipta 1 puff daily. 8. Albuterol MDI 2 puffs q.4 hours p.r.n. shortness of breath. 9. Ipratropium neb 0.5 mg inhalation 4 times a day p.r.n. shortness of breath, wheezing. Discontinued medications: 1. Augmentin. DISCHARGE PLAN: Ms. Cifuentes will be discharged home. Activity will be as tolerated, though I have advised the patient to slowly return to her normal level of activity and to stop if she experiences any shortness of breath. DIET: Heart healthy. MEDICATIONS: As noted above. The patient does report intolerance to prednisone and does not want to take prednisone, although she reports that she has done well on methylprednisolone previously including just prior to admission. So, I have prescribed a 12-day taper for her to complete. She can continue her other usual medications as noted above, though she does not need to complete any additional Augmentin if she has any remaining pills. 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 The patient should return to the emergency room or nearest hospital for any worsening of symptoms, shortness of breath, lightheadedness, dizziness, chest discomfort, high fever, chills, night sweats, loss of consciousness or any other worrisome signs or symptoms. DISCHARGE CONDITION: Stable. DISCHARGE DISPOSITION: To home. This is a summarized report of a complex medical history and hospital stay. For further details, please see the entire medical record. TIME SPENT: Approximately 50 minutes were spent on this discharge. CALLI E[place]DEZ NP [id number]/CPS #: [id number] AGNIESZKA
== END 2019-06-05 16:15 | disposition home or self-care (01) | DRG 190 ==
LOC: ED 18:04 → MED 06-02 01:45
PROVIDERS: ADMIT Internal Medicine; ATTEND Internal Medicine
DX: J44.1 Chronic obstructive pulmonary disease with (acute) exacerbation (principal); J96.21 Acute and chronic respiratory failure with hypoxia; Q21.1 Atrial septal defect; F41.9 Anxiety disorder, unspecified; I10 Essential (primary) hypertension; S40.022A Contusion of left upper arm, initial encounter; X58.XXXA Exposure to other specified factors, initial encounter; F43.10 Post-traumatic stress disorder, unspecified; H04.129 Dry eye syndrome of unspecified lacrimal gland; M19.042 Primary osteoarthritis, left hand; M19.041 Primary osteoarthritis, right hand; K21.9 Gastro-esophageal reflux disease without esophagitis; G43.909 Migraine, unspecified, not intractable, without status migrainosus; F32.9 Major depressive disorder, single episode, unspecified; Z79.82 Long term (current) use of aspirin; Z99.81 Dependence on supplemental oxygen; Z86.73 Personal history of transient ischemic attack (TIA), and cerebral infarction without residual deficits; Y92.89 Other specified places as the place of occurrence of the external cause; Z85.3 Personal history of malignant neoplasm of breast; Z92.21 Personal history of antineoplastic chemotherapy; Z92.3 Personal history of irradiation; Z90.49 Acquired absence of other specified parts of digestive tract; Z90.710 Acquired absence of both cervix and uterus; Z88.5 Allergy status to narcotic agent; Z88.1 Allergy status to other antibiotic agents; Z88.8 Allergy status to other drugs, medicaments and biological substances; Z88.2 Allergy status to sulfonamides; Z88.6 Allergy status to analgesic agent; Z80.6 Family history of leukemia; Z83.2 Family history of diseases of the blood and blood-forming organs and certain disorders involving the immune mechanism; Z87.891 Personal history of nicotine dependence; Z72.89 Other problems related to lifestyle; Z91.040 Latex allergy status
CPT/HCPCS: 36415; 71046; 80048; 80053; 81003; 82550; 83605; 83880; 84484; 85025; 85379; 85610; 85730; 87040; 87070; 87205; 93005; 94640; 99284; A9270-GY; J2920; J2930; J3535

== ENCOUNTER 2019-09-17 08:41 | Emergency (ER) | payer MEDICARE, MEDICAID ==
[2019-09-17] MEDS ORDERED: Albuterol/Ipratropium NEB.SOL* Albuterol 2.5 MG/Ipratropium 0.5 MG 3 ML INH ONE (08:51)
--- NOTE | 2019-09-17 08:56 | ED ---
Shortness of Breath - HPI Summary HPI Summary: 64-year-old female with a significant past medical history of COPD with nocturnal oxygen therapy of 2.5 L with no oxygen during the day, paroxysmal SVT , TIA over 40 years ago without any residual effects, patent foramen ovale, breast cancer on the right breast status post lumpectomy, chemotherapy and radiation in 2010, hypertension, asthma presents to the emergency department today complaining of shortness of breath and cough. Patient states 2 days ago she began having wheezing, shortness of breath, cough, muscle aches, sore throat and nasal congestion. Patient has not taken anything prior to arrival other than her home meds. Patient is currently resting comfortably and denies recent alcohol or recreational drug use. Family history and surgical history noncontributory. - History of Current Complaint Chief Complaint: EDRespiratoryDistress Time Seen by Provider: 09/17/19 08:44 Hx Obtained From: Patient Onset/Duration: Gradual Onset Timing: Constant - Allergy/Home Medications Allergies/Adverse Reactions: Allergies Allergy/AdvReac Type Severity Reaction Status Date / Time cefaclor Allergy Swelling Verified 09/17/19 08:45 codeine Allergy Swelling Verified 09/17/19 08:45 erythromycin base Allergy Swelling Verified 09/17/19 08:45 hydrocodone [From Vicodin] Allergy Swelling Verified 09/17/19 08:45 ibuprofen Allergy Shortness Verified 09/17/19 08:45 of Breath latex Allergy Rash And Verified 09/17/19 08:45 Itching meperidine [From Demerol] Allergy Swelling Verified 09/17/19 08:45 morphine Allergy Swelling Verified 09/17/19 08:45 oxycodone Allergy Rash Verified 09/17/19 08:45 paroxetine [From Paxil] Allergy Swelling Verified 09/17/19 08:45 prednisone Allergy Tachycardia Verified 09/17/19 08:45 propoxyphene Allergy Swelling Verified 09/17/19 08:45 [From Darvocet-N] propranolol Allergy Swelling Verified 09/17/19 08:45 Tetracyclines Allergy Swelling Verified 09/17/19 08:45 sulfate Allergy Shortness Uncoded 09/17/19 08:45 of Breath Home Medications: Home Medications ARIPiprazole TAB* [Abilify 2 MG TAB*] 2 - 4 mg PO BEDTIME PRN 09/17/19 [History Confirmed 09/17/19] Budesonide/Formote 160/4.5(NF) [Symbicort 160/4.5 (NF)] 2 puff INH BID 09/17/19 [History Confirmed 09/17/19] Metoprolol Tartrate TAB* [Lopressor TAB*] 25 mg PO DAILY 09/17/19 [History Confirmed 09/17/19] Prochlorperazine 10 mg TAB [Compazine 10 mg TAB] 10 mg PO Q6H PRN 09/17/19 [ History Confirmed 09/17/19] PMH/Surg Hx/FS Hx/Imm Hx Endocrine/Hematology History: Reports: Hx Anemia Denies: Hx Diabetes, Hx Systemic Lupus Erythematosus Cardiovascular History: Reports: Hx Angina, Hx Congenital Heart Disease - patent foramen ovale , Hx Hypertension, Other Cardiovascular Problems/Disorders - PATIENT FORAMEN OVALE (PFO). EF%50-55 Denies: Hx Aneurysm, Hx Congestive Heart Failure, Hx Coronary Artery Disease , Hx Deep Vein Thrombosis, Hx Hypercholesterolemia, Hx Myocardial Infarction, Hx Valvular Heart Disease Respiratory History: Reports: Hx Asthma, Hx Chronic Obstructive Pulmonary Disease (COPD) Denies: Other Respiratory Problems/Disorders GI History: Reports: Hx Gall Bladder Disease, Hx Gastroesophageal Reflux Disease - ON MEDICATION FOR, Hx Hiatal Hernia, Other GI Disorders - HIATAL HERNIA History: Denies: Hx Dialysis, Hx Renal Disease Musculoskeletal History: Reports: Hx Arthritis - HANDS Denies: Hx Rheumatoid Arthritis, Hx Osteoporosis Sensory History: Reports: Hx Contacts or Glasses, Hx Vision Problem Denies: Hx Hearing Aid Opthamlomology History: Reports: Hx Contacts or Glasses, Hx Vision Problem Neurological History: Reports: Hx Migraine Denies: Hx CVA, Hx Transient Ischemic Attacks (TIA), Other Neuro Impairments/ Disorders - HERNIATED DISC Psychiatric History: Reports: Hx Anxiety - ROUTINE AND PRN MEDICATION FOR, Hx Depression - PTSD- D/T CANCER- TAKES ATIVAN DAILY, Hx Post Traumatic Stress Disorder - Cancer History Cancer Type, Location and Year: breast/2010 Hx Chemotherapy: Yes Hx Radiation Therapy: Yes - Surgical History Surgery Procedure, Year, and Place: RIGHT LUMPECTOMY, TOBI 2012, HYSTERECTOMY 1991, POWERPORT LCW, Hx Anesthesia Reactions: Yes - SEVERE ANXIETY- WITH LUMPECTOMY AND PORT PLACEMENT AND SEVERE NAUSEA - Immunization History Date of Tetanus Vaccine: up to date Date of Influenza Vaccine: 2016 Infectious Disease History: No Infectious Disease History: Denies: Hx Clostridium Difficile, Hx Hepatitis, Hx of Known/Suspected MRSA, Hx Shingles, Hx Tuberculosis, Hx Known/Suspected VRE, Hx Known/Suspected VRSA, History Other Infectious Disease, Traveled Outside the [place] in Last 30 Days - Family History Known Family History: Positive: Cardiac Disease, Other - PE - Social History Alcohol Use: Weekly Alcohol Amount: 3 drinks Hx Substance Use: No Substance Use Type: Reports: None Hx Tobacco Use: Yes Smoking Status (MU): Former Smoker Type: Cigarettes Have You Smoked in the Last Year: Yes Review of Systems Constitutional: Negative Eyes: Negative ENT: Negative Cardiovascular: Negative Positive: Shortness Of Breath, Cough Gastrointestinal: Negative Genitourinary: Negative Musculoskeletal: Negative Skin: Negative Neurological: Negative Psychological: Normal All Other Systems Reviewed And Are Negative: Yes Physical Exam - Summary Physical Exam Summary: Patient has hoarse voice indicative of laryngitis. Triage Information Reviewed: Yes Vital Signs On Initial Exam: Initial Vitals Temp Pulse Resp BP Pulse Ox 96.8 F 93 22 148/95 93 09/17/19 08:42 09/17/19 08:42 09/17/19 08:42 09/17/19 08:42 09/17/19 08:42 Vital Signs Reviewed: Yes Appearance: Positive: Well-Appearing, No Pain Distress, Well-Nourished Skin: Positive: Warm, Skin Color Reflects Adequate Perfusion Eyes: Positive: EOMI, ROSEANNA ENT: Positive: Hearing grossly normal Respiratory/Lung Sounds: Positive: Breath Sounds Present, Rhonchi, Wheezes Cardiovascular: Positive: RRR, S1, S2 Abdomen Description: Positive: Nontender, Soft Bowel Sounds: Positive: Present Musculoskeletal: Positive: Strength/ROM Intact Neurological: Positive: Sensory/Motor Intact, Alert, Oriented to Person Place, Time, Normal Gait, Speech Normal Psychiatric: Positive: Normal AVPU Assessment: Alert Procedures - Sedation Patient Received Moderate/Deep Sedation with Procedure: No Diagnostics - Vital Signs Vital Signs Temp Pulse Resp BP Pulse Ox 09/17/19 08:42 96.8 F 93 22 148/95 93 - Laboratory Result Diagrams: 09/17/19 09:00 09/17/19 09:00 Lab Statement: Any lab studies that have been ordered have been reviewed, and results considered in the medical decision making process. Course/Dx - Course Course Of Treatment: Patient was evaluated in the emergency department for shortness of breath. Patient was seen and examined her vitals are stable and she is afebrile. Patient was given 1 DuoNeb nebulizer treatment as well as 125 mg methylprednisolone. Labs returned showing no leukocytosis or evidence of infection. No significant electrolyte abnormalities.rapid influenza swab negative. Chest x-ray returned showing pulmonary information consistent with COPD but no evidence of pneumonia or infiltrate. After treatment patient's oximetry remained above 96% including during ambulatory oximetry trial. Patient was diagnosed with laryngitis and viral upper respiratory infection causing COPD exacerbation. Patient is to use her home oxygen during the day and night and take bawz-hjk-btawvty decongestant such as Mucinex. Patient feels comfortable with discharge and states she has adequate supplies for nebulizer treatments at home. Patient to follow-up with her PCP in 5-7 days after discharge. - Diagnoses Differential Diagnosis/HQI/PQRI: Positive: Airway Obstruction, Asthma, Bronchitis, COPD Exacerbation, DE, Pneumonia, Pneumothorax, Pulmonary Edema Provider Diagnoses: COPD with exacerbation, Laryngitis, Upper respiratory infection Discharge ED - Sign-Out/Discharge Documenting (check all that apply): Patient Departure - Discharge Plan Condition: Stable Disposition: HOME Patient Education Materials: Laryngitis (ED) Referrals: Johan Shukla MD [Primary Care Provider] - 5 Days Additional Instructions: You were seen in the emergency department today and diagnosed with laryngitis. This was a viral upper respiratory infection. Your symptoms will resolve on their own, in the meantime please wear your oxygen during the day and night and be sure to take decongestant such as Mucinex. Please return to the emergency department immediately if you develop any new or worsening symptoms. Please follow up with your primary care physician in 5-7 days for further evaluation and management. - Billing Disposition and Condition Condition: STABLE Disposition: Home - Attestation Statements Provider Attestation: I was available for consult. This patient was seen by the [facility]. The patient was not presented to, seen by, or examined by me. Lee Rivera MD
[2019-09-17 09:11] LABS: ABS Eosinophils 0.1 10^3/ul (0-0.6); ABS Lymphocytes 1.4 10^3/ul (1.0-4.8); ABS Monocytes 0.6 10^3/ul (0-0.8); ABS Neutrophils 4.3 10^3/ul (1.5-7.7); Eosinophil % 1.7 %; Hematocrit 41 % (35-47); Lymphocyte % 21.1 %; Mean Corpuscular HGB Conc 35 g/dL (31-36); Mean Corpuscular Hemoglobin 34 pg (27-31); Mean Corpuscular Volume 99 fL (80-97); Mean Platelet Volume 8.4 fL (7.4-10.4); Platelet Count 213 10^3/uL (150-450); Red Blood Count 4.11 10^6 /uL (3.70-4.87); Red Cell Distribution Width 14 % (10-15); White Blood Count 6.4 10^3/uL (3.5-10.8)
[2019-09-17 09:14] LABS: Influenza A Molecular NEGATIVE (Negative); Influenza B Molecular NEGATIVE (Negative)
[2019-09-17 09:27] LABS: Albumin 3.9 g/dL (3.2-5.2); Albumin/Globulin Ratio 1.3 (1-3); BUN/Creatinine Ratio 13.6 (8-20); Calcium 8.7 mg/dL (8.6-10.3); EGFR African American 109.8 (>60); EGFR Non-African American 90.7 (>60); Potassium 4.3 mmol/L (3.5-5.0); Total Bilirubin 0.4 mg/dL (0.2-1.0); Total Protein 6.9 g/dL (6.4-8.9)
[2019-09-17] MEDS ORDERED: methylPREDNISolone 125 MG* 2 ML VIAL IV ONE (09:44)
[2019-09-17 10:15] LABS: HIV 4th Generation Nonreactive (Nonreactive)
[2019-09-17 10:41] LABS: Hepatitis C Antibody Negative (Negative)
[2019-09-17 10:54] VITALS: BP 133/90
== END 2019-09-17 10:50 | disposition home or self-care (01) ==
LOC: ED 08:41
DX: J44.1 Chronic obstructive pulmonary disease with (acute) exacerbation (principal); J04.0 Acute laryngitis; J06.9 Acute upper respiratory infection, unspecified
CPT/HCPCS: 36415; 71046; 80053; 85025; 86803; 87389; 96374; 99284; A9270-GY; J2930

== ENCOUNTER 2021-02-11 12:51 | Observation (INO) ==
[2021-02-11] MEDS ORDERED: Magnesium Sulfate 2 gm BAG 2 GM/50 ML BAG IVPB ONE (13:04)
[2021-02-11] MEDS ORDERED: Albuterol HFA INHALER 8 gm MDI INH ONE (13:04)
[2021-02-11 13:53] LABS: Hematocrit 36 % (35-47); Hemoglobin 12.2 g/dL (12.0-16.0); Mean Corpuscular HGB Conc 34 g/dL (31-36); Mean Corpuscular Hemoglobin 34 pg (27-31); Mean Corpuscular Volume 100 fL (80-97); Mean Platelet Volume 9.2 fL (7.4-10.4); Platelet Count 246 10^3/uL (150-450); Red Blood Count 3.64 10^6 /uL (3.70-4.87); Red Cell Distribution Width 15 % (10-15); White Blood Count 10.7 10^3/uL (3.5-10.8)
[2021-02-11 14:11] LABS: ABS Eosinophils 0.2 10^3/ul (0-0.6); ABS Lymphocytes 1.3 10^3/ul (1.0-4.8); ABS Monocytes 0.8 10^3/ul (0-0.8); ABS Neutrophils 8.5 10^3/ul (1.5-7.7); Anion Gap 6 mmol/L (2-11); Blood Urea Nitrogen 8 mg/dL (6-24); CO2 Carbon Dioxide 27 mmol/L (22-32); Calcium 9.1 mg/dL (8.6-10.3); Chloride 101 mmol/L (101-111); EGFR Non-African American 85.9 (>60); Eosinophil % 1.5 %; Glucose 125 mg/dL (70-100); Lymphocyte % 12.4 %; Potassium 4.5 mmol/L (3.5-5.0); Sodium 134 mmol/L (135-145)
[2021-02-11] MEDS ORDERED: Al Hydrox/Mg Hydrox/Simet LIQ 30 ML UDC PO PRN (15:16)
[2021-02-11] MEDS ORDERED: Albuterol 2.5mg/3 ml (0.083%) NEB.SOLN INH PRN (15:19)
[2021-02-11 17:39] LABS: Troponin I 0.01 ng/mL (<0.03)
[2021-02-11] MEDS ORDERED: Enoxaparin 40 MG/0.4 ML SYR SUBCUT SCH (18:00)
[2021-02-11] MEDS: Clindamycin 600 MG/D5W BAG 600 MG/50 ML BAG IV SCH (18:08)
[2021-02-11] MEDS: Albuterol/Ipratropium NEB.SOL (2.5/0.5 MG) 3 ML NEB.SOLN INH SCH (19:04)
[2021-02-12] MEDS: Albuterol/Ipratropium NEB.SOL (2.5/0.5 MG) 3 ML NEB.SOLN INH SCH ×3 (00:45→12:26)
[2021-02-12] MEDS: Clindamycin 600 MG/D5W BAG 600 MG/50 ML BAG IV SCH ×2 (01:39→10:16)
[2021-02-12 12:15] VITALS: BP 123/60
[2021-02-12] MEDS ORDERED: Mometasone/Formoter 200/5 MDI INH SCH (21:00)
== END 2021-02-12 15:50 | disposition home or self-care (01) ==
LOC: MEDTELE 12:51 → ED 12:51
PROVIDERS: ADMIT Hospitalist; ATTEND Internal Medicine